=== PATIENT | female | born 1965 | race Caucasian/White ===

== ENCOUNTER 2016-05-05 20:03 | Inpatient (IN) | payer BC, OTHER ==
[~2016-05-05] VITALS: Ht 160 cm; Wt 78.9 kg
[~2016-05-05 20:03] MED LIST: ASPEC81 PO; FERR325T PO; HYDR25TA4 PO; LPR25 PO; MTR600X PO; OXYC5TAB PO; RANITAB6 PO
[2016-05-05] MEDS ORDERED: SODIUM CHLORIDE 0.9% 1000ML 1,000 ML IV STA (20:47)
[2016-05-05] MEDS ORDERED: ONDANSETRON INJ 2 MG/ML 2 ML VIAL IV STA (20:47)
[2016-05-05] MEDS ORDERED: METO25TA56 PO (21:01)
[2016-05-05] MEDS ORDERED: CALC-20 PO (21:01)
--- NOTE | 2016-05-05 21:02 | EMERGENCY ROOM VISIT NOTE ---
History Report prepared by [place]: Yoselyn Cifuentes Under the Supervision of: Alisia AllenO. First contact with patient: 20:44 Chief Complaint: ABDOMINAL PAIN Stated Complaint: SHARP PAIN ON L SIDE History of Present Illness The patient is a 50 year old female who presents to the Emergency Room with complaints of sharp left sided abdominal pain beginning 8 hours ago. The patient states that she was watching TV when her pain began. She reports that nothing makes her pain worse or better. She complains of nausea. The patient denies any blood in the urine, chest pain, shortness of breath, and back pain. She notes that she has a history of hypertension, PVCs, and bone spurs. The patient states that she has had a kidney stone before and the pain was more in her back last time but she was able to pass the stone. She rates her pain as a 10/10 in severity. Source of History: patient Onset: 8 hours ago Position: abdomen (left side) Symptom Intensity: 10/10 Quality: sharp Timing: constant Modifying Factors (Worsening): other (none) Modifying Factors (Relieving): other (none) Associated Symptoms: + nausea, No SOB, No back pain, No chest pain Note: The patient denies any blood in the urine. Review of Systems See HPI for pertinent positives & negatives. A total of 10 systems reviewed and were otherwise negative. Past Medical & Surgical Medical Problems: (1) HTN (hypertension) (2) Menorrhagia (3) PVC (premature ventricular contraction) Family History No pertinent family history stated. Social History Smoking Status: Never Smoker Alcohol Use: none Drug Use: none Marital Status: Housing Status: lives with family Occupation Status: employed Current/Historical Medications Scheduled Aspirin (Aspirin Ec), 81 MG PO DAILY Calcium Carbonate-Vitamin D (Calcium 600 + D), 1 TAB PO BID Cholecalciferol (Vitamin D3), 1,000 INTER.UNIT PO BID Fish Oil ([place]-3), 1 CAP PO BID Hydrochlorothiazide (Hydrochlorothiazide), 25 MG PO DAILY Metoprolol Tartrate (Lopressor) (Lopressor), 12.5 MG PO BID Multiple Vitamin (Multi Vitamin Daily), 1 TAB PO QAM Scheduled PRN Ranitidine Hcl (Zantac 150 Maximum Streng), 150 MG PO HS PRN for Acid Reflux Allergies Coded Allergies: No Known Allergies (Unverified , 05/05/16) Physical Exam Vital Signs Date Time Temp Pulse Resp B/P Pulse Ox O2 Delivery O2 Flow Rate FiO2 05/05/16 20:06 36.8 95 18 190/98 96 Room Air Physical Exam GENERAL: Patient is awake, alert, very anxious and uncomfortable appearing. EYES: The conjunctivae are clear. The pupils are round and reactive. EARS, NOSE, MOUTH AND THROAT: The nose is without any evidence of any deformity. Mucous membranes are moist tongue is midline NECK: The neck is nontender and supple. RESPIRATORY: Normal respiratory effort is noted there is no evidence of wheezing rhonchi or rales CARDIOVASCULAR: Regular rate and rhythm noted there no murmurs rubs or gallops normal S1 normal S2 GASTROINTESTINAL: Bowel sounds are present in all quadrants. Mildly distended but soft, there was left sided abdominal tenderness to palpation but no guarding or rigidity. BACK: No midline tenderness or or step-off noted range of motion in flexion extension as well as rotation no signs of muscle spasm noted MUSCULOSKELETAL/EXTREMITIES: There is no evidence of gross deformity full range of motion is noted in the hips and shoulders SKIN: There is no obvious evidence of any rash. There are no petechiae, pallor or cyanosis noted. NEUROLOGIC: Patient is awake alert and oriented x3 strength is symmetric patellar reflexes are 2+ bilaterally Medical Decision & Procedures ER Provider Diagnostic Interpretation: CT results as stated below per my review and radiologist interpretation. CT SCAN OF THE ABDOMEN AND PELVIS WITHOUT IV CONTRAST FINDINGS: Lung bases: The heart is normal in size and without pericardial effusion. The lung bases are clear noting dependent atelectasis. Liver: The unenhanced liver is mildly enlarged, measuring 20.5 cm in length. The liver demonstrates diminished attenuation consistent with hepatic steatosis. Fatty sparing is seen adjacent to the gallbladder fossa. There is no intrahepatic biliary ductal dilatation. Gallbladder: Unremarkable. Spleen: Normal in size and attenuation. Pancreas: Unremarkable. Adrenal glands: Unremarkable. Kidneys: The unenhanced kidneys are normal in size. There are 2 calcifications identified along the course of the distal left ureter approximately 2.5 cm above the vesicoureteral junction. These are best seen on axial image #371, and the larger stone measures up to 4 mm. These likely represent obstructing ureteral calculi, and there is mild to moderate left hydroureteronephrosis. There is associated perinephric and periureteric stranding and trace fluid. There are at least 5 additional nonobstructing left renal calculi measuring up to 8 mm. There are at least 3 nonobstructing calculi in the lower pole the right kidney measuring up to 3 mm. There is no right-sided hydronephrosis. There is no evidence of contour deforming renal mass lesion. Abdominal vasculature: The abdominal aorta is normal in course and caliber. Bowel: The small bowel and colon are normal in course and caliber. There is mild to moderate colonic fecal retention. There is mild colonic diverticulosis without CT evidence of acute diverticulitis. The appendix is well-visualized and normal. Peritoneum: There is no intraperitoneal free air or abdominal ascites. There is a small fat-containing umbilical hernia. Lymphadenopathy: None. Pelvic viscera: The bladder is normal as visualized. The uterus is surgically absent. There is a 4.5 cm cystic lesion in the right ovary seen on image #361. There is trace free fluid in the cul-de-sac. Skeletal structures: No lytic or blastic lesions are seen. IMPRESSION: 1. There are 2 adjacent calcifications identified along the course of the distal left ureter approximately 2.5 cm above the vesicoureteral junction measuring up to 4 mm. Although the ureter is difficult to follow at this level, these likely represent obstructing left ureteral calculi. There is mild to moderate left-sided hydroureteronephrosis. 2. Additional bilateral nonobstructing renal calculi as above. 3. Hepatomegaly and mild hepatic steatosis. 4. Mild colonic diverticulosis without CT evidence of acute diverticulitis. 5. There is a 4.5 cm simple appearing cystic lesion identified in the right ovary. This may be within physiologic limits. Follow-up pelvic ultrasound in 2-3 months time is recommended for reassessment. A right ovarian cyst was also identified on the 2013 pelvic ultrasound. 6. There is trace free fluid in the cul-de-sac, possibly within physiologic limits. Electronically signed by: Cleve Tom M.D. 05/05/2016 10:06 PM Dictated Date/Time: 05/05/2016 9:53 PM Laboratory Results 05/05/16 20:55 Red Blood Count 4.21, Mean Corpuscular Volume 91.2, Mean Corpuscular Hemoglobin 32.3, Mean Corpuscular Hemoglobin Concent 35.4, Mean Platelet Volume 10.3, Neutrophils (%) (Auto) 88.3, Lymphocytes (%) (Auto) 5.1, Monocytes (%) (Auto) 5.0, Eosinophils (%) (Auto) 1.1, Basophils (%) (Auto) 0.1, Neutrophils # (Auto) 15.80, Lymphocytes # (Auto) 0.91, Monocytes # (Auto) 0.89, Eosinophils # (Auto) 0.19, Basophils # (Auto) 0.02 05/05/16 20:55 Test 05/05/16 20:55 White Blood Count 17.88 K/uL (4.8-10.8) Red Blood Count 4.21 M/uL (4.2-5.4) Hemoglobin 13.6 g/dL (12.0-16.0) Hematocrit 38.4 % (37-47) Mean Corpuscular Volume 91.2 fL (80-100) Mean Corpuscular Hemoglobin 32.3 pg (25-34) Mean Corpuscular Hemoglobin Concent 35.4 g/dl (32-36) Platelet Count 238 K/uL (130-400) Mean Platelet Volume 10.3 fL (7.4-10.4) Neutrophils (%) (Auto) 88.3 % Lymphocytes (%) (Auto) 5.1 % Monocytes (%) (Auto) 5.0 % Eosinophils (%) (Auto) 1.1 % Basophils (%) (Auto) 0.1 % Neutrophils # (Auto) 15.80 K/uL (1.4-6.5) Lymphocytes # (Auto) 0.91 K/uL (1.2-3.4) Monocytes # (Auto) 0.89 K/uL (0.11-0.59) Eosinophils # (Auto) 0.19 K/uL (0-0.5) Basophils # (Auto) 0.02 K/uL (0-0.2) RDW Standard Deviation 43.2 fL (36.4-46.3) RDW Coefficient of Variation 13.0 % (11.5-14.5) Immature Granulocyte % (Auto) 0.4 % Immature Granulocyte # (Auto) 0.07 K/uL (0.00-0.02) Urine Color YELLOW Urine Appearance CLEAR (CLEAR) Urine pH 7.0 (4.5-7.5) Urine Specific [place] 1.013 (1.000-1.030) Urine Protein NEG (NEG) Urine Glucose (UA) NEG (NEG) Urine Ketones NEG (NEG) Urine Occult Blood 2+ (NEG) Urine Nitrite NEG (NEG) Urine Bilirubin NEG (NEG) Urine Urobilinogen NEG (NEG) Urine Leukocyte Esterase TRACE (NEG) Urine WBC (Auto) 5-10 /hpf (0-5) Urine RBC (Auto) 10-30 /hpf (0-4) Urine Hyaline Casts (Auto) 1-5 /lpf (0-5) Urine Epithelial Cells (Auto) >30 /lpf (0-5) Urine Bacteria (Auto) 1+ (NEG) Anion Gap 11.0 mmol/L (3-11) Est Creatinine Clear Calc Drug Dose 66.1 ml/min Estimated GFR () 75.9 Estimated GFR (Non- 65.5 BUN/Creatinine Ratio 19.3 (10-20) Calcium Level 9.2 mg/dl (8.5-10.1) Total Bilirubin 0.2 mg/dl (0.2-1) Direct Bilirubin 0.1 mg/dl (0-0.2) Aspartate Amino Transf (AST/SGOT) 17 U/L (15-37) Alanine Aminotransferase (ALT/SGPT) 22 U/L (12-78) Alkaline Phosphatase 95 U/L (45-117) Total Protein 7.3 gm/dl (6.4-8.2) Albumin 3.6 gm/dl (3.4-5.0) Lipase 134 U/L (73-393) Laboratory results per my review. Medications Administered Medications (Trade) Dose Ordered Sig/Caitlin Route Start Time Stop Time Status Last Admin Dose Admin Sodium Chloride (Nss 1000ml) 1,000 ml @ 999 mls/hr Q1H1M STAT IV 05/05/16 20:47 05/05/16 21:47 DC 05/05/16 21:15 999 MLS/HR Morphine Sulfate (MoRPHine SULFATE INJ) 4 mg Q15M PRN IV 05/05/16 21:00 05/19/16 20:59 05/05/16 21:17 4 MG Ondansetron HCl (Zofran Inj) 4 mg NOW STAT IV 05/05/16 20:47 05/05/16 20:49 DC 05/05/16 21:15 4 MG Ketorolac Tromethamine (Toradol Inj) 30 mg NOW STAT IV 05/05/16 21:10 05/05/16 21:12 DC 05/05/16 21:16 30 MG ED Course 2043: The patient was evaluated in room A3. A complete history and physical examination were performed. 2046: Zofran Inj 4mg IV, NSS 1,000 ml @ 999 mls/hr IV. 2099: Morphine Sulfate 4mg PRN IV pain. 2209: I reevaluated the patient. She is feeling much better. 2109: Toradol Inj 30mg IV. 2122: I reevaluated the patient. She is still having a lot of pain. 2234: I discussed the patient's case with Dr. Be. The patient will be evaluated for further management. 2239: Upon reevaluation, the patient is hemodynamically stable. I discussed results and treatment plan with the patient. She verbalizes agreement and understanding. I spoke with Dr. Be of the [facility]. The patient will be evaluated for further management and care. Medical Decision Differential diagnosis: Etiologies such as renal colic, appendicitis, diverticulitis, mesenteric ischemia, aortic pathology, infections, inflammatory bowel disease, PUD, biliary pathology, UTI, as well as others were entertained. Nursing notes reviewed. The patient is a 50-year-old female who presented to the emergency department for an evaluation of acute left flank pain. The patient had very severe left flank pain. She is a history of kidney stones in the past. She was found have hematuria but also had signs of possible urinary tract infection with some white blood cells in the urinalysis. She was started on IV fluids IV pain medicine and IV antiemetics. She was also given IV antibiotics and Flomax. On subsequent reevaluation she was significantly improved. She was found have an elevated white blood cell count as well as signs of multiple distal left ureteral calculi. She had stranding around her kidney and I was very concerned that this could be consistent with a pyelonephritis with a ureteral calculi. This reason I discussed her case with the on-call [facility] hospitalist group. They've agreed to evaluate the patient in the emergency department for further management and disposition. Consults Time Called: 2224 Consulting Physician: Dr. Be - [facility] Returned Call: [phone] I discussed the patient's case with Dr. Be of [facility]. The patient will be evaluated for further management. Impression Primary Impression: Renal colic Additional Impressions: Hydronephrosis UTI (urinary tract infection) Scribe Attestation The scribe's documentation has been prepared under my direction and personally reviewed by me in its entirety. I confirm that the note above accurately reflects all work, treatment, procedures, and medical decision making performed by me. Departure Information Referrals Miryam Tapia, C.R.N.P (PCP) Patient Instructions My [facility] Problem Qualifiers
[2016-05-05 21:08] LABS: BASO % 0.1 %; BASO ABS # 0.02 K/uL (0-0.2); COMPLETE YES; EOS % 1.1 %; HEMATOCRIT 38.4 % (37-47); IG% 0.4 %; LYMPH % 5.1 %; LYMPH ABS # 0.91 K/uL (1.2-3.4); MEAN CELL VOLUME 91.2 fL (80-100); MEAN CORPUSCULAR HEMOGLOBIN 32.3 pg (25-34); MEAN CORPUSCULAR HGB CONC 35.4 g/dl (32-36); MEAN PLATELET VOLUME 10.3 fL (7.4-10.4); NEUT % 88.3 %; PLATELET COUNT 238 K/uL (130-400); RED BLOOD COUNT 4.21 M/uL (4.2-5.4); WHITE BLOOD COUNT 17.88 K/uL (4.8-10.8)
[2016-05-05] MEDS ORDERED: KETOROLAC TROMETHAMINE 30 MG/ML VIAL IV STA (21:10)
[2016-05-05] MEDS: MoRPHine SULFATE 4 MG/ML 1 ML CARP\\VIAL IV PRN ×2 (21:17→22:54)
[2016-05-05 21:19] LABS: URINE APPEARANCE CLEAR (CLEAR); URINE BILIRUBIN NEG (NEG); URINE COLOR YELLOW; URINE EPITHELIAL CELL AUTO >30 /lpf (0-5); URINE NITRITE NEG (NEG); URINE SPECIFIC GRAVITY 1.013 (1.000-1.030); UROBILINOGEN NEG (NEG)
[2016-05-05 21:21] LABS: MANUAL MICROSCOPIC REQUIRED? NO; REVIEW REQ? NO
[2016-05-05 21:26] LABS: BUN/CREATININE RATIO 19.3 (10-20); CALCIUM 9.2 mg/dl (8.5-10.1); CREATININE 0.99 mg/dl (0.60-1.20)
--- NOTE | 2016-05-05 22:08 | DIAGNOSTIC IMAGING REPORT ---
CT SCAN OF THE ABDOMEN AND PELVIS WITHOUT IV CONTRAST CLINICAL HISTORY: Left flank pain. COMPARISON STUDY: Pelvic ultrasound dated 07/19/2013. TECHNIQUE: CT scan of the abdomen and pelvis is performed from the lung bases to the proximal femora. Images are reviewed in the axial, sagittal, and coronal planes. IV contrast was not administered for this examination as per the referring clinician. Automated dose control exposure was utilized. CT DOSE: 400.00 mGy.cm FINDINGS: Lung bases: The heart is normal in size and without pericardial effusion. The lung bases are clear noting dependent atelectasis. Liver: The unenhanced liver is mildly enlarged, measuring 20.5 cm in length. The liver demonstrates diminished attenuation consistent with hepatic steatosis. Fatty sparing is seen adjacent to the gallbladder fossa. There is no intrahepatic biliary ductal dilatation. Gallbladder: Unremarkable. Spleen: Normal in size and attenuation. Pancreas: Unremarkable. Adrenal glands: Unremarkable. Kidneys: The unenhanced kidneys are normal in size. There are 2 calcifications identified along the course of the distal left ureter approximately 2.5 cm above the vesicoureteral junction. These are best seen on axial image #371, and the larger stone measures up to 4 mm. These likely represent obstructing ureteral calculi, and there is mild to moderate left hydroureteronephrosis. There is associated perinephric and periureteric stranding and trace fluid. There are at least 5 additional nonobstructing left renal calculi measuring up to 8 mm. There are at least 3 nonobstructing calculi in the lower pole the right kidney measuring up to 3 mm. There is no right-sided hydronephrosis. There is no evidence of contour deforming renal mass lesion. Abdominal vasculature: The abdominal aorta is normal in course and caliber. Bowel: The small bowel and colon are normal in course and caliber. There is mild to moderate colonic fecal retention. There is mild colonic diverticulosis without CT evidence of acute diverticulitis. The appendix is well-visualized and normal. Peritoneum: There is no intraperitoneal free air or abdominal ascites. There is a small fat-containing umbilical hernia. Lymphadenopathy: None. Pelvic viscera: The bladder is normal as visualized. The uterus is surgically absent. There is a 4.5 cm cystic lesion in the right ovary seen on image #361. There is trace free fluid in the cul-de-sac. Skeletal structures: No lytic or blastic lesions are seen. IMPRESSION: 1. There are 2 adjacent calcifications identified along the course of the distal left ureter approximately 2.5 cm above the vesicoureteral junction measuring up to 4 mm. Although the ureter is difficult to follow at this level, these likely represent obstructing left ureteral calculi. There is mild to moderate left-sided hydroureteronephrosis. 2. Additional bilateral nonobstructing renal calculi as above. 3. Hepatomegaly and mild hepatic steatosis. 4. Mild colonic diverticulosis without CT evidence of acute diverticulitis. 5. There is a 4.5 cm simple appearing cystic lesion identified in the right ovary. This may be within physiologic limits. Follow-up pelvic ultrasound in 2-3 months time is recommended for reassessment. A right ovarian cyst was also identified on the 2013 pelvic ultrasound. 6. There is trace free fluid in the cul-de-sac, possibly within physiologic limits. Electronically signed by: Cleve Tom M.D. 05/05/2016 10:06 PM Dictated Date/Time: 05/05/2016 9:53 PM
[2016-05-05] MEDS ORDERED: CEFTRIAXONE SOD INJ 1 GM ADDVIAL IV STA (22:15)
[2016-05-05] MEDS ORDERED: TAMSULOSIN HCL 0.4 MG CAP PO ONE (22:30)
[2016-05-06] VITALS (11 sets, daily range): BP systolic 113–148; BP diastolic 69–80; PULSE 74–105; TEMP 36.5–38.2; O2SAT 91–97; Ht 160 cm; Wt 78.9 kg
[2016-05-06] MEDS ORDERED: ZOLPIDEM TARTRATE 5 MG TAB PO PRN (01:15)
[2016-05-06] MEDS ORDERED: ONDANSETRON INJ 2 MG/ML 2 ML VIAL IV PRN ×2 (01:15→08:45)
[2016-05-06] MEDS: NSS + 20MEQ KCL 1000ML 1,000 ML IV SCH ×3 (01:25→22:13)
[2016-05-06] MEDS: MoRPHine SULFATE 2 MG/ML CARP IV PRN (03:29)
--- NOTE | 2016-05-06 04:42 | History and Physical ---
History & Physical Date & Time of Service: May 06, 2016 at 04:33 Chief Complaint: Hydronephrosis Of Left Kidney, Left Ureteral Calcu Primary Care Physician: Miryam Tapia C.R.N.P History of Present Illness Source: patient, spouse The patient is a 50-year-old female who presents emergency department with complaint of left-sided abdominal pain that began about 8 hours prior to arrival. She has had a history of kidney stones many years ago, and reports that the pain at that time was more in her back but she was able to pass the stone on her own. She does not remember the name of her urologist at that time. She reports that she was watching TV at the time the pain began. She denies any blood in urine, dysuria or urinary frequency. Past Medical/Surgical History Medical Problems: (1) HTN (hypertension) Status: Chronic (2) PVC (premature ventricular contraction) Status: Chronic Social History Smoking Status: Never Smoker Smokeless Tobacco Use: No Alcohol Use: none Drug Use: none Marital Status: Housing status: lives with family Occupational Status: employed Multi-Drug Resistant Organisms History of MDRO: No Allergies Coded Allergies: No Known Allergies (Unverified , 05/05/16) Home Medications Scheduled Aspirin (Aspirin Ec), 81 MG PO DAILY Calcium Carbonate-Vitamin D (Calcium 600 + D), 1 TAB PO BID Cholecalciferol (Vitamin D3), 1,000 INTER.UNIT PO BID Fish Oil (Decherd-3), 1 CAP PO BID Hydrochlorothiazide (Hydrochlorothiazide), 25 MG PO DAILY Metoprolol Tartrate (Lopressor) (Lopressor), 12.5 MG PO BID Multiple Vitamin (Multi Vitamin Daily), 1 TAB PO QAM Scheduled PRN Ranitidine Hcl (Zantac 150 Maximum Streng), 150 MG PO HS PRN for Acid Reflux Review of Systems The patient denies chest pain, palpitations, shortness of breath, cough, lower extremity swelling, vision change, hearing change, sore throat, fevers, chills, sweats, weight change, fatigue, nausea, vomiting, blood in urine or stool, dysuria, urinary frequency or urgency, lightheadedness, dizziness, headache, memory loss, rash, abnormal bruising or bleeding, imbalance, focal or generalized weakness, numbness or tingling in arms or legs, arthralgias or myalgias, neck pain, night sweats, or allergy symptoms. The review of systems is otherwise negative other than for that already noted above, and at least 10 systems have been reviewed. Physical Exam Vital Signs Date Time Temp Pulse Resp B/P Pulse Ox O2 Delivery O2 Flow Rate FiO2 05/06/16 00:45 Room Air 05/06/16 00:40 37.2 99 16 131/80 94 Room Air 05/05/16 22:49 86 18 136/82 93 Room Air 05/05/16 20:06 36.8 95 18 190/98 96 Room Air The patient is awake, well-developed and adequately nourished, alert and oriented 3, normocephalic and atraumatic, lying in bed and in no further acute distress after receiving IV pain medication. HEENT--PERRL, EOMI, mucous membranes moist, and oropharynx normal. Neck--supple, no JVD or bruits, thyroid normal, trachea midline, no adenopathy. Heart--normal S1 and S2, no extra beats, no murmurs, rubs or gallops. Lungs--clear bilaterally with good air movement, no respiratory distress, no accessory muscle use. Abdomen--normal bowel sounds and soft, nontender and nondistended, no hernias or masses, no organomegaly. Extremities--no cyanosis, clubbing or edema. There are good distal pulses b/l. Dermatologic--normal skin turgor, normal color, warm and dry, no abnormal lymph nodes, no rash. Neurologic--cranial nerves II through XII grossly intact, motor and sensory examination normal. Rheumatologic--normal range of motion, nontender, muscles and joints. Psychiatric--normal affect. Diagnostics Laboratory Results Results Past 24 Hours Test 05/05/16 20:55 Range/Units White Blood Count 17.88 4.8-10.8 K/uL Red Blood Count 4.21 4.2-5.4 M/uL Hemoglobin 13.6 12.0-16.0 g/dL Hematocrit 38.4 37-47 % Mean Corpuscular Volume 91.2 80-100 fL Mean Corpuscular Hemoglobin 32.3 25-34 pg Mean Corpuscular Hemoglobin Concent 35.4 32-36 g/dl Platelet Count 238 130-400 K/uL Mean Platelet Volume 10.3 7.4-10.4 fL Neutrophils (%) (Auto) 88.3 % Lymphocytes (%) (Auto) 5.1 % Monocytes (%) (Auto) 5.0 % Eosinophils (%) (Auto) 1.1 % Basophils (%) (Auto) 0.1 % Neutrophils # (Auto) 15.80 1.4-6.5 K/uL Lymphocytes # (Auto) 0.91 1.2-3.4 K/uL Monocytes # (Auto) 0.89 0.11-0.59 K/uL Eosinophils # (Auto) 0.19 0-0.5 K/uL Basophils # (Auto) 0.02 0-0.2 K/uL RDW Standard Deviation 43.2 36.4-46.3 fL RDW Coefficient of Variation 13.0 11.5-14.5 % Immature Granulocyte % (Auto) 0.4 % Immature Granulocyte # (Auto) 0.07 0.00-0.02 K/uL Urine Color YELLOW Urine Appearance CLEAR CLEAR Urine pH 7.0 4.5-7.5 Urine Specific [place] 1.013 1.000-1.030 Urine Protein NEG NEG Urine Glucose (UA) NEG NEG Urine Ketones NEG NEG Urine Occult Blood 2+ NEG Urine Nitrite NEG NEG Urine Bilirubin NEG NEG Urine Urobilinogen NEG NEG Urine Leukocyte Esterase TRACE NEG Urine WBC (Auto) 5-10 0-5 /hpf Urine RBC (Auto) 10-30 0-4 /hpf Urine Hyaline Casts (Auto) 1-5 0-5 /lpf Urine Epithelial Cells (Auto) >30 0-5 /lpf Urine Bacteria (Auto) 1+ NEG Sodium Level 142 136-145 mmol/L Potassium Level 4.0 3.5-5.1 mmol/L Chloride Level 104 98-107 mmol/L Carbon Dioxide Level 27 21-32 mmol/L Anion Gap 11.0 3-11 mmol/L Blood Urea Nitrogen 19 7-18 mg/dl Creatinine 0.99 0.60-1.20 mg/dl Est Creatinine Clear Calc Drug Dose 66.1 ml/min Estimated GFR () 75.9 Estimated GFR (Non- 65.5 BUN/Creatinine Ratio 19.3 10-20 Random Glucose 143 70-99 mg/dl Calcium Level 9.2 8.5-10.1 mg/dl Total Bilirubin 0.2 0.2-1 mg/dl Direct Bilirubin 0.1 0-0.2 mg/dl Aspartate Amino Transf (AST/SGOT) 17 15-37 U/L Alanine Aminotransferase (ALT/SGPT) 22 12-78 U/L Alkaline Phosphatase 95 45-117 U/L Total Protein 7.3 6.4-8.2 gm/dl Albumin 3.6 3.4-5.0 gm/dl Lipase 134 73-393 U/L Microbiology Results 05/05/16 Urine Culture, Received Pending Diagnostic Radiology Patient Name: GUILLAUME POLANCO Unit Number: [id number] Dictated: 05/05/162152 Transcribed: 05/05/162152 EV Printed Date/Time: [~ rep prt dt]/[~ rep prt tm] [~ rep ct labl] - [~ rep ct ivnm] [facility] [place] [place] [address] Dictated: 05/05/162152 Transcribed: 05/05/162152 EV Printed Date/Time: [~ rep prt dt]/[~ rep prt tm] [~ rep ct labl] - [~ rep ct ivnm] CT SCAN OF THE ABDOMEN AND PELVIS WITHOUT IV CONTRAST CLINICAL HISTORY: Left flank pain. COMPARISON STUDY: Pelvic ultrasound dated 07/19/2013. TECHNIQUE: CT scan of the abdomen and pelvis is performed from the lung bases to the proximal femora. Images are reviewed in the axial, sagittal, and coronal planes. IV contrast was not administered for this examination as per the referring clinician. Automated dose control exposure was utilized. CT DOSE: 400.00 mGy.cm FINDINGS: Lung bases: The heart is normal in size and without pericardial effusion. The lung bases are clear noting dependent atelectasis. Liver: The unenhanced liver is mildly enlarged, measuring 20.5 cm in length. The liver demonstrates diminished attenuation consistent with hepatic steatosis. Fatty sparing is seen adjacent to the gallbladder fossa. There is no intrahepatic biliary ductal dilatation. Gallbladder: Unremarkable. Spleen: Normal in size and attenuation. Pancreas: Unremarkable. Adrenal glands: Unremarkable. Kidneys: The unenhanced kidneys are normal in size. There are 2 calcifications identified along the course of the distal left ureter approximately 2.5 cm above the vesicoureteral junction. These are best seen on axial image #371, and the larger stone measures up to 4 mm. These likely represent obstructing ureteral calculi, and there is mild to moderate left hydroureteronephrosis. There is associated perinephric and periureteric stranding and trace fluid. There are at least 5 additional nonobstructing left renal calculi measuring up to 8 mm. There are at least 3 nonobstructing calculi in the lower pole the right kidney measuring up to 3 mm. There is no right-sided hydronephrosis. There is no evidence of contour deforming renal mass lesion. Abdominal vasculature: The abdominal aorta is normal in course and caliber. Bowel: The small bowel and colon are normal in course and caliber. There is mild to moderate colonic fecal retention. There is mild colonic diverticulosis without CT evidence of acute diverticulitis. The appendix is well-visualized and normal. Peritoneum: There is no intraperitoneal free air or abdominal ascites. There is a small fat-containing umbilical hernia. Lymphadenopathy: None. Pelvic viscera: The bladder is normal as visualized. The uterus is surgically absent. There is a 4.5 cm cystic lesion in the right ovary seen on image #361. There is trace free fluid in the cul-de-sac. Skeletal structures: No lytic or blastic lesions are seen. IMPRESSION: 1. There are 2 adjacent calcifications identified along the course of the distal left ureter approximately 2.5 cm above the vesicoureteral junction measuring up to 4 mm. Although the ureter is difficult to follow at this level, these likely represent obstructing left ureteral calculi. There is mild to moderate left-sided hydroureteronephrosis. 2. Additional bilateral nonobstructing renal calculi as above. 3. Hepatomegaly and mild hepatic steatosis. 4. Mild colonic diverticulosis without CT evidence of acute diverticulitis. 5. There is a 4.5 cm simple appearing cystic lesion identified in the right ovary. This may be within physiologic limits. Follow-up pelvic ultrasound in 2-3 months time is recommended for reassessment. A right ovarian cyst was also identified on the 2013 pelvic ultrasound. 6. There is trace free fluid in the cul-de-sac, possibly within physiologic limits. Electronically signed by: Cleve Tom M.D. 05/05/2016 10:06 PM Dictated Date/Time: 05/05/2016 9:53 PM The status of this report is Signed. Draft = Not yet reviewed or approved by Radiologist. Signed = Reviewed and approved by Radiologist. <AttendingPhy></AttendingPhy> <FamilyPhy>Miryam Tapia C.R.N.P</FamilyPhy> < PrimaryPhy>Miryam Tapia C.R.N.P</PrimaryPhy> <UnitNumber>[id number]</ UnitNumber> <VisitNumber>[id number]</VisitNumber> <PatientName>GUILLAUME POLANCO< /PatientName> <DateOfBirth>1965</DateOfBirth> <Location>[facility]</Location> < ServiceDate>05/05/16</ServiceDate> <MNE>ESINDI</MNE> <OrderingPhy>Bernabe Rivas D.O.</OrderingPhy> <OrderingPhyMNE>f rep ord dr riggs</OrderingPhyMNE> <DictatingPhyMNE>f rep dict dr riggs</DictatingPhyMNE> <CCListMNE>f rep ct oneil</ CCListMNE> <AdmittingPhyMNE>f pt admit dr riggs</AdmittingPhyMNE> <AttendingPhyMNE >f pt attend dr riggs</AttendingPhyMNE> <ConsultingPhyMNE>f pt consult dr riggs</ConsultingPhyMNE> <FamilyPhyMNE>f pt fam dr riggs</FamilyPhyMNE> <OtherPhyMNE>f pt other dr riggs</OtherPhyMNE> < PrimaryPhyMNE>f pt prim care dr riggs</PrimaryPhyMNE> <ReferringPhyMNE>f pt referring dr riggs</ReferringPhyMNE> Impression Assessment and Plan Left distal ureteral calculi/left hydroureteronephrosis--the patient will be admitted to the medical surgical floor. She'll be kept nothing by mouth for possible procedure. We'll place on normal saline with potassium 20 mEq at 100 ML's per hour, ceftriaxone 1 g IV daily, and consult urology. Right ovarian cyst 4.5 cm--noted on CT of the abdomen and pelvis without IV contrast. Patient will be made aware to follow-up with her granular operator for further management. Hypertension--continue metoprolol tartrate 12.5 mg by mouth twice a day. Hold aspirin 81 mg by mouth daily and HCTZ 25 mg by mouth daily. GERD--change ranitidine 150 mg by mouth at bedtime when necessary to famotidine 20 mg IV twice a day. While nothing by mouth, will hold multivitamin daily, fish oil twice a day, vitamin D3 1000 international by mouth twice a day, and calcium 600+ D twice a day. Level of Care Med/Surg Advanced Directives Existing Advance Directive: No Existing Living Will: No Existing Power of Netbackup Engineer: No Resuscitation Status FULL RESUSCITATION VTE Prophylaxis VTE Risk Assessment Done? Y/N: Yes Risk Level: Low Given or contraindicated: SCD's Social Service Consult None Apply
[2016-05-06] MEDS: FAMOTIDINE IV INJ 20 MG in DEXTROSE 5% 100ML 100 ML IV SCH ×2 (05:54→19:36)
[2016-05-06] MEDS: ACETAMINOPHEN IV 100 ML IV PRN (06:24)
[2016-05-06] MEDS: METOPROLOL TARTRATE 25 MG TAB PO SCH ×2 (07:29→21:24)
[2016-05-06] MEDS ORDERED: CIPROFLOXACIN 400MG / 200ML D5W IV SCH (07:30)
--- NOTE | 2016-05-06 07:47 | Urology Consultation ---
History General Date of Service: May 06, 2016. Chief Complaint: left flank pain Primary Care Physician: Miryam Tapia C.R.N.P Pt seen a urologist before?: No History of Present Illness 50 yo female presents to [facility] last evening with c/o left flank pain and nausea that started yesterday afternoon. CT scan shows 2 possible distal left ureteral stones measuring up to 4mm. Further left renal stones noted as well. The pt does report a previous hx of passing a stone many years ago. She has never seen a urologist for this issue. She reports pain 2/10 this morning. Denies dysuria or hematuria. She is noted to be febrile this morning at 38.2C. White count of 17.88 this morning. Cr of 0.99. UC&S pending. She has been started on Rocephin. Imaging Imaging: CT Laboratory Last 24 Hours Test 05/05/16 20:55 White Blood Count 17.88 K/uL Red Blood Count 4.21 M/uL Hemoglobin 13.6 g/dL Hematocrit 38.4 % Mean Corpuscular Volume 91.2 fL Mean Corpuscular Hemoglobin 32.3 pg Mean Corpuscular Hemoglobin Concent 35.4 g/dl Platelet Count 238 K/uL Mean Platelet Volume 10.3 fL Neutrophils (%) (Auto) 88.3 % Lymphocytes (%) (Auto) 5.1 % Monocytes (%) (Auto) 5.0 % Eosinophils (%) (Auto) 1.1 % Basophils (%) (Auto) 0.1 % Neutrophils # (Auto) 15.80 K/uL Lymphocytes # (Auto) 0.91 K/uL Monocytes # (Auto) 0.89 K/uL Eosinophils # (Auto) 0.19 K/uL Basophils # (Auto) 0.02 K/uL RDW Standard Deviation 43.2 fL RDW Coefficient of Variation 13.0 % Immature Granulocyte % (Auto) 0.4 % Immature Granulocyte # (Auto) 0.07 K/uL Urine Color YELLOW Urine Appearance CLEAR Urine pH 7.0 Urine Specific [place] 1.013 Urine Protein NEG Urine Glucose (UA) NEG Urine Ketones NEG Urine Occult Blood 2+ Urine Nitrite NEG Urine Bilirubin NEG Urine Urobilinogen NEG Urine Leukocyte Esterase TRACE Urine WBC (Auto) 5-10 /hpf Urine RBC (Auto) 10-30 /hpf Urine Hyaline Casts (Auto) 1-5 /lpf Urine Epithelial Cells (Auto) >30 /lpf Urine Bacteria (Auto) 1+ Sodium Level 142 mmol/L Potassium Level 4.0 mmol/L Chloride Level 104 mmol/L Carbon Dioxide Level 27 mmol/L Anion Gap 11.0 mmol/L Blood Urea Nitrogen 19 mg/dl Creatinine 0.99 mg/dl Est Creatinine Clear Calc Drug Dose 66.1 ml/min Estimated GFR () 75.9 Estimated GFR (Non- 65.5 BUN/Creatinine Ratio 19.3 Random Glucose 143 mg/dl Calcium Level 9.2 mg/dl Total Bilirubin 0.2 mg/dl Direct Bilirubin 0.1 mg/dl Aspartate Amino Transf (AST/SGOT) 17 U/L Alanine Aminotransferase (ALT/SGPT) 22 U/L Alkaline Phosphatase 95 U/L Total Protein 7.3 gm/dl Albumin 3.6 gm/dl Lipase 134 U/L Problem List Medical Problems: (1) Hydronephrosis Status: Acute (2) Renal colic Status: Acute (3) UTI (urinary tract infection) Status: Acute Past History anxiety, depression, GERD, hypertension, urinary tract infection, other (PVCs, anemia, eczema, menorrhagia) Past Surgical History: , hysterectomy ([facility] July 2015), tubal ligation Family History non-contributory Social History Hx Tobacco Use In Past Year?: No Smoking: non-smoker Alcohol: never Drug use: none Marital status: Housing status: lives with family Occupation status: employed History of MDRO No Allergies Coded Allergies: No Known Allergies (Unverified , 05/05/16) Medications Home Medications: Home Meds and Scripts Medications Dose Route/Sig Max Daily Dose Days Date Category Vitamin D3 (Cholecalciferol) 1,000 Unit Tab 1,000 Inter.unit PO BID 05/05/16 Reported Calcium 600 + D (Calcium Carbonate-Vitamin D) 1 Tab Tab 1 Tab PO BID 05/05/16 Reported Aspirin Ec (Aspirin) 81 Mg Tab 81 Mg PO DAILY 05/05/16 Reported Hydrochlorothiazide 25 Mg Tab 25 Mg PO DAILY 05/05/16 Reported Lopressor (Metoprolol Tartrate) 25 Mg Tab 12.5 Mg PO BID 05/05/[address] [facility]-3 (Fish Oil) 1 Ea Cap 1 Cap PO BID 07/14/15 Reported Multi Vitamin Daily (Multiple Vitamin) 1 Tab Tab 1 Tab PO QAM 02/17/14 Reported Zantac 150 Maximum Streng (Ranitidine Hcl) 150 Mg Tab 150 Mg PO HS PRN 02/17/14 Reported Inpatient Medications: Current Inpatient Medications Medications (Trade) Dose Ordered Sig/Caitlin Route Start Time Stop Time Status Last Admin Dose Admin Acetaminophen (Tylenol Tab) 650 mg Q4H PRN PO 05/06/16 01:15 06/05/16 01:14 Zolpidem Tartrate (Ambien Tab) 5 mg HSZ PRN PO 05/06/16 01:15 06/05/16 01:14 Metoprolol Tartrate (Lopressor Tab) 12.5 mg BID PO 05/06/16 09:00 06/05/16 08:59 05/06/16 07:29 12.5 MG Ondansetron HCl 4 mg 4 mg Q6H PRN IV 05/06/16 01:15 06/05/16 01:14 Acetaminophen 100 ml @ 400 mls/hr Q8H PRN IV 05/06/16 01:15 06/05/16 01:14 05/06/16 06:24 400 MLS/HR Potassium Chloride/Sodium Chloride (Nss + 20meq KCl 1000ml) 1,000 ml @ 100 mls/hr Q10H IV 05/06/16 01:13 06/05/16 01:12 05/06/16 01:25 100 MLS/HR Morphine Sulfate (MoRPHine SULFATE INJ) 2 mg Q2H PRN IV 05/06/16 01:15 05/20/16 01:14 05/06/16 03:29 2 MG Morphine Sulfate 4 mg 4 mg Q2H PRN IV 05/06/16 01:15 05/20/16 01:14 Pantoprazole Sodium 40 mg/ Syringe 10 ml @ 5 mls/min DAILY@11 IV 05/06/16 11:00 06/05/16 10:59 Ceftriaxone Sodium 1 gm/ Dextrose 50 ml @ 100 mls/hr Q24H IV 05/06/16 23:00 05/14/16 23:29 Famotidine/ Dextrose (Pepcid IV Inj/ D5 100ml) 102 ml @ 200 mls/hr Q12H IV 05/06/16 06:00 06/05/16 05:59 05/06/16 05:54 200 MLS/HR Ciprofloxacin/ Dextrose (Cipro / D5w) 400 mg PREOP ONCE IV 05/06/16 07:30 05/06/16 07:31 UNV Tamsulosin HCl (Flomax Cap) 0.4 mg HS PO 05/06/16 21:00 06/05/16 20:59 Review of Systems Review of Systems Constitutional: + fever, No chills Eyes: No double vision Neurological: No dizzy Endocrine: No excessive thirst Gastrointestinal: + abdominal pain (LLQ 2/10), + nausea, No vomiting Cardiovascular: No chest pain Respiratory: No shortness of breath Skin: No rash Musculoskeletal: + back pain (left low back ) Female : No blood in urine, No painful urination Physical Exam Vital Signs: Vital Signs Past 12 Hours Date Time Temp Pulse Resp B/P Pulse Ox O2 Delivery O2 Flow Rate FiO2 05/06/16 07:09 38.2 105 18 122/75 91 Room Air 05/06/16 00:45 Room Air 05/06/16 00:40 37.2 99 16 131/80 94 Room Air 05/05/16 22:49 86 18 136/82 93 Room Air 05/05/16 20:06 36.8 95 18 190/98 96 Room Air Physical Exam: General Appearance: no apparent distress Eyes: bilateral eyes normal inspection ENT: hearing grossly normal Neck: no JVD Respiratory/Chest: no respiratory distress, no accessory muscle use Cardiovascular: no JVD Extremities: normal inspection Neurologic/Psychiatric: alert, normal mood/affect, oriented x 3 Skin: normal color Assessment & Plan Assessment & Plan Treatment Planned: cystoscopy w/ stent A/P: Distal left ureteral stone x 2 with fever Recommend the pt go for cysto with left ureteral stent placement in the setting of stone with fever. Risks and benefits of the procedure discussed with the pt. All questions answered. Pt agrees to the procedure at this time. Consent obtained. Will order additional pre-op Cipro in the setting of fever. Will obtain pre-op chest x-ray and EKG. Will order blood cultures this morning. Continue IV Rocephin pending culture results. Recommend she remain inpatient until she has been afebrile for at least 24hrs. Thanks for the consult. Will continue to follow along with primary service at this time. ADDENDUM: Febrile this AM. Tachycardic. Recommend immediate ureteral stent placement.
[2016-05-06] MEDS ORDERED: FENTANYL CITRATE INJ 50 MCG/1 ML 2 ML VIAL ONE (08:02)
[2016-05-06] MEDS ORDERED: MIDAZOLAM HCL 1 MG/ML 2ML VIAL ONE (08:02)
[2016-05-06] MEDS ORDERED: PROPOFOL IV EMULSION 10 MG/ML 20 ML VIAL IV ONE ×2 (08:05→08:44)
[2016-05-06] MEDS ORDERED: LIDOCAINE HCL 2% 2 ML VIAL (20MG/ML) ONE (08:05)
--- NOTE | 2016-05-06 08:14 | DIAGNOSTIC IMAGING REPORT ---
CHEST 2 VIEWS ROUTINE CLINICAL HISTORY: Preoperative evaluation. Left ureteral stone. COMPARISON STUDY: Chest CT and chest radiograph February 17, 2014 FINDINGS: Lung volumes are normal. Linear left basilar opacity is suggestive of atelectasis. There is no pneumothorax or pleural effusion. Pulmonary vascularity is normal. Cardiac size is normal. Mediastinal contours are normal. There is no evidence of pulmonary edema. IMPRESSION: No acute cardiopulmonary findings. Electronically signed by: Ethan Carson M.D. 05/06/2016 8:12 AM Dictated Date/Time: 05/06/2016 8:08 AM
[2016-05-06] MEDS ORDERED: EpHEDrine SULFATE INJ 50 MG/ML AMP IV PRN (08:45)
[2016-05-06] MEDS ORDERED: FENTANYL CITRATE INJ 50 MCG/1 ML 2 ML VIAL IV PRN (08:45)
[2016-05-06] MEDS ORDERED: ATROPINE SULFATE 0.1 MG/ML 5ML SYR IV PRN (08:45)
[2016-05-06] MEDS ORDERED: KETOROLAC TROMETHAMINE 30 MG/ML VIAL ONE (08:50)
--- NOTE | 2016-05-06 08:57 | [facility] Post Operative Brief Note ---
Immediate Operative Summary Operative Date May 06, 2016. Pre-Operative Diagnosis Left ureteral stone and sepsis Post-Operative Diagnosis left ureteral stone and sepsis Procedure(s) Performed cystoscopy; L ureteral stent insertion ([id number]) Surgeon Veena Smart MD Wood Flooring Specialist Surgeon(s) none Estimated Blood Loss 0cc Findings healthy appearing bladder. Specimens none Drains [id number] Anesthesia MAC Complication(s) None Disposition Recovery Room / PACU (stable)
--- NOTE | 2016-05-06 09:08 | DIAGNOSTIC IMAGING REPORT ---
FLUOROSCOPIC IMAGE FROM LEFT RETROGRADE EXAM WITH STENT INSERTION CLINICAL HISTORY: Left-sided stent placement. COMPARISON STUDY: CT of the abdomen and pelvis May 05, 2016. FLUOROSCOPY TIME: 8.5 seconds. FINDINGS: A single fluoroscopic image demonstrates the proximal aspect of a left ureteral stent which projects over the left renal pelvis. Several left renal calculi are suspected. IMPRESSION: Fluoroscopic image demonstrating placement of a left ureteral stent. Electronically signed by: Ethan Carson M.D. 05/06/2016 9:06 AM Dictated Date/Time: 05/06/2016 9:05 AM
--- NOTE | 2016-05-06 09:32 | OPERATIVE REPORT ---
DATE OF OPERATION: 05/06/2016 PREOPERATIVE DIAGNOSES: Left ureteral stone and sepsis. POSTOPERATIVE DIAGNOSES: Left ureteral stone and sepsis. PROCEDURE PERFORMED: Cystoscopy, left ureteral stent insertion 6-Swazi x 24 cm. ANESTHESIA: Monitored anesthesia care/sedation. ESTIMATED BLOOD LOSS: Zero. URINE OUTPUT: Not recorded. SPECIMENS: None. COMPLICATIONS: None. DESCRIPTION OF THE PROCEDURE: Marylin Mortensen was identified in the preoperative holding area. Appropriate informed consents were reviewed and completed, and she was transported to the operating suite. She received Rocephin on the floor last night and an additional dose of ciprofloxacin this morning. Adequate sedation was achieved and she was placed in dorsal lithotomy position and sterilely prepped and draped. I began the case by passing a 22-Swazi cystoscope and 30-degree lens. Full inspection of the bladder was carried out without identifying any mucosal lesions or other abnormalities. Ureteral orifices were in orthotopic position. I then turned my attention to the left ureteral orifice and cannulated it with a Sensor wire and a 5-Swazi open-ended catheter. I advanced the wire to the kidney without difficulty. I then removed the scope and the catheter. I placed a 6-Swazi 24-cm double-J ureteral stent over the existing wire. There was a good curl in the kidney as well as the bladder. I subsequently drained the bladder and concluded the case. The patient tolerated the procedure well, was reversed from anesthesia and taken to the PACU in stable condition. I attest to the content of the Intraoperative Record and any orders documented therein. Any exceptio ns are noted below.
--- NOTE | 2016-05-06 09:49 | Anesthesiology Progress Note ---
Anesthesia Post Op Note Date & Time May 06, 2016 at 09:48 Vital Signs Pain Intensity: 0 Vital Signs Past 12 Hours Date Time Temp Pulse Resp B/P Pulse Ox O2 Delivery O2 Flow Rate FiO2 05/06/16 09:45 37.3 77 17 124/70 93 Room Air 05/06/16 09:43 124/70 05/06/16 09:42 77 17 05/06/16 09:42 78 17 93 05/06/16 09:38 131/71 05/06/16 09:37 80 18 94 05/06/16 09:37 80 18 05/06/16 09:33 126/69 05/06/16 09:32 84 17 05/06/16 09:32 83 17 99 05/06/16 09:28 126/69 05/06/16 09:27 77 17 100 05/06/16 09:27 76 17 05/06/16 09:23 131/72 05/06/16 09:22 78 18 100 05/06/16 09:22 79 18 05/06/16 09:18 120/69 05/06/16 09:17 79 18 05/06/16 09:17 79 18 99 05/06/16 09:13 128/70 05/06/16 09:12 81 18 99 05/06/16 09:12 81 18 05/06/16 09:08 123/72 05/06/16 09:07 83 18 05/06/16 09:07 83 18 99 05/06/16 09:03 121/68 05/06/16 09:02 36.9 86 16 122/72 99 Mask 10 05/06/16 09:02 86 22 100 05/06/16 09:02 86 22 05/06/16 08:15 36.8 104 18 127/78 94 Room Air 05/06/16 07:20 Room Air 05/06/16 07:09 38.2 105 18 122/75 91 Room Air 05/06/16 00:45 Room Air 05/06/16 00:40 37.2 99 16 131/80 94 Room Air 05/05/16 22:49 86 18 136/82 93 Room Air Notes Mental Status: alert / awake / arousable, participated in evaluation Pt Amnestic to Procedure: Yes Nausea / Vomiting: adequately controlled Pain: adequately controlled Airway Patency, RR, SpO2: stable & adequate BP & HR: stable & adequate Hydration State: stable & adequate Anesthetic Complications: no major complications apparent
[2016-05-06] MEDS: PANTOprazole INJ 40 MG in SYRINGE 0 ML IV SCH (10:48)
[2016-05-06] MEDS: MoRPHine SULFATE 4 MG/ML 1 ML CARP\\VIAL IV PRN ×2 (15:56→22:19)
--- NOTE | 2016-05-06 16:10 | Progress Note ---
Subjective Date of Service: May 06, 2016. Subjective Pt evaluation today including: conversation w/ patient, conversation w/ family , physical exam, chart review, lab review, review of studies Voiding: voiding difficulty Problem List Medical Problems: (1) Hydronephrosis Status: Acute (2) Renal colic Status: Acute (3) UTI (urinary tract infection) Status: Acute Review of Systems Constitutional: No chills, No fever Eyes: No worsening of vision ENT: No hearing loss Respiratory: No cough, No dyspnea on exertion, No shortness of breath Cardiac: No chest pain, No edema Abdomen: + pain Musculoskeletal: No joint pain Female : + dysuria, + urinary frequency Neurologic: No paralysis, No weakness Skin: No rash Medications Current Inpatient Medications Medications (Trade) Dose Ordered Sig/Caitlin Route Start Time Stop Time Status Last Admin Dose Admin Acetaminophen (Tylenol Tab) 650 mg Q4H PRN PO 05/06/16 01:15 06/05/16 01:14 Zolpidem Tartrate (Ambien Tab) 5 mg HSZ PRN PO 05/06/16 01:15 06/05/16 01:14 Metoprolol Tartrate (Lopressor Tab) 12.5 mg BID PO 05/06/16 09:00 06/05/16 08:59 05/06/16 07:29 12.5 MG Ondansetron HCl 4 mg 4 mg Q6H PRN IV 05/06/16 01:15 06/05/16 01:14 Acetaminophen 100 ml @ 400 mls/hr Q8H PRN IV 05/06/16 01:15 06/05/16 01:14 05/06/16 06:24 400 MLS/HR Potassium Chloride/Sodium Chloride (Nss + 20meq KCl 1000ml) 1,000 ml @ 100 mls/hr Q10H IV 05/06/16 01:13 06/05/16 01:12 05/06/16 12:09 100 MLS/HR Morphine Sulfate (MoRPHine SULFATE INJ) 2 mg Q2H PRN IV 05/06/16 01:15 05/20/16 01:14 05/06/16 03:29 2 MG Morphine Sulfate 4 mg 4 mg Q2H PRN IV 05/06/16 01:15 05/20/16 01:14 Pantoprazole Sodium 40 mg/ Syringe 10 ml @ 5 mls/min DAILY@11 IV 05/06/16 11:00 06/05/16 10:59 05/06/16 10:48 5 MLS/MIN Ceftriaxone Sodium 1 gm/ Dextrose 50 ml @ 100 mls/hr Q24H IV 05/06/16 23:00 05/14/16 23:29 Famotidine/ Dextrose (Pepcid IV Inj/ D5 100ml) 102 ml @ 200 mls/hr Q12H IV 05/06/16 06:00 06/05/16 05:59 05/06/16 05:54 200 MLS/HR Tamsulosin HCl (Flomax Cap) 0.4 mg HS PO 05/06/16 21:00 06/05/16 20:59 Objective Vital Signs Date Time Temp Pulse Resp B/P Pulse Ox O2 Delivery O2 Flow Rate FiO2 05/06/16 14:57 37.0 91 18 148/80 96 Room Air 05/06/16 13:02 85 16 138/79 97 05/06/16 12:00 80 16 120/74 96 05/06/16 10:58 36.5 75 16 116/73 96 Room Air 05/06/16 10:30 36.9 74 16 117/75 93 Room Air 05/06/16 10:00 93 Room Air 05/06/16 10:00 37.1 79 16 113/74 93 Room Air 05/06/16 10:00 Room Air 05/06/16 09:45 37.3 77 17 124/70 93 Room Air 05/06/16 09:43 124/70 05/06/16 09:42 77 17 05/06/16 09:42 78 17 93 05/06/16 09:38 131/71 05/06/16 09:37 80 18 94 05/06/16 09:37 80 18 05/06/16 09:33 126/69 05/06/16 09:32 84 17 05/06/16 09:32 83 17 99 05/06/16 09:28 126/69 05/06/16 09:27 77 17 100 05/06/16 09:27 76 17 05/06/16 09:23 131/72 05/06/16 09:22 78 18 100 05/06/16 09:22 79 18 05/06/16 09:18 120/69 05/06/16 09:17 79 18 05/06/16 09:17 79 18 99 05/06/16 09:13 128/70 05/06/16 09:12 81 18 99 05/06/16 09:12 81 18 05/06/16 09:08 123/72 05/06/16 09:07 83 18 05/06/16 09:07 83 18 99 05/06/16 09:03 121/68 05/06/16 09:02 36.9 86 16 122/72 99 Mask 10 05/06/16 09:02 86 22 100 05/06/16 09:02 86 22 05/06/16 08:15 36.8 104 18 127/78 94 Room Air 05/06/16 07:20 Room Air 05/06/16 07:09 38.2 105 18 122/75 91 Room Air 05/06/16 00:45 Room Air 05/06/16 00:40 37.2 99 16 131/80 94 Room Air 05/05/16 22:49 86 18 136/82 93 Room Air 05/05/16 20:06 36.8 95 18 190/98 96 Room Air Physical Exam General Appearance: WD/WN, no apparent distress Eyes: normal inspection, PERRL, EOMI ENT: normal ENT inspection, hearing grossly normal, TMs normal, pharynx normal Neck: supple, no adenopathy, thyroid normal Respiratory/Chest: chest non-tender, lungs clear, normal breath sounds, no respiratory distress, no accessory muscle use Cardiovascular: regular rate, rhythm, no edema, no gallop, no JVD, no murmur Abdomen: normal bowel sounds, soft, + tenderness Extremities: normal range of motion, non-tender, normal inspection 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, no motor/sensory deficits, alert, normal mood/affect, oriented x 3 Skin: normal color, warm/dry, no rash Laboratory Results Last 24 Hours Test 05/05/16 20:55 05/06/16 10:16 White Blood Count 17.88 K/uL Red Blood Count 4.21 M/uL Hemoglobin 13.6 g/dL Hematocrit 38.4 % Mean Corpuscular Volume 91.2 fL Mean Corpuscular Hemoglobin 32.3 pg Mean Corpuscular Hemoglobin Concent 35.4 g/dl Platelet Count 238 K/uL Mean Platelet Volume 10.3 fL Neutrophils (%) (Auto) 88.3 % Lymphocytes (%) (Auto) 5.1 % Monocytes (%) (Auto) 5.0 % Eosinophils (%) (Auto) 1.1 % Basophils (%) (Auto) 0.1 % Neutrophils # (Auto) 15.80 K/uL Lymphocytes # (Auto) 0.91 K/uL Monocytes # (Auto) 0.89 K/uL Eosinophils # (Auto) 0.19 K/uL Basophils # (Auto) 0.02 K/uL RDW Standard Deviation 43.2 fL RDW Coefficient of Variation 13.0 % Immature Granulocyte % (Auto) 0.4 % Immature Granulocyte # (Auto) 0.07 K/uL Urine Color YELLOW Urine Appearance CLEAR Urine pH 7.0 Urine Specific [place] 1.013 Urine Protein NEG Urine Glucose (UA) NEG Urine Ketones NEG Urine Occult Blood 2+ Urine Nitrite NEG Urine Bilirubin NEG Urine Urobilinogen NEG Urine Leukocyte Esterase TRACE Urine WBC (Auto) 5-10 /hpf Urine RBC (Auto) 10-30 /hpf Urine Hyaline Casts (Auto) 1-5 /lpf Urine Epithelial Cells (Auto) >30 /lpf Urine Bacteria (Auto) 1+ Sodium Level 142 mmol/L Potassium Level 4.0 mmol/L Chloride Level 104 mmol/L Carbon Dioxide Level 27 mmol/L Anion Gap 11.0 mmol/L Blood Urea Nitrogen 19 mg/dl Creatinine 0.99 mg/dl Est Creatinine Clear Calc Drug Dose 66.1 ml/min Estimated GFR () 75.9 Estimated GFR (Non- 65.5 BUN/Creatinine Ratio 19.3 Random Glucose 143 mg/dl Calcium Level 9.2 mg/dl Total Bilirubin 0.2 mg/dl Direct Bilirubin 0.1 mg/dl Aspartate Amino Transf (AST/SGOT) 17 U/L Alanine Aminotransferase (ALT/SGPT) 22 U/L Alkaline Phosphatase 95 U/L Total Protein 7.3 gm/dl Albumin 3.6 gm/dl Lipase 134 U/L Hepatitis C Antibody Screen NEG Assessment and Plan 50 years old woman admitted with obstructive uropathy and UTI Left distal ureteral calculi/left hydroureteronephrosis S/P cystoscopy; L ureteral stent insertion ([id number]) Continue potassium 20 mEq at 100 ML's per hour, ceftriaxone 1 g IV daily consult urology appreciated Right ovarian cyst 4.5 cm--noted on CT of the abdomen and pelvis without IV contrast. Patient will be made aware to follow-up with her psychiatric secretary for further management. Hypertension--continue metoprolol tartrate 12.5 mg by mouth twice a day. Hold aspirin 81 mg by mouth daily and HCTZ 25 mg by mouth daily. GERD--change ranitidine 150 mg by mouth at bedtime when necessary to famotidine 20 mg IV twice a day. DVT prophylaxis continue pain management and supportive care
[2016-05-06 17:23] LABS: INR 1.1 (0.9-1.1); PARTIAL THROMBOPLASTIN RATIO 1.2; PROTHROMBIN TIME (PATIENT) 11.7 SECONDS (9.0-12.0)
[2016-05-06] MEDS: TAMSULOSIN HCL 0.4 MG CAP PO SCH (21:26)
[2016-05-06] MEDS: HEPARIN SOD 5000 UNIT/0.5 ML CARP SQ SCH (22:31)
[2016-05-06] MEDS ORDERED: CEFTRIAXONE SOD INJ 1 GM in DEXTROSE 5% ADD-VANTAGE 50ML 50 ML IV SCH (23:00)
[2016-05-07] VITALS (11 sets, daily range): BP systolic 120–151; BP diastolic 68–88; PULSE 69–102; TEMP 36.4–39.1; O2SAT 91–98
[2016-05-07] MEDS: ACETAMINOPHEN 325 MG TAB PO PRN ×2 (04:14→21:09)
[2016-05-07] MEDS: ACETAMINOPHEN IV 100 ML IV PRN (05:27)
[2016-05-07] MEDS ORDERED: PIPERACILL/TAZOBAC IV 3.375 GM in DEXTROSE 5% 100ML IV ONE (05:45)
[2016-05-07] MEDS ORDERED: PIPERACILL/TAZOBAC CONSULT ACTIVE PRN (05:45)
[2016-05-07] MEDS: FAMOTIDINE IV INJ 20 MG in DEXTROSE 5% 100ML 100 ML IV SCH ×2 (05:47→18:08)
[2016-05-07 05:48] LABS: BASO % 0.2 %; BASO ABS # 0.02 K/uL (0-0.2); COMPLETE YES; EOS % 0.9 %; HEMATOCRIT 32.6 % (37-47); IG% 0.3 %; LYMPH % 6.9 %; LYMPH ABS # 0.64 K/uL (1.2-3.4); MEAN CELL VOLUME 92.9 fL (80-100); MEAN CORPUSCULAR HEMOGLOBIN 31.3 pg (25-34); MEAN CORPUSCULAR HGB CONC 33.7 g/dl (32-36); MEAN PLATELET VOLUME 10.4 fL (7.4-10.4); MONO % 6.1 %; NEUT % 85.6 %; PLATELET COUNT 169 K/uL (130-400); RED BLOOD COUNT 3.51 M/uL (4.2-5.4); WHITE BLOOD COUNT 9.32 K/uL (4.8-10.8)
[2016-05-07] MEDS: NSS + 20MEQ KCL 1000ML 1,000 ML IV SCH ×2 (05:49→17:57)
[2016-05-07] MEDS: HEPARIN SOD 5000 UNIT/0.5 ML CARP SQ SCH ×3 (05:51→22:00)
[2016-05-07 06:54] LABS: ALB/GLOB RATIO 0.8 (0.9-2); BUN/CREATININE RATIO 15.8 (10-20); MAGNESIUM 1.8 mg/dl (1.8-2.4); PHOSPHORUS 1.7 mg/dl (2.5-4.9); POTASSIUM 3.7 mmol/L (3.5-5.1)
[2016-05-07 06:58] LABS: CALCIUM 7.6 mg/dl (8.5-10.1)
--- NOTE | 2016-05-07 07:42 | DIAGNOSTIC IMAGING REPORT ---
[facility]UB CLINICAL HISTORY: left ureteral stone s/p stent COMPARISON STUDY: CT scan dated 05/05/2016 FINDINGS: There is a double-pigtail left-sided nephroureteral stent. Multiple bilateral renal calculi are visualized. There are 2 small calcifications along the course of the distal aspect of the stent ( 2 mm and 4 mm), possibly representing distal left ureteral calculi. There is no pathologic bowel dilatation. IMPRESSION: 1. Bilateral nephrolithiasis 2. No evidence of pathologic bowel dilatation 3. Left-sided nephroureteral stent 4. 2 calcifications overlie the distal aspect of the left ureteral stent, possibly representing ureteral calculi Electronically signed by: Juan Armstrong M.D. 05/07/2016 7:41 AM Dictated Date/Time: 05/07/2016 7:38 AM
--- NOTE | 2016-05-07 08:06 | Progress Note ---
Subjective Date of Service: May 07, 2016. Subjective Pt evaluation today including: conversation w/ patient, chart review, lab review Voiding: no voiding problems 50 yo female s/p left ureteral stent placement for stone with fever. Pt reports some abdominal cramping this morning. + dysuria. Hematuria improved. Denies n/v. Noted to have fevers over night. Last fever 38.8C at 0518. Currently afebrile. Blood cultures pending. UC&S preliminarily growing e coli. She remains on Zosyn. Problem List Medical Problems: (1) Hydronephrosis Status: Acute (2) Renal colic Status: Acute (3) UTI (urinary tract infection) Status: Acute Review of Systems Constitutional: + fever, No chills Respiratory: No shortness of breath Cardiac: No chest pain Abdomen: + pain, + see HPI, No nausea, No vomiting Female : + dysuria, + hematuria Objective Vital Signs Date Time Temp Pulse Resp B/P Pulse Ox O2 Delivery O2 Flow Rate FiO2 05/07/16 06:28 37.4 05/07/16 05:18 38.8 05/07/16 04:14 38.1 05/07/16 04:10 39.1 102 16 120/68 91 Room Air 05/06/16 23:15 Room Air 05/06/16 22:55 37.3 102 16 117/69 91 Room Air 05/06/16 19:40 37.2 100 16 144/75 95 Room Air 05/06/16 16:30 96 Room Air 05/06/16 14:57 37.0 91 18 148/80 96 Room Air 05/06/16 13:02 85 16 138/79 97 05/06/16 12:00 80 16 120/74 96 05/06/16 10:58 36.5 75 16 116/73 96 Room Air 05/06/16 10:30 36.9 74 16 117/75 93 Room Air 05/06/16 10:00 93 Room Air 05/06/16 10:00 37.1 79 16 113/74 93 Room Air 05/06/16 10:00 Room Air 05/06/16 09:45 37.3 77 17 124/70 93 Room Air 05/06/16 09:43 124/70 05/06/16 09:42 77 17 05/06/16 09:42 78 17 93 05/06/16 09:38 131/71 05/06/16 09:37 80 18 94 05/06/16 09:37 80 18 05/06/16 09:33 126/69 05/06/16 09:32 84 17 05/06/16 09:32 83 17 99 05/06/16 09:28 126/69 05/06/16 09:27 77 17 100 05/06/16 09:27 76 17 05/06/16 09:23 131/72 05/06/16 09:22 78 18 100 05/06/16 09:22 79 18 05/06/16 09:18 120/69 05/06/16 09:17 79 18 05/06/16 09:17 79 18 99 05/06/16 09:13 128/70 05/06/16 09:12 81 18 99 05/06/16 09:12 81 18 05/06/16 09:08 123/72 05/06/16 09:07 83 18 05/06/16 09:07 83 18 99 05/06/16 09:03 121/68 05/06/16 09:02 36.9 86 16 122/72 99 Mask 10 05/06/16 09:02 86 22 100 05/06/16 09:02 86 22 05/06/16 08:15 36.8 104 18 127/78 94 Room Air Physical Exam General Appearance: no apparent distress Eyes: normal inspection ENT: hearing grossly normal Neck: no JVD Respiratory/Chest: no respiratory distress, no accessory muscle use Cardiovascular: no JVD Extremities: normal inspection Neurologic/Psychiatric: alert, normal mood/affect, oriented x 3 Skin: warm/dry Laboratory Results Last 24 Hours Test 05/06/16 10:16 05/06/16 16:34 05/07/16 05:20 Hepatitis C Antibody Screen NEG Prothrombin Time 11.7 SECONDS Prothromb Time International Ratio 1.1 Activated Partial Thromboplast Time 30.2 SECONDS Partial Thromboplastin Ratio 1.2 White Blood Count 9.32 K/uL Red Blood Count 3.51 M/uL Hemoglobin 11.0 g/dL Hematocrit 32.6 % Mean Corpuscular Volume 92.9 fL Mean Corpuscular Hemoglobin 31.3 pg Mean Corpuscular Hemoglobin Concent 33.7 g/dl Platelet Count 169 K/uL Mean Platelet Volume 10.4 fL Neutrophils (%) (Auto) 85.6 % Lymphocytes (%) (Auto) 6.9 % Monocytes (%) (Auto) 6.1 % Eosinophils (%) (Auto) 0.9 % Basophils (%) (Auto) 0.2 % Neutrophils # (Auto) 7.98 K/uL Lymphocytes # (Auto) 0.64 K/uL Monocytes # (Auto) 0.57 K/uL Eosinophils # (Auto) 0.08 K/uL Basophils # (Auto) 0.02 K/uL RDW Standard Deviation 45.2 fL RDW Coefficient of Variation 13.3 % Immature Granulocyte % (Auto) 0.3 % Immature Granulocyte # (Auto) 0.03 K/uL Sodium Level 138 mmol/L Potassium Level 3.7 mmol/L Chloride Level 106 mmol/L Carbon Dioxide Level 25 mmol/L Anion Gap 7.0 mmol/L Blood Urea Nitrogen 16 mg/dl Creatinine 1.00 mg/dl Est Creatinine Clear Calc Drug Dose 65.4 ml/min Estimated GFR () 75.0 Estimated GFR (Non- 64.7 BUN/Creatinine Ratio 15.8 Random Glucose 151 mg/dl Calcium Level 7.6 mg/dl Phosphorus Level 1.7 mg/dl Magnesium Level 1.8 mg/dl Total Bilirubin 0.6 mg/dl Aspartate Amino Transf (AST/SGOT) 12 U/L Alanine Aminotransferase (ALT/SGPT) 19 U/L Alkaline Phosphatase 77 U/L Total Protein 6.1 gm/dl Albumin 2.8 gm/dl Globulin 3.3 gm/dl Albumin/Globulin Ratio 0.8 Assessment and Plan POD #1 s/p left ureteral stent placement for stone with fever; UTI Continue IV abx pending cultures sensitivities. Would then transition to 14 days of PO abx such as Cipro or Bactrim DS prior to d/c home. Recommend she remain inpatient until she has been afebrile for 24hrs. Will plan for outpatient f/u and management of stone once infection has been adequately treated. Will continue to follow along with primary service at this time. Continued [facility] stay due to: fever
[2016-05-07] MEDS ORDERED: PHENAZOPYRIDINE HCL 200 MG TAB PO PRN (08:15)
--- NOTE | 2016-05-07 08:16 | Anesthesiology Progress Note ---
Anesthesia Post Op Note Date & Time May 07, 2016 at 08:15 Vital Signs Pain Intensity: 0.0 Vital Signs Past 12 Hours Date Time Temp Pulse Resp B/P Pulse Ox O2 Delivery O2 Flow Rate FiO2 05/07/16 06:28 37.4 05/07/16 05:18 38.8 05/07/16 04:14 38.1 05/07/16 04:10 39.1 102 16 120/68 91 Room Air 05/06/16 23:15 Room Air 05/06/16 22:55 37.3 102 16 117/69 91 Room Air Notes Mental Status: alert / awake / arousable, participated in evaluation Pt Amnestic to Procedure: Yes Nausea / Vomiting: adequately controlled Pain: adequately controlled Airway Patency, RR, SpO2: stable & adequate BP & HR: stable & adequate Hydration State: stable & adequate Anesthetic Complications: no major complications apparent
[2016-05-07] MEDS: METOPROLOL TARTRATE 25 MG TAB PO SCH ×2 (08:35→21:10)
[2016-05-07] MEDS: CEFEPIME IV 2,000 MG in DEXTROSE 5% 100ML 100 ML IV SCH ×2 (10:44→21:57)
[2016-05-07] MEDS: PANTOprazole INJ 40 MG in SYRINGE 0 ML IV SCH (10:45)
[2016-05-07] MEDS ORDERED: PIPERACILL/TAZOBAC IV 3.375 GM in DEXTROSE 5% 100ML IV SCH (12:00)
[2016-05-07] MEDS: MoRPHine SULFATE 2 MG/ML CARP IV PRN (15:27)
[2016-05-07] MEDS: MoRPHine SULFATE 4 MG/ML 1 ML CARP\\VIAL IV PRN (18:00)
--- NOTE | 2016-05-07 19:59 | Progress Note ---
Subjective Date of Service: May 07, 2016. Subjective Pt evaluation today including: conversation w/ patient, conversation w/ family , physical exam, chart review, lab review, review of studies Problem List Medical Problems: (1) Hydronephrosis Status: Acute (2) Renal colic Status: Acute (3) UTI (urinary tract infection) Status: Acute Review of Systems Constitutional: + fever Eyes: No worsening of vision ENT: No hearing loss Respiratory: No cough, No shortness of breath, No sputum Cardiac: No chest pain, No edema Abdomen: + pain, No diarrhea, No nausea, No vomiting Musculoskeletal: No joint pain Female : + dysuria Neurologic: No memory loss, No paralysis, No weakness Psychiatric: No anxiety, No depression symptoms Endo: + fatigue Skin: + rash Medications Current Inpatient Medications Medications (Trade) Dose Ordered Sig/Caitlin Route Start Time Stop Time Status Last Admin Dose Admin Acetaminophen (Tylenol Tab) 650 mg Q4H PRN PO 05/06/16 01:15 06/05/16 01:14 05/07/16 04:14 650 MG Zolpidem Tartrate (Ambien Tab) 5 mg HSZ PRN PO 05/06/16 01:15 06/05/16 01:14 Metoprolol Tartrate (Lopressor Tab) 12.5 mg BID PO 05/06/16 09:00 06/05/16 08:59 05/07/16 08:35 12.5 MG Ondansetron HCl 4 mg 4 mg Q6H PRN IV 05/06/16 01:15 06/05/16 01:14 05/06/16 16:01 4 MG Acetaminophen 100 ml @ 400 mls/hr Q8H PRN IV 05/06/16 01:15 06/05/16 01:14 05/07/16 05:27 400 MLS/HR Potassium Chloride/Sodium Chloride (Nss + 20meq KCl 1000ml) 1,000 ml @ 100 mls/hr Q10H IV 05/06/16 01:13 06/05/16 01:12 05/07/16 17:57 100 MLS/HR Morphine Sulfate (MoRPHine SULFATE INJ) 2 mg Q2H PRN IV 05/06/16 01:15 05/20/16 01:14 05/07/16 15:27 2 MG Morphine Sulfate 4 mg 4 mg Q2H PRN IV 05/06/16 01:15 05/20/16 01:14 05/07/16 18:00 4 MG Pantoprazole Sodium 40 mg/ Syringe 10 ml @ 5 mls/min DAILY@11 IV 05/06/16 11:00 06/05/16 10:59 05/07/16 10:45 5 MLS/MIN Famotidine/ Dextrose (Pepcid IV Inj/ D5 100ml) 102 ml @ 200 mls/hr Q12H IV 05/06/16 06:00 06/05/16 05:59 05/07/16 18:08 200 MLS/HR Tamsulosin HCl (Flomax Cap) 0.4 mg HS PO 05/06/16 21:00 06/05/16 20:59 05/06/16 21:26 0.4 MG Heparin Sodium (Porcine) (Heparin Sq 5000 Unit/0.5ml) 5,000 unit Q8 SQ 05/06/16 22:00 06/05/16 21:59 05/07/16 13:43 5,000 UNIT Phenazopyridine HCl 200 mg 200 mg TID PRN PO 05/07/16 08:15 06/06/16 08:14 Cefepime HCl/ Dextrose (Maxipime IV/D5 100ml) 112.5 ml @ 200 mls/hr Q12H IV 05/07/16 11:00 05/17/16 10:59 05/07/16 10:44 200 MLS/HR Objective Vital Signs Date Time Temp Pulse Resp B/P Pulse Ox O2 Delivery O2 Flow Rate FiO2 05/07/16 19:35 37.9 91 18 150/81 94 Room Air 05/07/16 15:16 36.8 84 18 151/88 96 Room Air 05/07/16 08:34 71 127/78 05/07/16 08:17 36.4 69 18 122/78 98 Room Air 05/07/16 08:10 Room Air 05/07/16 06:28 37.4 05/07/16 05:18 38.8 05/07/16 04:14 38.1 05/07/16 04:10 39.1 102 16 120/68 91 Room Air 05/06/16 23:15 Room Air 05/06/16 22:55 37.3 102 16 117/69 91 Room Air Physical Exam General Appearance: no apparent distress Eyes: normal inspection, PERRL, EOMI ENT: normal ENT inspection, hearing grossly normal Neck: supple Respiratory/Chest: chest non-tender, lungs clear, normal breath sounds, no respiratory distress, no accessory muscle use Cardiovascular: regular rate, rhythm, no edema, no gallop, no JVD, no murmur Abdomen: soft, + tenderness Extremities: normal range of motion, non-tender, normal inspection, no pedal edema 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, no motor/sensory deficits, alert, normal mood/affect, oriented x 3 Skin: normal color, warm/dry Laboratory Results Last 24 Hours Test 05/07/16 05:20 White Blood Count 9.32 K/uL Red Blood Count 3.51 M/uL Hemoglobin 11.0 g/dL Hematocrit 32.6 % Mean Corpuscular Volume 92.9 fL Mean Corpuscular Hemoglobin 31.3 pg Mean Corpuscular Hemoglobin Concent 33.7 g/dl Platelet Count 169 K/uL Mean Platelet Volume 10.4 fL Neutrophils (%) (Auto) 85.6 % Lymphocytes (%) (Auto) 6.9 % Monocytes (%) (Auto) 6.1 % Eosinophils (%) (Auto) 0.9 % Basophils (%) (Auto) 0.2 % Neutrophils # (Auto) 7.98 K/uL Lymphocytes # (Auto) 0.64 K/uL Monocytes # (Auto) 0.57 K/uL Eosinophils # (Auto) 0.08 K/uL Basophils # (Auto) 0.02 K/uL RDW Standard Deviation 45.2 fL RDW Coefficient of Variation 13.3 % Immature Granulocyte % (Auto) 0.3 % Immature Granulocyte # (Auto) 0.03 K/uL Sodium Level 138 mmol/L Potassium Level 3.7 mmol/L Chloride Level 106 mmol/L Carbon Dioxide Level 25 mmol/L Anion Gap 7.0 mmol/L Blood Urea Nitrogen 16 mg/dl Creatinine 1.00 mg/dl Est Creatinine Clear Calc Drug Dose 65.4 ml/min Estimated GFR () 75.0 Estimated GFR (Non- 64.7 BUN/Creatinine Ratio 15.8 Random Glucose 151 mg/dl Calcium Level 7.6 mg/dl Phosphorus Level 1.7 mg/dl Magnesium Level 1.8 mg/dl Total Bilirubin 0.6 mg/dl Aspartate Amino Transf (AST/SGOT) 12 U/L Alanine Aminotransferase (ALT/SGPT) 19 U/L Alkaline Phosphatase 77 U/L Total Protein 6.1 gm/dl Albumin 2.8 gm/dl Globulin 3.3 gm/dl Albumin/Globulin Ratio 0.8 Assessment and Plan 50 years old woman admitted with obstructive uropathy and UTI Left distal ureteral calculi/left hydroureteronephrosis S/P cystoscopy; L ureteral stent insertion ([id number]) Continue potassium 20 mEq at 100 ML's per hour, ceftriaxone 1 g IV daily was switched to Cefepime as she spiked fever today consult urology appreciated Right ovarian cyst 4.5 cm--noted on CT of the abdomen and pelvis without IV contrast. Patient will be made aware to follow-up with her order make up clerk for further management. Hypertension--continue metoprolol tartrate 12.5 mg by mouth twice a day. Hold aspirin 81 mg by mouth daily and HCTZ 25 mg by mouth daily. GERD--change ranitidine 150 mg by mouth at bedtime when necessary to famotidine 20 mg IV twice a day. DVT prophylaxis continue pain management and supportive care Continued [facility] stay due to: fever
[2016-05-07] MEDS: TAMSULOSIN HCL 0.4 MG CAP PO SCH (21:11)
[2016-05-08] MEDS: HEPARIN SOD 5000 UNIT/0.5 ML CARP SQ SCH ×2 (05:37→12:36)
[2016-05-08] MEDS: NSS + 20MEQ KCL 1000ML 1,000 ML IV SCH ×2 (05:38→12:35)
[2016-05-08 05:46] VITALS: TEMP 37.1
[2016-05-08] MEDS: ACETAMINOPHEN 325 MG TAB PO PRN ×3 (05:47→20:33)
[2016-05-08] MEDS: FAMOTIDINE IV INJ 20 MG in DEXTROSE 5% 100ML 100 ML IV SCH (05:47)
[2016-05-08 06:27] LABS: BASO % 0.2 %; BASO ABS # 0.02 K/uL (0-0.2); COMPLETE YES; EOS % 2.7 %; HEMATOCRIT 32.5 % (37-47); IG% 0.2 %; LYMPH % 9.2 %; LYMPH ABS # 0.75 K/uL (1.2-3.4); MEAN CELL VOLUME 90.8 fL (80-100); MEAN CORPUSCULAR HEMOGLOBIN 31.3 pg (25-34); MEAN CORPUSCULAR HGB CONC 34.5 g/dl (32-36); MEAN PLATELET VOLUME 10.5 fL (7.4-10.4); MONO % 9.1 %; NEUT % 78.6 %; PLATELET COUNT 171 K/uL (130-400); RED BLOOD COUNT 3.58 M/uL (4.2-5.4); WHITE BLOOD COUNT 8.12 K/uL (4.8-10.8)
[2016-05-08 07:06] LABS: BUN/CREATININE RATIO 11.1 (10-20); CALCIUM 7.8 mg/dl (8.5-10.1); CREATININE 0.78 mg/dl (0.60-1.20); POTASSIUM 3.6 mmol/L (3.5-5.1)
[2016-05-08 07:49] VITALS: BP 150/82; PULSE 73; TEMP 36.6; O2SAT 97
--- NOTE | 2016-05-08 08:12 | Progress Note ---
Subjective Date of Service: May 08, 2016. Subjective Pt evaluation today including: conversation w/ patient, chart review, lab review Voiding: no voiding problems 50 yo female s/p left ureteral stent for left ureteral stones and fever. Pt continues to c/o some abdominal cramping and distention this morning. She reports a BM this morning. Symptoms not improved after. Denies n/v. Denies dysuria or hematuria. Denies back pain. UC&S preliminarily growing e coli. Resistant to the cefepime she was transitioned to from Zosyn. Blood cultures preliminarily negative. Pt noted to have a temperature of 37.9C last evening. Currently afebrile. Problem List Medical Problems: (1) Hydronephrosis Status: Acute (2) Renal colic Status: Acute (3) UTI (urinary tract infection) Status: Acute Review of Systems Constitutional: No chills, No fever Respiratory: No shortness of breath Cardiac: No chest pain Abdomen: + see HPI, No nausea, No vomiting Female : No dysuria, No hematuria Heme: No abnormal bleeding/bruising Objective Vital Signs Date Time Temp Pulse Resp B/P Pulse Ox O2 Delivery O2 Flow Rate FiO2 05/08/16 07:56 Room Air 05/08/16 07:49 36.6 73 20 150/82 97 Room Air 05/08/16 05:46 37.1 05/07/16 23:20 Room Air 05/07/16 23:10 37.0 77 18 124/77 94 Room Air 05/07/16 22:03 37.3 05/07/16 19:35 37.9 91 18 150/81 94 Room Air 05/07/16 16:30 94 Room Air 05/07/16 15:16 36.8 84 18 151/88 96 Room Air 05/07/16 08:34 71 127/78 05/07/16 08:17 36.4 69 18 122/78 98 Room Air 05/07/16 08:10 Room Air Physical Exam General Appearance: no apparent distress Eyes: normal inspection ENT: hearing grossly normal Neck: no JVD Respiratory/Chest: no respiratory distress, no accessory muscle use Cardiovascular: no JVD Extremities: normal inspection Neurologic/Psychiatric: alert, normal mood/affect, oriented x 3 Skin: normal color Laboratory Results Last 24 Hours Test 05/08/16 06:13 White Blood Count 8.12 K/uL Red Blood Count 3.58 M/uL Hemoglobin 11.2 g/dL Hematocrit 32.5 % Mean Corpuscular Volume 90.8 fL Mean Corpuscular Hemoglobin 31.3 pg Mean Corpuscular Hemoglobin Concent 34.5 g/dl Platelet Count 171 K/uL Mean Platelet Volume 10.5 fL Neutrophils (%) (Auto) 78.6 % Lymphocytes (%) (Auto) 9.2 % Monocytes (%) (Auto) 9.1 % Eosinophils (%) (Auto) 2.7 % Basophils (%) (Auto) 0.2 % Neutrophils # (Auto) 6.37 K/uL Lymphocytes # (Auto) 0.75 K/uL Monocytes # (Auto) 0.74 K/uL Eosinophils # (Auto) 0.22 K/uL Basophils # (Auto) 0.02 K/uL RDW Standard Deviation 43.8 fL RDW Coefficient of Variation 13.1 % Immature Granulocyte % (Auto) 0.2 % Immature Granulocyte # (Auto) 0.02 K/uL Sodium Level 139 mmol/L Potassium Level 3.6 mmol/L Chloride Level 107 mmol/L Carbon Dioxide Level 24 mmol/L Anion Gap 8.0 mmol/L Blood Urea Nitrogen 9 mg/dl Creatinine 0.78 mg/dl Est Creatinine Clear Calc Drug Dose 83.9 ml/min Estimated GFR () 101.3 Estimated GFR (Non- 87.4 BUN/Creatinine Ratio 11.1 Random Glucose 146 mg/dl Calcium Level 7.8 mg/dl Magnesium Level 2.0 mg/dl Assessment and Plan POD #2 s/p left ureteral stent placement for stone with fever; UTI Will d/c cefepime and transition to Cipro as cefepime is not sensitive. Recommend d/c home on 14 days of oral Cipro. Recommend she remain inpatient until she has been afebrile for 24hrs. Possible d /c home later this afternoon if she remains afebrile as per hospitalist. Will plan for outpatient f/u and management of stone once infection has been adequately treated. F/u as outpatient in 1 week. Will arrange. Will continue to follow along with primary service at this time. Continued [facility] stay due to: fever
[2016-05-08 08:21] VITALS: O2SAT 97
[2016-05-08] MEDS: LACTOBACILLUS ACIDOPHILUS (FLORANEX) TAB PO SCH ×3 (08:38→18:19)
[2016-05-08] MEDS: METOPROLOL TARTRATE 25 MG TAB PO SCH (08:38)
[2016-05-08] MEDS: CIPROFLOXACIN / D5W 400 MG in PREMIXED IN D5W 200 ML IV SCH ×2 (08:39→18:19)
[2016-05-08] MEDS: PANTOprazole INJ 40 MG in SYRINGE 0 ML IV SCH (10:46)
[2016-05-08] MEDS ORDERED: CIPR-255 PO (12:00)
[2016-05-08] MEDS ORDERED: FLM4 PO (12:00)
--- NOTE | 2016-05-08 12:01 | Discharge Instructions ---
Discharge Instructions Admission Admission Date: May 05, 2016 at 23:51 Admission Diagnosis: Hydronephrosis Of Left Kidney, Left Ureteral Calcu. Discharge Care Plan - Problem: Medical Problems: (1) Hydronephrosis (2) Renal colic (3) UTI (urinary tract infection) Care Plan - Goal(s): Decrease discomfort Care Plan - Instructions: Recommended Home Diet: 1800 Jules Wt Reduction, Regular VTE Core Measure Inpt VTE Proph given/why not?: SCD's Work Instructions Return To Work: 5 days Lifting Limitations: no more than 10 pounds [place] Recommendations: Call your doctor if: * Temperature above 101 degrees * Pain not relieved by pain medicine ordered * There is increased drainage or redness from any incision * You have any unanswered questions or concerns. Your Doctors Instructions noted above were prepared by provider Tessie Yarbrough.
[2016-05-08 12:17] VITALS: BP 150/82; PULSE 73; TEMP 36.6; O2SAT 97
[2016-05-08] MEDS ORDERED: OXYC-57 PO (12:20)
[2016-05-08] MEDS ORDERED: NURSING VERBAL MED ORDER ONE (12:30)
[2016-05-08 15:09] VITALS: BP 156/83; PULSE 77; TEMP 36.9; O2SAT 97
--- NOTE | 2016-05-08 17:14 | Discharge Summary ---
Discharge Summary Admission Date: May 05, 2016 at 23:51 Discharge Date: May 08, 2016 Discharge Disposition: Home Problems/Secondary Diagnoses: Left distal ureteral calculi/left hydroureteronephrosis Complicated UTI present on admission Right ovarian cyst 4.5 cm--noted on CT of the abdomen and pelvis without IV contrast. Patient will be made aware to follow-up with her medicine worker for further management. Hypertension--continue metoprolol tartrate 12.5 mg by mouth twice a day. Hold aspirin 81 mg by mouth daily and HCTZ 25 mg by mouth daily. GERD--change ranitidine 150 mg by mouth at bedtime when necessary to famotidine 20 mg IV twice a day. Medication Reconciliation New Medications: Ciprofloxacin Hcl (Cipro) 500 Mg Tab 500 MG PO BID for 14 Days, #28 TAB Oxycodone/Acetaminophen 5MG/325MG (Percocet 5MG/325MG) Tab 1-2 TABLETS PO Q8 PRN for Pain for 14 Days, #30 TAB PAIN Tamsulosin HCl (Tamsulosin HCl) 0.4 Mg Cap 0.4 MG PO HS for 30 Days, #30 CAP Continued Medications: Aspirin (Aspirin Ec) 81 Mg Tab 81 MG PO DAILY Cholecalciferol (Vitamin D3) 1,000 Unit Tab 1000 INTER.UNIT PO BID, TAB Fish Oil ([place]-3) 1 Ea Cap 1 CAP PO BID, CAP Hydrochlorothiazide (Hydrochlorothiazide) 25 Mg Tab 25 MG PO DAILY Metoprolol Tartrate (Lopressor) (Lopressor) 25 Mg Tab 12.5 MG PO BID Multiple Vitamin (Multi Vitamin Daily) 1 Tab Tab 1 TAB PO QAM Ranitidine Hcl (Zantac 150 Maximum Streng) 150 Mg Tab 150 MG PO HS PRN for Acid Reflux Discontinued Medications: Calcium Carbonate-Vitamin D (Calcium 600 + D) 1 Tab Tab 1 TAB PO BID Referrals At Discharge Follow up Referrals: Urologist Referral - Within 1-2 Weeks with Remedios Chavez CRNP Hospital Course 50 years old woman admitted with obstructive uropathy and UTI on CT scan she was found to have Left distal ureteral calculi/left hydroureteronephrosis S/P cystoscopy; L ureteral stent insertion ([id number]) started on ceftriaxone , fever did not resolve so she was switched to Cefepime, also spiked fever , finally results came back ESBL resistant to both so she was switched to cipro and fever resolved. discharged on 14 days cipro po consult urology appreciated, S/P cystoscopy; L ureteral stent, she will follow up with them in one week for stone extraction found on the CT scan to have Right ovarian cyst 4.5 cm--noted on CT of the abdomen and pelvis without IV contrast. Patient will be made aware to follow- up with her medicine worker for further management. she was found stable for discharge today. This includes examination of the patient, discharge planning, medication reconciliation, and communication with other providers. Discharge Instructions Please refer to the electronic Patient Visit Report (Discharge Instructions) for additional information.
[2016-05-20] MEDS ORDERED: TAMS0.4C38 PO (08:04)
[2016-05-20] MEDS ORDERED: ACET-1256 PO (08:04)
[2016-05-20] MEDS ORDERED: SULF800T23 PO (08:04)
[2016-05-20] MEDS ORDERED: [UNRECOGNIZED DRUG - OTHER] PO (08:06)
[2016-05-24] MEDS ORDERED: SULF800T23 PO (07:43)
[2016-05-24] MEDS ORDERED: PHEN-775 PO (07:43)
[2016-06-12] MEDS ORDERED: POTA10CA28 PO (05:51)
[2016-06-12] MEDS ORDERED: SULF800T23 PO (07:09)
[2016-06-12] MEDS ORDERED: POTATAB2 PO (08:10)
[2016-07-01] MEDS ORDERED: MULT-884 PO (03:39)
[2016-07-01] MEDS ORDERED: OXYC-57 PO (08:04)
[2016-07-01] MEDS ORDERED: PROB1TAB16 PO (08:06)
[2016-07-01] MEDS ORDERED: OMEG10007 PO (14:38)
[2016-12-20] MEDS ORDERED: OXYC-57 PO (08:49)
== END 2016-05-08 21:00 | disposition home or self-care (01) | DRG 872 ==
LOC: ENRESERVDT → ENRESERVTM → C.EDB 20:04 → C.MSW 23:51
PROVIDERS: ADMIT Hospitalist; ATTEND Hospitalist
PROC: 0T778DZ Dilation of Left Ureter with Intraluminal Device, Via Natural or Artificial Opening Endoscopic (ICD-10-PCS; principal; 2016-05-06 08:45)
DX: A41.9 Sepsis, unspecified organism (principal); N13.2 Hydronephrosis with renal and ureteral calculous obstruction; N39.0 Urinary tract infection, site not specified; I10 Essential (primary) hypertension; N92.0 Excessive and frequent menstruation with regular cycle; I49.3 Ventricular premature depolarization; K76.0 Fatty (change of) liver, not elsewhere classified; N83.201 Unspecified ovarian cyst, right side; K21.9 Gastro-esophageal reflux disease without esophagitis; F32.9 Major depressive disorder, single episode, unspecified

== ENCOUNTER → 2016-05-15 | Outpatient (CLI) | payer BC ==
[~2016-05-15] MED LIST changes: +ACET-1256 PO; -ASPEC81 PO; +ASPI81TA28 PO; +CALC1TAB9 PO; +CHOL1000 PO; +CIPR-255 PO; -FERR325T PO; +FLM4 PO; -HYDR25TA4 PO; +HYDR25TA5 PO; +METO25TA56 PO; -MTR600X PO; +MULT-884 PO; +OMEG10007 PO; +ONDA4TAB10 SL; +OXYC-57 PO; +OXYC1TAB3 PO; -OXYC5TAB PO; +PHEN-775 PO; +POTA-74 PO; +POTA1080 PO; +POTA10CA28 PO; +POTATAB2 PO; +PROB1TAB16 PO; +RANI150T2 PO; +SULF800T23 PO; +TAMS0.4C38 PO; +[UNRECOGNIZED DRUG - OTHER] PO
== END | disposition home or self-care (01) ==
LOC: C.LABSPEC 17:17
PROVIDERS: ATTEND Nurse Practitioner Adult Health
DX: R39.9 Unspecified symptoms and signs involving the genitourinary system (principal)

== ENCOUNTER → 2016-05-23 | Outpatient (CLI) | payer BC ==
[~2016-05-23] MED LIST changes: -CIPR-255 PO
--- NOTE | 2016-05-23 16:58 | DIAGNOSTIC IMAGING REPORT ---
KUB CLINICAL HISTORY: N20.0 Nephrolithiasis COMPARISON STUDY: 05/07/2016 FINDINGS: There is a left-sided double pigtail nephroureteral stent. The proximal pigtail is not fully formed. There are multiple left renal calculi. The largest is visualized in the lower pole measuring 11 mm. There are several small lower pole right renal calculi the largest of which measures 2 mm. Several calcifications are visualized along the course of the left stent distally. This is suspicious for small calculi. IMPRESSION: 1. Bilateral nephrolithiasis 2. No evidence of pathologic bowel dilatation 3. Left-sided nephroureteral stent 4. 2 calcifications are again visualized overlying the distal aspect of the left ureteral stent, possibly representing ureteral calculi Electronically signed by: Juan Armstrong M.D. 05/23/2016 4:57 PM Dictated Date/Time: 05/23/2016 4:55 PM
== END | disposition home or self-care (01) ==
LOC: C.RAD 16:32
PROVIDERS: ATTEND Nurse Practitioner Adult Health
DX: N20.0 Calculus of kidney (principal); Z96.0 Presence of urogenital implants; R93.41 Abnormal radiologic findings on diagnostic imaging of renal pelvis, ureter, or bladder

== ENCOUNTER → 2016-05-24 | Day surgery (SDC) | payer BC ==
[2016-05-20 08:06] VITALS: Ht 160 cm; Wt 77.3 kg
[~2016-05-24] VITALS: Ht 160 cm; Wt 77.3 kg
[~2016-05-24] MED LIST changes: +ATROPINE SULFATE 0.1 MG/ML 5ML SYR IV PRN; +CIPROFLOXACIN 400MG / D5W IV SCH; +EpHEDrine SULFATE INJ 50 MG/ML AMP IV PRN; +FENTANYL CITRATE INJ 50 MCG/1 ML 2 ML VIAL IV PRN; +FENTANYL CITRATE INJ 50 MCG/1 ML 2 ML VIAL ONE; +FLUMAZENIL 0.1 MG/1 ML 10 ML VIAL IV PRN; +GENTAMICIN INJ 120 MG in DEXTROSE 5% 100ML 100 ML IV SCH; +GENTAMICIN SULFATE 40 MG/ML 2 ML VIAL ONE; +HYDROmorphone INJ 2 MG/ML SYR/VIAL IV PRN; +LABETALOL HCL IV 5 MG/ML 20ML IV PRN; +LIDOCAINE HCL 2% 2 ML VIAL (20MG/ML) ONE; +MEPERIDINE HCL 25 MG/ML CARP IV PRN; +MIDAZOLAM HCL 1 MG/ML 2ML VIAL ONE; +NALOXONE HCL 0.4 MG/1 ML VIAL/CARP IV PRN; +ONDANSETRON INJ 2 MG/ML 2 ML VIAL IV PRN; +OXYCODONE/ACETAMINOPHEN 5-325 TAB PO PRN; +PHENYLEPHRINE 100MCG/ML 5ML SYR IV PRN; +PROPOFOL IV EMULSION 10 MG/ML 20 ML VIAL IV ONE
[2016-05-24] MEDS: LACTATED RINGER'S 1000ML 1,000 ML IV SCH ×2 (06:51→09:18)
--- NOTE | 2016-05-24 07:17 | History & Physical Bridge Note ---
H&P Re-Evaluation Bridge Note: I have examined the patient, reviewed the History & Physical and in the interval since the performance of the History & Physical I have noted the following changes of clinical significance: No changes noted
--- NOTE | 2016-05-24 07:46 | Discharge Instructions ---
Discharge Instructions Admission Reason for Admission: Stones Discharge Discharge Diagnosis / Problem: L ureteral stones s/p ESWL Discharge Goals Goal(s): Decrease discomfort, Improve disease control, Therapeutic intervention Activity Recommendations Activity Limitations: per Instructions/Follow-up section Lifting Limitations: gradually increase as tolerated Exercise/Sports Limitations: rest today, gradually increase as tolerated May Resume Sexual Activity: when tolerated Shower/Bathe: no limitations Driving or Machine Use: resume 1 day after discharge . Instructions / Follow-Up Instructions / Follow-Up Follow-up in office as scheduled with [facility] Xray done before visit Strain urine as instructed, bring fragments into visit Discharge Diet Recommended Diet: Regular Diet (good fluid intake) Procedures Procedures Performed: L ureteral ESWL Pending Studies Studies pending at discharge: no Medical Emergencies . Who to Call and When: Medical Emergencies: If at any time you feel your situation is an emergency, please call 911 immediately. . Non-Emergent Contact Non-Emergency issues call your: Urologist Call Non-Emergent contact if: you have a fever, temperature is above 101, your pain is not controlled, your pain is worsening, your pain is concerning you, you have any medication questions . . "Provider Documentation" section prepared by Vishal Sharpe. VTE Core Measure Inpt VTE Proph given/why not?: SCD's [place] Drug Monitoring Program Search Results: patient reviewed within database, see additional documentation (prior Rx from [facility])
--- NOTE | 2016-05-24 08:58 | OPERATIVE REPORT ---
DATE OF OPERATION: 05/24/2016 PREOPERATIVE DIAGNOSIS: Left distal ureteral stones with indwelling stent. POSTOPERATIVE DIAGNOSIS: Same. PROCEDURE: Left distal ureteral stones extracorporeal shockwave lithotripsy. SURGEON: Dr. Vishal Sharpe. MEAT INSPECTOR: None. ANESTHESIA: General anesthesia with laryngeal mask. COMPLICATIONS: None. FINDINGS: Suspected distal ureteral stone on KUB found to be outside the ureter consistent with a phlebolith on oblique imaging. A solitary distal ureteral stone next to stent targeted. Renal stone not targeted. Fair fragmentation of stone on fluoroscopy. DETAILS OF PROCEDURE: The patient was brought to the litho suite. He was correctly identified and the stone was visualized on his most recent x-rays. After the correct time out was performed the patient was positioned over the therapy head. An adequate level of anesthesia was administered. The extracorporeal shockwave lithotripsy treatment was then commenced. Please see the [place] [facility] sheet for complete treatment summary. After completion of the procedure the patient was taken to the recovery room in stable condition. I attest to the content of the Intraoperative Record and any orders documented therein. Any exceptio ns are noted below.
--- NOTE | 2016-05-24 09:35 | Anesthesia Progress Nt - [facility] ---
Anesthesia Post Op Note Date & Time May 24, 2016 at 09:35 Vital Signs Pain Intensity: 0 Vital Signs Past 12 Hours Date Time Temp Pulse Resp B/P Pulse Ox O2 Delivery O2 Flow Rate FiO2 05/24/16 09:15 65 1 96 05/24/16 09:15 36.4 66 1 05/24/16 09:13 135/77 05/24/16 09:10 67 0 05/24/16 09:10 67 0 96 05/24/16 09:08 127/77 05/24/16 09:05 67 1 96 05/24/16 09:05 67 1 05/24/16 09:03 127/77 05/24/16 09:00 63 2 05/24/16 09:00 63 2 100 05/24/16 08:58 132/80 05/24/16 08:55 63 0 05/24/16 08:55 63 0 99 05/24/16 08:53 128/77 05/24/16 08:50 65 0 98 05/24/16 08:50 66 0 05/24/16 08:48 126/76 05/24/16 08:45 66 0 98 05/24/16 08:45 66 0 05/24/16 08:43 128/78 05/24/16 08:40 65 12 05/24/16 08:40 65 12 98 05/24/16 08:38 128/82 05/24/16 08:36 37 68 16 129/76 97 Mask 6 05/24/16 08:35 72 05/24/16 08:35 72 129/76 94 05/24/16 06:29 36.4 75 16 118/81 95 Room Air Notes Mental Status: alert / awake / arousable, participated in evaluation Pt Amnestic to Procedure: Yes Nausea / Vomiting: adequately controlled Pain: adequately controlled Airway Patency, RR, SpO2: stable & adequate BP & HR: stable & adequate Hydration State: stable & adequate Anesthetic Complications: no major complications apparent
[2016-05-24 10:17] VITALS: BP 114/79; PULSE 66; TEMP 36.6; O2SAT 95
--- NOTE | 2016-05-24 11:53 | [facility] Post Operative Brief Note ---
Immediate Operative Summary Operative Date May 24, 2016. Pre-Operative Diagnosis Left Ureteral Calculi Post-Operative Diagnosis Same Procedure(s) Performed Left Extracorporeal Shock Wave Lithotripsy Surgeon Dr. Lilian Sharpe Esl Teacher Surgeon(s) None Estimated Blood Loss 0 mL Findings Good stone fragmentation on fluoro Specimens None Anesthesia [facility] Complication(s) None Disposition Recovery Room / PACU
== END | disposition home or self-care (01) ==
LOC: X.SURG 06:05
PROVIDERS: ATTEND Urology
DX: N20.1 Calculus of ureter (principal); K21.9 Gastro-esophageal reflux disease without esophagitis; I10 Essential (primary) hypertension; F41.9 Anxiety disorder, unspecified; F32.9 Major depressive disorder, single episode, unspecified; Z82.49 Family history of ischemic heart disease and other diseases of the circulatory system; Z84.1 Family history of disorders of kidney and ureter; Z83.3 Family history of diabetes mellitus; Z79.899 Other long term (current) drug therapy; Z79.82 Long term (current) use of aspirin

== ENCOUNTER → 2016-06-04 | Outpatient (CLI) | payer BC ==
[~2016-06-04] MED LIST changes: -ATROPINE SULFATE 0.1 MG/ML 5ML SYR IV PRN; -CIPROFLOXACIN 400MG / D5W IV SCH; -EpHEDrine SULFATE INJ 50 MG/ML AMP IV PRN; -FENTANYL CITRATE INJ 50 MCG/1 ML 2 ML VIAL IV PRN; -FENTANYL CITRATE INJ 50 MCG/1 ML 2 ML VIAL ONE; -FLUMAZENIL 0.1 MG/1 ML 10 ML VIAL IV PRN; -GENTAMICIN INJ 120 MG in DEXTROSE 5% 100ML 100 ML IV SCH; -GENTAMICIN SULFATE 40 MG/ML 2 ML VIAL ONE; -HYDROmorphone INJ 2 MG/ML SYR/VIAL IV PRN; -LABETALOL HCL IV 5 MG/ML 20ML IV PRN; -LIDOCAINE HCL 2% 2 ML VIAL (20MG/ML) ONE; -MEPERIDINE HCL 25 MG/ML CARP IV PRN; -MIDAZOLAM HCL 1 MG/ML 2ML VIAL ONE; -NALOXONE HCL 0.4 MG/1 ML VIAL/CARP IV PRN; -ONDANSETRON INJ 2 MG/ML 2 ML VIAL IV PRN; -OXYCODONE/ACETAMINOPHEN 5-325 TAB PO PRN; -PHENYLEPHRINE 100MCG/ML 5ML SYR IV PRN; -PROPOFOL IV EMULSION 10 MG/ML 20 ML VIAL IV ONE
--- NOTE | 2016-06-04 16:42 | DIAGNOSTIC IMAGING REPORT ---
KUB CLINICAL HISTORY: Nephrolithiasis. FINDINGS: An AP abdominal radiograph is compared to study dated 05/23/16. Correlation is made with abdominal CT dated 05/05/2016. A left ureteral stent is unchanged in position. A 4 mm calcification projects over the distal aspect of the stent, and may represent a distal ureteral stone. Additional pelvic calcifications are consistent with phleboliths. Numerous nonobstructing left renal calculi are similar appearance to previous. The largest measures up to 1.2 cm. There are at least 2 nonobstructing right renal calculi measuring up to 4 mm. There is a nonobstructed abdominal bowel gas pattern. The bony structures appear intact. IMPRESSION: 1. A left ureteral stent is unchanged in position. 2. A 4 mm calcification projecting over the distal aspect of the stent is unchanged and may represent a distal ureteral stone. 3. Additional calcifications in the pelvis are consistent with phleboliths. 4. Bilateral nonobstructing renal calculi are similar to the 05/23/2016 examination. Electronically signed by: Cleve Tmo M.D. 06/04/2016 4:41 PM Dictated Date/Time: 06/04/2016 4:38 PM
== END | disposition home or self-care (01) ==
LOC: C.RAD 16:19
PROVIDERS: ATTEND Nurse Practitioner Adult Health
DX: N20.0 Calculus of kidney (principal); N20.1 Calculus of ureter

== ENCOUNTER → 2016-06-05 | Outpatient (CLI) | payer BC ==
[2016-06-05 15:24] LABS: BASO % 0.3 %; BASO ABS # 0.02 K/uL (0-0.2); COMPLETE YES; EOS % 3.3 %; HEMATOCRIT 37.1 % (37-47); IG% 0.2 %; LYMPH % 24.1 %; LYMPH ABS # 1.59 K/uL (1.2-3.4); MEAN CELL VOLUME 91.2 fL (80-100); MEAN CORPUSCULAR HEMOGLOBIN 31.4 pg (25-34); MEAN CORPUSCULAR HGB CONC 34.5 g/dl (32-36); NEUT % 67.1 %; PLATELET COUNT 259 K/uL (130-400); RED BLOOD COUNT 4.07 M/uL (4.2-5.4); WHITE BLOOD COUNT 6.59 K/uL (4.8-10.8)
[2016-06-05 15:41] LABS: BLOOD UREA NITROGEN 16 mg/dl (7-18); BUN/CREATININE RATIO 16.6 (10-20); CALCIUM 9.1 mg/dl (8.5-10.1); CARBON DIOXIDE 32 mmol/L (21-32); CHLORIDE 101 mmol/L (98-107); CREATININE 0.96 mg/dl (0.60-1.20); GLUCOSE 191 mg/dl (70-99); POTASSIUM 3.2 mmol/L (3.5-5.1); SODIUM 141 mmol/L (136-145)
== END | disposition home or self-care (01) ==
LOC: C.LAB 13:57
PROVIDERS: ATTEND Urology
DX: N20.0 Calculus of kidney (principal)

== ENCOUNTER → 2016-06-05 | Outpatient (CLI) | payer BC | END | disposition home or self-care (01) | LOC: C.LABSPEC 18:08 | PROVIDERS: ATTEND Urology | DX: N20.0 Calculus of kidney (principal) ==

== ENCOUNTER → 2016-06-07 | Outpatient (CLI) | payer BC ==
[~2016-06-07] MED LIST changes: -ACET-1256 PO; -PHEN-775 PO; -[UNRECOGNIZED DRUG - OTHER] PO
[2016-06-07 17:36] LABS: BLOOD UREA NITROGEN 17 mg/dl (7-18); CALCIUM 8.9 mg/dl (8.5-10.1); CARBON DIOXIDE 32 mmol/L (21-32); CHLORIDE 101 mmol/L (98-107); CREATININE 0.87 mg/dl (0.60-1.20); GLUCOSE 170 mg/dl (70-99); POTASSIUM 3.1 mmol/L (3.5-5.1); SODIUM 142 mmol/L (136-145)
[2016-06-07 17:42] LABS: ESTIMATED AVERAGE GLUCOSE 111 mg/dl; HA1C FLAG Normal (Normal)
== END | disposition home or self-care (01) ==
LOC: C.LABPVFM 13:01
PROVIDERS: ATTEND Nurse Practitioner
DX: R73.9 Hyperglycemia, unspecified (principal)

== ENCOUNTER → 2016-06-11 | Outpatient (CLI) | payer BC ==
[2016-06-11 13:37] LABS: BLOOD UREA NITROGEN 15 mg/dl (7-18); BUN/CREATININE RATIO 17.4 (10-20); CARBON DIOXIDE 30 mmol/L (21-32); CHLORIDE 104 mmol/L (98-107); CREATININE 0.87 mg/dl (0.60-1.20); GLUCOSE 127 mg/dl (70-99); SODIUM 141 mmol/L (136-145)
== END | disposition home or self-care (01) ==
LOC: C.LABPVFM 07:34
PROVIDERS: ATTEND Nurse Practitioner
DX: E87.6 Hypokalemia (principal)

== ENCOUNTER → 2016-06-12 | Day surgery (SDC) | payer BC ==
[~2016-06-12] VITALS: Ht 160 cm; Wt 77.3 kg
[~2016-06-12] MED LIST changes: +ATROPINE SULFATE 0.1 MG/ML 5ML SYR IV PRN; +CIPROFLOXACIN / D5W 400 MG IV SCH; +DEXAMETHASONE SOD INJ 4 MG/ML VIAL ONE; +EpHEDrine SULFATE INJ 50 MG/ML AMP IV PRN; +FENTANYL CITRATE INJ 50 MCG/1 ML 2 ML VIAL IV PRN; +FENTANYL CITRATE INJ 50 MCG/1 ML 2 ML VIAL ONE; +LACTATED RINGER'S 1000ML 1,000 ML IV SCH; +LIDOCAINE HCL 2% 2 ML VIAL (20MG/ML) ONE; +MIDAZOLAM HCL 1 MG/ML 2ML VIAL ONE; +ONDANSETRON INJ 2 MG/ML 2 ML VIAL IV PRN; +ONDANSETRON INJ 2 MG/ML 2 ML VIAL ONE; +OXYCODONE/ACETAMINOPHEN 5-325 TAB PO PRN; +PHENAZOPYRIDINE HCL 100 MG TAB PO PRN; +PROMETHAZINE HCL INJ 6.25 MG in SODIUM CHLORIDE 0.9% 50ML 50 ML IV PRN; +PROPOFOL IV EMULSION 10 MG/ML 20 ML VIAL IV ONE
[2016-06-12 05:53] VITALS: BP 109/82; PULSE 67; TEMP 36.4; O2SAT 97; Ht 160 cm; Wt 77.3 kg
--- NOTE | 2016-06-12 07:10 | Discharge Instructions ---
Discharge Instructions Admission Reason for Admission: Left Stone Discharge Discharge Diagnosis / Problem: L stone s/p uscope Discharge Goals Goal(s): Decrease discomfort, Improve disease control, Therapeutic intervention Activity Recommendations Activity Limitations: per Instructions/Follow-up section Lifting Limitations: none Exercise/Sports Limitations: as tolerated, gradually increase as tolerated May Resume Sexual Activity: when tolerated Shower/Bathe: no limitations Driving or Machine Use: resume 1 day after discharge . Instructions / Follow-Up Instructions / Follow-Up As planned in office for stent removal after KUB Xray Discharge Diet Recommended Diet: Regular Diet (good fluid intake) Procedures Procedures Performed: L uscope, laser, stent Pending Studies Studies pending at discharge: no Laboratory Results Hemoglobin A1c Test 06/07/16 13:03 Range/Units Estimated Average Glucose 111 mg/dl Hemoglobin A1c 5.5 4.5-5.6 % Medical Emergencies . Who to Call and When: Medical Emergencies: If at any time you feel your situation is an emergency, please call 911 immediately. . Non-Emergent Contact Non-Emergency issues call your: Urologist Call Non-Emergent contact if: you have a fever, temperature is above 101, your pain is not controlled, your pain is worsening, your pain is unusual for you, your pain is concerning you, you have any medication questions . . "Provider Documentation" section prepared by Vishal Sharpe. VTE Core Measure Inpt VTE Proph given/why not?: SCD's [place] Drug Monitoring Program Search Results: patient reviewed within database, no issues identified
--- NOTE | 2016-06-12 08:15 | [facility] Post Operative Brief Note ---
Immediate Operative Summary Operative Date Jun 12, 2016. Pre-Operative Diagnosis L ureteral and renal stones Post-Operative Diagnosis L renal stones Procedure(s) Performed Cystoscopy, left ureteral stent exchange, left semirigid and flexible ureteroscopy with laser lithotripsy and stone extraction Surgeon Dell Cho National Account Executive Surgeon(s) NA Estimated Blood Loss NA Findings No ureteral injury, good stent position after completion Specimens L renal stone fragments for chemical analysis Drains 6 fr 24 cm loop L stent Anesthesia [facility] Complication(s) None Disposition Recovery Room / PACU
--- NOTE | 2016-06-12 08:38 | DIAGNOSTIC IMAGING REPORT ---
FLUOROSCOPIC KUBS DURING RETROGRADE STUDY CLINICAL HISTORY: LT CYSTO/LASER/STENT COMPARISON STUDY: KUB dated 06/04/2016 FINDINGS: 3 fluoroscopic spot images are provided for interpretation. 51 seconds of fluoroscopic time was utilized. No contrast is visualized. The images demonstrate a double-pigtail left-sided nephroureteral stent. The proximal pigtail is not fully formed. There is a calcification adjacent to the distal aspect of the stent, possibly representing a distal ureteral calculus. IMPRESSION: A double-pigtail left-sided nephroureteral stent is visualized. Electronically signed by: Juan Armstrong M.D. 06/12/2016 8:36 AM Dictated Date/Time: 06/12/2016 8:34 AM
--- NOTE | 2016-06-12 09:24 | OPERATIVE REPORT ---
DATE OF OPERATION: 06/12/2016 PREOPERATIVE DIAGNOSIS: Left ureteral and renal stones. POSTOPERATIVE DIAGNOSIS: Left renal stone. PROCEDURES: Cystoscopy, left ureteral stent exchange, left semirigid and flexible ureteroscopy with laser lithotripsy, and basket stone extraction. SURGEON: Dr. Vishal Sharpe. MEASUREMENT ANALYST: None. ANESTHESIA: General anesthesia with laryngeal mask. COMPLICATIONS: None. SPECIMENS SENT TO PATHOLOGY: Left renal stone fragments for chemical analysis. ESTIMATED BLOOD LOSS: Zero. DRAINS LEFT IN PLACE: Include a 6-[place] 24 cm loop stent on the left hand side with no string. FINDINGS: No ureteral stones noted on semirigid ureteroscopy, no significant left renal stones, residual after completion of case. BRIEF HISTORY: Ms. Mortensen is a 50-year-old female who has undergone an acute stent placement for history of stones and sepsis. Lithotripsy targeted at her ureteral stone as an outpatient, was unsuccessful. The patient is being brought in today for endoscopic management of her stone. Please see H\T\P for further details. Intravenous ciprofloxacin provided for antibiotic coverage and SCDs used for DVT prophylaxis. DESCRIPTION OF PROCEDURE: The patient was properly identified and brought to the operative suite. After identification and appropriate consent on the chart, general anesthesia with laryngeal mask was initiated. The patient was prepped and draped in a standard fashion for this procedure. realtime reporter-out procedure was followed. A 22-[place] rigid cystoscope was passed into the bladder under direct visualization and bladder was surveyed demonstrating no intravesical masses, papillary lesions or calculi. A partially encrusted left-sided ureteral stent was noted within the bladder. This was grasped and removed. A wire was advanced up to the level of the left renal pelvis without difficulties or resistance. A semi-rigid ureteroscope was able to be advanced without resistance or difficulties into the distal ureter. Ureteroscopy up to the level of the proximal third of the ureter was performed demonstrating minimal edema of the ureter consistent with stent placement, no evidence of injury or other abnormalities and no stones present within the ureter. It was felt that the calcification previously noted on sugar refinery supervisor imaging was not appreciated on repeat fluoroscopy. The semi-rigid ureteroscope was removed and a working Amplatz super stiff wire was advanced into the ureter. This was followed by a 14/16 35 cm ureteral access sheath, was able to be advanced without resistance after a history of stent dilation. Flexible fiberoptic Olympus ureteroscope was advanced up to the level of the kidney and complete pyeloscopy was performed. A larger stone was present within the midpole of the kidney and 2 mobile stones were present within the lower pole of the kidney. It was felt that these might have been retropulsed from the ureter over the course of previous ureteroscopy. Lower pole stones were able to be grasped and removed intact due to their small size. Midpole stone was fragmented using a 200 micron laser fiber and any pieces of significance were removed using an open-ended basket from the patient without difficulty. These were sent for chemical analysis. Complete pyeloscopy was repeated demonstrating no significant stones present within the kidney in any of the calices. Complete exit ureteroscopy including removal of the access sheath was performed demonstrating no evidence of residual stone, ureteral injury, stricture, masses or other abnormalities. Cystoscope was backloaded over the working wire and a 6-[place] 24 cm loop ureteral stent was placed with a coil present within the kidney and redundant loops present within the bladder. Bladder was drained, the cystoscope was removed, anesthesia was reversed. The patient was transferred to recovery room in stable condition. FOLLOWUP CARE: The patient will be discharged home with a prescription for a short course of Bactrim and Urocit. Seeing her stent encrustation, outpatient appointment with [facility]UB and for cystoscopy and stent removal is confirmed. The patient is instructed to contact our service should she note any fevers, chills, nausea, vomiting or other significant difficulties in the postoperative period. I attest to the content of the Intraoperative Record and any orders documented therein. Any exceptions are noted below. CARMEN
--- NOTE | 2016-06-12 09:37 | Anesthesiology Progress Note ---
Anesthesia Post Op Note Date & Time Jun 12, 2016 at 09:37 Vital Signs Pain Intensity: 5.0 Vital Signs Past 12 Hours Date Time Temp Pulse Resp B/P Pulse Ox O2 Delivery O2 Flow Rate FiO2 06/12/16 09:00 37.0 66 14 159/91 95 Nasal Cannula 2 06/12/16 08:50 70 14 150/90 92 Nasal Cannula 2 06/12/16 08:40 75 14 151/89 92 Nasal Cannula 2 06/12/16 08:30 69 14 139/90 100 Mask 10 06/12/16 08:20 70 14 137/82 99 Mask 10 06/12/16 08:13 36.4 78 14 153/87 99 Mask 10 06/12/16 05:53 36.4 67 18 109/82 97 Room Air Notes Mental Status: alert / awake / arousable, participated in evaluation Pt Amnestic to Procedure: Yes Nausea / Vomiting: adequately controlled Pain: adequately controlled Airway Patency, RR, SpO2: stable & adequate BP & HR: stable & adequate Hydration State: stable & adequate Anesthetic Complications: no major complications apparent
[2016-06-12 09:50] VITALS: BP 165/82; PULSE 78; TEMP 36.6; O2SAT 97
[2016-06-12 10:18] VITALS: BP 184/95; PULSE 76; TEMP 36.6; O2SAT 97
[2016-06-12 10:51] VITALS: BP 159/84; PULSE 73; O2SAT 94
[2016-06-12 11:28] VITALS: BP 155/82; PULSE 74; TEMP 36.6; O2SAT 95
== END | disposition home or self-care (01) ==
LOC: C.ACU 05:29
PROVIDERS: ATTEND Urology
DX: N20.2 Calculus of kidney with calculus of ureter (principal); N13.30 Unspecified hydronephrosis; T83.84XA Pain due to genitourinary prosthetic devices, implants and grafts, initial encounter; N39.0 Urinary tract infection, site not specified; D64.9 Anemia, unspecified; F32.9 Major depressive disorder, single episode, unspecified; I10 Essential (primary) hypertension; R00.2 Palpitations

== ENCOUNTER → 2016-06-21 | Outpatient (CLI) | payer BC ==
[~2016-06-21] MED LIST changes: -ATROPINE SULFATE 0.1 MG/ML 5ML SYR IV PRN; -CIPROFLOXACIN / D5W 400 MG IV SCH; -DEXAMETHASONE SOD INJ 4 MG/ML VIAL ONE; -EpHEDrine SULFATE INJ 50 MG/ML AMP IV PRN; -FENTANYL CITRATE INJ 50 MCG/1 ML 2 ML VIAL IV PRN; -FENTANYL CITRATE INJ 50 MCG/1 ML 2 ML VIAL ONE; -LACTATED RINGER'S 1000ML 1,000 ML IV SCH; -LIDOCAINE HCL 2% 2 ML VIAL (20MG/ML) ONE; -MIDAZOLAM HCL 1 MG/ML 2ML VIAL ONE; -ONDANSETRON INJ 2 MG/ML 2 ML VIAL IV PRN; -ONDANSETRON INJ 2 MG/ML 2 ML VIAL ONE; -OXYCODONE/ACETAMINOPHEN 5-325 TAB PO PRN; -PHENAZOPYRIDINE HCL 100 MG TAB PO PRN; -PROMETHAZINE HCL INJ 6.25 MG in SODIUM CHLORIDE 0.9% 50ML 50 ML IV PRN; -PROPOFOL IV EMULSION 10 MG/ML 20 ML VIAL IV ONE
== END | disposition home or self-care (01) ==
LOC: C.LABPVFM 08:53
PROVIDERS: ATTEND Nurse Practitioner
DX: E87.6 Hypokalemia (principal)

== ENCOUNTER → 2016-06-23 | Outpatient (CLI) | payer BC ==
--- NOTE | 2016-06-23 15:30 | DIAGNOSTIC IMAGING REPORT ---
KUB CLINICAL HISTORY: N20.0 [id number] nephrocalcinosis COMPARISON STUDY: 06/04/2016 FINDINGS: Left ureteral stent in good position. Calcification adjacent to the distal aspect of the stent is similar. Lower pole bilateral nephrocalcinosis are similar on the right and slightly increased in fragmentation of the left. IMPRESSION: 1. Left ureteral stent in good position. 2. Distal left ureteral calculus unchanged in location. 3. Bilateral nephrocalcinosis slightly increased in fragmentation primarily on the left as compared to the prior study. Electronically signed by: Christian Mason M.D. 06/23/2016 3:29 PM Dictated Date/Time: 06/23/2016 3:27 PM
== END | disposition home or self-care (01) ==
LOC: C.RAD 14:57
PROVIDERS: ATTEND Urology
DX: N20.1 Calculus of ureter (principal); E83.59 Other disorders of calcium metabolism; N29 Other disorders of kidney and ureter in diseases classified elsewhere

== ENCOUNTER 2016-07-01 19:15 | Emergency (ER) | payer BC ==
[~2016-07-01] VITALS: Ht 160 cm; Wt 83.4 kg
[~2016-07-01 19:15] MED LIST changes: -ASPI81TA28 PO; -CALC1TAB9 PO; -CHOL1000 PO; -FLM4 PO; -HYDR25TA5 PO; -LPR25 PO; -ONDA4TAB10 SL; -OXYC1TAB3 PO; -POTA-74 PO; -POTA1080 PO; -RANI150T2 PO
--- NOTE | 2016-07-01 19:43 | EMERGENCY ROOM VISIT NOTE ---
History Report prepared by Chavezibe: Beth Childs Under the Supervision of: Dr. Clementine Armando D.O. First contact with patient: 19:20 Chief Complaint: CHEST PAIN Stated Complaint: CHEST PAIN History of Present Illness The patient is a 50 year old female who presents to the Emergency Room with complaints of midsternal chest pain that started around 1800 this evening. She was brought to the ED via EMS. She describes her pain as feeling like a " burning sensation". She reports she had a bone spur surgically removed from her foot earlier this evening, operation performed by Dr. Momin at [facility], and states she was in the recovery room when the pain started. She was placed under general anesthesia for the surgery. She was given an antacid, Nitro and 2 Aspirin at [facility], then EMS gave her another 2 Nitro in the field. The medications have provided some relief. Her Oxygen saturation was never lower than 98% at [facility]. She denies any shortness of breath. The patient also denies any personal cardiac history. She reports she had a stress test in 2014 and states "it was normal". Source of History: patient Onset: 1800 this evening Position: chest Quality: burning Timing: other (persistent) Modifying Factors (Relieving): other (Aspirin, Nitroglycerin, Antacid) Associated Symptoms: No SOB Review of Systems See HPI for pertinent positives & negatives. A total of 10 systems reviewed and were otherwise negative. Past Medical & Surgical Medical Problems: (1) HTN (hypertension) (2) Hydronephrosis of left kidney (3) Left ureteral calculus (4) Menorrhagia (5) PVC (premature ventricular contraction) Social History Smoking Status: Never Smoker Alcohol Use: none Drug Use: none Marital Status: Housing Status: lives with family Occupation Status: employed Current/Historical Medications Scheduled Aspirin (Aspirin Ec), 81 MG PO QAM Cholecalciferol (Vitamin D3), 1,000 INTER.UNIT PO BID Fish Oil ([place]-3), 1 CAP PO BID Hydrochlorothiazide (Hydrochlorothiazide), 25 MG PO QAM Metoprolol Tartrate (Lopressor), 12.5 MG PO BID Multiple Vitamin (Multi Vitamin Daily), 1 TAB PO QAM Potassium Citrate (Alkalinizer (Potassium Citrate ER), 1,080 MG PO BID Probiotic Product (Probiotic), 1 TAB PO HS Tamsulosin HCl (Tamsulosin HCl), 0.4 MG PO HS Scheduled PRN Oxycodone/Acetaminophen 5MG/325MG (Percocet 5MG/325MG), 1-2 TABLETS PO Q8H PRN for Pain Ranitidine HCl (Ranitidine HCl), 150 MG PO HS PRN for Acid Reflux Allergies Coded Allergies: No Known Allergies (Unverified , 06/12/16) Physical Exam Vital Signs Date Time Temp Pulse Resp B/P Pulse Ox O2 Delivery O2 Flow Rate FiO2 07/01/16 21:25 77 16 125/75 97 07/01/16 21:20 72 16 98 07/01/16 21:15 77 18 98 07/01/16 21:10 76 16 98 07/01/16 21:05 72 16 98 07/01/16 21:00 73 15 98 07/01/16 20:55 77 17 98 07/01/16 20:50 75 18 97 07/01/16 20:45 77 16 97 07/01/16 20:40 81 23 98 07/01/16 20:35 80 20 98 07/01/16 20:30 79 16 98 07/01/16 20:25 79 18 98 07/01/16 20:20 74 17 98 07/01/16 20:15 77 16 98 07/01/16 20:10 78 16 97 07/01/16 20:05 74 15 98 07/01/16 20:00 75 16 97 07/01/16 19:55 78 19 97 07/01/16 19:55 77 07/01/16 19:47 36.7 77 18 121/79 97 Room Air 07/01/16 19:47 97 Room Air 07/01/16 19:47 97 Room Air 07/01/16 19:26 121/79 Physical Exam HEENT: Head - normocephalic and atraumatic Pupils are equal, round, and reactive to light. Extraocular eye muscles are intact, and sclera are anicteric. Nose - moist nasal mucosa without discharge. Mouth - moist buccal mucosa. Oropharynx is nonerythematous and there is no tonsillar exudate or edema noted. Neck: Supple; no JVD, nuchal rigidity, cervical lymphadenopathy, or auscultated bruits. Heart: Regular rate and rhythm. There is a normal S1 and S2 with no murmurs, clicks, or gallops appreciated. Chest: Pain in the area superior to the Xiphoid process to palpation. Lungs: Clear to auscultation bilaterally with no wheezes, rales, or rhonchi. Abdomen: Soft, completely nontender, nondistended, with good bowel sounds. There are no palpable pulsatile masses or hepatosplenomegaly. There is no guarding, rigidity, or rebound noted. Extremities: No evidence of cyanosis, clubbing, or edema. There are easily palpable peripheral pulses. Skin: warm and dry with good turgor and no rashes. Medical Decision & Procedures ER Provider Diagnostic Interpretation: This X-Ray was reviewed and interpreted by myself and the radiologist. CHEST ONE VIEW PORTABLE IMPRESSION: 1. Hazy left basilar opacity which likely reflects atelectasis. 2. No definite acute cardiopulmonary findings. Electronically signed by: Ethan Carson M.D. 07/01/2016 7:[address] scan was reviewed and interpreted by the radiologist and reviewed by myself. CT ANGIOGRAPHY OF THE CHEST, PULMONARY EMBOLUS PROTOCOL IMPRESSION: 1. No pulmonary emboli identified. 2. Bilateral lower lobe airspace opacities. Atelectasis is favored. Pneumonia is considered less likely although could appear similar. Electronically signed by: Ethan Carson M.D. 07/01/2016 10:26 PM Laboratory Results 07/01/16 20:37 Red Blood Count 3.69, Mean Corpuscular Volume 92.1, Mean Corpuscular Hemoglobin 30.9, Mean Corpuscular Hemoglobin Concent 33.5, Mean Platelet Volume 9.6, Neutrophils (%) (Auto) 78.9, Lymphocytes (%) (Auto) 14.4, Monocytes (%) (Auto) 6.0, Eosinophils (%) (Auto) 0.4, Basophils (%) (Auto) 0.1, Neutrophils # (Auto) 6.42, Lymphocytes # (Auto) 1.17, Monocytes # (Auto) 0.49, Eosinophils # (Auto) 0.03, Basophils # (Auto) 0.01 07/01/16 20:37 Test 07/01/16 20:37 White Blood Count 8.14 K/uL (4.8-10.8) Red Blood Count 3.69 M/uL (4.2-5.4) Hemoglobin 11.4 g/dL (12.0-16.0) Hematocrit 34.0 % (37-47) Mean Corpuscular Volume 92.1 fL (80-100) Mean Corpuscular Hemoglobin 30.9 pg (25-34) Mean Corpuscular Hemoglobin Concent 33.5 g/dl (32-36) Platelet Count 220 K/uL (130-400) Mean Platelet Volume 9.6 fL (7.4-10.4) Neutrophils (%) (Auto) 78.9 % Lymphocytes (%) (Auto) 14.4 % Monocytes (%) (Auto) 6.0 % Eosinophils (%) (Auto) 0.4 % Basophils (%) (Auto) 0.1 % Neutrophils # (Auto) 6.42 K/uL (1.4-6.5) Lymphocytes # (Auto) 1.17 K/uL (1.2-3.4) Monocytes # (Auto) 0.49 K/uL (0.11-0.59) Eosinophils # (Auto) 0.03 K/uL (0-0.5) Basophils # (Auto) 0.01 K/uL (0-0.2) RDW Standard Deviation 43.9 fL (36.4-46.3) RDW Coefficient of Variation 13.0 % (11.5-14.5) Immature Granulocyte % (Auto) 0.2 % Immature Granulocyte # (Auto) 0.02 K/uL (0.00-0.02) D-Dimer 510 ug/L FEU (0-500) Anion Gap 10.0 mmol/L (3-11) Est Creatinine Clear Calc Drug Dose 73.2 ml/min Estimated GFR () 83.0 Estimated GFR (Non- 71.6 BUN/Creatinine Ratio 13.2 (10-20) Calcium Level 7.7 mg/dl (8.5-10.1) Total Bilirubin 0.3 mg/dl (0.2-1) Direct Bilirubin < 0.1 mg/dl (0-0.2) Aspartate Amino Transf (AST/SGOT) 18 U/L (15-37) Alanine Aminotransferase (ALT/SGPT) 36 U/L (12-78) Alkaline Phosphatase 89 U/L (45-117) Total Creatine Kinase 68 U/L (26-192) Creatine Kinase MB 1.1 ng/ml (0.5-3.6) Creatine Kinase MB Ratio 1.6 (0-3.0) Troponin I < 0.015 ng/ml (0-0.045) Total Protein 6.5 gm/dl (6.4-8.2) Albumin 3.1 gm/dl (3.4-5.0) Lipase 80 U/L (73-393) Laboratory results per my review. Medications Administered Medications (Trade) Dose Ordered Sig/Caitlin Route Start Time Stop Time Status Last Admin Dose Admin Promethazine HCl (Phenergan 25MG Home Pack) 1 homepack UD ONCE PO 07/01/16 22:45 07/01/16 22:46 DC 07/01/16 23:01 1 HOMEPACK Procedure Phenergan PO. ECG Indication: chest pain Rate (beats per minute): 75 Rhythm: normal sinus (normal sinus rhythm) Findings: other (prolonged QT at 492 milliseconds) ED Course 1926: Past medical records reviewed. The patient was evaluated in room C1. A complete history and physical exam was performed. A twelve-lead EKG was obtained as described above. The patient was observing the fitting room inspector and pulse oximeter. A chest x-ray was obtained. 2030: I reevaluated the patient. She remains symptom free in her chest and just got her blood work drawn. 2107: Nursing informed me the patient's D-Dimer is elevated. 2121: I reevaluated the patient. She wants to be safe and agrees to a CT scan. She remains symptom free. 2239: I reevaluated the patient. She is still asymptomatic in her chest. She does admit to a headache that she has had since she received Nitroglycerin earlier this evening. She reports she has Percocet at home for pain, and got a prescription for Promethazine to prevent nausea, but never got it filled. I will give her a home pack. I discussed her results and discharge instructions and she verbalized complete understanding and agreement. 5: Phenergan 25 mg 1 home pack PO. Medical Decision The patient is a 50 year old female who presents to the ED with chest pain. The differential diagnoses include GERD, esophagitis, PE, cardiac ischemia and pancreatitis. Lab results show D-Dimer is 510, normal renal function, Glucose is 110, Lipase is 80, Cardiac enzymes are negative, LFT's are normal, Hemoglobin is 114.4, normal WBC. this is a 50-year-old female patient who presents to the emergency department after having orthopedic surgery earlier today under general anesthesia. The patient developed a chest burning sensation in PACU. They administer and acids , aspirin, and nitroglycerin without relief of her discomfort. She was transported here for further evaluation. She has a normal-appearing EKG. Cardiac enzymes were negative. The patient is a mildly elevated d-dimer and went for CT scan of the chest to rule out PE. This was negative. There was some evidence of atelectasis versus pneumonia. The patient is afebrile with no leukocytosis. She denies any shortness of breath or cough. The patient was told to return to the emergency department if she developed a fever, shortness of breath or productive cough. Impression Primary Impression: Substernal chest pain Scribe Attestation The scribe's documentation has been prepared under my direction and personally reviewed by me in its entirety. I confirm that the note above accurately reflects all work, treatment, procedures, and medical decision making performed by me. Departure Information Dispostion Home / Self-Care Referrals Miryam Tapia, C.R.N.P (PCP) Patient Instructions Chest Pain - [facility], [facility] Additional Instructions Rest Take a bland diet Use incentive spirometer as instructed. Return to the ER if you develop shortness of breath, fever, or productive cough take percocet as directed and promethazine
[2016-07-01 19:47] VITALS: TEMP 36.7; O2SAT 97; Ht 160 cm; Wt 83.4 kg
--- NOTE | 2016-07-01 20:01 | DIAGNOSTIC IMAGING REPORT ---
CHEST ONE VIEW PORTABLE CLINICAL HISTORY: Chest pain. Chest burning. COMPARISON STUDY: Chest radiograph May 06, 2016. FINDINGS: Lung volumes are normal. There is no pneumothorax or pleural effusion. Hazy left basilar opacity is noted. There is no evidence of pulmonary edema. Cardiomediastinal silhouette is normal. IMPRESSION: 1. Hazy left basilar opacity which likely reflects atelectasis. 2. No definite acute cardiopulmonary findings. Electronically signed by: Ethan Carson M.D. 07/01/2016 7:59 PM Dictated Date/Time: 07/01/2016 7:58 PM
[2016-07-01] MEDS ORDERED: LPR25 PO (20:28)
[2016-07-01] MEDS ORDERED: RANI150T2 PO (20:28)
[2016-07-01] MEDS ORDERED: FLM4 PO (20:28)
[2016-07-01] MEDS ORDERED: POTA1080 PO (20:28)
[2016-07-01 20:52] LABS: BASO % 0.1 %; BASO ABS # 0.01 K/uL (0-0.2); COMPLETE YES; EOS % 0.4 %; IG% 0.2 %; LYMPH % 14.4 %; LYMPH ABS # 1.17 K/uL (1.2-3.4); MEAN CELL VOLUME 92.1 fL (80-100); MEAN CORPUSCULAR HEMOGLOBIN 30.9 pg (25-34); MEAN CORPUSCULAR HGB CONC 33.5 g/dl (32-36); MEAN PLATELET VOLUME 9.6 fL (7.4-10.4); NEUT % 78.9 %; PLATELET COUNT 220 K/uL (130-400); RED BLOOD COUNT 3.69 M/uL (4.2-5.4); WHITE BLOOD COUNT 8.14 K/uL (4.8-10.8)
[2016-07-01] MEDS ORDERED: ASPI81TA28 PO (21:01)
[2016-07-01] MEDS ORDERED: HYDR25TA5 PO (21:01)
[2016-07-01] MEDS ORDERED: CHOL1000 PO (21:01)
[2016-07-01 21:10] LABS: ALT/SGPT 36 U/L (12-78); BLOOD UREA NITROGEN 12 mg/dl (7-18); BUN/CREATININE RATIO 13.2 (10-20); CALCIUM 7.7 mg/dl (8.5-10.1); CARBON DIOXIDE 28 mmol/L (21-32); CHLORIDE 108 mmol/L (98-107); CREATININE 0.92 mg/dl (0.60-1.20); GLUCOSE 110 mg/dl (70-99); POTASSIUM 3.5 mmol/L (3.5-5.1); SODIUM 146 mmol/L (136-145)
[2016-07-01 21:15] LABS: ALKALINE PHOSPHATASE 89 U/L (45-117); AST/SGOT 18 U/L (15-37); CKMB/CK RATIO 1.6 (0-3.0)
[2016-07-01 21:25] VITALS: BP 125/75; PULSE 77; O2SAT 97
[2016-07-01] MEDS ORDERED: OPTIRAY 320 IV PRN (21:45)
--- NOTE | 2016-07-01 22:27 | DIAGNOSTIC IMAGING REPORT ---
CT ANGIOGRAPHY OF THE CHEST, PULMONARY EMBOLUS PROTOCOL CLINICAL HISTORY: Chest pain. COMPARISON STUDY: Chest CT February 17, 2014 and chest radiograph performed earlier today. TECHNIQUE: Following IV administration of 93 mL of Optiray-320, helical axial images of the chest were obtained utilizing the pulmonary embolus protocol. Maximal intensity projections and sagittal and coronal reformats were viewed on an independent 3D workstation. IV contrast was administered without complication. CT DOSE: 242.20 mGy.cm FINDINGS: No pulmonary emboli are identified. There is no evidence of thoracic aortic dissection. The size of the heart is at the upper limits of normal. There is no pericardial effusion. No pneumothorax or pleural effusion is present. Dependent airspace opacities within the lower lobes favor atelectasis. There is no significant abnormality within the bony thorax or the upper abdomen. IMPRESSION: 1. No pulmonary emboli identified. 2. Bilateral lower lobe airspace opacities. Atelectasis is favored. Pneumonia is considered less likely although could appear similar. Electronically signed by: Ethan Carson M.D. 07/01/2016 10:26 PM Dictated Date/Time: 07/01/2016 10:20 PM
[2016-07-01] MEDS ORDERED: PHENERGAN 25MG HOMEPACK PO ONE (22:45)
[2016-12-20] MEDS ORDERED: OXYC-57 PO (08:49)
== END 2016-07-01 23:04 | disposition home or self-care (01) ==
LOC: EDBD 19:15 → C.EDC 19:16
DX: R07.2 Precordial pain (principal); I10 Essential (primary) hypertension; Z79.82 Long term (current) use of aspirin

== ENCOUNTER → 2016-07-27 | Outpatient (CLI) | payer BC ==
[~2016-07-27] MED LIST changes: +ASPI81TA28 PO; +CALC1TAB9 PO; +CHOL1000 PO; +FLM4 PO; +HYDR25TA5 PO; +LPR25 PO; -METO25TA56 PO; +ONDA4TAB10 SL; +OXYC1TAB3 PO; +POTA-74 PO; +POTA1080 PO; -POTA10CA28 PO; -POTATAB2 PO; +RANI150T2 PO; -RANITAB6 PO; -SULF800T23 PO; -TAMS0.4C38 PO
--- NOTE | 2016-07-27 16:44 | DIAGNOSTIC IMAGING REPORT ---
KUB CLINICAL HISTORY: N20.0 Nephrolithiasis COMPARISON STUDY: 06/23/2016 FINDINGS: Cluster calculi projected over each kidney. There has been interval removal of the left-sided nephroureteral stent. Multiple pelvic basin calcifications remain stable and therefore likely represent phleboliths. There is no pathologic bowel dilatation IMPRESSION: 1. Interval removal of the left-sided nephroureteral stent 2. Bilateral nephrolithiasis Electronically signed by: Juan Armstrong M.D. 07/27/2016 4:42 PM Dictated Date/Time: 07/27/2016 4:41 PM
== END | disposition home or self-care (01) ==
LOC: C.RAD 16:16
PROVIDERS: ATTEND Urology
DX: N20.0 Calculus of kidney (principal)

== ENCOUNTER → 2016-08-02 | Outpatient (CLI) | payer BC ==
--- NOTE | 2016-08-02 14:41 | DIAGNOSTIC IMAGING REPORT ---
ABDOMEN AND PELVIS CT WITHOUT CONTRAST CT DOSE: 824.64 mGy.cm HISTORY: Pain nephrocalcinosis TECHNIQUE: Multiaxial CT images of the abdomen and pelvis were performed without the use of intravenous and oral contrast according to the standard department stone protocol. COMPARISON STUDY: 05/05/2016 FINDINGS: Lung bases are clear. Liver spleen and pancreas are unremarkable. Multiple small calcifications lower pole right kidney are noted. There is no evidence for an obstructing urinary tract calculus on the right. The largest calculus measures 3.5 mm. Left kidney demonstrates partial fragmentation of the dominant calcification of the mid to lower aspect left kidney. 3 small fragments appear to have been avulsed. Dominant fragment measures 4.2 mm. Calcification appears described within the distal left ureter. A past. There currently is no evidence for an obstructing urinary tract calculus. Bladder is midline. There are no contained calcifications. Bowel pattern is nonobstructive. The appendix is normal. IMPRESSION: 1. Interval passage of the calcifications the distal left ureter previously described. 2. Several calcifications lower pole right kidney unchanged. 3. Partial fragmentation of a dominant calcification mid left kidney with several small fragments identified lower pole left kidney. 4. No current evidence for an obstructing urinary tract calculus. Electronically signed by: Christian Mason M.D. 08/02/2016 2:39 PM Dictated Date/Time: 08/02/2016 2:34 PM
== END | disposition home or self-care (01) ==
LOC: C.CTS 14:15
PROVIDERS: ATTEND Nurse Practitioner Family
DX: N20.1 Calculus of ureter (principal)

== ENCOUNTER 2016-09-01 22:34 | Emergency (ER) | payer BC ==
[~2016-09-01] VITALS: Ht 160 cm; Wt 80.3 kg
[~2016-09-01 22:34] MED LIST changes: -CALC1TAB9 PO; -ONDA4TAB10 SL; -OXYC1TAB3 PO; -POTA-74 PO
[2016-09-01 22:36] VITALS: TEMP 36.5; Ht 160 cm; Wt 80.3 kg
[2016-09-01] MEDS ORDERED: SODIUM CHLORIDE 0.9% 1000ML 1,000 ML IV STA (22:43)
[2016-09-01] MEDS ORDERED: KETOROLAC TROMETHAMINE 30 MG/ML VIAL IV STA (22:43)
[2016-09-01] MEDS ORDERED: ONDANSETRON INJ 2 MG/ML 2 ML VIAL IV STA (22:43)
[2016-09-01] MEDS ORDERED: MoRPHine SULFATE 4 MG/ML 1 ML CARP\\VIAL IV STA (22:43)
[2016-09-01] MEDS ORDERED: CALC1TAB9 PO (22:50)
[2016-09-01 23:12] LABS: BASO % 0.3 %; BASO ABS # 0.03 K/uL (0-0.2); COMPLETE YES; HEMATOCRIT 42.4 % (37-47); IG% 0.3 %; LYMPH ABS # 1.66 K/uL (1.2-3.4); MEAN CELL VOLUME 92.8 fL (80-100); MEAN CORPUSCULAR HEMOGLOBIN 30.6 pg (25-34); MEAN PLATELET VOLUME 10.2 fL (7.4-10.4); MONO % 5.5 %; NEUT % 74.9 %; PLATELET COUNT 304 K/uL (130-400); RED BLOOD COUNT 4.57 M/uL (4.2-5.4); WHITE BLOOD COUNT 9.79 K/uL (4.8-10.8)
[2016-09-01 23:22] LABS: URINE APPEARANCE CLOUDY (CLEAR); URINE BILIRUBIN NEG (NEG); URINE COLOR YELLOW; URINE EPITHELIAL CELL AUTO >30 /lpf (0-5); URINE NITRITE NEG (NEG); URINE SPECIFIC GRAVITY 1.025 (1.000-1.030); UROBILINOGEN NEG (NEG); ZZUR CULT IF INDIC CLEAN CATCH YES
[2016-09-01 23:25] LABS: MANUAL MICROSCOPIC REQUIRED? NO; REVIEW REQ? YES
[2016-09-01 23:32] LABS: BUN/CREATININE RATIO 20.4 (10-20); CALCIUM 8.9 mg/dl (8.5-10.1); CREATININE 1.1 mg/dl (0.60-1.20); POTASSIUM 3.8 mmol/L (3.5-5.1)
[2016-09-02] MEDS ORDERED: OXYC1TAB3 PO (00:18)
[2016-09-02] MEDS ORDERED: ONDA4TAB10 SL (00:18)
[2016-09-02] MEDS ORDERED: OXYCODONE IR HOME PACK PO ONE (00:30)
[2016-09-02] MEDS ORDERED: ONDANSETRON HOME PACK 4MG OD TAB PO ONE (00:30)
[2016-09-02 00:31] VITALS: BP 145/96; PULSE 84; O2SAT 95
--- NOTE | 2016-09-02 03:40 | EMERGENCY ROOM VISIT NOTE ---
History First contact with patient: 22:43 Chief Complaint: KIDNEY STONE Stated Complaint: KIDNEY PAIN,POSSIBLE KIDNEY STONE History of Present Illness The patient is a 50 year old female who presents to the Emergency Room with complaints of sudden onset of left flank pain that radiates to her groin described as aching, ranging in severity 8 out of 10. Nothing makes it better or worse. Patient has history of multiple kidney stones in the past. She follows with Dr. Sharpe. She's had lithotripsy and a stent placed in the past. Patient denies chest pain, dyspnea, fever, chills, nausea, vomiting, diarrhea , dysuria, hematuria, urinary frequency or urgency. No other complaint per patient. Review of Systems See HPI for pertinent positives & negatives. A total of 10 systems reviewed and were otherwise negative. Past Medical/Surgical History Medical Problems: (1) HTN (hypertension) (2) Hydronephrosis of left kidney (3) Left ureteral calculus (4) Menorrhagia (5) PVC (premature ventricular contraction) Social History Smoking Status: Never Smoker Alcohol Use: none Drug Use: none Marital Status: Housing Status: lives with family Occupation Status: employed Current/Historical Medications Scheduled Aspirin (Aspirin Ec), 81 MG PO QAM Calcium Citrate-Vitamin D (Citracal + D3 Maximum), 1 TAB PO BID Fish Oil (Erick-3), 1 CAP PO BID Hydrochlorothiazide (Hydrochlorothiazide), 25 MG PO QAM Metoprolol Tartrate (Lopressor), 12.5 MG PO BID Multiple Vitamin (Multi Vitamin Daily), 1 TAB PO QAM Ondasetron Odt (Zofran Odt), 4 MG SL Q6H Potassium Citrate (Alkalinizer (Potassium Citrate ER), 1,080 MG PO BID Scheduled PRN Oxycodone Immediate Rel Tab (Roxicodone Ir), 1-2 TAB PO Q4H PRN for Severe Pain Ranitidine HCl (Ranitidine HCl), 150 MG PO HS PRN for Acid Reflux Allergies Coded Allergies: No Known Allergies (Unverified , 06/12/16) Physical Exam Vital Signs Date Time Temp Pulse Resp B/P Pulse Ox O2 Delivery O2 Flow Rate FiO2 09/02/16 00:31 84 18 145/96 95 09/01/16 22:36 36.5 84 20 179/89 95 Room Air Pain Rating (0-10): 4.0 Physical Exam VITALS: Vitals are noted on the nurse's note and reviewed by myself. Vital signs stable. GENERAL: Pleasant female writhing in pain, nondiaphoretic, well-developed well- nourished. SKIN: The skin was without rashes, erythema, edema, or bruising. There is no tenting of the skin. Capillary reflex less than 2 seconds. HEAD: Normocephalic atraumatic. EARS: External auditory canals clear, tympanic membranes pearly garcia without erythema or effusion bilaterally. EYES: Pupils equal round and reactive to light and accommodation. Conjunctivae without injection, sclerae without icterus. Extraocular movements intact. NOSE: Patent, turbinates without inflammation or discharge. MOUTH: Mucous membranes moist. Pharynx without erythema or exudate. Uvula midline. Airway patent. Tongue does not deviate. NECK: Supple without nuchal rigidity. No lymphadenopathy. No thyromegaly. Cervical spine is nontender. No JVD. HEART: Regular rate and rhythm without murmurs gallops or rubs. LUNGS: Clear to auscultation bilaterally without wheezes, rales or rhonchi. No dullness to percussion. No retractions or accessory muscle use. ABDOMEN: Positive bowel sounds x 4. Normal tympanic percussion. Soft, nontender, without masses or organomegaly. Irene sign negative. No guarding or rebound tenderness. No CVA tenderness MUSCULOSKELETAL: No muscle atrophy, erythema, or edema noted. NEURO: Patient was alert and oriented to person place and time. Normal sensation to light and sharp touch. No focal neurological deficits. Medical Decision & Procedures Laboratory Results 09/01/16 23:00 Red Blood Count 4.57, Mean Corpuscular Volume 92.8, Mean Corpuscular Hemoglobin 30.6, Mean Corpuscular Hemoglobin Concent 33.0, Mean Platelet Volume 10.2, Neutrophils (%) (Auto) 74.9, Lymphocytes (%) (Auto) 17.0, Monocytes (%) (Auto) 5.5, Eosinophils (%) (Auto) 2.0, Basophils (%) (Auto) 0.3, Neutrophils # (Auto) 7.33, Lymphocytes # (Auto) 1.66, Monocytes # (Auto) 0.54, Eosinophils # (Auto) 0.20, Basophils # (Auto) 0.03 09/01/16 23:00 Test 09/01/16 23:00 White Blood Count 9.79 K/uL (4.8-10.8) Red Blood Count 4.57 M/uL (4.2-5.4) Hemoglobin 14.0 g/dL (12.0-16.0) Hematocrit 42.4 % (37-47) Mean Corpuscular Volume 92.8 fL (80-100) Mean Corpuscular Hemoglobin 30.6 pg (25-34) Mean Corpuscular Hemoglobin Concent 33.0 g/dl (32-36) Platelet Count 304 K/uL (130-400) Mean Platelet Volume 10.2 fL (7.4-10.4) Neutrophils (%) (Auto) 74.9 % Lymphocytes (%) (Auto) 17.0 % Monocytes (%) (Auto) 5.5 % Eosinophils (%) (Auto) 2.0 % Basophils (%) (Auto) 0.3 % Neutrophils # (Auto) 7.33 K/uL (1.4-6.5) Lymphocytes # (Auto) 1.66 K/uL (1.2-3.4) Monocytes # (Auto) 0.54 K/uL (0.11-0.59) Eosinophils # (Auto) 0.20 K/uL (0-0.5) Basophils # (Auto) 0.03 K/uL (0-0.2) RDW Standard Deviation 40.9 fL (36.4-46.3) RDW Coefficient of Variation 12.1 % (11.5-14.5) Immature Granulocyte % (Auto) 0.3 % Immature Granulocyte # (Auto) 0.03 K/uL (0.00-0.02) Urine Color YELLOW Urine Appearance CLOUDY (CLEAR) Urine pH 6.0 (4.5-7.5) Urine Specific Solen 1.025 (1.000-1.030) Urine Protein 1+ (NEG) Urine Glucose (UA) NEG (NEG) Urine Ketones NEG (NEG) Urine Occult Blood 2+ (NEG) Urine Nitrite NEG (NEG) Urine Bilirubin NEG (NEG) Urine Urobilinogen NEG (NEG) Urine Leukocyte Esterase TRACE (NEG) Urine WBC (Auto) 10-30 /hpf (0-5) Urine RBC (Auto) 10-30 /hpf (0-4) Urine Hyaline Casts (Auto) 1-5 /lpf (0-5) Urine Epithelial Cells (Auto) >30 /lpf (0-5) Urine Bacteria (Auto) 1+ (NEG) Urine Yeast (Auto) BUDDING (NONE PRSENT) Anion Gap 6.0 mmol/L (3-11) Est Creatinine Clear Calc Drug Dose 60.0 ml/min Estimated GFR () 66.8 Estimated GFR (Non- 57.7 BUN/Creatinine Ratio 20.4 (10-20) Calcium Level 8.9 mg/dl (8.5-10.1) Medications Administered Medications (Trade) Dose Ordered Sig/Caitlin Route Start Time Stop Time Status Last Admin Dose Admin Ketorolac Tromethamine (Toradol Inj) 30 mg NOW STAT IV 09/01/16 22:43 09/01/16 22:44 DC 09/01/16 23:02 30 MG Morphine Sulfate (MoRPHine SULFATE INJ) 4 mg NOW STAT IV 09/01/16 22:43 09/01/16 22:44 DC 09/01/16 23:01 4 MG Ondansetron HCl 4 mg 4 mg NOW STAT IV 09/01/16 22:43 09/01/16 22:45 DC 09/01/16 23:02 4 MG Sodium Chloride (Nss 1000ml) 1,000 ml @ 125 mls/hr Q8H STAT IV 09/01/16 22:43 09/02/16 01:22 DC 09/01/16 23:02 125 MLS/HR Oxycodone HCl (Roxicodone Immediate Rel 5MG Home Pack) 1 homepack UD ONCE PO 09/02/16 00:30 09/02/16 00:31 DC 09/02/16 00:28 1 HOMEPACK Ondansetron HCl (ZOFRAN ODT 4MG Home Pack) 1 homepack UD ONCE PO 09/02/16 00:30 09/02/16 00:31 DC 09/02/16 00:28 1 HOMEPACK ED Course Prior records/ancillary studies reviewed. Triage Nursing notes reviewed. Additional history obtained from the family. The patient's history was concerning for left flank pain. Differential diagnosis: Etiologies such as renal colic, appendicitis, diverticulitis, mesenteric ischemia, aortic pathology, infections, inflammatory bowel disease, PUD, biliary pathology, UTI, as well as others were entertained. Physical examination findings: As above. ER treatment provided: Morphine, Toradol, Zofran On reassessment the patient felt better. Diagnostic interpretation by me: The labs revealed hyperglycemia without DKA. Urinalysis revealed hematuria and multiple skin cells concerning for contamination. There was no sign of UTI. Imaging studies: CT of the abdomen and pelvis is reviewed from prior this is also bilateral stones. Ultrasound concerning for hydronephrosis on the left side It appears that the patient has isolated renal colic from a left sided stone. Patient was neurovascularly and neurologically intact. Her pain was managed. She was requested to leave. I felt this is reasonable. She is advised to take medications as directed and to strain her urine and to follow-up with her urologist in a few days or here in the ER sooner for severe pain, fevers, vomiting, worsening signs or symptoms or as needed. Uric is consistent with contamination but was sent for culture. She had no urinary symptoms on exam.By the evaluation outlined above emergent etiologies such as appendicitis, diverticulitis, mesenteric ischemia, aortic pathology, infections, inflammatory bowel disease, PUD, biliary pathology, UTI, as well as others were deemed relatively unlikely. The pt informed about the findings as listed above. All questions were answered and pleased with the treatment. Return instructions were outlined and the patient was discharged in stable condition. Outpatient prescription management: Oxy IR 5mg 1-2 po Q4 hrs prn zofran Referral: The pt was referred to her urologist for follow up care regarding their stone. or The patient was referred back to their primary care physician for follow-up in 2 to 3 days for a recheck of the current condition. Case reviewed with my attending Medical Decision As above Impression Primary Impression: Renal colic on left side Departure Information Dispostion Home / Self-Care Condition GOOD Prescriptions Ondasetron Odt (ZOFRAN ODT) 4 Mg Tab 4 MG SL Q6H, #10 TAB Prov: Desiree Bryan PA-C 09/02/16 Oxycodone Immediate Rel Tab (ROXICODONE IR) 5 Mg Tab 1-2 TAB PO Q4H Y for Severe Pain, #15 TAB Prov: Desiree Bryan PA-C 09/02/16 Forms HOME CARE DOCUMENTATION FORM, Work Instructions, Return To Work: 2 days IMPORTANT VISIT INFORMATION Patient Instructions Kidney Stones - [facility], My [facility] Additional Instructions DO NOT drive, drink alcohol, operate machinery, or perform dangerous activities today. You were given medications in the ER that can affect your ability to safely function or operate a vehicle. Oxycodone Immediate Release (OxyIR) 5mg: Take 1-2 pills every four hours for pain. Avoid alcohol, operating machinery or dangerous equipment, working on ladders or roofs, DRIVING, or situations where being under the influence may be dangerous. It is recommended to use an [id number] stool softener such as Colace, 100mg twice daily while taking this medication to avoid constipation. Zofran 4 mg: Take one every six hours as needed for nausea. Avoid alcohol, operating machinery or dangerous equipment, working on ladders or roofs, DRIVING , or situations where being under the influence may be dangerous. Ibuprofen(Motrin, Advil) may be used for fever or pain. Use 600mg every six hours as needed. Take with food. Avoid using more than 2400mg in a 24 hour period. Do not use 2400mg per day for more than three consecutive days without physician direction. Prolonged inappropriate use can lead to stomach upset or ulcers. This medication can be taken if you need to drive, work, or perform activities which may be dangerous when taking narcotic pain medication. (AND/OR) Acetaminophen(Tylenol) may be used for fever or pain. Use 1000mg every six hours as needed. Avoid using more than 3000mg in a 24 hour period. This medication can be taken if you need to drive, work, or perform activities which may be dangerous when taking narcotic pain medication. Strain your urine and collect all the stones or debris for the urologists. Rest and avoid strenuous activity until your stone passes and symptoms resolve. Drink plenty of fluids. Continue current medications. Return to the ER for worsening abdominal or back pain, vomiting, fevers, passing out, or as needed. Follow up with your urologist in 1-2 days, call for an appointment. Work Instructions Return To Work: 2 days
--- NOTE | 2016-09-02 06:46 | DIAGNOSTIC IMAGING REPORT ---
EXAMINATION: RENAL ULTRASOUND CLINICAL HISTORY: Left flank pain COMPARISON STUDY: CT scan dated 08/02/2016 FINDINGS: The right kidney measures 11.2 cm. The left kidney measures 11.8 cm.. There is no right-sided hydronephrosis. There is mild left-sided hydronephrosis. There is increase echogenicity of the paranasal with renal cortical thinning. Medullary nephrocalcinosis cannot be excluded. There is a 4 mm lower pole right renal calculus. 2 left renal calculi are visualized measuring 3 mm and 5 mm respectively. The bladder was decompressed the time of imaging. Neither ureteral jet was visualized. IMPRESSION : 1. Bilateral renal cortical thinning with bilateral renal calculi 2. Mild left-sided hydronephrosis. Electronically signed by: Juan Armstrong M.D. 09/02/2016 6:44 AM Dictated Date/Time: 09/02/2016 6:42 AM
[2016-12-20] MEDS ORDERED: OXYC-57 PO (08:49)
== END 2016-09-02 00:32 | disposition home or self-care (01) ==
LOC: C.EDB 22:35 → C.EDC 09-02 00:32
DX: N23 Unspecified renal colic (principal); I10 Essential (primary) hypertension; Z87.442 Personal history of urinary calculi; I49.3 Ventricular premature depolarization; Z79.82 Long term (current) use of aspirin; Z79.899 Other long term (current) drug therapy

== ENCOUNTER → 2016-09-15 | Outpatient (CLI) | payer BC ==
[~2016-09-15] MED LIST changes: +CALC1TAB9 PO; -CHOL1000 PO; -FLM4 PO; +ONDA4TAB10 SL; +OXYC1TAB3 PO; +POTA-74 PO; -PROB1TAB16 PO
--- NOTE | 2016-09-15 16:46 | DIAGNOSTIC IMAGING REPORT ---
KUB HISTORY: LT URETERAL CALCULUS COMPARISON: Abdomen and pelvis CT 08/02/2016. FINDINGS: The bowel gas pattern is unremarkable. There are no dilated loops of small bowel to suggest an obstruction. Multiple small bilateral renal calculi are again noted. These are not significantly changed. No ureteral calculi identified. Old round calcifications in the deep pelvis are not significantly changed change and likely represent phleboliths. No pneumoperitoneum or pneumatosis. IMPRESSION: Stable bilateral nephrolithiasis. No ureteral calculi identified. Electronically signed by: Efraín Iniguez M.D. 09/15/2016 4:44 PM Dictated Date/Time: 09/15/2016 4:43 PM
== END | disposition home or self-care (01) ==
LOC: C.RAD 15:57
PROVIDERS: ATTEND Nurse Practitioner Adult Health
DX: N20.1 Calculus of ureter (principal)

== ENCOUNTER 2016-10-19 09:46 | Emergency (ER) | payer BC ==
[~2016-10-19] VITALS: Ht 157.5 cm; Wt 78.2 kg
[~2016-10-19 09:46] MED LIST changes: -OXYC-57 PO; -POTA-74 PO
[2016-10-19 09:59] VITALS: TEMP 36.6; Ht 157.5 cm; Wt 78.2 kg
[2016-10-19] MEDS ORDERED: KETOROLAC TROMETHAMINE 30 MG/ML VIAL IV STA (10:16)
[2016-10-19] MEDS ORDERED: SODIUM CHLORIDE 0.9% 1000ML 1,000 ML IV ONE (10:16)
[2016-10-19] MEDS ORDERED: MoRPHine SULFATE 4 MG/ML 1 ML CARP\\VIAL IV STA ×2 (10:16→11:39)
[2016-10-19] MEDS ORDERED: SODIUM CHLORIDE 0.9% 1000ML 1,000 ML IV STA (10:16)
[2016-10-19] MEDS ORDERED: ONDANSETRON INJ 2 MG/ML 2 ML VIAL IV STA (10:16)
--- NOTE | 2016-10-19 10:24 | EMERGENCY ROOM VISIT NOTE ---
History Report prepared by Chavezibpillo: Michael Beverly Under the Supervision of: Dr. Guevara Limon M.D. First contact with patient: 10:10 Chief Complaint: FLANK PAIN Stated Complaint: KIDNEY AND BLADDER PAIN History of Present Illness The patient is a 51 year old female with a history of kidney stones who presents to the Emergency Room with complaints of worsening right flank pain since last night. The pain radiates to the lower abdomen. The patient states that the pain feels like past kidney stones. The pain is worse with movement. She also complains of nausea. The patient denies chest pain, palpitations, shortness of breath, vomiting, diarrhea, urinary symptoms, or rashes. The patient had lithotripsy after being admitted for kidney stones previously. She had multiple stones broken up on the left side, and there were noted to be multiple stones on the right. She follows up with Dr. Sharpe (Urology). The patient has a history of hypertension. She is s/p hysterectomy and bone spur surgery on the left foot. She still has her gallbladder. The patient has no known drug allergies. Source of History: patient, spouse/significant other Onset: last night Position: other (right flank) Timing: worsening Modifying Factors (Worsening): movement Associated Symptoms: + nausea, + abdominal pain, No chest pain, No SOB, No vomiting, No diarrhea, No urinary symptoms, No rash Review of Systems See HPI for pertinent positives & negatives. A total of 10 systems reviewed and were otherwise negative. Past Medical & Surgical Medical Problems: (1) HTN (hypertension) (2) Hydronephrosis of left kidney (3) Left ureteral calculus (4) Menorrhagia (5) PVC (premature ventricular contraction) Old medical records were reviewed. Nurse's notes were reviewed and I agree with. She Social History Smoking Status: Never Smoker Alcohol Use: none Drug Use: none Marital Status: Housing Status: lives with family Occupation Status: employed Current/Historical Medications Scheduled Aspirin (Aspirin Ec), 81 MG PO QAM Calcium Citrate-Vitamin D (Citracal + D3 Maximum), 1 TAB PO BID Fish Oil ([place]-3), 1 CAP PO BID Hydrochlorothiazide (Hydrochlorothiazide), 25 MG PO QAM Metoprolol Tartrate (Lopressor), 12.5 MG PO BID Multiple Vitamin (Multi Vitamin Daily), 1 TAB PO QAM Potassium Chloride (Potassium Chloride Er), 10 MEQ PO BID Scheduled PRN Oxycodone Ir (Roxicodone Ir), 1-2 TAB PO Q4H PRN for Severe Pain Ranitidine HCl (Ranitidine HCl), 150 MG PO HS PRN for Acid Reflux Allergies Coded Allergies: No Known Allergies (Unverified , 06/12/16) Physical Exam Vital Signs Date Time Temp Pulse Resp B/P (MAP) Pulse Ox O2 Delivery O2 Flow Rate FiO2 10/19/16 12:40 78 18 159/90 95 Room Air 10/19/16 11:43 71 18 171/93 94 Room Air 10/19/16 09:59 36.6 74 18 181/102 96 Room Air Physical Exam General: Non-ill appearing middle aged female complaining of right flank pain that radiates to her abdomen. Well developed well nourished in no acute distress , breathing comfortably on room air. Normal speech HEENT: Normal cephalic atraumatic. Pupils are equal round and reactive to light. Extraocular movements are intact. Oropharynx is pink with moist mucous membranes. No swelling of the mouth lips or tongue. Neck: Supple with a midline trachea. No meningeal signs or stiffness, no JVD or bruits. No Stridor. Chest: Clear to auscultation bilaterally. No wheezes or rhonchi. No increased work of breathing. Heart: regular rate and rhythm. Abdomen: Soft nontender, nondistended without rebound guarding or rigidity. Extremities: No cyanosis clubbing or edema. No calf tenderness or assymetry Spine/Back. Non tender to palpation. No CVA tenderness Skin: Good turgor without rashes. Neurologic exam: Cranial nerves two through 12 are intact. Motor and sensation are intact and symmetrical throughout. Medical Decision & Procedures ER Provider Diagnostic Interpretation: X-ray results as stated below per interpretation by me and the radiologist: Radiology results as stated below per my review and radiologist interpretation: KUB CLINICAL HISTORY: Right flank pain. History of stones. COMPARISON STUDY: CT of the abdomen and pelvis August 02, 2016 and KUB September 15, 2016. FINDINGS: Multiple bilateral renal calculi are noted. The largest is a 5 m calculus within the lower pole of the left kidney. A 5 mm right pelvic calcification is new since prior exam and suggests a distal right ureteral calculus, likely at the ureterovesical junction. Additional pelvic calcifications are unchanged and suggest phleboliths. No additional ureteral calculi are identified. IMPRESSION: 1. 5 mm right pelvic calcification suggestive of a distal right ureteral calculus. 2. Bilateral nephrolithiasis. Electronically signed by: Ethan Carson M.D. 10/19/2016 11:24 AM Dictated Date/Time: 10/19/2016 11:20 AM RENAL ULTRASOUND CLINICAL HISTORY: Right flank pain. History of kidney stones. COMPARISON STUDY: Renal ultrasound September 01, [address] of the abdomen and pelvis August 02, 2016. TECHNIQUE: Sonography of the kidneys and the urinary bladder was performed. FINDINGS: The right kidney measures 11.8 x 4.7 x 5.1 cm and the left measures 10.7 x 5 x 6.4 cm. There is moderate right hydronephrosis. Renal cortical thinning is again noted. Small echogenic foci within each renal sinus suggest calculi. There is no left hydronephrosis. Bladder is suboptimally assessed given underdistention. Neither ureteral jet was identified. IMPRESSION: 1. Moderate right hydronephrosis. No ureteral calculi identified although these are often occult by sonography. 2. Bilateral nephrolithiasis. Electronically signed by: Ethan Carson M.D. 10/19/2016 11:37 AM Dictated Date/Time: 10/19/2016 11:34 AM Laboratory Results 10/19/16 10:25 Red Blood Count 4.56, Mean Corpuscular Volume 89.7, Mean Corpuscular Hemoglobin 31.4, Mean Corpuscular Hemoglobin Concent 35.0, Mean Platelet Volume 10.1, Neutrophils (%) (Auto) 86.2, Lymphocytes (%) (Auto) 9.1, Monocytes (%) (Auto) 3.2, Eosinophils (%) (Auto) 1.0, Basophils (%) (Auto) 0.2, Neutrophils # (Auto) 8.49, Lymphocytes # (Auto) 0.90, Monocytes # (Auto) 0.32, Eosinophils # (Auto) 0.10, Basophils # (Auto) 0.02 10/19/16 10:25 Test 10/19/16 10:25 10/19/16 11:38 White Blood Count 9.86 K/uL (4.8-10.8) Red Blood Count 4.56 M/uL (4.2-5.4) Hemoglobin 14.3 g/dL (12.0-16.0) Hematocrit 40.9 % (37-47) Mean Corpuscular Volume 89.7 fL (80-100) Mean Corpuscular Hemoglobin 31.4 pg (25-34) Mean Corpuscular Hemoglobin Concent 35.0 g/dl (32-36) Platelet Count 278 K/uL (130-400) Mean Platelet Volume 10.1 fL (7.4-10.4) Neutrophils (%) (Auto) 86.2 % Lymphocytes (%) (Auto) 9.1 % Monocytes (%) (Auto) 3.2 % Eosinophils (%) (Auto) 1.0 % Basophils (%) (Auto) 0.2 % Neutrophils # (Auto) 8.49 K/uL (1.4-6.5) Lymphocytes # (Auto) 0.90 K/uL (1.2-3.4) Monocytes # (Auto) 0.32 K/uL (0.11-0.59) Eosinophils # (Auto) 0.10 K/uL (0-0.5) Basophils # (Auto) 0.02 K/uL (0-0.2) RDW Standard Deviation 39.9 fL (36.4-46.3) RDW Coefficient of Variation 12.3 % (11.5-14.5) Immature Granulocyte % (Auto) 0.3 % Immature Granulocyte # (Auto) 0.03 K/uL (0.00-0.02) Anion Gap 5.0 mmol/L (3-11) Est Creatinine Clear Calc Drug Dose 52.5 ml/min Estimated GFR () 59.8 Estimated GFR (Non- 51.6 BUN/Creatinine Ratio 20.3 (10-20) Calcium Level 9.2 mg/dl (8.5-10.1) Total Bilirubin 0.4 mg/dl (0.2-1) Direct Bilirubin < 0.1 mg/dl (0-0.2) Aspartate Amino Transf (AST/SGOT) 21 U/L (15-37) Alanine Aminotransferase (ALT/SGPT) 30 U/L (12-78) Alkaline Phosphatase 104 U/L (45-117) Total Protein 7.7 gm/dl (6.4-8.2) Albumin 3.8 gm/dl (3.4-5.0) Lipase 113 U/L (73-393) Urine Color YELLOW Urine Appearance CLEAR (CLEAR) Urine pH 6.0 (4.5-7.5) Urine Specific [place] 1.024 (1.000-1.030) Urine Protein NEG (NEG) Urine Glucose (UA) NEG (NEG) Urine Ketones NEG (NEG) Urine Occult Blood 1+ (NEG) Urine Nitrite NEG (NEG) Urine Bilirubin NEG (NEG) Urine Urobilinogen NEG (NEG) Urine Leukocyte Esterase SMALL (NEG) Urine WBC (Auto) 1-5 /hpf (0-5) Urine RBC (Auto) 5-10 /hpf (0-4) Urine Hyaline Casts (Auto) 1-5 /lpf (0-5) Urine Epithelial Cells (Auto) 10-20 /lpf (0-5) Urine Bacteria (Auto) NEG (NEG) Laboratory studies as stated above per my review. Medications Administered Medications (Trade) Dose Ordered Sig/Caitlin Route Start Time Stop Time Status Last Admin Dose Admin Sodium Chloride 1,000 ml @ 999 mls/hr Q1H1M STAT IV 10/19/16 10:16 10/19/16 11:16 DC 10/19/16 10:34 999 MLS/HR Sodium Chloride 1,000 ml @ 200 mls/hr Q5H ONCE IV 10/19/16 10:16 10/19/16 13:27 DC 10/19/16 10:16 200 MLS/HR Ketorolac Tromethamine (Toradol Inj) 30 mg NOW STAT IV 10/19/16 10:16 10/19/16 10:18 DC 10/19/16 10:34 30 MG Ondansetron HCl (Zofran Inj) 4 mg NOW STAT IV 10/19/16 10:16 10/19/16 10:18 DC 10/19/16 10:35 4 MG Morphine Sulfate (MoRPHine SULFATE INJ) 4 mg NOW STAT IV 10/19/16 10:16 10/19/16 10:18 DC 10/19/16 10:35 4 MG Morphine Sulfate (MoRPHine SULFATE INJ) 4 mg NOW STAT IV 10/19/16 11:39 10/19/16 11:40 DC 10/19/16 11:44 4 MG ED Course 1011: Past medical records reviewed. The patient was evaluated in room B11b, and a complete history and physical examination were performed. 1016: Morphine Sulfate 4 mg IV, Zofran 4 mg IV, Toradol 30 mg IV, NSS 1000 ml @ 200 mls/hr, NSS 1000 ml @ 999 mls/hr. 1137: Rechecked the patient. Her pain is down from a 10/10 to a 6/10. Will order more morphine. 1139: Morphine Sulfate 4 mg IV. 1230: The patient is comfortable going home. Discussed the discharge instructions with her. She verbalized understanding and agreement. The patient is ready for discharge. Medical Decision Differential diagnosis includes kidney stones, UTI, gallbladder disease. Blood Pressure Screening: Patient was found to have a slightly elevated blood pressure due to circumstances. I do not believe that the patient requires hypertension monitoring. Medication Reconciliation: I attest that I have personally reviewed the patient' s current medication list. This patient comes in as described above. She was placed in room B 11. She is having some right-sided abdominal and flank pain . She does has history of kidney stones this feels like similar. She looks well on exam. She's had no fever or chills. IV access was established was hydrated with IV normal saline bolus and hourly rate of IV normal saline. She was given Toradol 30 mg IV as well as morphine 4 mg IV and Zofran 4 mg IV. She required additional morphine and was feeling better not to go home. She has no evidence of an infection. She's had no white count or fever. There's been no trauma. Her kidney function is normal blood sugar was mildly elevated and she may have mild diabetes . I told her to follow-up with her regular doctor for recheck since this is a nonfasting blood sugar. She had a KUB x-ray as well as an ultrasound and it appears that she has a distal stone on the right with some hydronephrosis. This will likely pass on his own she should continue to drink plenty of fluids and strain her urine she feels that she can go home I think this is reasonable with follow up with urologist this week or primary care physician. She should use anti-inflammatory like ibuprofen for pain for breakthrough pain she can use OxyIR 5 mg, one or 2 pills every 4-6 hours as needed. She was warned that this could make her drowsy do not take before drinking, driving, working and do not take with any other medications or alcohol. She was happy with the plan and will be discharged home. Impression Primary Impression: Renal colic Additional Impressions: Kidney stone Right flank pain Scribe Attestation The scribe's documentation has been prepared under my direction and personally reviewed by me in its entirety. I confirm that the note above accurately reflects all work, treatment, procedures, and medical decision making performed by me. Departure Information Dispostion Home / Self-Care Prescriptions Oxycodone Ir (Roxicodone Ir) 5 Mg Tab 1-2 TAB PO Q4H Y for Severe Pain, #24 TAB Prov: Guevara Limon M.D. 10/19/16 Referrals Miryam Tapia C.R.N.P (PCP) Forms HOME CARE DOCUMENTATION FORM, IMPORTANT VISIT INFORMATION Patient Instructions My [facility] Additional Instructions Rest. Drink plenty of fluids. Strain your urine. Continue your ibuprofen. For breakthrough pain, use OxyIR 5 mg, one or 2 pills every 4-6 hours as needed OxyIR may make you drowsy and do not take before drinking, driving, working Do not take OxyIR with any other narcotic or sedating medications or alcohol Return if: Pain not adequately controlled, vomiting, fever or chills, worsening symptoms, any new problems or concerns Follow-up with your doctor or urologist on Friday for recheck Problem Qualifiers
[2016-10-19 10:43] LABS: BASO % 0.2 %; BASO ABS # 0.02 K/uL (0-0.2); COMPLETE YES; HEMATOCRIT 40.9 % (37-47); IG% 0.3 %; LYMPH % 9.1 %; MEAN CELL VOLUME 89.7 fL (80-100); MEAN CORPUSCULAR HEMOGLOBIN 31.4 pg (25-34); MEAN PLATELET VOLUME 10.1 fL (7.4-10.4); MONO % 3.2 %; NEUT % 86.2 %; PLATELET COUNT 278 K/uL (130-400); RED BLOOD COUNT 4.56 M/uL (4.2-5.4); WHITE BLOOD COUNT 9.86 K/uL (4.8-10.8)
[2016-10-19 11:00] LABS: ALT/SGPT 30 U/L (12-78); BLOOD UREA NITROGEN 24 mg/dl (7-18); BUN/CREATININE RATIO 20.3 (10-20); CALCIUM 9.2 mg/dl (8.5-10.1); CARBON DIOXIDE 30 mmol/L (21-32); CHLORIDE 104 mmol/L (98-107); GLUCOSE 182 mg/dl (70-99); POTASSIUM 3.6 mmol/L (3.5-5.1); SODIUM 139 mmol/L (136-145)
[2016-10-19 11:02] LABS: ALKALINE PHOSPHATASE 104 U/L (45-117); AST/SGOT 21 U/L (15-37)
--- NOTE | 2016-10-19 11:26 | DIAGNOSTIC IMAGING REPORT ---
KUB CLINICAL HISTORY: Right flank pain. History of stones. COMPARISON STUDY: CT of the abdomen and pelvis August 02, 2016 and KUB September 15, 2016. FINDINGS: Multiple bilateral renal calculi are noted. The largest is a 5 m calculus within the lower pole of the left kidney. A 5 mm right pelvic calcification is new since prior exam and suggests a distal right ureteral calculus, likely at the ureterovesical junction. Additional pelvic calcifications are unchanged and suggest phleboliths. No additional ureteral calculi are identified. IMPRESSION: 1. 5 mm right pelvic calcification suggestive of a distal right ureteral calculus. 2. Bilateral nephrolithiasis. Electronically signed by: Ethan Carson M.D. 10/19/2016 11:24 AM Dictated Date/Time: 10/19/2016 11:20 AM
--- NOTE | 2016-10-19 11:38 | DIAGNOSTIC IMAGING REPORT ---
RENAL ULTRASOUND CLINICAL HISTORY: Right flank pain. History of kidney stones. COMPARISON STUDY: Renal ultrasound September 01, [address] of the abdomen and pelvis August 02, 2016. TECHNIQUE: Sonography of the kidneys and the urinary bladder was performed. FINDINGS: The right kidney measures 11.8 x 4.7 x 5.1 cm and the left measures 10.7 x 5 x 6.4 cm. There is moderate right hydronephrosis. Renal cortical thinning is again noted. Small echogenic foci within each renal sinus suggest calculi. There is no left hydronephrosis. Bladder is suboptimally assessed given underdistention. Neither ureteral jet was identified. IMPRESSION: 1. Moderate right hydronephrosis. No ureteral calculi identified although these are often occult by sonography. 2. Bilateral nephrolithiasis. Electronically signed by: Ethan Carson M.D. 10/19/2016 11:37 AM Dictated Date/Time: 10/19/2016 11:34 AM
[2016-10-19 11:54] LABS: URINE APPEARANCE CLEAR (CLEAR); URINE BILIRUBIN NEG (NEG); URINE COLOR YELLOW; URINE NITRITE NEG (NEG); URINE SPECIFIC GRAVITY 1.024 (1.000-1.030); UROBILINOGEN NEG (NEG)
[2016-10-19] MEDS ORDERED: POTA-74 PO (12:09)
[2016-10-19 12:10] LABS: MANUAL MICROSCOPIC REQUIRED? NO; REVIEW REQ? NO
[2016-10-19] MEDS ORDERED: OXYC1TAB3 PO (12:38)
[2016-10-19 12:40] VITALS: BP 159/90; PULSE 78; O2SAT 95
[2016-12-20] MEDS ORDERED: OXYC-57 PO (08:49)
== END 2016-10-19 13:12 | disposition home or self-care (01) ==
LOC: C.EDB 09:47
DX: N20.0 Calculus of kidney (principal); N23 Unspecified renal colic; I10 Essential (primary) hypertension; Z90.710 Acquired absence of both cervix and uterus; Z79.82 Long term (current) use of aspirin; Z79.899 Other long term (current) drug therapy

== ENCOUNTER → 2016-11-10 | Outpatient (CLI) | payer BC ==
[~2016-11-10] MED LIST changes: -ONDA4TAB10 SL; +OXYC-57 PO; +POTA-74 PO; -POTA1080 PO
--- NOTE | 2016-11-10 19:08 | DIAGNOSTIC IMAGING REPORT ---
KUB CLINICAL HISTORY: NEPHROLITHIASIS COMPARISON STUDY: 10/19/2016 FINDINGS: There are bilateral intrarenal calculi. There is a new calcification located just inferior to the L1 transverse process measuring 4 mm. This is suspicious for a proximal left ureteral calculus. There are multiple pelvic basin calcifications. The previously suspected 5 mm distal right ureteral calculus is no longer visualized.. There is no pathologic bowel dilatation. IMPRESSION: 1. Bilateral nephrolithiasis 2. Suspected 4 mm left UPJ calculus 3. The previously suspected 5 mm distal right ureteral calculus is no longer visualized Electronically signed by: Juan Armstrong M.D. 11/10/2016 7:06 PM Dictated Date/Time: 11/10/2016 7:04 PM
== END | disposition home or self-care (01) ==
LOC: C.RAD 18:37
PROVIDERS: ATTEND Nurse Practitioner Adult Health
DX: N20.0 Calculus of kidney (principal)

== ENCOUNTER → 2016-11-11 | Outpatient (CLI) | payer BC | END | disposition home or self-care (01) | LOC: C.LABSPEC 17:10 | PROVIDERS: ATTEND Nurse Practitioner Adult Health | DX: N20.0 Calculus of kidney (principal); N20.1 Calculus of ureter ==

== ENCOUNTER → 2016-12-05 | Outpatient (CLI) | payer BC ==
--- NOTE | 2016-12-05 18:35 | DIAGNOSTIC IMAGING REPORT ---
KUB CLINICAL HISTORY: 51 years-old Female presenting with left ureteral calculus. TECHNIQUE: Single supine view of the abdomen was obtained. COMPARISON: 11/10/2016. FINDINGS: Presence of gas and stool mildly degrades evaluation of the kidneys. Allowing for this limitation, previously noted calcifications again project over the bilateral kidneys, a cluster at the right lower pole and a cluster at the left lower pole. In the region of the proximal left ureter, a calcification again projects at the level of L1-2. Multiple phleboliths noted in the pelvis. Nonobstructive bowel gas pattern. Osseous structures normal. Lung bases clear. IMPRESSION: 1. Bilateral nephrolithiasis. Unchanged position of the suspected proximal left ureteral calculus. Electronically signed by: Edgard Martel M.D. 12/05/2016 6:34 PM Dictated Date/Time: 12/05/2016 6:31 PM
== END | disposition home or self-care (01) ==
LOC: C.RAD 18:11
PROVIDERS: ATTEND Nurse Practitioner Adult Health
DX: N20.1 Calculus of ureter (principal); N20.0 Calculus of kidney

== ENCOUNTER → 2016-12-06 | Outpatient (CLI) | payer BC | END | disposition home or self-care (01) | LOC: C.LABSPEC 14:31 | PROVIDERS: ATTEND Urology | DX: N20.0 Calculus of kidney (principal) ==

== ENCOUNTER → 2016-12-09 | Outpatient (CLI) | payer BC ==
[2016-12-09 14:42] LABS: BASO % 0.1 %; BASO ABS # 0.01 K/uL (0-0.2); COMPLETE YES; EOS % 2.6 %; HEMATOCRIT 38.7 % (37-47); IG% 0.3 %; LYMPH % 19.7 %; LYMPH ABS # 1.49 K/uL (1.2-3.4); MEAN CELL VOLUME 91.3 fL (80-100); MEAN CORPUSCULAR HEMOGLOBIN 31.1 pg (25-34); MEAN CORPUSCULAR HGB CONC 34.1 g/dl (32-36); MEAN PLATELET VOLUME 10.9 fL (7.4-10.4); MONO % 5.4 %; NEUT % 71.9 %; PLATELET COUNT 260 K/uL (130-400); RED BLOOD COUNT 4.24 M/uL (4.2-5.4); WHITE BLOOD COUNT 7.58 K/uL (4.8-10.8)
[2016-12-09 14:50] LABS: BLOOD UREA NITROGEN 16 mg/dl (7-18); CALCIUM 8.9 mg/dl (8.5-10.1); CARBON DIOXIDE 35 mmol/L (21-32); CHLORIDE 101 mmol/L (98-107); CREATININE 0.78 mg/dl (0.60-1.20); GLUCOSE 149 mg/dl (70-99); POTASSIUM 3.3 mmol/L (3.5-5.1); SODIUM 139 mmol/L (136-145)
== END | disposition home or self-care (01) ==
LOC: C.LAB 12:57
PROVIDERS: ATTEND Urology
DX: N20.0 Calculus of kidney (principal)

== ENCOUNTER → 2016-12-19 | Outpatient (CLI) | payer BC ==
--- NOTE | 2016-12-19 19:03 | DIAGNOSTIC IMAGING REPORT ---
KUB CLINICAL HISTORY: 51 years-old Female presenting with nephrolithiasis. TECHNIQUE: Single supine view of the abdomen was obtained. COMPARISON: 12/05/2016. FINDINGS: The presence of gas and stool slightly degrades evaluation of the renal shadows. Within this limitation, multiple bilateral renal calculi again noted. The previously noted proximal left ureteral calculus is not apparent. Multiple pelvic phleboliths in a similar distribution as on prior exam. No calcification projects along the courses of the distal ureters. Nonobstructive bowel gas pattern. Osseous structures normal. IMPRESSION: 1. Bilateral nephrolithiasis. 2. The previously identified proximal left ureteral calculus is not apparent, suggesting passage. Electronically signed by: Edgard Martel M.D. 12/19/2016 7:02 PM Dictated Date/Time: 12/19/2016 6:58 PM
== END | disposition home or self-care (01) ==
LOC: C.RAD 18:44
PROVIDERS: ATTEND Urology
DX: N20.0 Calculus of kidney (principal)

== ENCOUNTER → 2016-12-20 | Day surgery (SDC) | payer BC ==
[2016-12-10 12:35] VITALS: Ht 160 cm; Wt 77.3 kg
[~2016-12-20] VITALS: Ht 160 cm; Wt 77.3 kg
[~2016-12-20] MED LIST changes: +ATROPINE SULFATE 0.1 MG/ML 5ML SYR IV PRN; +CIPROFLOXACIN 400MG / D5W IV SCH; +DEXAMETHASONE SOD INJ 4 MG/ML VIAL ONE; +EpHEDrine SULFATE INJ 50 MG/ML AMP IV PRN; +FENTANYL CITRATE INJ 50 MCG/1 ML 2 ML VIAL ONE; +LACTATED RINGER'S 1000ML 1,000 ML IV SCH; +LIDOCAINE HCL 2% 2 ML VIAL (20MG/ML) ONE; +MIDAZOLAM HCL 1 MG/ML 2ML VIAL ONE; +ONDANSETRON INJ 2 MG/ML 2 ML VIAL ONE; +OXYCODONE/ACETAMINOPHEN 5-325 TAB PO PRN; +PROPOFOL IV EMULSION 10 MG/ML 20 ML VIAL IV ONE
--- NOTE | 2016-12-20 08:40 | [facility] Operative Report ---
Operative Report Operative Date Dec 20, 2016. Pre-Operative Diagnosis LEFT RENAL STONES Post-Operative Diagnosis SAME Procedure(s) Performed LEFT ESWL Surgeon LOLITA Boiling House Hand Surgeon(s) NONE Estimated Blood Loss NONE Findings CLUSTER OF STONES LEFT KIDNEY Specimens NONE Drains NONE Anesthesia GENERAL Complication(s) None Disposition Recovery Room / PACU Indications LEFT RENAL STONES Description of Procedure Patient was identified in the preoperative holding area, appropriate informed consent was reviewed and completed and the patient was transported to the operating suite. Upon arrival appropriate preoperative antibiotics were administered and general anesthesia induced. The patient was placed in supine position and the stone was localized under fluoroscopy. A total of [_2500__] shocks were delivered to the stone. There appeared to be good fragmentation of the stone. Details of this procedure can be found on the [facility] information sheet. At the conclusion of the case the patient was extubated and taken to the PACU in stable condition. There were no complications. I attest to the content of the Intraoperative Record and any orders documented therein. Any exceptions are noted below.
--- NOTE | 2016-12-20 08:50 | Discharge Instructions-SurgCtr ---
Discharge Instructions Date of Service Dec 20, 2016. Visit Reason for Visit: Stones Discharge Discharge Diagnosis / Problem: STONES Discharge Goals Goal(s): Therapeutic intervention Activity Recommendations Activity Limitations: resume your previous activity (TAKE IT EASY TODAY) Anesthesia . Post Anesthesia Instructions: If you have had General Anesthesia or IV Sedation: * Do not drive today. * Resume driving when surgeon permits. * Do not make important decisions or sign legal documents today. * Call surgeon for: 1. Temperature elevations greater than 101 degrees F. 2. Uncontrollable pain. 3. Excessive bleeding. 4. Persistent nausea and vomiting. 5. Medication intolerance (nausea, vomiting or rash). * For nausea and vomiting use only clear liquids such as: tea, soda, bouillon until nausea subsides, then gradually increase diet as tolerated. * If you have any concerns or questions, call your surgeon's office. If physician is unavailable and it is an emergency, call 911 or go to the nearest emergency room. . Instructions / Follow-Up Instructions / Follow-Up MEDICATIONS: Resume previous medications unless instructed otherwise by your surgeon. Resume pre-ESWL medication except for aspirin, coumadin or other blood thinners. __ Toradol 10 mg every 6 hours for initial pain. __ Lortab 5 mg 1-2 every 4 hours for pain. _X_ Percocet 5 mg 1-2 every 4 hours for pain. __ Macrodantin 50 mg x 3 a day. __ Flomax 1 tab daily one half (1/2) hour after supper. SPECIAL CARE INSTRUCTIONS: 1. Get KUB (x-ray) _X_ day before or day of office visit and bring x-ray to office __ get x-ray 2 days before and tell office you are getting x-rays when you call for the appointment. 2. Strain ALL urine. 3. Please call if you have a fever, chills, severe pain, or constant dribbling of urine. 4. Office phone number . FOLLOW UP VISIT: Please call the office to schedule a follow-up appointment at . Diet Recommendations Home Diet: resume previous diet Procedures Procedures Performed: LEFT ESWL Pending Studies Studies pending at discharge: no Medical Emergencies . Who to Call and When: Medical Emergencies: If at any time you feel your situation is an emergency, please call 911 immediately. . Non-Emergent Contact Non-Emergency issues call your: Urologist Call Non-Emergent contact if: temperature is above 101.5, your pain is not controlled . . "Provider Documentation" section prepared by Nelson Shah. . [place] Drug Monitoring Program Search Results: patient reviewed within database
--- NOTE | 2016-12-20 09:58 | Anesthesia Progress Nt - [facility] ---
Anesthesia Post Op Note Date & Time Dec 20, 2016 at 09:58 Vital Signs Pain Intensity: 3 Vital Signs Past 12 Hours Date Time Temp Pulse Resp B/P (MAP) Pulse Ox O2 Delivery O2 Flow Rate FiO2 12/20/16 09:51 153/77 12/20/16 09:50 36.2 67 14 153/77 96 Room Air 12/20/16 09:48 68 15 12/20/16 09:48 68 15 96 12/20/16 09:46 150/87 12/20/16 09:43 72 16 12/20/16 09:43 73 16 97 12/20/16 09:41 153/83 12/20/16 09:38 68 16 12/20/16 09:38 68 16 100 12/20/16 09:36 157/79 12/20/16 09:33 70 18 100 12/20/16 09:33 70 18 12/20/16 09:31 155/87 12/20/16 09:28 82 22 100 12/20/16 09:28 81 22 12/20/16 09:26 150/84 12/20/16 09:23 74 16 99 12/20/16 09:23 74 16 12/20/16 09:21 149/88 12/20/16 09:18 74 16 12/20/16 09:18 74 16 99 12/20/16 09:16 158/79 12/20/16 09:14 154/91 12/20/16 09:13 36.1 79 12 154/91 95 Mask 5 12/20/16 07:27 36.5 64 16 151/92 (111) 97 Room Air Notes Mental Status: alert / awake / arousable, participated in evaluation Pt Amnestic to Procedure: Yes Nausea / Vomiting: adequately controlled Pain: adequately controlled Airway Patency, RR, SpO2: stable & adequate BP & HR: stable & adequate Hydration State: stable & adequate Anesthetic Complications: no major complications apparent
[2016-12-20 09:59] VITALS: TEMP 36.5
[2016-12-20 10:35] VITALS: BP 153/84; PULSE 67; O2SAT 97
== END | disposition home or self-care (01) ==
LOC: X.SURG 06:58
PROVIDERS: ATTEND Urology
DX: N20.0 Calculus of kidney (principal); N13.30 Unspecified hydronephrosis; N20.1 Calculus of ureter; K21.9 Gastro-esophageal reflux disease without esophagitis; F41.9 Anxiety disorder, unspecified; F32.9 Major depressive disorder, single episode, unspecified; I10 Essential (primary) hypertension; E87.6 Hypokalemia; Z82.49 Family history of ischemic heart disease and other diseases of the circulatory system; Z84.1 Family history of disorders of kidney and ureter; Z83.3 Family history of diabetes mellitus; Z79.899 Other long term (current) drug therapy; Z79.84 Long term (current) use of oral hypoglycemic drugs

== ENCOUNTER → 2016-12-27 | Outpatient (CLI) | payer BC ==
[~2016-12-27] MED LIST changes: -ATROPINE SULFATE 0.1 MG/ML 5ML SYR IV PRN; -CIPROFLOXACIN 400MG / D5W IV SCH; -DEXAMETHASONE SOD INJ 4 MG/ML VIAL ONE; -EpHEDrine SULFATE INJ 50 MG/ML AMP IV PRN; -FENTANYL CITRATE INJ 50 MCG/1 ML 2 ML VIAL ONE; -LACTATED RINGER'S 1000ML 1,000 ML IV SCH; -LIDOCAINE HCL 2% 2 ML VIAL (20MG/ML) ONE; -MIDAZOLAM HCL 1 MG/ML 2ML VIAL ONE; -ONDANSETRON INJ 2 MG/ML 2 ML VIAL ONE; +OPTIRAY 300 IV PRN; -OXYCODONE/ACETAMINOPHEN 5-325 TAB PO PRN; -PROPOFOL IV EMULSION 10 MG/ML 20 ML VIAL IV ONE
--- NOTE | 2016-12-27 15:07 | DIAGNOSTIC IMAGING REPORT ---
IVP W/OR W/O TOMOGRAMS HISTORY: 51 years-old Female N20.0 Nephrolithiasis follow-up study. COMPARISON: KUB 12/19/2016 TECHNIQUE: IVP with tomograms was obtained utilizing 100 mL of Optiray 300. Shooting Gallery Operator radiograph was also obtained. FINDINGS: Shooting Gallery Operator radiograph demonstrates multiple bilateral renal calculi without definite urolithiasis. Phleboliths are again seen within the pelvis. Right renal shadow measures 13.4 cm and the left renal shadow measures 13.2 cm. There is prompt uptake of contrast within the kidneys in a symmetric fashion. There is symmetric excretion of contrast into the bilateral nondilated collecting systems. No focal collecting system filling defects identified. No renal mass identified. The calyces appear sharp. Urinary bladder is unremarkable. There is mild post void residual within the bladder. Mild degenerative changes involve the hips. Bowel gas pattern is nonobstructive. IMPRESSION: 1. Bilateral nephrolithiasis without ureterolithiasis identified. 2. Symmetric normal function of the bilateral kidneys. 3. Mild post void residual. The above report was generated using voice recognition software. It may contain grammatical, syntax or spelling errors. Electronically signed by: Storm Castanon M.D. 12/27/2016 3:06 PM Dictated Date/Time: 12/27/2016 3:01 PM
== END | disposition home or self-care (01) ==
LOC: C.RAD 12:35
PROVIDERS: ATTEND Urology
DX: N20.0 Calculus of kidney (principal)

== ENCOUNTER → 2017-01-03 | Outpatient (CLI) | payer BC ==
[~2017-01-03] MED LIST changes: -OPTIRAY 300 IV PRN
[2017-01-03 12:55] LABS: POTASSIUM 4.1 mmol/L (3.5-5.1)
== END | disposition home or self-care (01) ==
LOC: C.LABPVFM 09:32
PROVIDERS: ATTEND Nurse Practitioner
DX: I10 Essential (primary) hypertension (principal); E87.6 Hypokalemia

== ENCOUNTER 2017-04-01 20:52 | Emergency (ER) | payer BC ==
[~2017-04-01] VITALS: Ht 160 cm; Wt 77.2 kg
[~2017-04-01 20:52] MED LIST changes: -ASPI81TA28 PO; -CALC1TAB9 PO; -HYDR25TA5 PO
[2017-04-01 20:58] VITALS: TEMP 36.4; Ht 160 cm; Wt 77.2 kg
[2017-04-01] MEDS ORDERED: ASPI81TA28 PO (21:01)
[2017-04-01] MEDS ORDERED: HYDR25TA5 PO (21:01)
[2017-04-01] MEDS ORDERED: KETOROLAC TROMETHAMINE 30 MG/ML VIAL IV STA (21:30)
[2017-04-01 22:00] LABS: BASO % 0.1 %; BASO ABS # 0.02 K/uL (0-0.2); COMPLETE YES; EOS % 0.4 %; HEMATOCRIT 38.4 % (37-47); IG% 0.3 %; LYMPH % 5.6 %; LYMPH ABS # 0.86 K/uL (1.2-3.4); MEAN CELL VOLUME 90.4 fL (80-100); MEAN CORPUSCULAR HGB CONC 35.4 g/dl (32-36); MEAN PLATELET VOLUME 10.3 fL (7.4-10.4); MONO % 5.2 %; NEUT % 88.4 %; PLATELET COUNT 251 K/uL (130-400); RED BLOOD COUNT 4.25 M/uL (4.2-5.4)
[2017-04-01 22:15] LABS: URINE APPEARANCE CLEAR (CLEAR); URINE BILIRUBIN NEG (NEG); URINE COLOR YELLOW; URINE EPITHELIAL CELL AUTO 20-30 /lpf (0-5); URINE NITRITE NEG (NEG); URINE SPECIFIC GRAVITY 1.021 (1.000-1.030); UROBILINOGEN NEG (NEG); ZZUR CULT IF INDIC CLEAN CATCH NO
[2017-04-01 22:17] LABS: BUN/CREATININE RATIO 21.6 (10-20); CALCIUM 8.9 mg/dl (8.5-10.1); CREATININE 0.93 mg/dl (0.60-1.20); POTASSIUM 3.4 mmol/L (3.5-5.1)
[2017-04-01 22:18] LABS: MANUAL MICROSCOPIC REQUIRED? NO; REVIEW REQ? NO
[2017-04-01] MEDS ORDERED: POTA1080 PO (22:37)
[2017-04-01] MEDS ORDERED: OXYC-609 PO (22:37)
--- NOTE | 2017-04-01 22:42 | DIAGNOSTIC IMAGING REPORT ---
KUB CLINICAL HISTORY: Right flank pain. History of stones. COMPARISON STUDY: CT of the abdomen and pelvis August 02, 2016, KUB December 19, 2016 and IVP December 27, 2016. FINDINGS: Pelvic calcifications are unchanged and reflect phleboliths. Multiple calculi within lower pole of the left kidney are unchanged. There are multiple right renal calculi, including a 1 cm calculus which projects over the midpole of the right kidney or the right renal pelvis. No ureteral calculi are identified on this exam. IMPRESSION: 1. Bilateral nephrolithiasis. 2. 1 cm right sided urinary calculus which may be within the renal pelvis or midpole of the right kidney. 3. No ureteral calculi identified. Electronically signed by: Ethan Carson M.D. 04/01/2017 10:41 PM Dictated Date/Time: 04/01/2017 10:37 PM
[2017-04-01] MEDS ORDERED: CALC1TAB9 PO (22:50)
[2017-04-01] MEDS ORDERED: MoRPHine SULFATE 4 MG/ML 1 ML CARP\\VIAL IV STA (22:54)
[2017-04-01] MEDS ORDERED: ONDANSETRON INJ 2 MG/ML 2 ML VIAL IV STA (22:54)
[2017-04-01] MEDS ORDERED: OXYCODONE IR HOME PACK PO ONE (23:00)
[2017-04-01] MEDS ORDERED: ONDANSETRON HOME PACK 4MG OD TAB PO ONE (23:00)
[2017-04-01] MEDS ORDERED: OXYC1TAB3 PO (23:20)
[2017-04-01] MEDS ORDERED: ONDA4TAB10 SL (23:20)
[2017-04-01] MEDS ORDERED: TAMS0.4C38 PO (23:20)
--- NOTE | 2017-04-01 23:26 | EMERGENCY ROOM VISIT NOTE ---
History First contact with patient: 21:10 Chief Complaint: KIDNEY STONE Stated Complaint: RIDE SIDE PAIN-PASSING KIDNEY STONE History of Present Illness The patient is a 51 year old female who presents to the Emergency Room with complaints of "I'm passing a kidney stone". The patient states that approximately 3:30 this afternoon, she began experiencing hematuria, nausea, and right flank pain. At about 540, she took 10 mg of oxycodone. The patient had the prescription from her urologist, Dr. Vishal Sharpe. The patient states she was advised to seek care in the emergency department if she did not experience improvement in her symptoms after 1 hour of taking 10 mg of narcotics. The patient states she presents now because she did not note improvement after the medications. The patient states she does feel that the discomfort is moving from the upper right flank more laterally and anteriorly. She describes the pain as achy, constant, and states nothing aggravates or alleviates it. She rates the pain 8/10. The pain she is experiencing now is consistent with her previous kidney stones. The patient denies any constipation , diarrhea, fever, chills, dysuria, body aches, abdominal pain, or other associated symptoms. Review of Systems A complete 10 point review of systems was reviewed with the patient with pertinent positives and negatives as per history of present illness. All else were negative. Past Medical/Surgical History Medical Problems: (1) HTN (hypertension) (2) Hydronephrosis of left kidney (3) Left ureteral calculus (4) Menorrhagia (5) PVC (premature ventricular contraction) Social History Smoking Status: Never Smoker Smokeless Tobacco Use: No Alcohol Use: none Drug Use: none Marital Status: Housing Status: lives with family Occupation Status: employed Current/Historical Medications Scheduled Aspirin (Aspirin Ec), 81 MG PO QAM Calcium Citrate-Vitamin D (Citracal + D3 Maximum), 1 TAB PO BID Fish Oil ([place]-3), 1 CAP PO BID Hydrochlorothiazide (Hydrochlorothiazide), 25 MG PO QAM Metoprolol Tartrate (Lopressor), 12.5 MG PO BID Multiple Vitamin (Multi Vitamin Daily), 1 TAB PO QAM Ondasetron Odt (Zofran Odt), 4 MG SL Q6H Potassium Citrate (Alkalinizer (Potassium Citrate ER), 1,080 MG PO BID Tamsulosin Hcl (Flomax), 0.4 MG PO QD Scheduled PRN Oxycodone HCl (Oxycodone HCl), 5-10 MG PO Q4-6HRS PRN for Pain Oxycodone Ir (Roxicodone Ir), 1-2 TAB PO Q4H PRN for Pain Ranitidine HCl (Ranitidine HCl), 150 MG PO HS PRN for Acid Reflux Physical Exam Vital Signs Date Time Temp Pulse Resp B/P (MAP) Pulse Ox O2 Delivery O2 Flow Rate FiO2 04/01/17 22:08 74 20 152/94 96 04/01/17 20:58 36.4 85 18 175/101 95 Room Air Physical Exam VITALS: Vitals are noted on the nurse's note and reviewed by myself. Vital signs stable. GENERAL: This is a 51-year-old white female, in no acute distress, nondiaphoretic, well-developed well-nourished. SKIN: The skin was without rashes, erythema, edema, or bruising. There is no tenting of the skin. Capillary reflex less than 2 seconds. HEAD: Normocephalic atraumatic. NECK: Supple without nuchal rigidity. No lymphadenopathy. No thyromegaly. Cervical spine is nontender. No JVD. HEART: Regular rate and rhythm without murmurs gallops or rubs. LUNGS: Clear to auscultation bilaterally without wheezes, rales or rhonchi. No dullness to percussion. No retractions or accessory muscle use. ABDOMEN: Positive bowel sounds x 4. Normal tympanic percussion. Soft, nontender, without masses or organomegaly. Irene sign negative. No guarding or rebound tenderness. Positive CVA tenderness on the right. MUSCULOSKELETAL: No muscle atrophy, erythema, or edema noted. Full range of motion without joint tenderness in all extremities. No tenderness to palpation. Normal gait. Strength 5/5 throughout. NEURO: Patient was alert and oriented to person place and time. Normal sensation to light and sharp touch. No focal neurological deficits. Medical Decision & Procedures ER Provider Diagnostic Interpretation: CBC showed mild leukocytosis of 15,000. Urinalysis was positive for blood, and small leuk esterase. There was no significant signs of infection. The repeat do not show any significant renal or lateral abnormalities. KUB CLINICAL HISTORY: Right flank pain. History of stones. COMPARISON STUDY: CT of the abdomen and pelvis August 02, 2016, KUB December 19, 2016 and IVP December 27, 2016. FINDINGS: Pelvic calcifications are unchanged and reflect phleboliths. Multiple calculi within lower pole of the left kidney are unchanged. There are multiple right renal calculi, including a 1 cm calculus which projects over the midpole of the right kidney or the right renal pelvis. No ureteral calculi are identified on this exam. IMPRESSION: 1. Bilateral nephrolithiasis. 2. 1 cm right sided urinary calculus which may be within the renal pelvis or midpole of the right kidney. 3. No ureteral calculi identified. Electronically signed by: Ethan Carson M.D. 04/01/2017 10:41 PM Dictated Date/Time: 04/01/2017 10:37 PM Laboratory Results 04/01/17 21:45 Red Blood Count 4.25, Mean Corpuscular Volume 90.4, Mean Corpuscular Hemoglobin 32.0, Mean Corpuscular Hemoglobin Concent 35.4, Mean Platelet Volume 10.3, Neutrophils (%) (Auto) 88.4, Lymphocytes (%) (Auto) 5.6, Monocytes (%) (Auto) 5.2, Eosinophils (%) (Auto) 0.4, Basophils (%) (Auto) 0.1, Neutrophils # (Auto) 13.53, Lymphocytes # (Auto) 0.86, Monocytes # (Auto) 0.79, Eosinophils # (Auto) 0.06, Basophils # (Auto) 0.02 04/01/17 21:45 Test 04/01/17 21:45 04/01/17 21:50 White Blood Count 15.30 K/uL (4.8-10.8) Red Blood Count 4.25 M/uL (4.2-5.4) Hemoglobin 13.6 g/dL (12.0-16.0) Hematocrit 38.4 % (37-47) Mean Corpuscular Volume 90.4 fL (80-100) Mean Corpuscular Hemoglobin 32.0 pg (25-34) Mean Corpuscular Hemoglobin Concent 35.4 g/dl (32-36) Platelet Count 251 K/uL (130-400) Mean Platelet Volume 10.3 fL (7.4-10.4) Neutrophils (%) (Auto) 88.4 % Lymphocytes (%) (Auto) 5.6 % Monocytes (%) (Auto) 5.2 % Eosinophils (%) (Auto) 0.4 % Basophils (%) (Auto) 0.1 % Neutrophils # (Auto) 13.53 K/uL (1.4-6.5) Lymphocytes # (Auto) 0.86 K/uL (1.2-3.4) Monocytes # (Auto) 0.79 K/uL (0.11-0.59) Eosinophils # (Auto) 0.06 K/uL (0-0.5) Basophils # (Auto) 0.02 K/uL (0-0.2) RDW Standard Deviation 39.9 fL (36.4-46.3) RDW Coefficient of Variation 12.2 % (11.5-14.5) Immature Granulocyte % (Auto) 0.3 % Immature Granulocyte # (Auto) 0.04 K/uL (0.00-0.02) Anion Gap 8.0 mmol/L (3-11) Est Creatinine Clear Calc Drug Dose 68.8 ml/min Estimated GFR () 81.3 Estimated GFR (Non- 70.2 BUN/Creatinine Ratio 21.6 (10-20) Calcium Level 8.9 mg/dl (8.5-10.1) Urine Color YELLOW Urine Appearance CLEAR (CLEAR) Urine pH 6.0 (4.5-7.5) Urine Specific [place] 1.021 (1.000-1.030) Urine Protein NEG (NEG) Urine Glucose (UA) NEG (NEG) Urine Ketones NEG (NEG) Urine Occult Blood 3+ (NEG) Urine Nitrite NEG (NEG) Urine Bilirubin NEG (NEG) Urine Urobilinogen NEG (NEG) Urine Leukocyte Esterase SMALL (NEG) Urine WBC (Auto) 5-10 /hpf (0-5) Urine RBC (Auto) >30 /hpf (0-4) Urine Hyaline Casts (Auto) 0 /lpf (0-5) Urine Epithelial Cells (Auto) 20-30 /lpf (0-5) Urine Bacteria (Auto) NEG (NEG) Medications Administered Medications (Trade) Dose Ordered Sig/Caitlin Route Start Time Stop Time Status Last Admin Dose Admin Ketorolac Tromethamine (Toradol Inj) 30 mg NOW STAT IV 04/01/17 21:30 04/01/17 21:31 DC 04/01/17 21:55 30 MG Morphine Sulfate (MoRPHine SULFATE INJ) 4 mg NOW STAT IV 04/01/17 22:54 04/01/17 22:55 DC 04/01/17 23:14 4 MG Ondansetron HCl (Zofran Inj) 4 mg NOW STAT IV 04/01/17 22:54 04/01/17 22:55 DC 04/01/17 23:17 4 MG Ondansetron HCl (ZOFRAN ODT 4MG Home Pack) 1 homepack UD ONCE PO 04/01/17 23:00 04/01/17 23:01 DC 04/01/17 23:17 1 HOMEPACK Oxycodone HCl (Roxicodone Immediate Rel 5MG Home Pack) 1 homepack UD ONCE PO 04/01/17 23:00 04/01/17 23:01 DC 04/01/17 23:17 1 HOMEPACK Medical Decision The patient presents today complaining of right flank pain consistent with passing of a kidney stone. The patient does have a significant history of kidney stones, and has had several procedures performed in the past regarding the kidney stones. She is under the care of Dr. Vishal Sharpe. Workup today was consistent with passing of a kidney stone, and KUB did show 1 cm stone on the right within the lower pole of the kidney or the renal pelvis. The patient was initially given 30 mg Toradol via IV, and was feeling significantly better after this treatment. She states her pain went from an 8 to a 3 with this medication. I discussed options with the patient including admission for pain management versus going home for pain management. The patient states she would like to go home, and potentially go to work tomorrow. Based on the patient's response to Toradol earlier this evening, I do feel that this is reasonable. The patient was given 4 mg morphine and 4 mg Zofran IV to help with pain and nausea. Discharge instructions were reviewed, and I did spend an extensive time discussing outpatient pain management with OTC medication with the patient and her at bedside. The patient was feeling much improved, and I did encourage her to contact urology first thing in the morning to schedule a follow -up. The patient and her are in agreement with the assessment and plan , the patient was discharged home in good condition. Differential diagnosis includes nephrolithiasis, ureteral stone, hydronephrosis , pyelonephritis, urinary tract infection, malignancy, and others [place] Drug Monitoring Program Search Results: patient reviewed within database, no issues identified Medication Reconcilliation Current Medication List: was personally reviewed by me Blood Pressure Screening Patient's blood pressure: Elevated blood pressure Blood pressure disposition: Elevated BP felt to be situational, Referred to PCP Impression Primary Impression: Nephrolithiasis Departure Information Dispostion Home / Self-Care Condition GOOD Prescriptions Tamsulosin Hcl (FLOMAX) 0.4 Mg Cap 0.4 MG PO QD for 7 Days, #7 CAP Prov: Selma Bowman PA-C 04/01/17 Oxycodone Ir (Roxicodone Ir) 5 Mg Tab 1-2 TAB PO Q4H Y for Pain, #24 TAB For Initial Treatment Prov: Selma Bowman PA-C 04/01/17 Ondasetron Odt (ZOFRAN ODT) 4 Mg Tab 4 MG SL Q6H for Nausea, #6 TAB Prov: Selma Bowman PA-C 04/01/17 Referrals Miryam Tapia C.R.NFarazna (PCP) Vishal Sharpe MD, Urology Patient Instructions ED Stone Renal W Colic, [facility] Additional Instructions You have been treated in the Emergency Department today for a Kidney Stone ( Nephrolithiasis). You have received pain medicine in the emergency department which impairs your ability to operate a vehicle. It is illegal for you to drive after receiving these medicines. You have been prescribed OxyIR to be used for pain control. This is a narcotic medication. You cannot drive or consume alcohol while on this medicine. This medicine should only be used for pain that cannot be controlled with over-the- counter pain medicines. You have been prescribed Zofran to be used for any nausea or vomiting. Take as prescribed. You have been prescribed Flomax 0.4 mg to be taken ONCE daily. This medicine has been prescribed as it can help relax the smooth muscles of the urinary tract increasing transit time of the kidney stone. For pain control, you can use the following [id number] medicines (if >12 yo): Ibuprofen(Motrin, Advil) may be used for fever or pain. Use 600mg every six hours as needed. Take with food. Avoid using more than 2400mg in a 24 hour period. Do not use 2400mg per day for more than three consecutive days without physician direction. Prolonged inappropriate use can lead to stomach upset or ulcers. (AND/OR) Acetaminophen(Tylenol) may be used for fever or pain. Use 1000mg every six hours as needed. Avoid using more than 3000mg in a 24 hour period. *As discussed, when you get home, immediately take your first dose of Acetaminophen. Then, approximately 3 hours later, take a dose of ibuprofen. You may alternate these medications approximately every 4 hours as needed for pain control, and take OxyIR for breakthrough pain as directed. Use the strainer and specimen collection cup you have at home. You should strain your urine to collect any passed stones. Your stones can be placed into the specimen cup and taken to your Urologist for further evaluation. Contact your urologist first thing tomorrow morning to schedule a follow-up appointment for as soon as possible. As discussed, KUB did show a 1cm stone in the right kidney vs. renal pelvis. This may not pass on its own, and you may need to have a procedure completed to have the stone broken or removed. Return to the Emergency Department if your symptoms persist despite the treatment plan outlined above or if you develop the following symptoms: intractable pain, fever, chills, or large amounts of blood in your urine.
[2017-04-01 23:31] VITALS: BP 150/82; PULSE 81; O2SAT 92
[2017-04-03] MEDS ORDERED: TAMS0.4C38 PO (09:13)
[2017-04-03] MEDS ORDERED: OXYC1TAB3 PO (09:14)
[2017-04-03] MEDS ORDERED: ONDA4TAB46 PO (09:14)
== END 2017-04-01 23:37 | disposition home or self-care (01) ==
LOC: C.EDB 20:54
DX: N20.0 Calculus of kidney (principal); I10 Essential (primary) hypertension; Z79.82 Long term (current) use of aspirin; Z79.899 Other long term (current) drug therapy

== ENCOUNTER → 2017-04-02 | Outpatient (CLI) | payer BC ==
[~2017-04-02] MED LIST changes: +ASPI81TA28 PO; +CALC1TAB9 PO; +HYDR25TA5 PO; +ONDA4TAB10 SL; +ONDA4TAB46 PO; -OXYC-57 PO; +OXYC-609 PO; -POTA-74 PO; +POTA1080 PO; +TAMS0.4C38 PO
== END | disposition home or self-care (01) ==
LOC: C.LABSPEC 17:04
PROVIDERS: ATTEND Nurse Practitioner Adult Health
DX: N20.0 Calculus of kidney (principal)

== ENCOUNTER → 2017-04-03 | Outpatient (CLI) | payer BC ==
--- NOTE | 2017-04-03 18:28 | DIAGNOSTIC IMAGING REPORT ---
KUB HISTORY: N20.0 Nephrolithiasis COMPARISON: KUB 04/01/2017. FINDINGS: The bowel gas pattern is unremarkable. There are no dilated loops of small bowel to suggest an obstruction. Multiple bilateral renal calculi are again noted with the largest overlying the right renal pelvis measuring 11 mm. These remain unchanged. Stable calcifications in the deep pelvis likely representing phleboliths. There is a new 3 mm calcification located between the left L2 and L3 transverse processes. No pneumoperitoneum or pneumatosis. IMPRESSION: 1. Stable bilateral nephrolithiasis. 2. A new 3 mm calcification located between the left L2 and L3 transverse processes. This could be due to overlying bowel contents or a new proximal left ureteral stone. Clinical correlation recommended to assess for left flank pain. Electronically signed by: Efraín Iniguez M.D. 04/03/2017 6:26 PM Dictated Date/Time: 04/03/2017 6:24 PM
== END | disposition home or self-care (01) ==
LOC: C.RAD 17:34
PROVIDERS: ATTEND Nurse Practitioner Adult Health
DX: N20.0 Calculus of kidney (principal)

== ENCOUNTER → 2017-04-04 | Day surgery (SDC) | payer BC ==
[2017-04-03 09:14] VITALS: Ht 160 cm; Wt 77.3 kg
[~2017-04-04] VITALS: Ht 160 cm; Wt 77.3 kg
[~2017-04-04] MED LIST changes: +ACETAMINOPHEN 325 MG TAB PO PRN; +ATROPINE SULFATE 0.1 MG/ML 5ML SYR IV PRN; +CIPROFLOXACIN / D5W 400 MG IV SCH; +DEXAMETHASONE SOD INJ 4 MG/ML VIAL ONE; +FENTANYL CITRATE INJ 50 MCG/1 ML 2 ML VIAL IV PRN; +FENTANYL CITRATE INJ 50 MCG/1 ML 2 ML VIAL ONE; +LABETALOL HCL IV 5 MG/ML 20ML IV PRN; +LACTATED RINGER'S 1000ML 1,000 ML IV SCH; +LIDOCAINE HCL 2% 2 ML VIAL (20MG/ML) ONE; +MIDAZOLAM HCL 1 MG/ML 2ML VIAL ONE; -ONDA4TAB10 SL; +ONDANSETRON INJ 2 MG/ML 2 ML VIAL IV PRN; +ONDANSETRON INJ 2 MG/ML 2 ML VIAL ONE; -OXYC-609 PO; +OXYCODONE/ACETAMINOPHEN 5-325 TAB PO PRN; +PROPOFOL IV EMULSION 10 MG/ML 20 ML VIAL IV ONE; +RANITIDINE HCL 25 MG/ML INJ ONE; +RANITIDINE HCL 50 MG/100 ML D5W IV STA; +SODIUM CHLORIDE 0.9% 1000ML 1,000 ML IV SCH
--- NOTE | 2017-04-04 11:30 | Discharge Instructions-SurgCtr ---
Discharge Instructions Date of Service Apr 04, 2017. Visit Reason for Visit: Nephrolithiasis Discharge Discharge Diagnosis / Problem: stones Discharge Goals Goal(s): Decrease discomfort, Improve function, Increase independence, Improve disease control Medications Stopped Medications Name(s): ASA/FISH OIL STOPPED ON FRIDAY Activity Recommendations Activity Limitations: resume your previous activity Lifting Limitations: none Exercise/Sports Limitations: none May Resume Sexual Activity: when tolerated Shower/Bathe: no limitations Driving or Machine Use: no limitations Anesthesia . Post Anesthesia Instructions: If you have had General Anesthesia or IV Sedation: * Do not drive today. * Resume driving when surgeon permits. * Do not make important decisions or sign legal documents today. * Call surgeon for: 1. Temperature elevations greater than 101 degrees F. 2. Uncontrollable pain. 3. Excessive bleeding. 4. Persistent nausea and vomiting. 5. Medication intolerance (nausea, vomiting or rash). * For nausea and vomiting use only clear liquids such as: tea, soda, bouillon until nausea subsides, then gradually increase diet as tolerated. * If you have any concerns or questions, call your surgeon's office. If physician is unavailable and it is an emergency, call 911 or go to the nearest emergency room. . Instructions / Follow-Up Instructions / Follow-Up Please keep your previously scheduled follow up appointment Diet Recommendations Home Diet: no limitations, resume previous diet Pending Studies Studies pending at discharge: no Medical Emergencies . Who to Call and When: Medical Emergencies: If at any time you feel your situation is an emergency, please call 911 immediately. . Non-Emergent Contact Non-Emergency issues call your: Urologist Call Non-Emergent contact if: you have a fever, temperature is above 101.5, your pain is not controlled, your pain is worsening . . "Provider Documentation" section prepared by Nayan Rushing. .
--- NOTE | 2017-04-04 12:10 | [facility] Operative Report ---
Operative Report Operative Date Apr 04, 2017. Pre-Operative Diagnosis Right Renal Stone Post-Operative Diagnosis Same Procedure(s) Performed Right Extracorporeal Shock Wave Lithotripsy Surgeon Dr. Veena Smart Exterior Interior Specialist Surgeon(s) None Estimated Blood Loss 0 mL Findings Large right renal pelvic stone Specimens None Drains none Anesthesia Gen. Complication(s) None Disposition Recovery Room / PACU (stable) Indications Right renal colic Description of Procedure The patient was identified in the preoperative holding area, appropriate informed consent was reviewed and completed and the patient was transported to the operating suite. Upon arrival appropriate preoperative antibiotics were administered and general anesthesia induced. The patient was placed in supine position and the stone was localized under fluoroscopy. A total of 2500 shocks were delivered to the stone. There appeared to be good fragmentation of the stone. Details of this procedure can be found on the [facility] information sheet. At the conclusion of the case the patient was extubated and taken to the PACU in stable condition. There were no complications. I attest to the content of the Intraoperative Record and any orders documented therein. Any exceptions are noted below.
[2017-04-04 13:21] VITALS: TEMP 36.8
--- NOTE | 2017-04-04 13:36 | Anesthesia Progress Nt - [facility] ---
Anesthesia Post Op Note Date & Time Apr 04, 2017 at 13:36 Vital Signs Pain Intensity: 4 Vital Signs Past 12 Hours Date Time Temp Pulse Resp B/P (MAP) Pulse Ox O2 Delivery O2 Flow Rate FiO2 04/04/17 13:21 36.8 68 18 157/88 (111) 97 Room Air 04/04/17 12:53 69 20 04/04/17 12:53 70 20 95 04/04/17 12:51 133/81 04/04/17 12:48 71 22 95 04/04/17 12:48 71 22 04/04/17 12:46 137/85 04/04/17 12:43 80 24 95 04/04/17 12:43 79 24 04/04/17 12:41 36.6 71 16 137/85 95 Room Air 04/04/17 12:41 153/91 04/04/17 12:38 73 21 04/04/17 12:38 74 21 95 04/04/17 12:36 144/89 04/04/17 12:33 80 22 04/04/17 12:33 81 22 96 04/04/17 12:31 155/83 04/04/17 12:28 67 18 99 04/04/17 12:28 66 18 04/04/17 12:26 142/85 04/04/17 12:23 66 16 99 04/04/17 12:23 66 16 04/04/17 12:21 154/85 04/04/17 12:18 66 16 99 04/04/17 12:18 66 16 04/04/17 12:16 150/90 04/04/17 12:14 158/79 04/04/17 12:13 36.1 73 16 158/79 98 Mask 6 04/04/17 10:13 37.0 83 18 148/91 (110) 96 Room Air Notes Mental Status: alert / awake / arousable, participated in evaluation Pt Amnestic to Procedure: Yes Nausea / Vomiting: adequately controlled Pain: adequately controlled Airway Patency, RR, SpO2: stable & adequate BP & HR: stable & adequate Hydration State: stable & adequate Anesthetic Complications: no major complications apparent
[2017-04-04 13:45] VITALS: BP 146/86; PULSE 71; O2SAT 98
== END | disposition home or self-care (01) ==
LOC: X.SURG 09:55
PROVIDERS: ATTEND Urology
DX: N20.0 Calculus of kidney (principal); K21.9 Gastro-esophageal reflux disease without esophagitis; D64.9 Anemia, unspecified; F41.9 Anxiety disorder, unspecified; F32.9 Major depressive disorder, single episode, unspecified; I10 Essential (primary) hypertension; E83.51 Hypocalcemia; E87.6 Hypokalemia; Z79.899 Other long term (current) drug therapy

== ENCOUNTER → 2017-04-15 | Outpatient (CLI) | payer BC ==
[~2017-04-15] MED LIST changes: -ACETAMINOPHEN 325 MG TAB PO PRN; -ATROPINE SULFATE 0.1 MG/ML 5ML SYR IV PRN; -CIPROFLOXACIN / D5W 400 MG IV SCH; -DEXAMETHASONE SOD INJ 4 MG/ML VIAL ONE; -FENTANYL CITRATE INJ 50 MCG/1 ML 2 ML VIAL IV PRN; -FENTANYL CITRATE INJ 50 MCG/1 ML 2 ML VIAL ONE; -LABETALOL HCL IV 5 MG/ML 20ML IV PRN; -LACTATED RINGER'S 1000ML 1,000 ML IV SCH; -LIDOCAINE HCL 2% 2 ML VIAL (20MG/ML) ONE; -MIDAZOLAM HCL 1 MG/ML 2ML VIAL ONE; -ONDANSETRON INJ 2 MG/ML 2 ML VIAL IV PRN; -ONDANSETRON INJ 2 MG/ML 2 ML VIAL ONE; -OXYCODONE/ACETAMINOPHEN 5-325 TAB PO PRN; -PROPOFOL IV EMULSION 10 MG/ML 20 ML VIAL IV ONE; -RANITIDINE HCL 25 MG/ML INJ ONE; -RANITIDINE HCL 50 MG/100 ML D5W IV STA; -SODIUM CHLORIDE 0.9% 1000ML 1,000 ML IV SCH
--- NOTE | 2017-04-15 17:04 | DIAGNOSTIC IMAGING REPORT ---
KUB CLINICAL HISTORY: 51 years-old Female presenting with NEPHROLITHIASIS. TECHNIQUE: Single supine view of the abdomen was obtained. COMPARISON: 04/03/2017. FINDINGS: Nonobstructive bowel gas pattern. No gross pneumoperitoneum. Allowing for bowel gas and stool, bilateral nephrolithiasis again noted. However, the prominent right upper pole calculus is no longer visualized over the right renal shadow. The previously noted calcification along the course of the proximal left ureter at the level of the left L2 transverse process is no longer visualized. No definitive calcification is noted along the courses of the ureters. Stable distribution of the pelvic phleboliths. Osseous structures normal. IMPRESSION: 1. Previously noted dominant right upper pole renal calculus no longer visualized, and no calcification is noted along the course of the right ureter. This may indicate passage. 2. Previously noted proximal left ureteral calculus is no longer visualized likely indicating passage. 3. Bilateral nephrolithiasis. Electronically signed by: Edgard Martel M.D. 04/15/2017 5:03 PM Dictated Date/Time: 04/15/2017 4:59 PM
== END | disposition home or self-care (01) ==
LOC: C.RAD 16:13
PROVIDERS: ATTEND Nurse Practitioner Adult Health
DX: N20.0 Calculus of kidney (principal)

== ENCOUNTER → 2017-04-16 | Outpatient (CLI) | payer BC ==
[~2017-04-16] MED LIST changes: +CIPR-255 PO; +OXYC-57 PO; +OXYC-737 PO; -OXYC1TAB3 PO; +PHEN-775 PO; +POTASSIUM CITRATE PO; +SERT50TA PO; +SULF1TAB92 PO
== END | disposition home or self-care (01) ==
LOC: C.LABSPEC 17:05
PROVIDERS: ATTEND Urology
DX: N39.0 Urinary tract infection, site not specified (principal)

== ENCOUNTER → 2017-04-25 | Outpatient (CLI) | payer BC | END | disposition home or self-care (01) | LOC: C.LABPVFM 12:31 | PROVIDERS: ATTEND Urology | DX: N20.0 Calculus of kidney (principal); R39.9 Unspecified symptoms and signs involving the genitourinary system ==

== ENCOUNTER → 2017-05-12 | Outpatient (CLI) | payer BC ==
[~2017-05-12] MED LIST changes: -CIPR-255 PO; -OXYC-57 PO; -OXYC-737 PO; +OXYC1TAB3 PO; -PHEN-775 PO; -POTASSIUM CITRATE PO; -SERT50TA PO; -SULF1TAB92 PO
--- NOTE | 2017-05-12 18:24 | DIAGNOSTIC IMAGING REPORT ---
KUB CLINICAL HISTORY: N39.0 Acute UTI (urinary tract infection) nephrocalcinosis. Tract infection. COMPARISON STUDY: 04/15/2017 FINDINGS: Unchanging bilateral nephrocalcinosis. No significant paravertebral calcifications. Several pelvic vascular calcifications. IMPRESSION: Stable unchanging bilateral nephrocalcinosis. No new or interval finding from the prior exam. The above report was generated using voice recognition software. It may contain grammatical, syntax or spelling errors. Electronically signed by: Christian Mason M.D. 05/12/2017 6:23 PM Dictated Date/Time: 05/12/2017 6:22 PM
== END | disposition home or self-care (01) ==
LOC: C.RAD 17:38
PROVIDERS: ATTEND Urology
DX: E83.59 Other disorders of calcium metabolism (principal); N39.0 Urinary tract infection, site not specified

== ENCOUNTER 2017-06-01 08:24 | Emergency (ER) | payer BC ==
[~2017-06-01] VITALS: Ht 160 cm; Wt 77.5 kg
[2017-06-01 08:31] VITALS: TEMP 36.7; Ht 160 cm; Wt 77.5 kg
[2017-06-01] MEDS ORDERED: MoRPHine SULFATE 4 MG/ML 1 ML CARP\\VIAL IV STA (08:46)
[2017-06-01] MEDS ORDERED: SODIUM CHLORIDE 0.9% 1000ML 1,000 ML IV STA (08:46)
[2017-06-01] MEDS ORDERED: ONDANSETRON INJ 2 MG/ML 2 ML VIAL IV STA (08:46)
[2017-06-01] MEDS ORDERED: SULF1TAB92 PO (08:56)
[2017-06-01 09:17] LABS: BASO % 0.1 %; BASO ABS # 0.02 K/uL (0-0.2); EOS % 0.5 %; EOS ABS # 0.07 K/uL (0-0.5); HEMATOCRIT 40.1 % (37-47); HEMOGLOBIN 13.8 g/dL (12.0-16.0); IG# 0.03 K/uL (0.00-0.02); LYMPH % 5.6 %; LYMPH ABS # 0.76 K/uL (1.2-3.4); MEAN CELL VOLUME 92.2 fL (80-100); MEAN CORPUSCULAR HEMOGLOBIN 31.7 pg (25-34); MEAN CORPUSCULAR HGB CONC 34.4 g/dl (32-36); MEAN PLATELET VOLUME 10.4 fL (7.4-10.4); MONO % 5.7 %; MONO ABS # 0.78 K/uL (0.11-0.59); NEUT % 87.9 %; NEUT ABS # 11.95 K/uL (1.4-6.5); PLATELET COUNT 218 K/uL (130-400); RED CELL DISTRIBUTION WIDTH CV 12.4 % (11.5-14.5); RED CELL DISTRIBUTION WIDTH SD 41.8 fL (36.4-46.3); WHITE BLOOD COUNT 13.61 K/uL (4.8-10.8)
--- NOTE | 2017-06-01 09:18 | DIAGNOSTIC IMAGING REPORT ---
KUB CLINICAL HISTORY: LEFT FLANK PAIN, HX OF STONES nephrocalcinosis COMPARISON STUDY: 05/12/2017 FINDINGS: Bilateral nephrocalcinosis is again noted. 6 mm calcification now overlapping the left transverse process of L2. Possibility of a proximal left ureteral calculus is considered. Bowel pattern is nonobstructive. IMPRESSION: 1. 6 mm calcification overlying the left transverse process of L2. 2. This potentially represents a proximal left ureteral calculus. 3. Bilateral nephrocalcinosis in general stable compared to the prior exam. The above report was generated using voice recognition software. It may contain grammatical, syntax or spelling errors. Electronically signed by: Christian Mason M.D. 06/01/2017 9:17 AM Dictated Date/Time: 06/01/2017 9:16 AM
[2017-06-01 09:35] LABS: CALCIUM 9.2 mg/dl (8.5-10.1); CREATININE 1.24 mg/dl (0.60-1.20); POTASSIUM 4.3 mmol/L (3.5-5.1)
[2017-06-01] MEDS ORDERED: MoRPHine SULFATE 10 MG/ML CARP/VIAL IV STA (10:18)
[2017-06-01] MEDS ORDERED: OXYC1TAB3 PO (11:32)
--- NOTE | 2017-06-01 11:33 | EMERGENCY ROOM VISIT NOTE ---
ED Visit Note First contact with patient: 08:32 CHIEF COMPLAINT: Left flank pain 3 days HISTORY OF PRESENT ILLNESS: Patient is a 51-year-old white female with long- standing history of kidney stones, some of which have required lithotripsy in the past, who presents the emergency department for evaluation of worsening left flank pain over the last 3 days. The patient underwent a lithotripsy in March 2017, has been doing well until about 3 days ago when she began to notice some left flank pain. She put her self on Flomax at that time. The pain markedly worsened around 2:00 this morning. She did take Percocet and Zofran this morning, with minimal relief of her discomfort. She presently rates her pain an 8/10. She noted hematuria this morning, but denies any dysuria, frequency or urgency. No difficulty urinating. She has been checking her temperature and she has not had a fever. She is status post hysterectomy. She has been placed on Bactrim by urology, she states that they are concerned she has "bacteria in her kidneys." She is supposed to be on the first several months. She is not having any right-sided symptoms at this time. REVIEW OF SYSTEMS: Review of systems as per HPI. All other systems reviewed were negative. 10 systems reviewed. PMH: Electronic medical records are reviewed and summarized as above/below. See Problem List. SOCIAL HISTORY: Patient lives at home with her spouse. She does not smoke. PHYSICAL EXAM: Vital Signs: Reviewed Nurse's notes. CONSTITUTIONAL: Patient is a well-appearing 51-year-old white female who is awake and alert and in moderate distress due to her stated complaint. EYES: Pupils equal, round, reactive to light and accommodation. EOMs intact without nystagmus. Sclera are anicteric. ENT: Tympanic membranes intact, with normal landmarks. External canals are clear. Oral and nasopharynx are clear. Mucous membranes are moist, no lesions , tongue and gums appear normal. CARDIOVASCULAR: Regular rate and rhythm, with normal S1 and S2, no murmur or gallop or rub is heard. No carotid bruits auscultated. No JVD. Peripheral pulses easily palpable. RESPIRATORY: Breath sounds equal and clear to auscultation without wheezes, rales, or rhonchi heard. Full and equal chest expansion without accessory muscle use or retractions. ABDOMEN: Bowel sounds are present. Abdomen is soft, slightly tender in the left mid abdomen, no guarding, rebound or rigidity. There is positive left CVA tenderness. INTEGUMENTARY: No lesions or rash, normal skin turgor. LYMPH: No lymphadenopathy. EMERGENCY DEPARTMENT COURSE: The patient was seen and examined as above. Her old records are reviewed, including recent KUB x-rays to follow her kidney stones. IV lock was initiated. She was hydrated with normal saline solution. Laboratory studies were collected. CBC with differential, BMP and urinalysis were performed. She was medicated with morphine 4 mg and Zofran 4 mg IV. KUB x -ray was obtained. The patient did receive an additional morphine 6 mg IV when she returned from x-ray. Laboratory studies noted a white count of 13,600, creatinine up just slightly from the sling, at 1.24, likely related she mild dehydration. Urinalysis notes 2+ occult blood, only a small amount of leukocyte esterase, greater than 30 RBCs and 20-30 epithelial cells. She does not have any other indicators for infection. KUB x-ray notes a suspected 6 mm calculus in the left mid abdomen, concerning for a proximal ureteral. X-ray findings were reviewed with the patient and her spouse. She has a long-standing history of kidney stones. She believes that she has been able to pass stones of largest 6 mm in the past, but she is unsure. Given the fact that she has required lithotripsy in the past, Toradol was held. She is comfortable at the present time, and has tolerated oral fluids. She did not have any signs for superimposed urinary tract infection or pyelonephritis. She is well established with a urologist, and at this point it was felt that she be safely discharged home to follow up with urology. She is already on Flomax, and is on Bactrim as approximately as well. This was reviewed with the patient and she was in agreement. The patient rated her discomfort a 5/10 at discharge. Her is driving. She was advised to call her urologist in the morning to notify them of her ED visit and to schedule a follow-up appointment. Differential diagnoses included UTI, pyelonephritis, renal colic, diverticulitis , bowel obstruction, ovarian cyst, among others. Medication reconciliation: I attest that I have personally reviewed the patient' s current medication list. Blood pressure screening : Patient was found to have normal blood pressure on screening and does not require follow-up. Patient was reviewed in the [facility] Prescription Drug Monitoring Program, and there were no red flags noted. KUB CLINICAL HISTORY: LEFT FLANK PAIN, HX OF STONES nephrocalcinosis COMPARISON STUDY: 05/12/2017 FINDINGS: Bilateral nephrocalcinosis is again noted. 6 mm calcification now overlapping the left transverse process of L2. Possibility of a proximal left ureteral calculus is considered. Bowel pattern is nonobstructive. IMPRESSION: 1. 6 mm calcification overlying the left transverse process of L2. 2. This potentially represents a proximal left ureteral calculus. 3. Bilateral nephrocalcinosis in general stable compared to the prior exam. Problem List Medical Problems: (1) Chest pain Status: Resolved (2) HTN (hypertension) Status: Chronic (3) Hydronephrosis of left kidney Status: Resolved (4) Kidney stone Status: Chronic (5) Left ureteral calculus Status: Resolved (6) Menorrhagia Status: Resolved (7) Palpitations Status: Resolved (8) PVC (premature ventricular contraction) Status: Chronic (9) Renal colic Status: Resolved (10) Renal colic on left side Status: Resolved (11) Right flank pain Status: Resolved Current/Historical Medications Scheduled Aspirin (Aspirin Ec), 81 MG PO QAM Calcium Citrate-Vitamin D (Citracal + D3 Maximum), 1 TAB PO BID Fish Oil ([place]-3), 1 CAP PO BID Hydrochlorothiazide (Hydrochlorothiazide), 25 MG PO QAM Metoprolol Tartrate (Lopressor), 12.5 MG PO BID Multiple Vitamin (Multi Vitamin Daily), 1 TAB PO QAM Potassium Citrate (Alkalinizer (Potassium Citrate ER), 1,080 MG PO DAILY Tamsulosin Hcl (Flomax), 0.4 MG PO HS Trimethoprim/Sulfamethoxazole (Bactrim 400MG/80MG), 1 TAB PO HS Scheduled PRN Ondansetron Hcl (Zofran), 4 MG PO Q6H PRN for Nausea Oxycodone Immediate Rel Tab (Roxicodone Ir), 1-2 TAB PO Q4H PRN for Severe Pain Oxycodone Immediate Rel Tab (Roxicodone Ir), 1-2 TAB PO Q4H PRN for Severe Pain Ranitidine HCl (Ranitidine HCl), 150 MG PO HS PRN for Acid Reflux Allergies Coded Allergies: No Known Allergies (Unverified , 06/01/17) Vital Signs Date Time Temp Pulse Resp B/P (MAP) Pulse Ox O2 Delivery O2 Flow Rate FiO2 06/01/17 11:51 93 18 128/76 93 Room Air 06/01/17 10:54 88 18 125/70 95 Room Air 06/01/17 09:44 90 18 122/87 94 Room Air 06/01/17 08:31 36.7 95 18 144/82 97 Room Air Laboratory Results 06/01/17 08:55 Red Blood Count 4.35, Mean Corpuscular Volume 92.2, Mean Corpuscular Hemoglobin 31.7, Mean Corpuscular Hemoglobin Concent 34.4, Mean Platelet Volume 10.4, Neutrophils (%) (Auto) 87.9, Lymphocytes (%) (Auto) 5.6, Monocytes (%) (Auto) 5.7, Eosinophils (%) (Auto) 0.5, Basophils (%) (Auto) 0.1, Neutrophils # (Auto) 11.95, Lymphocytes # (Auto) 0.76, Monocytes # (Auto) 0.78, Eosinophils # (Auto) 0.07, Basophils # (Auto) 0.02 06/01/17 08:55 Test 06/01/17 08:31 06/01/17 08:55 Urine Color YELLOW Urine Appearance TURBID (CLEAR) Urine pH 7.0 (4.5-7.5) Urine Specific [place] 1.021 (1.000-1.030) Urine Protein 1+ (NEG) Urine Glucose (UA) NEG (NEG) Urine Ketones NEG (NEG) Urine Occult Blood 2+ (NEG) Urine Nitrite NEG (NEG) Urine Bilirubin NEG (NEG) Urine Urobilinogen NEG (NEG) Urine Leukocyte Esterase SMALL (NEG) Urine WBC (Auto) 1-5 /hpf (0-5) Urine RBC (Auto) >30 /hpf (0-4) Urine Hyaline Casts (Auto) 1-5 /lpf (0-5) Urine Epithelial Cells (Auto) 10-20 /lpf (0-5) Urine Bacteria (Auto) NEG (NEG) White Blood Count 13.61 K/uL (4.8-10.8) Red Blood Count 4.35 M/uL (4.2-5.4) Hemoglobin 13.8 g/dL (12.0-16.0) Hematocrit 40.1 % (37-47) Mean Corpuscular Volume 92.2 fL (80-100) Mean Corpuscular Hemoglobin 31.7 pg (25-34) Mean Corpuscular Hemoglobin Concent 34.4 g/dl (32-36) Platelet Count 218 K/uL (130-400) Mean Platelet Volume 10.4 fL (7.4-10.4) Neutrophils (%) (Auto) 87.9 % Lymphocytes (%) (Auto) 5.6 % Monocytes (%) (Auto) 5.7 % Eosinophils (%) (Auto) 0.5 % Basophils (%) (Auto) 0.1 % Neutrophils # (Auto) 11.95 K/uL (1.4-6.5) Lymphocytes # (Auto) 0.76 K/uL (1.2-3.4) Monocytes # (Auto) 0.78 K/uL (0.11-0.59) Eosinophils # (Auto) 0.07 K/uL (0-0.5) Basophils # (Auto) 0.02 K/uL (0-0.2) RDW Standard Deviation 41.8 fL (36.4-46.3) RDW Coefficient of Variation 12.4 % (11.5-14.5) Immature Granulocyte % (Auto) 0.2 % Immature Granulocyte # (Auto) 0.03 K/uL (0.00-0.02) Anion Gap 8.0 mmol/L (3-11) Est Creatinine Clear Calc Drug Dose 51.7 ml/min Estimated GFR () 57.4 Estimated GFR (Non- 49.6 BUN/Creatinine Ratio 15.1 (10-20) Calcium Level 9.2 mg/dl (8.5-10.1) Medications Administered Medications (Trade) Dose Ordered Sig/Caitlin Route Start Time Stop Time Status Last Admin Dose Admin Sodium Chloride 1,000 ml @ 999 mls/hr Q1H1M STAT IV 06/01/17 08:46 06/01/17 09:46 DC 06/01/17 09:01 999 MLS/HR Ondansetron HCl (Zofran Inj) 4 mg NOW STAT IV 06/01/17 08:46 06/01/17 08:49 DC 06/01/17 09:01 4 MG Morphine Sulfate (MoRPHine SULFATE INJ) 4 mg NOW STAT IV 06/01/17 08:46 06/01/17 08:49 DC 06/01/17 09:01 4 MG Morphine Sulfate (MoRPHine SULFATE INJ) 6 mg NOW STAT IV 06/01/17 10:18 06/01/17 10:19 DC 06/01/17 10:31 6 MG Departure Information Impression Primary Impression: Left ureteral calculus Additional Impression: Left flank pain Prescriptions Oxycodone Immediate Rel Tab (ROXICODONE IR) 5 Mg Tab 1-2 TAB PO Q4H Y for Severe Pain, #20 TAB For Initial Treatment Prov: Kelsy Donaldson PA 06/01/17 Referrals Miryam Tapia C.R.N.P (PCP) Patient Instructions My [facility] Additional Instructions DO NOT drive, drink alcohol, operate machinery, or perform dangerous activities today. You were given medications in the ER that can affect your ability to safely function or operate a vehicle. Oxycodone Immediate Release (OxyIR) 5mg: Take 1-2 pills every four hours for pain. Avoid alcohol, operating machinery or dangerous equipment, working on ladders or roofs, DRIVING, or situations where being under the influence may be dangerous. It is recommended to use an hlic-trd-emdrxle stool softener such as Colace, 100mg twice daily while taking this medication to avoid constipation. Continue Zofran if needed for nausea. Acetaminophen(Tylenol) may be used for fever or pain. Use 1000mg every six hours as needed. Avoid using more than 4000mg in a 24 hour period. This medication can be taken if you need to drive, work, or perform activities which may be dangerous when taking narcotic pain medication. Strain your urine and collect all the stones or debris for the urologists. Rest and avoid strenuous activity until your stone passes and symptoms resolve. Drink plenty of fluids. Continue current medications. Return to the ER for worsening abdominal or back pain, vomiting, fevers, passing out, or as needed. Follow up with your urologist by phone tomorrow to notify them of your ED visit and to arrange a follow-up appointment. Problem Qualifiers
[2017-06-01 11:51] VITALS: BP 128/76; PULSE 93; O2SAT 93
== END 2017-06-01 11:56 | disposition home or self-care (01) ==
LOC: C.EDB 08:24 → C.EDA 11:56
DX: N20.1 Calculus of ureter (principal); I10 Essential (primary) hypertension; I49.3 Ventricular premature depolarization; Z79.82 Long term (current) use of aspirin; Z87.442 Personal history of urinary calculi; Z90.710 Acquired absence of both cervix and uterus

== ENCOUNTER → 2017-06-10 | Outpatient (CLI) | payer BC ==
[~2017-06-10] MED LIST changes: +OXYC-57 PO; +SULF1TAB92 PO
--- NOTE | 2017-06-10 16:37 | DIAGNOSTIC IMAGING REPORT ---
KUB CLINICAL HISTORY: N20.1 Ureteral stone nephrocalcinosis COMPARISON STUDY: 06/01/2017 FINDINGS: Nonobstructive bowel pattern. Bilateral nephrocalcinosis unchanged. Proximal left ureteral calculus measuring 6 mm now located inferior to the left lateral transverse process of L2. This represents 8 mm of the distal migration. Several pelvic vascular calcifications unchanged. IMPRESSION: 1. Proximal left ureteral calculus positioned 8 mm inferior to its previous described position. 2. Maximum dimension remains 6 mm. 3. Unchanged bilateral nephrocalcinosis. The above report was generated using voice recognition software. It may contain grammatical, syntax or spelling errors. Electronically signed by: Christian Mason M.D. 06/10/2017 4:36 PM Dictated Date/Time: 06/10/2017 4:34 PM
== END | disposition home or self-care (01) ==
LOC: C.RAD 16:20
PROVIDERS: ATTEND Nurse Practitioner Adult Health
DX: N20.1 Calculus of ureter (principal); E83.59 Other disorders of calcium metabolism; N29 Other disorders of kidney and ureter in diseases classified elsewhere

== ENCOUNTER → 2017-06-11 | Outpatient (CLI) | payer BC ==
[2017-06-11 16:39] LABS: BASO % 0.1 %; BASO ABS # 0.01 K/uL (0-0.2); EOS % 2.4 %; EOS ABS # 0.19 K/uL (0-0.5); HEMATOCRIT 37.3 % (37-47); HEMOGLOBIN 13.1 g/dL (12.0-16.0); IG# 0.01 K/uL (0.00-0.02); LYMPH % 18.2 %; LYMPH ABS # 1.44 K/uL (1.2-3.4); MEAN CELL VOLUME 89.4 fL (80-100); MEAN CORPUSCULAR HEMOGLOBIN 31.4 pg (25-34); MEAN CORPUSCULAR HGB CONC 35.1 g/dl (32-36); MEAN PLATELET VOLUME 9.7 fL (7.4-10.4); MONO % 6.8 %; MONO ABS # 0.54 K/uL (0.11-0.59); NEUT % 72.4 %; NEUT ABS # 5.72 K/uL (1.4-6.5); PLATELET COUNT 273 K/uL (130-400); RED CELL DISTRIBUTION WIDTH CV 12.4 % (11.5-14.5); RED CELL DISTRIBUTION WIDTH SD 39.8 fL (36.4-46.3); WHITE BLOOD COUNT 7.91 K/uL (4.8-10.8)
[2017-06-11 17:04] LABS: BLOOD UREA NITROGEN 22 mg/dl (7-18); CARBON DIOXIDE 33 mmol/L (21-32); CREATININE 1.48 mg/dl (0.60-1.20); POTASSIUM 3.4 mmol/L (3.5-5.1); SODIUM 138 mmol/L (136-145)
== END | disposition home or self-care (01) ==
LOC: C.LAB 16:11
PROVIDERS: ATTEND Urology
DX: N20.0 Calculus of kidney (principal)

== ENCOUNTER → 2017-06-20 | Day surgery (SDC) | payer BC ==
[2017-06-13 14:38] VITALS: Ht 160 cm; Wt 77.3 kg
--- NOTE | 2017-06-19 16:41 | DIAGNOSTIC IMAGING REPORT ---
KUB CLINICAL HISTORY: 51 years-old Female presenting with N20.0 Nephrolithiasis. TECHNIQUE: Single supine view of the abdomen was obtained. COMPARISON: 06/10/2017. FINDINGS: Nonobstructive bowel gas pattern. Mild stool burden throughout the colon. No gross pneumoperitoneum. Bilateral nephrolithiasis at the lower poles of the kidneys. Unchanged position of the proximal left ureteral calculus at the level of the left transverse process of L2. Stable distribution of pelvic phleboliths. Osseous structures normal. Lung bases clear. IMPRESSION: 1. Stable bilateral nephrolithiasis and proximal left ureteral calculus. Electronically signed by: Edgard Martel M.D. 06/19/2017 4:40 PM Dictated Date/Time: 06/19/2017 4:39 PM
[~2017-06-20] VITALS: Ht 160 cm; Wt 77.3 kg
[~2017-06-20] MED LIST changes: +ATROPINE SULFATE 0.1 MG/ML 5ML SYR IV PRN; +CHECK SCOPOLAMINE PATCH PLACEMENT SCH; +CIPROFLOXACIN 400MG / D5W IV SCH; +EpHEDrine SULFATE INJ 50 MG/ML AMP IV PRN; +FENTANYL CITRATE INJ 50 MCG/1 ML 2 ML VIAL IV PRN; +FENTANYL CITRATE INJ 50 MCG/1 ML 2 ML VIAL ONE; +HYDROmorphone INJ 1 MG/ML SYR IV PRN; +LACTATED RINGER'S 1000ML 1,000 ML IV SCH; +LIDOCAINE HCL 2% 2 ML VIAL (20MG/ML) ONE; +MIDAZOLAM HCL 1 MG/ML 2ML VIAL ONE; +ONDANSETRON INJ 2 MG/ML 2 ML VIAL IV PRN; +ONDANSETRON INJ 2 MG/ML 2 ML VIAL ONE; +OXYCODONE/ACETAMINOPHEN 5-325 TAB PO PRN; +PROPOFOL IV EMULSION 10 MG/ML 20 ML VIAL IV ONE; +SCOPOLAMINE 1.5 MG TDSY TD ONE; +SCOPOLAMINE 1.5 MG TDSY TD SCH
--- NOTE | 2017-06-20 09:42 | Discharge Instructions-SurgCtr ---
Discharge Instructions Date of Service Jun 20, 2017. Visit Reason for Visit: Stones Discharge Discharge Diagnosis / Problem: stones Discharge Goals Goal(s): Therapeutic intervention Medications Stopped Medications Name(s): D/C'D ASA AND Fish Oil 06/01/17. Activity Recommendations Activity Limitations: per Instructions/Follow-up section Exercise/Sports Limitations: rest today May Resume Sexual Activity: when tolerated Shower/Bathe: no limitations Driving or Machine Use: resume 1 day after discharge Anesthesia . Post Anesthesia Instructions: If you have had General Anesthesia or IV Sedation: * Do not drive today. * Resume driving when surgeon permits. * Do not make important decisions or sign legal documents today. * Call surgeon for: 1. Temperature elevations greater than 101 degrees F. 2. Uncontrollable pain. 3. Excessive bleeding. 4. Persistent nausea and vomiting. 5. Medication intolerance (nausea, vomiting or rash). * For nausea and vomiting use only clear liquids such as: tea, soda, bouillon until nausea subsides, then gradually increase diet as tolerated. * If you have any concerns or questions, call your surgeon's office. If physician is unavailable and it is an emergency, call 911 or go to the nearest emergency room. . Instructions / Follow-Up Instructions / Follow-Up MEDICATIONS: Resume previous medications unless instructed otherwise by your surgeon. Resume pre-ESWL medication except for aspirin, coumadin or other blood thinners. __ Toradol 10 mg every 6 hours for initial pain. __ Lortab 5 mg 1-2 every 4 hours for pain. _x_ Percocet 5 mg 1-2 every 4 hours for pain. __ Macrodantin 50 mg x 3 a day. __ Flomax 1 tab daily one half (1/2) hour after supper. SPECIAL CARE INSTRUCTIONS: 1. Get KUB (x-ray) _x_ day before or day of office visit and bring x-ray to office __ get x-ray 2 days before and tell office you are getting x-rays when you call for the appointment. 2. Strain ALL urine. 3. Please call if you have a fever, chills, severe pain, or constant dribbling of urine. 4. Office phone number . FOLLOW UP VISIT: Please call the office to schedule a follow-up appointment at . Diet Recommendations Home Diet: resume previous diet Procedures Procedures Performed: Left Extracorporeal Shock Wave Lithotripsy Pending Studies Studies pending at discharge: no Medical Emergencies . Who to Call and When: Medical Emergencies: If at any time you feel your situation is an emergency, please call 911 immediately. . Non-Emergent Contact Non-Emergency issues call your: Urologist Call Non-Emergent contact if: temperature is above 101.5, your pain is not controlled . . "Provider Documentation" section prepared by Nelson Shah. . [place] Drug Monitoring Program Search Results: patient reviewed within database
--- NOTE | 2017-06-20 09:44 | [facility] Operative Report ---
Operative Report Operative Date Jun 20, 2017. Pre-Operative Diagnosis Left ureteral Stone Post-Operative Diagnosis Same Procedure(s) Performed Left Extracorporeal Shock Wave Lithotripsy Surgeon Dr. Alisia Escalante Crab Backer Surgeon(s) None Estimated Blood Loss 0 Findings KUB left ureteral stone Specimens None Drains None Anesthesia Type General Complication(s) none Disposition yes Recovery Room / PACU Indications Left ureteral stone Description of Procedure Patient was identified in the preoperative holding area, appropriate informed consent was reviewed and completed and the patient was transported to the operating suite. Upon arrival appropriate preoperative antibiotics were administered and general anesthesia induced. The patient was placed in supine position and the stone was localized under fluoroscopy. A total of [_2500__] shocks were delivered to the stone. There appeared to be good fragmentation of the stone. Details of this procedure can be found on the [facility] information sheet. At the conclusion of the case the patient was extubated and taken to the PACU in stable condition. There were no complications. I attest to the content of the Intraoperative Record and any orders documented therein. Any exceptions are noted below.
[2017-06-20 10:34] VITALS: TEMP 36.3
[2017-06-20 11:05] VITALS: BP 162/89; PULSE 63; O2SAT 98
--- NOTE | 2017-06-20 11:08 | Anesthesia Progress Nt - [facility] ---
Anesthesia Post Op Note Date & Time Jun 20, 2017 at 11:08 Vital Signs Pain Intensity: 0 Vital Signs Past 12 Hours Date Time Temp Pulse Resp B/P (MAP) Pulse Ox O2 Delivery O2 Flow Rate FiO2 06/20/17 11:05 63 16 162/89 (113) 98 Room Air 06/20/17 10:45 58 16 168/90 (116) 97 Room Air 06/20/17 10:38 62 14 06/20/17 10:38 62 14 96 06/20/17 10:36 133/89 06/20/17 10:34 36.3 62 14 133/89 96 Room Air 06/20/17 10:33 64 23 100 06/20/17 10:33 64 23 06/20/17 10:31 151/84 06/20/17 10:28 58 14 06/20/17 10:28 59 14 100 06/20/17 10:26 150/85 06/20/17 10:23 58 14 06/20/17 10:23 59 14 100 06/20/17 10:21 150/86 06/20/17 10:18 59 18 18 10:18 59 18 100 06/20/17 10:16 150/86 18 10:13 59 13 99 18 10:13 60 13 18 10:11 152/89 06/20/17 10:08 59 12 99 18 10:08 59 12 18 10:06 150/90 18 10:05 152/87 06/20/17 10:03 36.1 61 16 152/87 98 Room Air 06/20/17 08:16 36.5 63 16 157/86 (109) 95 Room Air Notes Mental Status: alert / awake / arousable, participated in evaluation Pt Amnestic to Procedure: Yes Nausea / Vomiting: adequately controlled Pain: adequately controlled Airway Patency, RR, SpO2: stable & adequate BP & HR: stable & adequate Hydration State: stable & adequate Anesthetic Complications: no major complications apparent
== END | disposition home or self-care (01) ==
LOC: X.SURG 07:53
PROVIDERS: ATTEND Urology
DX: N20.0 Calculus of kidney (principal); I10 Essential (primary) hypertension; K21.9 Gastro-esophageal reflux disease without esophagitis; Z90.710 Acquired absence of both cervix and uterus; Z98.51 Tubal ligation status; Z98.890 Other specified postprocedural states; Z79.899 Other long term (current) drug therapy; Z79.82 Long term (current) use of aspirin; Z82.49 Family history of ischemic heart disease and other diseases of the circulatory system; Z84.1 Family history of disorders of kidney and ureter; Z83.3 Family history of diabetes mellitus; Z80.3 Family history of malignant neoplasm of breast

== ENCOUNTER → 2017-07-01 | Outpatient (CLI) | payer BC ==
[~2017-07-01] MED LIST changes: -ATROPINE SULFATE 0.1 MG/ML 5ML SYR IV PRN; -CHECK SCOPOLAMINE PATCH PLACEMENT SCH; -CIPROFLOXACIN 400MG / D5W IV SCH; -EpHEDrine SULFATE INJ 50 MG/ML AMP IV PRN; -FENTANYL CITRATE INJ 50 MCG/1 ML 2 ML VIAL IV PRN; -FENTANYL CITRATE INJ 50 MCG/1 ML 2 ML VIAL ONE; -HYDROmorphone INJ 1 MG/ML SYR IV PRN; -LACTATED RINGER'S 1000ML 1,000 ML IV SCH; -LIDOCAINE HCL 2% 2 ML VIAL (20MG/ML) ONE; -MIDAZOLAM HCL 1 MG/ML 2ML VIAL ONE; -ONDANSETRON INJ 2 MG/ML 2 ML VIAL IV PRN; -ONDANSETRON INJ 2 MG/ML 2 ML VIAL ONE; -OXYCODONE/ACETAMINOPHEN 5-325 TAB PO PRN; -PROPOFOL IV EMULSION 10 MG/ML 20 ML VIAL IV ONE; -SCOPOLAMINE 1.5 MG TDSY TD ONE; -SCOPOLAMINE 1.5 MG TDSY TD SCH
--- NOTE | 2017-07-01 19:38 | DIAGNOSTIC IMAGING REPORT ---
KUB HISTORY: Nephrolithiasis. Postop. COMPARISON: KUB 06/19/2017. FINDINGS: The bowel gas pattern is unremarkable. There are no dilated loops of small bowel to suggest an obstruction. No change in the 7 mm stone within the proximal left ureter. Multiple additional bilateral renal calculi seen within the lower poles also persist. No right ureteral calculi. No bladder calculi. Calcifications in the deep pelvis likely represent phleboliths. These remain unchanged. No pneumoperitoneum or pneumatosis. IMPRESSION: No change in the bilateral nephrolithiasis and proximal left ureteral stone. Electronically signed by: Efraín Iniguez M.D. 07/01/2017 7:36 PM Dictated Date/Time: 07/01/2017 7:34 PM
== END | disposition home or self-care (01) ==
LOC: C.RAD 17:18
PROVIDERS: ATTEND Urology
DX: N20.0 Calculus of kidney (principal)

== ENCOUNTER → 2017-07-04 | Outpatient (CLI) | payer BC ==
[2017-07-04 12:44] LABS: BLOOD UREA NITROGEN 22 mg/dl (7-18); CALCIUM 9.8 mg/dl (8.5-10.1); CARBON DIOXIDE 31 mmol/L (21-32); CREATININE 1.23 mg/dl (0.60-1.20); GLUCOSE 129 mg/dl (70-99); POTASSIUM 3.6 mmol/L (3.5-5.1); SODIUM 140 mmol/L (136-145)
== END | disposition home or self-care (01) ==
LOC: C.LABPVFM 08:56
PROVIDERS: ATTEND Nurse Practitioner
DX: I10 Essential (primary) hypertension (principal)

== ENCOUNTER → 2017-07-18 | Outpatient (CLI) | payer BC ==
[~2017-07-18] MED LIST changes: +OPTIRAY 300 IV PRN; +SERT50TA PO
--- NOTE | 2017-07-18 14:12 | DIAGNOSTIC IMAGING REPORT ---
IVP W/OR W/O TOMOGRAMS CLINICAL HISTORY: 51 years-old Female presenting with STONES. TECHNIQUE: Initially, an abdominal franchise field consultant radiograph was obtained. Subsequently, an intravenous pyelogram was performed following administration of 100 mL of Optiray 300 with tomographic images acquired in the corticomedullary and excretory phases of enhancement. Overhead views of the renal collecting system and bladder were obtained in multiple obliquities both pre and post voiding. COMPARISON: Plain radiograph from 07/01/2017. FINDINGS: Redemonstration of the proximal left ureteral calculus which remains at the level of the left transverse process of L2. Bilateral nephrolithiasis at the lower poles of the kidneys. Stable distribution of pelvic phleboliths. Nonobstructive bowel gas pattern. No gross pneumoperitoneum. Following contrast administration, normal enhancement of the bilateral kidneys and excretion of contrast bilaterally. However, the left renal collecting system demonstrates dilated and blunted calyces with nonopacification of the left renal pelvis and left ureter compatible with hydronephrosis. Normal excretion in the right urinary collecting system including normal opacification of the right ureter. The left ureter remains nonopacified throughout the examination. Normal filling of the urinary bladder without evidence of a filling defect. Post void imaging demonstrates normal evacuation of the bladder with minimal residual volume. The left renal pelvis demonstrates increased opacification, again consistent with moderate hydronephrosis. IMPRESSION: 1. Moderate left hydronephrosis secondary to an obstructing proximal left ureteral calculus. The calculus is unchanged in position since the prior radiograph on 07/01/2017. 2. Bilateral nephrolithiasis. Electronically signed by: Edgard Martel M.D. 07/18/2017 2:11 PM Dictated Date/Time: 07/18/2017 2:08 PM
== END | disposition home or self-care (01) ==
LOC: C.RAD 12:20
PROVIDERS: ATTEND Urology
DX: N13.2 Hydronephrosis with renal and ureteral calculous obstruction (principal)

== ENCOUNTER → 2017-07-24 | Outpatient (CLI) | payer BC ==
[~2017-07-24] MED LIST changes: -OPTIRAY 300 IV PRN
--- NOTE | 2017-07-24 19:12 | DIAGNOSTIC IMAGING REPORT ---
CHEST 2 VIEWS ROUTINE CLINICAL HISTORY: 51 years-old Female presenting with PRE OP TESTING, WENT TO LAB FIRST/SEND TO [facility]. TECHNIQUE: PA and lateral views of the chest were obtained. COMPARISON: Chest x-ray from 07/01/2016. FINDINGS: Cardiomediastinal silhouette normal. Lungs and pleural spaces clear. Osseous structures normal. Upper abdomen normal. IMPRESSION: 1. No acute cardiopulmonary disease. Electronically signed by: Edgard Martel M.D. 07/24/2017 7:11 PM Dictated Date/Time: 07/24/2017 7:10 PM
--- NOTE | 2017-07-24 19:14 | DIAGNOSTIC IMAGING REPORT ---
KUB CLINICAL HISTORY: 51 years-old Female presenting with PRE OP TESTING. TECHNIQUE: Single supine view of the abdomen was obtained. COMPARISON: IVP from 07/18/2017. FINDINGS: Nonobstructive bowel gas pattern. Moderate stool burden throughout the colon. No gross pneumoperitoneum. Redemonstration of bilateral nephrolithiasis. The 6 mm calculus projecting over the proximal left ureter is unchanged in position, again projecting at the L2-3 level. Stable distribution of pelvic phleboliths. Osseous structures normal. IMPRESSION: 1. Bilateral nephrolithiasis. Persistent 6 mm calculus at the level of the proximal left ureter. Electronically signed by: Edgard Martel M.D. 07/24/2017 7:12 PM Dictated Date/Time: 07/24/2017 7:11 PM
[2017-07-24 19:26] LABS: BASO % 0.2 %; BASO ABS # 0.02 K/uL (0-0.2); EOS % 2.3 %; EOS ABS # 0.19 K/uL (0-0.5); HEMATOCRIT 37.1 % (37-47); HEMOGLOBIN 13.1 g/dL (12.0-16.0); IG# 0.01 K/uL (0.00-0.02); LYMPH % 22.7 %; LYMPH ABS # 1.86 K/uL (1.2-3.4); MEAN CORPUSCULAR HEMOGLOBIN 31.4 pg (25-34); MEAN CORPUSCULAR HGB CONC 35.3 g/dl (32-36); MONO % 5.5 %; MONO ABS # 0.45 K/uL (0.11-0.59); NEUT % 69.2 %; NEUT ABS # 5.66 K/uL (1.4-6.5); PLATELET COUNT 238 K/uL (130-400); RED CELL DISTRIBUTION WIDTH CV 12.6 % (11.5-14.5); RED CELL DISTRIBUTION WIDTH SD 40.8 fL (36.4-46.3); WHITE BLOOD COUNT 8.19 K/uL (4.8-10.8)
[2017-07-24 19:45] LABS: POTASSIUM 3.2 mmol/L (3.5-5.1)
== END | disposition home or self-care (01) ==
LOC: C.LAB 17:52
PROVIDERS: ATTEND Urology
DX: Z01.812 Encounter for preprocedural laboratory examination (principal); Z01.810 Encounter for preprocedural cardiovascular examination; Z01.818 Encounter for other preprocedural examination

== ENCOUNTER → 2017-07-25 | Day surgery (SDC) | payer BC ==
[~2017-07-25] VITALS: Ht 160 cm; Wt 75.0 kg
[~2017-07-25] MED LIST changes: +CEFAZOLIN SOD 2000MG/15 ML IV PUSH IV ONE; +CHECK SCOPOLAMINE PATCH PLACEMENT SCH; +CIPROFLOXACIN 400MG / 200ML D5W ONE; +CIPROFLOXACIN 400MG / D5W IV SCH; +DEXAMETHASONE SOD INJ 4 MG/ML VIAL ONE; +EpHEDrine SULFATE INJ 50 MG/ML AMP ONE; +FENTANYL CITRATE INJ 50 MCG/1 ML 2 ML VIAL ONE; +LACTATED RINGER'S 1000ML 1,000 ML IV SCH; +LIDOCAINE HCL 2% 2 ML VIAL (20MG/ML) ONE; +MIDAZOLAM HCL 1 MG/ML 2ML VIAL ONE; +NURSING VERBAL MED ORDER ONE; +ONDANSETRON INJ 2 MG/ML 2 ML VIAL ONE; +OXYCODONE/ACETAMINOPHEN 5-325 TAB PO PRN; +PROPOFOL IV EMULSION 10 MG/ML 20 ML VIAL IV ONE; +SCOPOLAMINE 1.5 MG TDSY TD ONE; +SCOPOLAMINE 1.5 MG TDSY TD SCH
[2017-07-25 10:20] VITALS: Ht 160 cm; Wt 75.0 kg
--- NOTE | 2017-07-25 11:51 | Discharge Instructions ---
Discharge Instructions Date of Service Jul 25, 2017. Admission Reason for Admission: Stones Discharge Discharge Diagnosis / Problem: L upper ureteral stone s/p ESWL Discharge Goals Goal(s): Improve function, Improve disease control, Therapeutic intervention Activity Recommendations Activity Limitations: as noted below Lifting Limitations: no more than 25 pounds, gradually increase as tolerated Exercise/Sports Limitations: rest today, gradually increase as tolerated May Resume Sexual Activity: when tolerated Shower/Bathe: no limitations Driving or Machine Use: resume 1 day after discharge . Instructions / Follow-Up Instructions / Follow-Up Follow-up in office with [facility] Xray - visit has been moved up to 08/07/17 at 1 PM. Strain urine as instructed, bring in stone fragments. Current Hospital Diet Patient's current hospital diet: Discharge Diet Recommended Diet: Regular Diet (good fluid intake) Procedures Procedures Performed: Left upper ureteral ESWL Pending Studies Studies pending at discharge: yes List of pending studies: [facility] on follow-up Medical Emergencies . Who to Call and When: Medical Emergencies: If at any time you feel your situation is an emergency, please call 911 immediately. . Non-Emergent Contact Non-Emergency issues call your: Urologist Call Non-Emergent contact if: you have a fever, temperature is above 101, your pain is not controlled, your pain is worsening, your pain is unusual for you, your pain is concerning you, you have any medication questions . . "Provider Documentation" section prepared by Vishal Sharpe. .
--- NOTE | 2017-07-25 12:13 | [facility] Operative Report ---
Operative Report Operative Date Jul 25, 2017. Pre-Operative Diagnosis Left Upper Ureteral Calculi Post-Operative Diagnosis Same as preop Procedure(s) Performed Left Extracorporeal Shock Wave Lithotripsy - Ureteral Surgeon Dr. Lilian Sharpe Lifter Surgeon(s) None Estimated Blood Loss 0 mL Findings Good stone fragmentation on fluoroscopy Specimens None Drains None Anesthesia Type General Complication(s) none Disposition no Recovery Room / PACU Indications 51 yo female with a history of stone, persistent left upper ureteral obstruction on IVP here for ESWL of her left ureteral stone. IV Ancef provided, SCDs used for DVT prophylaxis. Please see H&P for further details. Description of Procedure The patient was brought to the litho suite. She was correctly identified and the stone was visualized on her most recent x-rays. After the correct time out was performed the patient was positioned over the therapy head. An adequate level of anesthesia was administered. The extracorporeal shockwave lithotripsy treatment was then commenced. Please see the [facility] sheet for complete treatment summary. After completion of the procedure the patient was taken to the recovery room in stable condition I attest to the content of the Intraoperative Record and any orders documented therein. Any exceptions are noted below.
[2017-07-25 13:12] VITALS: TEMP 36.6
[2017-07-25 13:44] VITALS: BP 146/82; PULSE 77; O2SAT 97
--- NOTE | 2017-07-25 13:57 | Anesthesia Progress Nt - [facility] ---
Anesthesia Post Op Note Date & Time Jul 25, 2017 at 13:57 Vital Signs Pain Intensity: 0 Vital Signs Past 12 Hours Date Time Temp Pulse Resp B/P (MAP) Pulse Ox O2 Delivery O2 Flow Rate FiO2 07/25/17 13:44 77 18 146/82 (103) 97 Room Air 07/25/17 13:12 36.6 74 18 136/80 (98) 95 Room Air 07/25/17 13:06 137/73 07/25/17 13:05 36.6 89 20 146/74 98 Room Air 07/25/17 13:04 90 23 07/25/17 13:04 91 23 95 07/25/17 13:01 135/75 07/25/17 12:59 82 3 07/25/17 12:59 81 3 97 07/25/17 12:56 136/73 07/25/17 12:54 78 0 07/25/17 12:54 79 0 100 07/25/17 12:51 139/77 07/25/17 12:49 78 0 100 07/25/17 12:49 78 0 07/25/17 12:46 137/74 07/25/17 12:44 81 0 07/25/17 12:44 80 0 100 07/25/17 12:41 144/73 07/25/17 12:39 87 11 146/74 99 07/25/17 12:39 86 11 07/25/17 12:39 36.4 89 20 146/74 98 Mask 6 07/25/17 10:30 36.7 72 16 153/87 (109) 96 Room Air Notes Mental Status: alert / awake / arousable, participated in evaluation Pt Amnestic to Procedure: Yes Nausea / Vomiting: adequately controlled Pain: adequately controlled Airway Patency, RR, SpO2: stable & adequate BP & HR: stable & adequate Hydration State: stable & adequate Anesthetic Complications: no major complications apparent
== END | disposition home or self-care (01) ==
LOC: X.SURG 09:44
PROVIDERS: ATTEND Urology
DX: N20.1 Calculus of ureter (principal); N20.0 Calculus of kidney; N39.0 Urinary tract infection, site not specified; I10 Essential (primary) hypertension; F32.9 Major depressive disorder, single episode, unspecified; F41.9 Anxiety disorder, unspecified; K21.9 Gastro-esophageal reflux disease without esophagitis; Z90.710 Acquired absence of both cervix and uterus; Z98.890 Other specified postprocedural states; Z98.51 Tubal ligation status; Z88.1 Allergy status to other antibiotic agents; Z82.49 Family history of ischemic heart disease and other diseases of the circulatory system; Z84.1 Family history of disorders of kidney and ureter; Z83.3 Family history of diabetes mellitus; Z80.3 Family history of malignant neoplasm of breast

== ENCOUNTER → 2017-08-06 | Outpatient (CLI) | payer BC ==
[~2017-08-06] MED LIST changes: -CEFAZOLIN SOD 2000MG/15 ML IV PUSH IV ONE; -CHECK SCOPOLAMINE PATCH PLACEMENT SCH; +CIPR-255 PO; -CIPROFLOXACIN 400MG / 200ML D5W ONE; -CIPROFLOXACIN 400MG / D5W IV SCH; -DEXAMETHASONE SOD INJ 4 MG/ML VIAL ONE; -EpHEDrine SULFATE INJ 50 MG/ML AMP ONE; -FENTANYL CITRATE INJ 50 MCG/1 ML 2 ML VIAL ONE; -LACTATED RINGER'S 1000ML 1,000 ML IV SCH; -LIDOCAINE HCL 2% 2 ML VIAL (20MG/ML) ONE; -MIDAZOLAM HCL 1 MG/ML 2ML VIAL ONE; -NURSING VERBAL MED ORDER ONE; -ONDANSETRON INJ 2 MG/ML 2 ML VIAL ONE; -OXYCODONE/ACETAMINOPHEN 5-325 TAB PO PRN; +PHEN-775 PO; +POTASSIUM CITRATE PO; -PROPOFOL IV EMULSION 10 MG/ML 20 ML VIAL IV ONE; -SCOPOLAMINE 1.5 MG TDSY TD ONE; -SCOPOLAMINE 1.5 MG TDSY TD SCH; -SULF1TAB92 PO
--- NOTE | 2017-08-06 18:47 | DIAGNOSTIC IMAGING REPORT ---
[facility] CLINICAL HISTORY: 51 years-old Female presenting with KIDNEY STONE. TECHNIQUE: Single supine view of the abdomen was obtained. COMPARISON: 07/24/2017. FINDINGS: Nonobstructive bowel gas pattern. No gross pneumoperitoneum. The previously seen 6 mm calculus along the course of the proximal left ureter at the level of the left transverse process of L2 remains at the L2-3 level. Redemonstration of bilateral nephrolithiasis, and a similar distribution as on prior exam. Stable distribution of pelvic phleboliths. Osseous structures normal. Lung bases clear. IMPRESSION: 1. Unchanged proximal left ureteral calculus at the level of L2-3. 2. Unchanged bilateral nephrolithiasis. Electronically signed by: Edgard Martel M.D. 08/06/2017 6:46 PM Dictated Date/Time: 08/06/2017 6:43 PM
== END | disposition home or self-care (01) ==
LOC: C.RAD 18:31
PROVIDERS: ATTEND Urology
DX: N20.0 Calculus of kidney (principal); N20.1 Calculus of ureter

== ENCOUNTER → 2017-08-07 | Outpatient (CLI) | payer BC ==
[2017-08-07 17:45] LABS: BLOOD UREA NITROGEN 15 mg/dl (7-18); CALCIUM 9.4 mg/dl (8.5-10.1); CARBON DIOXIDE 33 mmol/L (21-32); CREATININE 0.96 mg/dl (0.60-1.20); GLUCOSE 143 mg/dl (70-99); POTASSIUM 3.2 mmol/L (3.5-5.1); SODIUM 140 mmol/L (136-145)
== END | disposition home or self-care (01) ==
LOC: C.LAB 17:11
PROVIDERS: ATTEND Urology
DX: N20.0 Calculus of kidney (principal)

== ENCOUNTER → 2017-08-14 | Day surgery (SDC) | payer BC ==
[2017-08-11 15:35] VITALS: Ht 160 cm; Wt 73.6 kg
[~2017-08-14] VITALS: Ht 160 cm; Wt 73.6 kg
[~2017-08-14] MED LIST changes: +ATROPINE SULFATE 0.1 MG/ML 5ML SYR IV PRN; +BELLADONNA/OPIUM SUPP 60 MG SUPP PR PRN; +CIPROFLOXACIN / D5W 400 MG IV SCH; +Cysto-Conray II 17.2% 250ML BOTTLE ONE; +DEXAMETHASONE SOD INJ 4 MG/ML VIAL ONE; +DiphenhydrAMINE HCL 50 MG/ML VIAL ONE; +EpHEDrine SULFATE INJ 50 MG/ML AMP IV PRN; +FENTANYL CITRATE INJ 50 MCG/1 ML 2 ML VIAL IV PRN; +FENTANYL CITRATE INJ 50 MCG/1 ML 2 ML VIAL ONE; -HYDR25TA5 PO; +LACTATED RINGER'S 1000ML 1,000 ML IV SCH; +LIDOCAINE HCL 2% 2 ML VIAL (20MG/ML) ONE; +MIDAZOLAM HCL 1 MG/ML 2ML VIAL ONE; +NURSING VERBAL MED ORDER ONE; +ONDANSETRON INJ 2 MG/ML 2 ML VIAL IV PRN; +ONDANSETRON INJ 2 MG/ML 2 ML VIAL ONE; +OXYCODONE/ACETAMINOPHEN 5-325 TAB PO PRN; +PHENAZOPYRIDINE HCL 200 MG TAB PO PRN; -POTA1080 PO; +PROPOFOL IV EMULSION 10 MG/ML 20 ML VIAL IV ONE; +SCOPOLAMINE 1.5 MG TDSY TD ONE
[2017-08-14 07:10] VITALS: BP 139/73; PULSE 60; TEMP 36.7; O2SAT 95
--- NOTE | 2017-08-14 08:55 | [facility] Operative Report ---
Operative Report Operative Date Aug 14, 2017. Pre-Operative Diagnosis Hydronephrosis of Left Kidney; Ureteral Stone Post-Operative Diagnosis Hydronephrosis of Left Kidney; Ureteral Stone Procedure(s) Performed Cystoscopy, Left Retrograde Pyelography, Left Flexible Ureteroscopy, Laser Lithotripsy; Basket Stone Extraction, Left Ureteral Stent Placement Surgeon Dr Tammie Sharpe Rehabilitation Team Lead Surgeon(s) none Estimated Blood Loss 0cc Findings Ureteral edema causing obstruction with stone, good stent placement at the end of the case, no large residual stones. Specimens A:Left Ureteral Stones For Chemical Analysis Drains 6 Northern Irish 24 cm left-sided loop stent Anesthesia Type General Complication(s) none Disposition no Recovery Room / PACU Indications Patient is a pleasant 51-year-old female with a history of left-sided proximal ureteral stone and hydronephrosis refractory to lithotripsy 2 despite passage of small stone fragments. Please see H&P for further details. She is here today for endoscopic management of her persistent stone. Intravenous ciprofloxacin provided for antibiotic coverage and SCDs used for DVT prophylaxis. Description of Procedure Patient was properly identified and brought into the operative suite after identification for proper consent in the chart. General anesthesia with laryngeal mask was initiated and patient was prepped and draped in the standard fashion for this procedure. Full timeout procedure was followed. 22 [place] Irish rigid cystoscope was passed into the bladder under direct visualization and bladder was surveyed in its entirety demonstrating no intravesical lesions, papillary masses or calculi. Ureteral orifices were noted in the normal anatomic location bilaterally. Left-sided ureteral orifice was cannulated and gentle retrograde was performed. This demonstrated normal distal and mid ureter up to the level of the transition point consistent with the patient's previously noted stone in the proximal ureter. An angled sensor wire was able to be navigated past this area and into the kidney and was kept as a safety wire until the end of the case. Amplatz superstiff wire was used as a working wire and a 12/14 35 cm ureteral access sheath was advanced to the mid ureter without difficulties or resistance. Fiberoptic flexible ureteroscope was passed over the working wire up to the level of the stone. Ureteral edema is appreciated, likely the reason that the patient's fragments of stone did not pass. Proximal to this moderately sized stone fragments were noted. These were small enough to be able to be grasped using a basket and removed through the edematous area without resistance or difficulties. These were sent for chemical analysis. Ureteroscope was readvanced up into the kidney where stone fragments in the mid and lower poles are appreciated. Larger of these fragments were dusted using a 200 m laser fiber with no large residual fragments being remaining. Some of these fragments were grasped and also removed without difficulties or resistance and appreciated to be of quite small size. Pyeloscopy demonstrated no injuries or residual stones. Complete exit ureteroscopy was performed including removal of the sheath for inspection of the areas behind the ureteral access sheath demonstrating no injuries or tears. Cystoscope was backloaded over the safety wire and a 6 [place] Irish 24 cm loop stent was advanced with a full coil being present at the renal pelvis and redundant loops being present within the bladder. Bladder was drained and cystoscope was removed. Anesthesia was reversed the patient was transferred to the recovery room in stable condition. Follow-up care: Patient will be discharged home with a prescription for analgesics and antibiotics. Patient is instructed to contact our service should she have any fevers, chills, nausea, vomiting or other difficulties in the postoperative period. Outpatient appointment for cystoscopy and stent removal with [facility] is confirmed. I attest to the content of the Intraoperative Record and any orders documented therein. Any exceptions are noted below.
--- NOTE | 2017-08-14 08:58 | Discharge Instructions ---
Discharge Instructions Date of Service Aug 14, 2017. Admission Reason for Admission: Left Ureteral Stone Discharge Discharge Diagnosis / Problem: L ureteral stone s/p ureteroscopy, laser litho and stent Discharge Goals Goal(s): Decrease discomfort, Improve function, Improve disease control, Therapeutic intervention Activity Recommendations Activity Limitations: as noted below Lifting Limitations: no more than 25 pounds, gradually increase as tolerated Exercise/Sports Limitations: rest today, gradually increase as tolerated May Resume Sexual Activity: when tolerated Shower/Bathe: no limitations Driving or Machine Use: resume 1 day after discharge . Instructions / Follow-Up Instructions / Follow-Up Follow-up in office as scheduled with [facility] Xray before visit. Current Hospital Diet Patient's current hospital diet: Discharge Diet Recommended Diet: Regular Diet (good fluid intake) Procedures Procedures Performed: Cystoscopy, Left Retrograde Pyelography, Left Flexible Ureteroscopy, Laser Lithotripsy; Basket Stone Extraction, Left Ureteral Stent Placement Pending Studies Studies pending at discharge: yes List of pending studies: Stone analysis Medical Emergencies . Who to Call and When: Medical Emergencies: If at any time you feel your situation is an emergency, please call 911 immediately. . Non-Emergent Contact Non-Emergency issues call your: Urologist Call Non-Emergent contact if: you have a fever, temperature is above 101, your pain is not controlled, your pain is worsening, your pain is unusual for you, your pain is concerning you, you have any medication questions . . "Provider Documentation" section prepared by Vishal Sharpe. . [place] Drug Monitoring Program Search Results: patient reviewed within database, see additional documentation (last Rx 2 months ago)
[2017-08-14 09:43] VITALS: BP 143/74; PULSE 58; TEMP 36.4; O2SAT 93
--- NOTE | 2017-08-14 09:44 | Anesthesiology Progress Note ---
Anesthesia Post Op Note Date & Time Aug 14, 2017 at 09:44 Vital Signs Pain Intensity: 0 Vital Signs Past 12 Hours Date Time Temp Pulse Resp B/P (MAP) Pulse Ox O2 Delivery O2 Flow Rate FiO2 08/14/17 09:35 37 59 16 146/78 94 Room Air 08/14/17 09:25 60 16 143/84 94 Room Air 08/14/17 09:15 57 16 142/81 98 Oxymask 10 08/14/17 09:05 57 16 134/79 98 Oxymask 10 08/14/17 08:59 36.4 59 16 125/77 96 Oxymask 10 08/14/17 07:10 36.7 60 18 139/73 (95) 95 Room Air Notes Mental Status: alert / awake / arousable, participated in evaluation Pt Amnestic to Procedure: Yes Nausea / Vomiting: adequately controlled Pain: adequately controlled Airway Patency, RR, SpO2: stable & adequate BP & HR: stable & adequate Hydration State: stable & adequate Anesthetic Complications: no major complications apparent
[2017-08-14 10:23] VITALS: BP 135/65; PULSE 62; TEMP 36.4; O2SAT 95
--- NOTE | 2017-08-14 13:40 | DIAGNOSTIC IMAGING REPORT ---
RETROGRADE INCLUDES [facility] CLINICAL HISTORY: LT CYSTO/LASER/STENT COMPARISON STUDY: [facility]UB August 06, 2017. Fluoroscopy time: 91.7 seconds. FINDINGS: 6 fluoroscopic images from a left retrograde exam were submitted for interpretation. These images demonstrate cannulation of the left ureter with placement of a left ureteral stent which appears appropriately positioned. IMPRESSION: Fluoroscopic images from left retrograde exam with ureteral stent insertion. Electronically signed by: Ethan Carson M.D. 08/14/2017 1:38 PM Dictated Date/Time: 08/14/2017 1:26 PM
== END | disposition home or self-care (01) ==
LOC: C.ACU 06:39
PROVIDERS: ATTEND Urology
DX: N20.1 Calculus of ureter (principal); N13.30 Unspecified hydronephrosis; N39.0 Urinary tract infection, site not specified; I10 Essential (primary) hypertension; K21.9 Gastro-esophageal reflux disease without esophagitis; F32.9 Major depressive disorder, single episode, unspecified; Z88.1 Allergy status to other antibiotic agents; Z90.710 Acquired absence of both cervix and uterus; Z82.49 Family history of ischemic heart disease and other diseases of the circulatory system; Z84.1 Family history of disorders of kidney and ureter; Z83.3 Family history of diabetes mellitus; Z80.3 Family history of malignant neoplasm of breast

== ENCOUNTER → 2017-08-15 | Outpatient (CLI) | payer BC ==
[~2017-08-15] MED LIST changes: -ATROPINE SULFATE 0.1 MG/ML 5ML SYR IV PRN; -BELLADONNA/OPIUM SUPP 60 MG SUPP PR PRN; -CIPROFLOXACIN / D5W 400 MG IV SCH; -Cysto-Conray II 17.2% 250ML BOTTLE ONE; -DEXAMETHASONE SOD INJ 4 MG/ML VIAL ONE; -DiphenhydrAMINE HCL 50 MG/ML VIAL ONE; -EpHEDrine SULFATE INJ 50 MG/ML AMP IV PRN; -FENTANYL CITRATE INJ 50 MCG/1 ML 2 ML VIAL IV PRN; -FENTANYL CITRATE INJ 50 MCG/1 ML 2 ML VIAL ONE; -LACTATED RINGER'S 1000ML 1,000 ML IV SCH; -LIDOCAINE HCL 2% 2 ML VIAL (20MG/ML) ONE; -MIDAZOLAM HCL 1 MG/ML 2ML VIAL ONE; -NURSING VERBAL MED ORDER ONE; -ONDANSETRON INJ 2 MG/ML 2 ML VIAL IV PRN; -ONDANSETRON INJ 2 MG/ML 2 ML VIAL ONE; -OXYCODONE/ACETAMINOPHEN 5-325 TAB PO PRN; -PHENAZOPYRIDINE HCL 200 MG TAB PO PRN; -PROPOFOL IV EMULSION 10 MG/ML 20 ML VIAL IV ONE; -SCOPOLAMINE 1.5 MG TDSY TD ONE
== END | disposition home or self-care (01) ==
LOC: C.LABPVFM 15:51
PROVIDERS: ATTEND Nurse Practitioner
DX: E87.6 Hypokalemia (principal)

== ENCOUNTER → 2017-08-26 | Outpatient (CLI) | payer OTHER ==
[~2017-08-26] MED LIST changes: -PHEN-775 PO
--- NOTE | 2017-08-26 17:39 | DIAGNOSTIC IMAGING REPORT ---
KUB CLINICAL HISTORY: N20.0 Nephrolithiasis nephrocalcinosis COMPARISON STUDY: 08/06/2017 FINDINGS: Interval placement of a left ureteral stent. Bilateral nephrogenic calcinosis is noted. This is essentially unchanged from the prior exam. Calcifications adjacent to the mid lumbar region potentially overlie the distal stent at the current time. Nonobstructive bowel pattern. IMPRESSION: Stable bilateral nephrocalcinosis. 2. Interval placement of a left ureteral stent. 3. Calcifications previously identified in the course of the mid left ureter now potentially have passed or are adjacent to the distal aspect of the stent. The above report was generated using voice recognition software. It may contain grammatical, syntax or spelling errors. Electronically signed by: Christian Mason M.D. 08/26/2017 5:37 PM Dictated Date/Time: 08/26/2017 5:36 PM
== END | disposition home or self-care (01) ==
LOC: C.RAD 17:20
PROVIDERS: ATTEND Urology
DX: E83.59 Other disorders of calcium metabolism (principal); N29 Other disorders of kidney and ureter in diseases classified elsewhere

== ENCOUNTER → 2017-08-27 | Outpatient (CLI) | payer OTHER ==
[2017-08-27 17:25] LABS: BLOOD UREA NITROGEN 21 mg/dl (7-18); CREATININE 0.86 mg/dl (0.60-1.20)
== END | disposition home or self-care (01) ==
LOC: C.LAB1850 15:00
PROVIDERS: ATTEND Internal Medicine Nephrology
DX: N20.1 Calculus of ureter (principal); N20.0 Calculus of kidney

== ENCOUNTER → 2017-09-05 | Outpatient (CLI) | payer OTHER | END | disposition home or self-care (01) | LOC: C.LABPVFM 09:04 | PROVIDERS: ATTEND Nurse Practitioner | DX: E87.6 Hypokalemia (principal); R25.2 Cramp and spasm ==

== ENCOUNTER → 2017-11-21 | Outpatient (CLI) | payer OTHER ==
[~2017-11-21] MED LIST changes: +OXYC-737 PO; -OXYC1TAB3 PO
[2017-11-21 13:19] LABS: BLOOD UREA NITROGEN 18 mg/dl (7-18); CREATININE 1.06 mg/dl (0.60-1.20)
== END | disposition home or self-care (01) ==
LOC: C.LABPVFM 09:14
PROVIDERS: ATTEND Urology
DX: N20.0 Calculus of kidney (principal); N20.1 Calculus of ureter

== ENCOUNTER → 2017-11-28 | Outpatient (CLI) | payer OTHER ==
[~2017-11-28] MED LIST changes: +OPTIRAY 300 IV PRN
--- NOTE | 2017-11-28 14:03 | DIAGNOSTIC IMAGING REPORT ---
IVP W/OR W/O TOMOGRAMS CLINICAL HISTORY: 52 years-old Female presenting with KIDNEY STONES. TECHNIQUE: Initially, an abdominal veneer sawyer radiograph was obtained. Subsequently, an intravenous pyelogram was performed following administration of 100 mL of Optiray 300 with tomographic images acquired in the corticomedullary and excretory phases of enhancement. Overhead views of the renal collecting system and bladder were obtained in multiple obliquities both pre and post voiding. COMPARISON: 08/26/2017. FINDINGS: Initial veneer sawyer radiograph demonstrates interval removal of the left ureteral stent. A cluster of calculi are again noted at both lower poles of the kidneys. Calcification along the course of the proximal left ureter at the level of L2-3 may represent a proximal left ureteral calculus. Multiple pelvic phleboliths unchanged in distribution from prior exam. After intravenous administration of contrast, symmetric and normal enhancement of the bilateral kidneys. Normal excretion of the bilateral kidneys. Collecting systems are nondilated. The calcification noted in the region of the proximal left ureter is not visualized separate from the ureter shortly suggesting an intraureteral location. There is mild stenosis of the proximal left ureter at this level, likely reactive. No other sites of stenosis of the ureters. Both ureters are well visualized throughout their entire courses to the level of the ureterovesical junctions. Post void imaging demonstrates expected post void residual volume. IMPRESSION: 1. Interval removal left ureteral stent. 2. Bilateral nephrolithiasis. 3. Suspected proximal left ureteral calculus at the site of mild ureteral stenosis. Apparent stenosis may be reactive to the presence of a calculus. No hydronephrosis. Electronically signed by: Edgard Martel M.D. 11/28/2017 2:02 PM Dictated Date/Time: 11/28/2017 1:38 PM
== END | disposition home or self-care (01) ==
LOC: C.RAD 12:25
PROVIDERS: ATTEND Urology
DX: N20.0 Calculus of kidney (principal); N20.1 Calculus of ureter; T83.84XA Pain due to genitourinary prosthetic devices, implants and grafts, initial encounter; Y79.2 Prosthetic and other implants, materials and accessory orthopedic devices associated with adverse incidents

== ENCOUNTER 2019-10-05 14:09 | Observation (INO) ==
[2019-10-05] MEDS ORDERED: KETOROLAC 30 MG/ML VIAL IV STA (14:38)
[2019-10-05] MEDS ORDERED: ONDANSETRON INJ 2 MG/ML 2 ML VIAL IV STA (14:38)
[2019-10-05] MEDS ORDERED: MoRPHine SULFATE 4 MG/ML 1 ML CARP\\VIAL IV STA (14:38)
[2019-10-05 14:46] LABS: Basophils # (auto) 0.02 K/uL (0-0.2); Basophils % (auto) 0.2 %; Hematocrit (blood only) 38.8 % (37-47); Immature Granulocytes # (auto) 0.03 K/uL (0.00-0.02); Immature Granulocytes % (auto) 0.2 %; Lymphocytes # (auto) 0.96 K/uL (1.2-3.4); Lymphocytes % (auto) 7.3 %; Mean Corpuscular Hemoglobin 31.2 pg (25-34); Mean Corpuscular Hgb Conc 33.5 g/dL (32-36); Mean Platelet Volume 10.4 fL (7.4-10.4); Monocytes # (auto) 0.37 K/uL (0.11-0.59); Monocytes % (auto) 2.8 %; Neutrophils # (auto) 11.81 K/uL (1.4-6.5); Neutrophils % (auto) 89.5 %; Platelet Count 270 K/uL (130-400); RDW Coefficient of Variation 13.4 % (11.5-14.5); RDW Standard Deviation 45.2 fL (36.4-46.3); Red Blood Count 4.17 M/uL (4.2-5.4); White Blood Count 13.19 K/uL (4.8-10.8)
[2019-10-05 15:08] LABS: Calcium 9.5 mg/dl (8.5-10.1); Creatinine Clr Calc Pharmacy 53.2 ml/min; Est GFR (African American) 60.3; Potassium 3.8 mmol/L (3.5-5.1)
[2019-10-05 15:11] LABS: Bilirubin,Total 0.3 mg/dl (0.2-1); Globulin 4.1 gm/dl (2.5-4.0); Total Protein 8.1 gm/dl (6.4-8.2)
--- NOTE | 2019-10-05 15:45 | CT Scan Report ---
CT SCAN OF THE ABDOMEN AND PELVIS WITHOUT IV CONTRAST CLINICAL HISTORY: Right flank pain. COMPARISON STUDY: Abdominal CT dated 08/02/2016. TECHNIQUE: CT scan of the abdomen and pelvis is performed from the lung bases to the proximal femora. Images are reviewed in the axial, sagittal, and coronal planes. IV contrast was not administered for this examination. A dose lowering technique was utilized adhering to the principles of ALARA. CT DOSE: 894.94 mGycm FINDINGS: Lung bases: The heart is normal in size and without pericardial effusion. There is no airspace consol idation or pleural effusion seen at the lung bases. Scattered calcified granulomas are observed. Depe ndent atelectasis is noted. Liver: The unenhanced liver is elongated, measuring 20.4 cm in length. This likely represents Steve' s lobe variant anatomy. The liver is normal in contour and attenuation. There is no intrahepatic bili maury ductal dilatation. Gallbladder: Unremarkable. Spleen: Normal in size and attenuation. Pancreas: Unremarkable. Adrenal glands: Unremarkable. Kidneys: The unenhanced kidneys are normal in size. There is a 7 mm obstructing calculus in the dista l right ureter at the level of the pelvic inlet seen on axial image #297. This causes moderate right- sided hydroureteronephrosis. There is associated right-sided perinephric stranding and trace perineph manisha fluid. Additionally, there is an 8 mm obstructing calculus in the mid left ureter seen on image # 216 at the level of L4. This causes moderate left-sided hydroureteronephrosis. There are least 2 dandy tional nonobstructing left renal calculi which measure up to 7 mm, and at least 2 additional nonobstr ucting right renal calculi which measure up to 5 mm. There is no evidence of contour deforming renal mass lesion. Abdominal vasculature: The abdominal aorta is normal in course and caliber. Bowel: The small bowel and colon are normal in course and caliber. The appendix is well-visualized a nd normal. Peritoneum: There is no intraperitoneal free air or abdominal ascites. There is a small fat-containin g umbilical hernia. Lymphadenopathy: None. Pelvic viscera: The bladder is normal as visualized. Uterus is surgically absent. No adnexal lesion i s seen. Skeletal structures: There is mild lumbosacral spondylosis. No lytic or blastic lesions are seen. IMPRESSION: 1. There are bilateral obstructing ureteral calculi as above which measure 7 mm and 8 mm. This causes moderate bilateral hydroureteronephrosis. 2. Additional nonobstructing calculi are present in both kidneys. 3. Additional findings as above. ACT 112: Negative or not required by law. Electronically signed by: Cleve Tom M.D. 10/05/2019 3:44 PM
[2019-10-05] MEDS ORDERED: cefTRIAXone SODIUM 2,000 MG/70 ML BAG IV STA (16:17)
[2019-10-05 16:44] LABS: Appearance Urine Clear (Clear); Bacteria Urine Automated Negative (Negative); Bilirubin Urine Negative (Negative); Blood Urine 3+ (Negative); Color Urine Yellow; Glucose Urine UA Negative (Negative); Ketones Urine Negative (Negative); Leukocyte Esterase Urine Trace (Negative); Nitrite Urine Negative (Negative); Protein Urine Negative (Negative); RBC Urine Automated >30 /hpf (0-4); Specific Gravity Urine 1.024 (1.000-1.030); Urobilinogen Urine Negative (Negative); pH Urine 6.5 (4.5-7.5)
[2019-10-05] MEDS ORDERED: IOTHALAMATE MEGLUMINE II 17.2% 250 ML VIAL ONE (16:51)
--- NOTE | 2019-10-05 17:03 | Anesthesiology Consultation ---
Date of Service October 05, 2019 Assessment & Plan Chart Review Chart Review: Acceptable Risk for Surgery and Patient NOT seen in Pre Admission Testing Consults Requested none ASA [id number] Proposed Anesthesia Anesthesia Type: General History Surgery Operation Date: 10/05/19 07:45 Proposed Procedures p Cystoscopy, Right Ureteroscopy, Laser Lithotripsy, possible Bilateral Stent Placement - Sukumar Abreu MD Height/Weight Height: 5 ft 3 in Weight: 78.4 kg Allergies Allergy/AdvReac Type Severity Reaction Status Date / Time No Known Allergies Allergy Verified 10/05/19 15:19 Medications Home Medications Medication Instructions Recorded Confirmed Last Taken Centrum Women 1 tab PO QAM 09/15/18 10/05/19 10/05/19 aspirin 81 mg PO QAM 09/15/18 10/05/19 10/05/19 omega [id number] oil [Fish Oil] 1 cap PO QAM 09/15/18 10/05/19 10/05/19 acetaminophen [Tylenol Extra 500 mg PO Q6H PRN 09/26/18 10/05/19 10/05/19 10:30 Strength] 1000 mg famotidine 20 mg tablet 20 mg PO DAILY PRN #10 tab 03/12/19 10/05/19 10/05/19 metoprolol tartrate 25 mg tablet 25 mg PO BID #180 tab 04/29/19 10/05/19 10/05/19 atorvastatin 10 mg PO QAM 05/04/19 10/05/19 10/05/19 cholecalciferol (vitamin D3) 2,000 unit PO QAM 05/04/19 10/05/19 10/05/19 [Vitamin D3] lisinopril 10 mg PO QAM 05/04/19 10/05/19 10/05/19 hydrochlorothiazide 50 mg tablet 50 mg PO QAM #90 tab 05/21/19 10/05/19 10/05/19 potassium citrate 10 mEq (1,080 10 meq PO BID #180 tab 06/21/19 10/05/19 10/05/19 mg) tablet,extended release metformin 500 mg tablet 500 mg PO BID #60 tab 09/07/19 10/05/19 10/05/19 sertraline 50 mg tablet 50 mg PO QAM #30 tab 09/07/19 10/05/19 10/05/19 amoxicillin-pot clavulanate 1 tab PO BID 10/05/19 10/05/19 10/05/19 NPO Date Last Intake of Fluids: 10/05/19 Time Last Intake of Fluids: 12:00 Last Intake of Fluids Comment: Water Date Last Intake of Solids: 10/05/19 Time Last Intake of Solids: 09:45 Last Intake of Solids Comment: Isela Past Medical History Medical History Anxiety Calcaneal apophysitis (Inactive) Chronic pain of left heel (Inactive) Endometrial polyp (Inactive) GERD (gastroesophageal reflux disease) History of anesthesia reaction heartburn after anesthesia Kidney stones 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) PVC's (premature ventricular contractions) Type 2 diabetes mellitus (Chronic) Visual field loss (Inactive) Weight gain Exercise / Class Metabolic Activity II 4-5 Yardwork/Stairs/Walk up hill Past Family History Family History Sister Family history of reaction to anesthesia nausea Family history of diabetes mellitus 2 Brother Family history of diabetes mellitus Father Family history of diabetes mellitus Grandfather (Paternal) Family history of diabetes mellitus Grandmother (Paternal) Family history of diabetes mellitus Grandmother (Maternal) Breast cancer Great Grandmother Denies family history of Ovarian cancer Prostate cancer Myocardial infarction Colorectal cancer Past Surgical History Surgical History History of bilateral tubal ligation History of section History of cystoscopy x3 with stent placement History of dilatation and curettage History of foot surgery left--bone spur removal History of hysterectomy TL in 2016 History of lithotripsy x5 History of tooth extraction History of wisdom tooth extraction Past Anesthesia History No Hx of Anesthesia Complications and No Family Hx of Anesthesia Complications History of PONV No Hx of PONV and No Hx of Motion Sickness Social History Smoking Status: Never smoker Hx Alcohol Use: No Hx Substance Use: No substance use type: does not use Physical Exam Vital Signs Last Vital Signs Temp 36.9 C 10/05/19 14:14 Pulse 87 10/05/19 16:28 Resp 20 10/05/19 16:28 BP 140/81 10/05/19 16:28 Pulse Ox 96 10/05/19 16:28 Testing Laboratory Results 10/05/19 14:30 10/05/19 14:30 Urine Color Yellow 10/05/19 16:20 Urine Appearance Clear (Clear) 10/05/19 16:20 Urine pH 6.5 (4.5-7.5) 10/05/19 16:20 Ur Specific [place] 1.024 (1.000-1.030) 10/05/19 16:20 Urine Protein Negative (Negative) 10/05/19 16:20 Urine Glucose (UA) Negative (Negative) 10/05/19 16:20 Urine Ketones Negative (Negative) 10/05/19 16:20 Urine Nitrite Negative (Negative) 10/05/19 16:20 Ur Leukocyte Esterase Trace (Negative) H 10/05/19 16:20 Urine WBC (Auto) 5-10 /hpf (0-5) H 10/05/19 16:20 Urine RBC (Auto) >30 /hpf (0-4) H 10/05/19 16:20 U Hyaline Cast (Auto) 1-5 /lpf (0-5) 10/05/19 16:20 U Epithel Cells (Auto) 10-20 /lpf (0-5) H 10/05/19 16:20 Urine Bacteria (Auto) Negative (Negative) 10/05/19 16:20
--- NOTE | 2019-10-05 17:04 | Emergency Department Note ---
History of Present Illness General Chief complaint: Kidney Stone Stated complaint: KIDNEY STONES Time Seen by Provider: 10/05/19 14:19 History of Present Illness Maximum Pain Intensity: 9 This is a 54-year-old female presenting to the emergency department for evaluation of right flank pain that began around 9 AM, roughly 6 or 7 hours prior to arrival. The patient states the pain is radiating into her right side groin. She does have a past history of kidney stones, and evidently this feels identical to previous episodes. She did take Tylenol at onset of symptoms without any relief. Her pain is constant and rated at 9/10. She has not noticed any blood or difficulty with urinating. No fevers or chills. She is not having any chest pain, chest tightness, or shortness of breath. Home Medications Home Medications Medication Instructions Recorded Confirmed Type Centrum Women 1 tab PO QAM 09/15/18 10/05/19 History aspirin 81 mg PO QAM 09/15/18 10/05/19 History omega 9-eig-gjm-fish oil [Fish Oil] 1 cap PO QAM 09/15/18 10/05/19 History acetaminophen [Tylenol Extra 500 mg PO Q6H PRN 09/26/18 10/05/19 History Strength] famotidine 20 mg tablet 20 mg PO DAILY PRN #10 tab 03/12/19 10/05/19 Rx metoprolol tartrate 25 mg tablet 25 mg PO BID #180 tab 04/29/19 10/05/19 Rx atorvastatin 10 mg PO QAM 05/04/19 10/05/19 History cholecalciferol (vitamin D3) 2,000 unit PO QAM 05/04/19 10/05/19 History [Vitamin D3] lisinopril 10 mg PO QAM 05/04/19 10/05/19 History hydrochlorothiazide 50 mg tablet 50 mg PO QAM #90 tab 05/21/19 10/05/19 Rx potassium citrate 10 mEq (1,080 10 meq PO BID #180 tab 06/21/19 10/05/19 Rx mg) tablet,extended release metformin 500 mg tablet 500 mg PO BID #60 tab 09/07/19 10/05/19 Rx sertraline 50 mg tablet 50 mg PO QAM #30 tab 09/07/19 10/05/19 Rx amoxicillin-pot clavulanate 1 tab PO BID 10/05/19 10/05/19 History hydrocodone-acetaminophen 1 - 2 tab PO Q6H #30 tab 10/06/19 Rx tamsulosin 0.4 mg PO HS #30 cap 10/06/19 Rx Allergies Allergy/AdvReac Type Severity Reaction Status Date / Time No Known Allergies Allergy Verified 10/05/19 15:19 Past Med/Surg History Medical History Anxiety Calcaneal apophysitis (Inactive) Chronic pain of left heel (Inactive) Endometrial polyp (Inactive) GERD (gastroesophageal reflux disease) History of anesthesia reaction heartburn after anesthesia Kidney stones 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) PVC's (premature ventricular contractions) Type 2 diabetes mellitus (Chronic) Visual field loss (Inactive) Weight gain Surgical History History of bilateral tubal ligation History of section History of cystoscopy x3 with stent placement History of dilatation and curettage History of foot surgery left--bone spur removal History of hysterectomy TL in 2016 History of lithotripsy x5 History of tooth extraction History of wisdom tooth extraction Family History Sister Family history of reaction to anesthesia nausea Family history of diabetes mellitus 2 Brother Family history of diabetes mellitus Father Family history of diabetes mellitus Grandfather (Paternal) Family history of diabetes mellitus Grandmother (Paternal) Family history of diabetes mellitus Grandmother (Maternal) Breast cancer Great Grandmother Denies family history of Ovarian cancer Prostate cancer Myocardial infarction Colorectal cancer Social History Preferred Language: [place] Communication Ability: Effective 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 Beliefs That Will Affect Care: None Current Living Situation: Spouse and Family Current Living Situation Comment: Lives with , son, qdgwymmg-ov-gil, 2 grandkids Other Information That Helps Us Care for You: No Feels Safe at Home: Yes Safety Concerns: Feels Safe At This Time Smoking Status: Never smoker Second Hand Exposure: No ; Hx Alcohol Use: No Hx Substance Use: No Dental Care, Regularly: No Seatbelt Use: always Review of Systems A total of 10 systems reviewed and were otherwise negative Physical Exam Vital Signs Vital Signs - 24 hr 10/05/19 14:14 10/05/19 14:57 10/05/19 16:28 Temperature 36.9 C Temperature Source Oral Pulse Rate 71 Pulse Rate [Right Finger] 75 87 Pulse Strength [Right Finger] Respiratory Rate 18 20 20 Respiratory Effort / Characteristics Respiratory Depth Normal Respiratory Pattern Blood Pressure 178/92 H Blood Pressure [Right Arm] 175/86 H 140/81 Blood Pressure Mean 120 Blood Pressure Mean [Right Arm] 115 100 Blood Pressure Position [Right Arm] Pulse Oximetry 99 98 96 Oxygen Delivery Method Room Air Sepsis Recent Fever Within 48 Hours No Sepsis New/Unexplained Change in Mental Status No Sepsis Action Taken by Nursing No Action Required 10/05/19 17:12 Temperature 36.9 C Temperature Source Oral Pulse Rate Pulse Rate [Right Finger] 95 H Pulse Strength [Right Finger] Normal Respiratory Rate 16 Respiratory Effort / Characteristics Non-Labored Spontaneous Respiratory Depth Normal Respiratory Pattern Regular Blood Pressure Blood Pressure [Right Arm] 157/84 H Blood Pressure Mean Blood Pressure Mean [Right Arm] 108 Blood Pressure Position [Right Arm] Sitting Pulse Oximetry 95 Oxygen Delivery Method Room Air Sepsis Recent Fever Within 48 Hours Sepsis New/Unexplained Change in Mental Status Sepsis Action Taken by Nursing VITALS: Vitals are noted on the nurse's note and reviewed by myself. Vital signs stable. GENERAL: Well-developed, well-nourished, white female who appears mildly uncomfortable but overall cooperative with the examination. HEAD: Normocephalic atraumatic. EARS: External ear normal. External auditory canals clear, tympanic membranes pearly garcia without erythema or effusion bilaterally. EYES: Pupils equal round and reactive to light and accommodation. Conjunctivae without injection, sclerae without icterus. Extraocular movements intact. NOSE: Patent, turbinates without inflammation or discharge. MOUTH: Mucous membranes moist. Tonsils are not enlarged. Pharynx without erythema, blood, or exudate. Uvula midline. Airway patent. NECK: Supple without nuchal rigidity. No lymphadenopathy. No thyromegaly. Cervical spine is nontender. HEART: Regular rate and rhythm without murmurs gallops or rubs. LUNGS: Clear to auscultation bilaterally without wheezes, rales or rhonchi. No retractions or accessory muscle use. ABDOMEN: Positive normal bowel sounds x 4. Soft, nontender, without masses or organomegaly. No guarding or rebound tenderness. MUSCULOSKELETAL: No muscle atrophy, erythema, or edema noted. Full range of motion in all extremities. NEURO: Patient was alert and oriented to person place and time. CN II through XII grossly intact. Course Administered Medications Famotidine (Pepcid) 20 mg PO BID CHERYL Stop: 11/04/19 20:59 Last Admin: 10/06/19 08:55 Dose: 20 mg Documented by: [id number] Admin: 10/05/19 22:04 Dose: 20 mg Documented by: [id number] Sodium Chloride (Nss 1000ml) 1,000 mls @ 125 mls/hr IV .Q8H CHERYL Stop: 11/04/19 20:50 Last Infusion: 10/06/19 11:42 Dose: 0 mls/hr Documented by: [id number] Admin: 10/06/19 04:47 Dose: 125 mls/hr Documented by: [id number] Infusion: 10/06/19 04:47 Dose: 125 mls/hr Documented by: [id number] Admin: 10/05/19 22:02 Dose: 125 mls/hr Documented by: [id number] Insulin Aspart (Novolog Flexpen) 0 units SC ACHS CHERYL Stop: 11/04/19 20:59 Last Admin: 10/06/19 12:34 Dose: Not Given Documented by: [id number] Cosigned by: [id number] Admin: 10/06/19 09:00 Dose: Not Given Documented by: [id number] Cosigned by: [id number] Admin: 10/05/19 22:07 Dose: 1 units Documented by: [id number] Cosigned by: [id number] Metoprolol Tartrate (Lopressor) 25 mg PO BID CHERYL Stop: 11/04/19 20:59 Last Admin: 10/06/19 08:55 Dose: 25 mg Documented by: [id number] Admin: 10/05/19 22:04 Dose: 25 mg Documented by: [id number] Sertraline HCl (Zoloft) 50 mg PO QAM CHERYL Stop: 11/05/19 08:59 Last Admin: 10/06/19 08:56 Dose: 50 mg Documented by: [id number] Tamsulosin HCl (Flomax) 0.4 mg PO HS CHERYL Stop: 11/04/19 20:59 Last Admin: 10/05/19 22:04 Dose: 0.4 mg Documented by: [id number] Discontinued Medications Fentanyl Citrate (Fentanyl Citrate) 50 mcg IV Q5M PRN PRN Reason: PACU Use Only-Pain Stop: 10/06/19 04:06 Last Admin: 10/05/19 20:12 Dose: 50 mcg Documented by: [id number] Fentanyl Citrate (Fentanyl Citrate) Confirm Administered Dose 100 mcg .ROUTE .STK-MED ONE Stop: 10/05/19 20:09 Last Admin: 10/05/19 21:59 Dose: Not Given Documented by: [id number] Ceftriaxone Sodium (Rocephin) 2,000 mg in 70 mls @ 140 mls/hr IV NOW STA Stop: 10/05/19 16:46 Last Infusion: 10/05/19 16:57 Dose: 0 mls/hr Documented by: [id number] Admin: 10/05/19 16:27 Dose: 140 mls/hr Documented by: [id number] Iothalamate Meglumine (Cysto-Conray Ii) Confirm Administered Dose 250 ml .ROUTE .STK-MED ONE Stop: 10/05/19 16:52 Last Admin: 10/05/19 19:10 Dose: 40 ml Documented by: [id number] Ketorolac Tromethamine (Toradol) 30 mg IV NOW STA Stop: 10/05/19 14:39 Last Admin: 10/05/19 15:04 Dose: 30 mg Documented by: [id number] Morphine Sulfate (Morphine Sulfate) 4 mg IV NOW STA Stop: 10/05/19 14:39 Last Admin: 10/05/19 15:04 Dose: 4 mg Documented by: [id number] Ondansetron HCl (Zofran) 4 mg IV NOW STA Stop: 10/05/19 14:39 Last Admin: 10/05/19 15:04 Dose: 4 mg Documented by: [id number] Medical Decision Making Differential Diagnosis Differential diagnosis: Etiologies such as biliary colic, cholecystitis, hepatitis, pancreatitis, cardiac disease, pancreatitis, gastritis, peptic ulcer disease, appendicitis, cystitis, diverticulitis, mesenteric ischemia, inflammatory bowel disease, ileus, bowel obstruction, testicular/adnexal torsion, aortic pathology, shingles, as well as others were considered Laboratory Data Result diagrams: 10/05/19 14:30 10/06/19 04:49 Lab Results 10/05/19 10/05/19 10/05/19 Range/Units 14:30 14:30 16:20 WBC 13.19 H (4.8-10.8) K/uL RBC 4.17 L (4.2-5.4) M/uL Hgb 13.0 (12.0-16.0) g/dL Hct 38.8 (37-47) % MCV 93.0 (80-100) fL MCH 31.2 (25-34) pg MCHC 33.5 (32-36) g/dL RDW Std Deviation 45.2 (36.4-46.3) fL RDW Coeff of Nilam 13.4 (11.5-14.5) % Plt Count 270 (130-400) K/uL MPV 10.4 (7.4-10.4) fL Immature Gran % (Auto) 0.2 % Neut % (Auto) 89.5 % Lymph % (Auto) 7.3 % Cochran % (Auto) 2.8 % Eos % (Auto) 0.0 % Baso % (Auto) 0.2 % Immature Gran # (Auto) 0.03 H (0.00-0.02) K/uL Neut # (Auto) 11.81 H (1.4-6.5) K/uL Lymph # (Auto) 0.96 L (1.2-3.4) K/uL Cochran # (Auto) 0.37 (0.11-0.59) K/uL Eos # (Auto) 0.00 (0-0.5) K/uL Baso # (Auto) 0.02 (0-0.2) K/uL Sodium 138 (136-145) mmol/L Potassium 3.8 (3.5-5.1) mmol/L Chloride 101 (98-107) mmol/L Carbon Dioxide 28 (21-32) mmol/L Anion Gap 8.0 (3-11) BUN 25 H (7-18) mg/dl Creatinine 1.17 (0.6-1.2) mg/dl Est Cr Clr Drug Dosing 53.2 ml/min Est GFR ( Amer) 60.3 Est GFR (Non-Af Amer) 52.0 BUN/Creatinine Ratio 21.0 H (10-20) Glucose 158 H (70-99) mg/dl Calcium 9.5 (8.5-10.1) mg/dl Total Bilirubin 0.3 (0.2-1) mg/dl AST 77 H (15-37) U/L ALT 94 H (12-78) U/L Alkaline Phosphatase 114 (45-117) U/L Total Protein 8.1 (6.4-8.2) gm/dl Albumin 4.0 (3.4-5.0) gm/dl Globulin 4.1 H (2.5-4.0) gm/dl Albumin/Globulin Ratio 1.0 (0.9-2) Lipase 113 (73-393) U/L Urine Color Yellow Urine Appearance Clear (Clear) Urine pH 6.5 (4.5-7.5) Ur Specific Drewsey 1.024 (1.000-1.030) Urine Protein Negative (Negative) Urine Glucose (UA) Negative (Negative) Urine Ketones Negative (Negative) Urine Blood 3+ H (Negative) Urine Nitrite Negative (Negative) Urine Bilirubin Negative (Negative) Urine Urobilinogen Negative (Negative) Ur Leukocyte Esterase Trace H (Negative) Urine WBC (Auto) 5-10 H (0-5) /hpf Urine RBC (Auto) >30 H (0-4) /hpf U Hyaline Cast (Auto) 1-5 (0-5) /lpf U Epithel Cells (Auto) 10-20 H (0-5) /lpf Urine Bacteria (Auto) Negative (Negative) Imaging Data Radiologist's Impression: CT SCAN OF THE ABDOMEN AND PELVIS WITHOUT IV CONTRAST CLINICAL HISTORY: Right flank pain. COMPARISON STUDY: Abdominal CT dated 08/02/2016. TECHNIQUE: CT scan of the abdomen and pelvis is performed from the lung bases to the proximal femora. Images are reviewed in the axial, sagittal, and coronal planes. IV contrast was not administered for this examination. A dose lowering technique was utilized adhering to the principles of ALARA. CT DOSE: 894.94 mGycm FINDINGS: Lung bases: The heart is normal in size and without pericardial effusion. There is no airspace consolidation or pleural effusion seen at the lung bases. Scattered calcified granulomas are observed. Dependent atelectasis is noted. Liver: The unenhanced liver is elongated, measuring 20.4 cm in length. This likely represents Steve's lobe variant anatomy. The liver is normal in contour and attenuation. There is no intrahepatic biliary ductal dilatation. Gallbladder: Unremarkable. Spleen: Normal in size and attenuation. Pancreas: Unremarkable. Adrenal glands: Unremarkable. Kidneys: The unenhanced kidneys are normal in size. There is a 7 mm obstructing calculus in the distal right ureter at the level of the pelvic inlet seen on axial image #297. This causes moderate right-sided hydroureteronephrosis. There is associated right-sided perinephric stranding and trace perinephric fluid. Additionally, there is an 8 mm obstructing calculus in the mid left ureter seen on image #216 at the level of L4. This causes moderate left-sided hydroureteronephrosis. There are least 2 additional nonobstructing left renal calculi which measure up to 7 mm, and at least 2 additional nonobstructing right renal calculi which measure up to 5 mm. There is no evidence of contour deforming renal mass lesion. Abdominal vasculature: The abdominal aorta is normal in course and caliber. Bowel: The small bowel and colon are normal in course and caliber. The appendix is well-visualized and normal. Peritoneum: There is no intraperitoneal free air or abdominal ascites. There is a small fat-containing umbilical hernia. Lymphadenopathy: None. Pelvic viscera: The bladder is normal as visualized. Uterus is surgically absent. No adnexal lesion is seen. Skeletal structures: There is mild lumbosacral spondylosis. No lytic or blastic lesions are seen. IMPRESSION: 1. There are bilateral obstructing ureteral calculi as above which measure 7 mm and 8 mm. This causes moderate bilateral hydroureteronephrosis. 2. Additional nonobstructing calculi are present in both kidneys. 3. Additional findings as above. MDM Narrative Physical exam and history were performed. Nursing notes, EMR, and Medication List were personally reviewed. Patient appears to have right flank pain bring her to the ER. The patient does appear uncomfortable on exam, however her vitals are essentially normal and she does not seem toxic. IV access was established and labs were obtained. She was hydrated with normal saline and given IV Toradol, IV morphine, and IV Zofran for comfort. She was sent to CT for further imaging. Urine was collected. The patient's blood work is as above and was reviewed. She does have an elevated white blood cell count of 13,000. She does not have a significant anemia, bandemia, or gross electrolyte imbalance. BUN is slightly elevated at 25, however creatinine is normal. Lipase and transaminases are not diagnostic. Urine is with blood and esterase. CT scan is as above and was reviewed by myself and radiology. The patient does have bilateral obstructing ureteral calculi measuring 7 and 8 mm. This finding is highly concerning due to the acute onset of symptoms and slight elevation of her BUN. I did immediately discuss the case with urology, Dr. Abreu's team, and Dr. Abreu was good enough to evaluate the patient here in the ER a few minutes after I spoke with them. At this time the patient was given empiric IV Rocephin. Dr. Abreu is prepping to take her to the OR emergently for treatment. I also discussed the case with the on-call hospitalist team who will evaluate the patient as well. Please see their respective dictations for further patient course, plan, and disposition. The chart was completed utilizing [employer] Speech Voice Recognition Software. Grammatical errors, random word insertions, pronoun errors, and incomplete sentences are an occasional consequence of this system due to software limitations, ambient noise, and hardware issues. Any formal questions or concerns about the content, text, or information contained within the body of this dictation should be directly addressed to the provider for clarification. . Impression & Plan Bilateral ureteral calculi, Bilateral ureteral obstruction Discharge Plan Visit Data *Final* Discharge Date/Time: 10/05/19 16:50 Chief Complaint: Kidney Stone Stated Complaint: KIDNEY STONES ED Provider: Eduardo Mejia ED Midlevel Provider: Jw Anne Discharge Problem: Bilateral ureteral calculi, Bilateral ureteral obstruction Patient Disposition: Admitted As Inpatient Discharge Instructions Interventions: ED Discharge Assessment Last Done: 10/05/19 16:50
[2019-10-05] MEDS ORDERED: PROPOFOL IV EMULSION 10 MG/ML 20 ML VIAL IV ONE (17:08)
[2019-10-05] MEDS ORDERED: LIDOCAINE HCL 2% 2 ML VIAL/AMP(20MG/ML) INFIL ONE (17:08)
[2019-10-05] MEDS ORDERED: ONDANSETRON INJ 2 MG/ML 2 ML VIAL ONE (17:08)
[2019-10-05] MEDS ORDERED: MIDAZOLAM HCL 1 MG/ML 2ML VIAL ONE (17:09)
[2019-10-05] MEDS ORDERED: fentaNYL citrate 100 MCG/2 ML VIAL ONE ×2 (17:11→20:08)
--- NOTE | 2019-10-05 17:39 | Urology Consultation ---
Date of Consultation October 05, 2019 Assessment & Plan (1) Bilateral ureteral calculi: We will go to the OR and attempt right ureteroscopy and laser lithotripsy and right stent placement and possibly left ureteroscopy and/or left stent placement depending upon how easy it is to Reach the stoneShe understands she may need repeat procedure including lithotripsy. She also understands the risk of the procedure including inability to which this time requiring transfer for percutaneous nephrostomy.BX given Present on Admission?: Yes History of Present Illness Reason for Consultation: The patient is a 54-year-old female with a history of multiple stones including multiple procedures. Patient developed right flank pain today and came to the emergency room had a CT scan that showed bilateral obstructing 7 mm ureteral stones with the right stone in the pelvic area and the left stone at approximately L3-L4. Patient has a history of high blood pressure PVCs and type 2 diabetes.She denies any chills. She does have a slightly elevated white blood cell count and was given Rocephin in the emergency room.Because of the risk of anuria given bilateral stones discussed taking the patient urgently to the operating room this evening and will attempt to do right ureteroscopy and possible bilateral ureteroscopy depending on how well the stone goes. Discussed the risks including the fact that the left stone may have been there for some time. And may be impacted.She says she had pain a while ago and has not had pain there since. Attending Physician: Sukumar Abreu MD Allergies Allergy/AdvReac Type Severity Reaction Status Date / Time No Known Allergies Allergy Verified 10/05/19 15:19 Home Medications Home Medications Medication Instructions Recorded Confirmed Type Centrum Women 1 tab PO QAM 09/15/18 10/05/19 History aspirin 81 mg PO QAM 09/15/18 10/05/19 History omega 4-jsx-ndp-fish oil [Fish Oil] 1 cap PO QAM 09/15/18 10/05/19 History acetaminophen [Tylenol Extra 500 mg PO Q6H PRN 09/26/18 10/05/19 History Strength] famotidine 20 mg tablet 20 mg PO DAILY PRN #10 tab 03/12/19 10/05/19 Rx metoprolol tartrate 25 mg tablet 25 mg PO BID #180 tab 04/29/19 10/05/19 Rx atorvastatin 10 mg PO QAM 05/04/19 10/05/19 History cholecalciferol (vitamin D3) 2,000 unit PO QAM 05/04/19 10/05/19 History [Vitamin D3] lisinopril 10 mg PO QAM 05/04/19 10/05/19 History hydrochlorothiazide 50 mg tablet 50 mg PO QAM #90 tab 05/21/19 10/05/19 Rx potassium citrate 10 mEq (1,080 10 meq PO BID #180 tab 06/21/19 10/05/19 Rx mg) tablet,extended release metformin 500 mg tablet 500 mg PO BID #60 tab 09/07/19 10/05/19 Rx sertraline 50 mg tablet 50 mg PO QAM #30 tab 09/07/19 10/05/19 Rx amoxicillin-pot clavulanate 1 tab PO BID 10/05/19 10/05/19 History Patient History Medical History Anxiety Calcaneal apophysitis (Inactive) Chronic pain of left heel (Inactive) Endometrial polyp (Inactive) GERD (gastroesophageal reflux disease) History of anesthesia reaction heartburn after anesthesia Kidney stones 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) PVC's (premature ventricular contractions) Type 2 diabetes mellitus (Chronic) Visual field loss (Inactive) Weight gain Surgical History History of bilateral tubal ligation History of section History of cystoscopy x3 with stent placement History of dilatation and curettage History of foot surgery left--bone spur removal History of hysterectomy [facility] in 2016 History of lithotripsy x5 History of tooth extraction History of wisdom tooth extraction Family History Sister Family history of reaction to anesthesia nausea Family history of diabetes mellitus 2 Brother Family history of diabetes mellitus Father Family history of diabetes mellitus Grandfather (Paternal) Family history of diabetes mellitus Grandmother (Paternal) Family history of diabetes mellitus Grandmother (Maternal) Breast cancer Great Grandmother Denies family history of Ovarian cancer Prostate cancer Myocardial infarction Colorectal cancer Social History Preferred Language: [place] Communication Ability: Effective 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 Beliefs That Will Affect Care: None Current Living Situation: Spouse and Family Current Living Situation Comment: Lives with , son, [id number]-lnu, 2 grandkids Feels Safe at Home: Yes Smoking Status: Never smoker Second Hand Exposure: No ; Hx Alcohol Use: No Hx Substance Use: No Dental Care, Regularly: No Seatbelt Use: always Review of Systems Review of Systems: All systems reviewed & are unremarkable except as noted in HPI & below Physical Exam Constitutional: WD/WN, vitals as above well developed and healthy appearing Eyes: PERRL, conjunctivae normal, anicteric sclerae ENMT: external ear and nose normal, oropharynx normal Neck: trachea midline, no thyromegaly Respiratory: normal respiratory effort Cardiovascular: Extremities: no edema Gastrointestinal (Abdomen): Inspection/Auscultation: abdomen normal to inspection Percussion/Palpation: abdomen soft Musculoskeletal: no cyanosis or clubbing, extremities motor strength 5/5 Skin: no rashes, warm and dry Neurologic: CN's II-XI intact bilaterally; no focal motor deficits Psychiatric: A+Ox3, euthymic affect Genitourinary: Patient has right flank pain to percussion. Lymphatic: no cervical or axillary lymphadenopathy Results & Data Vital Signs (Past 12 Hours) Vital Signs Temp Pulse Pulse Resp BP BP Pulse Ox 10/05/19 17:12 36.9 C 95 H 16 157/84 H 95 10/05/19 16:28 87 20 140/81 96 10/05/19 14:57 75 20 175/86 H 98 10/05/19 14:14 36.9 C 71 18 178/92 H 99 PG Care Time/CCT Total # of Minutes Spent Total Time Spent with Patient: Total time spent is greater than 50% in coordination of care (as documented) at patient's floor/unit and/or counseling patient: 30 minutes Coding Level of Care Code 58401 Office/OBS Consult Lvl 4 Diagnoses Bilateral ureteral calculi N20.1
--- NOTE | 2019-10-05 18:03 | History & Physical Report ---
Date of Service October 05, 2019 Assessment & Plan (1) Nephrolithiasis: Patient has bilateral nephrolithiasis plans for cystoscopy right ureteroscopy laser lithotripsy and possible bilateral stent placement by Dr. Abreu on 10/05/2019. Adequate hydration and pain and nausea control parenterally will be undertaken. Without fever and white count will not continue antibiotics unless there is gross pyuria of seen during procedure (2) Type 2 diabetes mellitus: Patient will have her metformin held to be given clear liquid diet to be placed on sliding scale insulin only to be used if her blood glucoses are elevated. (3) Hypertension: Patient typically takes metformin lisinopril and hydrochlorothiazide. The lisinopril and hydrochlorothiazide to be held metformin will be continued hydralazine only offered if the patient needs better blood pressure control (4) Hyperlipidemia: Atorvastatin will be held for dyslipidemia (5) Depression: Patient will be continued on her Zoloft (6) DVT prophylaxis: DVT prevention will be SCDs History of Present Illness Primary Care Provider: NICK Luke Ms. Mortensen is a 54-year-old female with a history of previous kidney stones who presents with bilateral colicky type pain. In the emergency room she failed conservative management. CT of abdomen and pelvis shows bilateral obstructing renal calculi measuring 7 and 8 mm, she has no signs of renal distress on lab findings, she has been taking outpt augmentin for a dental infection and also did take her am metoprolol aspirin and metfromin dosing today. This patient was seen in the preoperative area prior to going for procedure. She denies any recent chest pain pressure shortness of breath, orthopnea, Bruising, bleeding, melena or other changes in her health and vitality. She is able to walk up inclines and steps without getting significantly short of breath. she also does not typically have issues with previous anesthesia. She also does not typically monitor her blood glucose at home, her last hemoglobin A1c was 7.1 in February 2019. Initial laboratories are favorable kidney functions BUN 25 creatinine 1.17 Allergies Allergy/AdvReac Type Severity Reaction Status Date / Time No Known Allergies Allergy Verified 10/05/19 15:19 Home Medications Home Medications Medication Instructions Recorded Confirmed Type Centrum Women 1 tab PO QAM 09/15/18 10/05/19 History aspirin 81 mg PO QAM 09/15/18 10/05/19 History omega 2-heg-ccy-fish oil [Fish Oil] 1 cap PO QAM 09/15/18 10/05/19 History acetaminophen [Tylenol Extra 500 mg PO Q6H PRN 09/26/18 10/05/19 History Strength] famotidine 20 mg tablet 20 mg PO DAILY PRN #10 tab 03/12/19 10/05/19 Rx metoprolol tartrate 25 mg tablet 25 mg PO BID #180 tab 04/29/19 10/05/19 Rx atorvastatin 10 mg PO QAM 05/04/19 10/05/19 History cholecalciferol (vitamin D3) 2,000 unit PO QAM 05/04/19 10/05/19 History [Vitamin D3] lisinopril 10 mg PO QAM 05/04/19 10/05/19 History hydrochlorothiazide 50 mg tablet 50 mg PO QAM #90 tab 05/21/19 10/05/19 Rx potassium citrate 10 mEq (1,080 10 meq PO BID #180 tab 06/21/19 10/05/19 Rx mg) tablet,extended release metformin 500 mg tablet 500 mg PO BID #60 tab 09/07/19 10/05/19 Rx sertraline 50 mg tablet 50 mg PO QAM #30 tab 09/07/19 10/05/19 Rx amoxicillin-pot clavulanate 1 tab PO BID 10/05/19 10/05/19 History Past Med/Surg History Medical History (Updated 10/05/19 @ 18:03 by Gerardo Gaitan MD) Anxiety Calcaneal apophysitis (Inactive) Chronic pain of left heel (Inactive) Endometrial polyp (Inactive) GERD (gastroesophageal reflux disease) History of anesthesia reaction heartburn after anesthesia Kidney stones 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) PVC's (premature ventricular contractions) Type 2 diabetes mellitus (Chronic) Visual field loss (Inactive) Weight gain Surgical History History of bilateral tubal ligation History of section History of cystoscopy x3 with stent placement History of dilatation and curettage History of foot surgery left--bone spur removal History of hysterectomy TL in 2016 History of lithotripsy x5 History of tooth extraction History of wisdom tooth extraction Family History Sister Family history of reaction to anesthesia nausea Family history of diabetes mellitus 2 Brother Family history of diabetes mellitus Father Family history of diabetes mellitus Grandfather (Paternal) Family history of diabetes mellitus Grandmother (Paternal) Family history of diabetes mellitus Grandmother (Maternal) Breast cancer Great Grandmother Denies family history of Ovarian cancer Prostate cancer Myocardial infarction Colorectal cancer Social History Preferred Language: Kyr[place]z Communication Ability: Effective Apartment Rental Agent Required: No Beliefs That Will Affect Care: None Current Living Situation: Spouse and Family Current Living Situation Comment: Lives with , son, [id number], 2 grandkids Feels Safe at Home: Yes Smoking Status: Never smoker Second Hand Exposure: No ; Hx Alcohol Use: No Hx Substance Use: No Dental Care, Regularly: No Seatbelt Use: always Review of Systems Review of Systems: Mild distress and fatigue no headache, blurry or double vision no speech or swallowing issues no chest pain, pressure or palpitations no shortness of breath, cough or wheezes Bilateral lower quadrant and posterior abdominal pain, with mild nausea but no v omiting, no dysuria, hematuria has had increasing frequency no focal joint pain or swelling Bilateral CVA tenderness but no radicular pain no bruising, bleeding or rashes no focal signs of weakness or numbness or altered sensation no complaints or anxiety or depression. Physical Exam Physical Exam: The patient appeared well nourished and normally developed. At the time I saw her pain was controlled after she did receive fentanyl Toradol. Vital signs as documented. Head exam is normocephalic atraumatic no scleral icterus Neck is without JVD, thyromegaly, or carotid bruits. Lungs are clear to auscultation, no focal loss of breath sounds Cardiac exam, Rhythm is regular.. No murmurs, rubs or gallops. Abdominal exam reveals normal bowel sounds, soft mildly tender to deep examination mild bilateral CVA angle tenderness Extremities are nonedematous and both pedal pulses are normal. Neurologic exam is alert and oriented, no focal loss of strength or sensation Skin is without bruises or rashes Psychologically is without concerns for anxiety or depression Results & Data Results & Data ([facility]) Vital Signs (Past 12 Hours) Vital Signs Temp Pulse Pulse Resp BP BP Pulse Ox 10/05/19 17:12 98.4 F 95 H 16 157/84 H 95 10/05/19 16:28 87 20 140/81 96 10/05/19 14:57 75 20 175/86 H 98 10/05/19 14:14 98.4 F 71 18 178/92 H 99 PG Care Time/CCT Total # of Minutes Spent Total Time Spent with Patient: Total time spent is greater than 50% in coordination of care (as documented) at patient's floor/unit and/or counseling patient: Coding Level of Care Code 71660 Initial Inpt Care Lvl 2 Diagnoses Nephrolithiasis N20.0 Type 2 diabetes mellitus E11.9 Hypertension I10 Hyperlipidemia E78.5 Depression F32.9 DVT prophylaxis Z29.9
[2019-10-05] MEDS ORDERED: DEXAMETHASONE SOD INJ 4 MG/ML VIAL ONE (18:10)
--- NOTE | 2019-10-05 19:37 | Post Operative Brief Note ---
PG Immediate Post Op with CF Date of Surgery October 05, 2019 Pre & Post Diagnosis Operation Date: 10/05/19 07:45 Pre-Op Diagnosis: Bilateral ureteral calculi Post-Op Diagnosis: Bilateral ureteral calculi left ureteral stone impacted and partially fragmented I identified the patient and participated in the time-out.: Yes Procedure Operation Date: 10/05/19 07:45 Actual Procedures p Cystoscopy, Bilateral Ureteroscopy, Retrograde Pyelogram, Laser Lithotripsy, Bilateral Stent Placement(Bilateral) - Sukumar Abreu MD Surgeon Sukumar Abreu MD Hand Cutter Apprentice none Estimated Blood Loss 10 Findings See Below (right stone fragmented easily, left stone impacted partially fragmented but stent left to minimize swelling for repeat) Specimens Specimen Description: A. Right Ureteral Stone - for chemical analysis.
--- NOTE | 2019-10-05 19:40 | Fluoroscopy Report ---
FL retrograde includes kub CLINICAL HISTORY: CYSTO BILAT STENT PLACEMENT COMPARISON STUDY: CT of the abdomen and pelvis October 05, 2019. FLUOROSCOPY TIME: 2 minutes and 59 seconds. FLUOROSCOPIC IMAGES: 5 FINDINGS: Fluoroscopy was provided for bilateral retrograde exams with placement of bilateral uretera l stents. The proximal aspects of the stents project over each renal pelvis. There are suspected calc gloria within the proximal left ureter. IMPRESSION: Fluoroscopy provided for bilateral retrograde exams with placement of bilateral ureteral stents. ACT 112: Negative or not required by law. Electronically signed by: Ethan Carson M.D. 10/05/2019 7:38 PM
[2019-10-05] MEDS ORDERED: ePHEDrine sulfate 50 MG/ML AMP IV PRN (20:06)
[2019-10-05] MEDS ORDERED: ONDANSETRON INJ 2 MG/ML 2 ML VIAL IV PRN ×2 (20:06→20:51)
[2019-10-05] MEDS ORDERED: fentaNYL citrate 100 MCG/2 ML VIAL IV PRN (20:06)
[2019-10-05] MEDS ORDERED: ATROPINE SULFATE 0.1 MG/ML 10ML SYR IV PRN (20:06)
--- NOTE | 2019-10-05 20:17 | Anesthesiology Progress Note ---
Date of Service October 05, 2019 Anesthesia Post Procedure Vital Signs Vital Signs: Temp Pulse Pulse Pulse Resp BP BP 10/05/19 20:15 87 14 134/74 10/05/19 20:05 94 H 16 139/86 10/05/19 19:59 36.5 C 96 H 14 135/84 10/05/19 17:12 36.9 C 95 H 16 157/84 H 10/05/19 16:28 87 20 140/81 10/05/19 14:57 75 20 175/86 H 10/05/19 14:14 36.9 C 71 18 178/92 H Pulse Ox 10/05/19 20:15 95 10/05/19 20:05 94 10/05/19 19:59 95 10/05/19 17:12 95 10/05/19 16:28 96 10/05/19 14:57 98 10/05/19 14:14 99 Pain Intensity Abdomen: Pain Intensity: 7 Other: Pain Intensity: 5 Transfer of Care Handoff Completed per policy Notes Mental Status: alert / awake / arousable and participated in evaluation Patient Amnestic to Procedure: Yes Nausea / Vomiting: adequately controlled Pain: improving with treatment Airway Patency, RR, SpO2: stable & adequate BP & HR: stable & adequate Hydration State: stable & adequate Anesthetic Complications: no major complications apparent and Pt Satisfied with anesthetic care
--- NOTE | 2019-10-05 20:36 | Operative Report (OR) ---
DATE OF OPERATION: 10/05/2019 PREOPERATIVE DIAGNOSIS: Bilateral obstructing ureteral stones. POSTOPERATIVE DIAGNOSIS: Bilateral obstructing ureteral stones with left impacted ureteral stone. HISTORY OF PRESENTATION: The patient is a 54-year-old female with a history of multiple stones with multiple procedures, who presented today with severe onset of right flank pain. The patient said that she had some left-sided pain, not so severe in the past, but it has been a while and she has not been bothered by it more recently. On CAT scan, she was noted to have bilateral ureteral stones with hydro little bit worse on the left than the right and the stone in the left more proximal and slightly larger. The patient was given Rocephin preoperatively, admitted by the hospitalist and taken to the OR for attempted bilateral ureteroscopy. ANESTHESIA: General. SURGEON: Sukumar Abreu MD DESCRIPTION OF THE PROCEDURE: The patient was taken to the OR, given general anesthesia. We had to wait 20 minutes because of the COVID protocol prior to going into the room and prepping and draping her in the usual sterile fashion. A 21-Argentine cystoscope was passed per urethra and a dual flex guidewire was passed into the right ureter beyond the stone without significant difficulty. Attempts to do a 5-Argentine retrograde was unsuccessful in getting contrast beyond the stone initially. Once the wire, however was passed, it seemed to go easily beyond the stone into the proximal ureter what appeared to be the renal pelvis. An Olympus mini scope semi-rigid was passed up to the stone and the stone was seen and fragmented into multiple pieces, the largest pieces were grasped with a 3-prong grasper and removed. At the end of the procedure, we looked at the entire ureter did not see any stone fragments and left a 4.8 24 cm stent after doing a retrograde to identify the renal pelvis. The stent was in good position. Attention was then focused to the contralateral side. Again, the 5-Argentine open-ended catheter was passed into the distal ureter. Attempts were made to pass contrast by the stone, but none could get past the stone. I did attempt to pass a Dual-Flex guidewire through the 5-Argentine open-ended catheter and with some difficulty it appeared to advance beyond the stone more proximally into what appeared to be the renal pelvis. This open-ended catheter was removed as was the cystoscope and the Olympus semi-rigid ureteroscope was passed up to the stone, but it clearly was impacted. There was inflammation around the stone and it was a large stone. A picture was taken of this. I was, however, able to fragment the stone into multiple pieces. However, the more medial aspect of the stone, I could not easily reach without torquing the scope more and there was quite a bit of irritation to the ureter at this time. At this time, I decided to attempt to pass another guidewire and then passed a 5-Argentine open-ended catheter to make sure that there was no extravasation and that the wire was in the proper position. Initially, I was unable to pass, I was able to pass a guidewire through the ureteroscope into what appeared to be the more proximal ureter, I removed it and then attempted to pass a 5-Argentine open-ended catheter but it would not go beyond the stone. So, I passed the ureteroscope up to the stone, fragmented the stone a little bit further and again passed the wire up into what appeared to be the proximal ureter through the ureteroscope and then passed the cystoscope over the wire and passed a 5-Argentine open-ended catheter over this and with some difficulty was able to advance that beyond the stone and into the more proximal ureter. I did a retrograde and the proximal renal pelvis was extremely dilated, was then able to remove the other wire after replacing the wire that had gone through the open-ended catheter again and removing the open-ended catheter, I passed a 5-Argentine 24 cm stent what appeared to be good curl in the renal pelvis and a smaller curl left in the bladder and terminated the procedure because I felt that the ureter was abraded and I was concerned that torquing the scope to try to get the impacted stone in the medial wall at this time was not a good idea. I wanted to let the swelling settle down and then let the ureter heal a bit and then reattempt either ureteroscopy or lithotripsy to get the remaining stone fragment out. At the end of the procedure, the patient was transferred to the recovery room after she was extubated for 20 minutes. I attest to the content of the Intraoperative Record and any orders documented therein. Any exception s are noted below.
[2019-10-05] MEDS ORDERED: HydrALAZINE HCL 20 MG/ML VIAL IV PRN (20:51)
[2019-10-05] MEDS ORDERED: GLUCOSE 40% GEL 15 GM TUBE PO PRN (20:51)
[2019-10-05] MEDS ORDERED: CARBOHYDRATES FOR HYPOGLYCEMIA PO PRN (20:51)
[2019-10-05] MEDS ORDERED: GLUCAGON FOR INJ 1 MG VIAL SQ PRN (20:51)
[2019-10-05] MEDS ORDERED: GLUCOSE 10 TABS/TUBE PO PRN (20:51)
[2019-10-05] MEDS ORDERED: DEXTROSE 50% 50 ML SYRINGE IV PRN (20:51)
[2019-10-05] MEDS ORDERED: KETOROLAC TROMETHAMINE 15 MG/ML VIAL IV PRN (20:51)
[2019-10-05] MEDS ORDERED: ACETAMINOPHEN 500 MG TAB PO PRN (20:51)
[2019-10-05] MEDS ORDERED: MoRPHine SULFATE 2 MG/ML CARP IV PRN (20:51)
[2019-10-05] MEDS ORDERED: MoRPHine SULFATE 4 MG/ML 1 ML CARP\\VIAL IV PRN (20:51)
[2019-10-05] MEDS ORDERED: PROMETHAZINE HCL 12.5 MG in SODIUM CHLORIDE 0.9% 50 ML IV PRN (20:51)
[2019-10-05] MEDS ORDERED: TAMSULOSIN HCL 0.4 MG CAP PO SCH (21:00)
[2019-10-05] MEDS: SODIUM CHLORIDE 0.9% 1000ML 1,000 ML IV SCH (22:02)
[2019-10-05] MEDS: FAMOTIDINE 20 MG TAB PO SCH (22:04)
[2019-10-05] MEDS: METOPROLOL TARTRATE 25 MG TAB PO SCH (22:04)
[2019-10-05] MEDS: INSULIN ASPART 100 UNITS/ML 3 ML PEN SC SCH (22:07)
[2019-10-06] MEDS: SODIUM CHLORIDE 0.9% 1000ML 1,000 ML IV SCH (04:47)
[2019-10-06 05:41] LABS: BUN Creatinine Ratio 23.1 (10-20); Calcium 7.9 mg/dl (8.5-10.1); Creatinine Clr Calc Pharmacy 70.8 ml/min; Est GFR (African American) 85.1; Est GFR (Non-African American) 73.4; Potassium 3.8 mmol/L (3.5-5.1)
[2019-10-06 07:01] LABS: Estimated Average Glucose 146 mg/dl; Hemoglobin A1C 6.7 % (4.5-5.6)
--- NOTE | 2019-10-06 08:15 | Anesthesiology Progress Note ---
Date of Service October 06, 2019 Anesthesia Post Procedure Vital Signs Vital Signs: Temp Pulse Pulse Pulse Resp BP BP 10/06/19 07:08 36.8 C 79 16 121/73 10/06/19 03:26 36.8 C 86 16 106/64 10/05/19 23:45 36.9 C 83 16 133/79 10/05/19 22:46 36.8 C 84 16 133/79 10/05/19 21:42 36.9 C 89 16 136/77 10/05/19 21:15 36.8 C 83 16 128/75 10/05/19 20:45 36.9 C 93 H 16 143/84 H 10/05/19 20:35 36.5 C 91 H 15 136/82 10/05/19 20:25 87 14 139/79 10/05/19 20:15 87 14 134/74 10/05/19 20:05 94 H 16 139/86 10/05/19 19:59 36.5 C 96 H 14 135/84 10/05/19 17:12 36.9 C 95 H 16 157/84 H 10/05/19 16:28 87 20 140/81 10/05/19 14:57 75 20 175/86 H 10/05/19 14:14 36.9 C 71 18 178/92 H Pulse Ox 10/06/19 07:08 95 10/06/19 03:26 94 10/05/19 23:45 95 10/05/19 22:46 94 10/05/19 21:42 93 10/05/19 21:15 92 10/05/19 20:45 92 10/05/19 20:35 96 10/05/19 20:25 95 10/05/19 20:15 95 10/05/19 20:05 94 10/05/19 19:59 95 10/05/19 17:12 95 10/05/19 16:28 96 10/05/19 14:57 98 10/05/19 14:14 99 Pain Intensity Abdomen: Pain Intensity: 0 Other: Pain Intensity: 0 Notes Mental Status: alert / awake / arousable and participated in evaluation Patient Amnestic to Procedure: Yes Nausea / Vomiting: adequately controlled Pain: adequately controlled Airway Patency, RR, SpO2: stable & adequate BP & HR: stable & adequate Hydration State: stable & adequate Anesthetic Complications: no major complications apparent
--- NOTE | 2019-10-06 08:41 | Urology Progress Note ---
Date of Service October 06, 2019 Assessment & Plan (1) Bilateral ureteral calculi: s/p bl stent placement and removal of right ureteral stone yesterday - recovery appropriate thus far - ok for d/c home from a standpoint - outpt f/u to schedule her next procedure Subjective doing ok after procedure yesterday stent related pain -tolerable tolerating a diet Review of Systems Review of Systems: All systems reviewed & are unremarkable except as noted in HPI & below Physical Exam Constitutional: well developed and well nourished Neck: neck nontender Respiratory: normal respiratory effort; no respiratory distress and does not use accessory muscles Cardiovascular: Rate/Rhythm: regular rate Vessels: radial pulses present Extremities: no edema Gastrointestinal (Abdomen): Inspection/Auscultation: abdomen normal to inspection Percussion/Palpation: abdomen soft; abdomen nontender and no guarding Musculoskeletal: Head/Neck/Chest: normocephalic and head atraumatic Extremities: extremities normal to inspection Skin: no rashes and no lesions Trauma: no evidence of skin trauma Neurologic: awake; not obtunded Speech / Cognition: normal speech Motor/Sensory: no tremor Psychiatric: Orientation: alert and oriented x 3 Lymphatic: no lymphadenopathy Results & Data Vital Signs (Past 12 Hours) Vital Signs Temp Pulse Resp BP Pulse Ox 10/06/19 07:08 36.8 C 79 16 121/73 95 10/06/19 03:26 36.8 C 86 16 106/64 94 10/05/19 23:45 36.9 C 83 16 133/79 95 10/05/19 22:46 36.8 C 84 16 133/79 94 10/05/19 21:42 36.9 C 89 16 136/77 93 10/05/19 21:15 36.8 C 83 16 128/75 92 10/05/19 20:45 36.9 C 93 H 16 143/84 H 92 PG Care Time/CCT Total # of Minutes Spent Total Time Spent with Patient: Total time spent is greater than 50% in coordination of care (as documented) at patient's floor/unit and/or counseling patient: Coding Level of Care Code 91953 Subseq Hosp Care Lvl 2 Diagnoses Bilateral ureteral calculi N20.1
[2019-10-06] MEDS: FAMOTIDINE 20 MG TAB PO SCH (08:55)
[2019-10-06] MEDS: METOPROLOL TARTRATE 25 MG TAB PO SCH (08:55)
[2019-10-06] MEDS: INSULIN ASPART 100 UNITS/ML 3 ML PEN SC SCH ×2 (09:00→12:34)
[2019-10-06] MEDS ORDERED: SERTRALINE HCL 50 MG TABLET PO SCH (09:00)
--- NOTE | 2019-10-06 14:59 | Discharge Summary ---
Date of Service October 06, 2019 Admission HPI Per Admitting Provider Ms. Mortensen is a 54-year-old female with a history of previous kidney stones who presents with bilateral colicky type pain. In the emergency room she failed conservative management. CT of abdomen and pelvis shows bilateral obstructing renal calculi measuring 7 and 8 mm, she has no signs of renal distress on lab findings, she has been taking outpt augmentin for a dental infection and also did take her am metoprolol aspirin and metfromin dosing today. This patient was seen in the preoperative area prior to going for procedure. She denies any recent chest pain pressure shortness of breath, orthopnea, Bruising, bleeding, melena or other changes in her health and vitality. She is able to walk up inclines and steps without getting significantly short of breath. she also does not typically have issues with previous anesthesia. She also does not typically monitor her blood glucose at home, her last hemoglobin A1c was 7.1 in February 2019. Initial laboratories are favorable kidney functions BUN 25 creatinine 1.17 Principal Diagnosis Bilateral nephrolithiasis status post cystoscopy laser lithotripsy and bilateral stent placement on 10/05/2019 Discharge Exam The patient appeared well Vital signs as documented. Lungs are clear to auscultation and appear unlabored Cardiac exam, Rhythm is regular.. No murmurs, rubs or gallops. Abdominal exam reveals normal bowel sounds, soft Patient still has some lower abdominal and back pain especially when she moves about Extremities are nonedematous and both pedal pulses are normal. Neurologic exam is alert and oriented, no focal loss of strength or sensation Skin is without bruises or rashes Psychologically is without concerns for anxiety or depression Discharge Data Allergies Allergy/AdvReac Type Severity Reaction Status Date / Time No Known Allergies Allergy Verified 10/05/19 15:19 Consultations 10/05/19 17:12 Consult Urology Stat ED Decision to Admit Stat Procedures Performed Operation Date: 10/05/19 07:45 Actual Procedures p Laser Lithotripsy, (Bilateral) - Sukumar Abreu MD s Bilateral Stent Placement(Bilateral) - Sukumar Abreu MD s Cystoscopy, Bilateral Ureteroscopy, Retrograde Pyelogram,(Bilateral) - Sukumar Abreu MD Ordered Studies 10/05/19 [place] retrograde includes kub Routine 10/05/19 14:38 CT abd pelvis wo con Stat Hospital Course (1) Nephrolithiasis: Patient has bilateral nephrolithiasis plans for cystoscopy right ureteroscopy laser lithotripsy and possible bilateral stent placement by Dr. Abreu on 10/05/2019. Patient is encouraged to continue significant hydration she was given hydrocodone for pain control continues on Flomax therapy (2) Type 2 diabetes mellitus: Patient resumes her metformin at home (3) Hypertension: Patient resumes her metoprolol, lisinopril and hydrochlorothiazide. (4) Hyperlipidemia: Atorvastatin will be continued at discharge (5) Depression: Patient will be continued on her Zoloft Total Time Total Time Spent Total Time Spent (In Minutes): It required greater than 30 minutes to prepare this patient for discharge Discharge Plan Discharge Items Patient Disposition: Home - Self-Care Reason For Visit: NEPHROLITHIASIS Discharge Diagnosis: bilteral kidney stones with stents Activity: Resume your previous activity Non-emergency contact: Primary Care Provider and Urologist Call non-emergency contact if: you have any medication questions, your symptoms worsen and your pain is not controlled Follow-up/Referrals: Miryam Tapia CRNP [Primary Care Provider] - Sukumar Abreu MD [Physician] - (follow up for stent care) Diet: Regular Addtl Attending Provider Instructions: please drink plenty of water follow up with urology for stent care Pending Studies at Discharge: No Stand-Alone Forms: My [employer], Smoking Cessation Medications and DC Order Prescriptions: New tamsulosin 0.4 mg Capsule 0.4 mg PO HS Qty: 30 RF: 2 hydrocodone-acetaminophen 5-325 mg tablet 1 - 2 tab PO Q6H Qty: 30 RF: 0 Continued metoprolol tartrate 25 mg tablet 25 mg PO BID Qty: 180 RF: 1 hydrochlorothiazide 50 mg tablet 50 mg PO QAM Qty: 90 RF: 1 potassium citrate 10 mEq (1,080 mg) tablet extended release 10 meq PO BID Qty: 180 RF: 3 sertraline 50 mg tablet 50 mg PO QAM Qty: 30 RF: 5 metformin 500 mg tablet 500 mg PO BID Qty: 60 RF: 5 famotidine 20 mg tablet 20 mg PO DAILY PRN (Reason: acid reflux) Qty: 10 RF: 2 acetaminophen [Tylenol Extra Strength] 500 mg Tablet 500 mg PO Q6H PRN (Reason: Pain) RF: 0 amoxicillin-pot clavulanate 875-125 mg tablet 1 tab PO BID RF: 0 aspirin 81 mg Tablet,Delayed Release (Dr/Ec) 81 mg PO QAM RF: 0 Centrum Women 18-400 mg-mcg Tablet 1 tab PO QAM RF: 0 omega 4-ndy-hjl-fish oil [Fish Oil] 1,000 mg (120 mg-180 mg) Capsule 1 cap PO QAM RF: 0 atorvastatin 10 mg tablet 10 mg PO QAM RF: 0 lisinopril 10 mg tablet 10 mg PO QAM RF: 0 cholecalciferol (vitamin D3) [Vitamin D3] 2,000 unit Tablet 2,000 unit PO QAM RF: 0 Discharge Orders: Discharge Order (Routine); Ordered 10/06/19 Ordered By: Gerardo Gaitan Admission Data Admit Date/Time: 10/05/19 19:15 Attending Provider: Gerardo Gaitan Admit Provider: Gerardo Gaitan Primary Care Provider: Miryam Tapia Other Providers: Damien Ramos Charles M. Other Interventions: Discharge Summary Assessment (RN) Last Done: 10/06/19 11:52 DC Date/Time DO NOT enter until pt leaves facility: 10/06/19 13:32 Coding Level of Care Code D/C Day Management >30 mins Diagnoses Nephrolithiasis N20.0 Type 2 diabetes mellitus E11.9 Hypertension I10 Hyperlipidemia E78.5 Depression F32.9
[2019-10-11 10:54] LABS: Component 2 DNR; Source RIGHT URETERAL STONE
== END 2019-10-06 13:32 | disposition home or self-care (01) ==
LOC: ED 14:09 → OR 16:50 → INTOOBSV 19:15 → 3N 19:15

== ENCOUNTER 2020-09-24 20:01 | Inpatient (IN) ==
[2020-09-24] MEDS ORDERED: KETOROLAC TROMETHAMINE 15 MG/ML VIAL IV STA (20:23)
--- NOTE | 2020-09-24 20:25 | Emergency Department Note ---
History of Present Illness General Chief complaint: Abdominal Pain Stated complaint: FEVER,ABDOMEN DISCOMFORT, TRYING TO PASS KIDNEY ST Time Seen by Provider: 09/24/20 20:07 History of Present Illness Maximum Pain Intensity: 2 This is a 54-year-old female that presents to the emergency department via private vehicle accompanied by with complaints of "fever, abdomen discomfort, trying to pass kidney stone". Patient notes that for the past week she has been experiencing lower abdominal discomfort and has a history of kidney stones. The patient notes that although the pain is not like it normally is with kidney stones with her current pain she does note that she feels as though she cannot fully empty her bladder. For her discomfort she did take Advil today around 11 AM. No nausea vomiting or diarrhea. Late last evening and into today she notes that she developed a fever. Discomfort is rated as a 2/10. Home Medications Medication Instructions Recorded Confirmed Type Centrum Women 1 tab PO QAM 09/15/18 09/24/20 History aspirin 81 mg PO QAM 09/15/18 09/24/20 History omega 2-srq-wgl-fish oil [Fish Oil] 1 cap PO QAM 09/15/18 09/24/20 History famotidine 20 mg tablet 20 mg PO DAILY PRN #10 tab 03/12/19 09/24/20 Rx cholecalciferol (vitamin D3) 2,000 unit PO QAM 05/04/19 09/24/20 History [Vitamin D3] hydrocodone-acetaminophen 1 tab PO Q6H PRN #20 tab 10/19/19 09/24/20 Rx lisinopril 10 mg tablet 10 mg PO QAM #90 tab 03/20/20 09/24/20 Rx metformin 500 mg tablet 500 mg PO BID #180 tab 03/20/20 09/24/20 Rx atorvastatin 10 mg tablet 10 mg PO QAM #90 tab 04/13/20 09/24/20 Rx metoprolol tartrate 25 mg tablet 25 mg PO BID #180 tab 05/29/20 09/24/20 Rx hydrochlorothiazide 50 mg tablet 50 mg PO QAM #90 tab 06/16/20 09/24/20 Rx potassium chloride 20 mEq 20 meq PO DAILY #30 tab 06/28/20 09/24/20 Rx tablet,extended release potassium citrate 15 mEq (1,620 15 meq PO DAILY #90 tab 06/28/20 09/24/20 Rx mg) tablet,extended release ibuprofen [Advil] 200 mg PO Q6H PRN 09/24/20 09/24/20 History Allergies Allergy/AdvReac Type Severity Reaction Status Date / Time No Known Allergies Allergy Verified 06/28/20 08:41 Past Med/Surg History Medical History (Updated 09/24/20 @ 23:56 by Bird Monzon PA-C) Anxiety Calcaneal apophysitis Chronic pain of left heel GERD (gastroesophageal reflux disease) History of anesthesia reaction heartburn after anesthesia Kidney stones PVC's (premature ventricular contractions) takes metoprolol Type 2 diabetes mellitus Visual field loss Surgical History History of bilateral tubal ligation History of section History of cystoscopy x3 with stent placement History of dilatation and curettage History of foot surgery left--bone spur removal History of hysterectomy TL in 2016 History of lithotripsy x5 History of tooth extraction History of wisdom tooth extraction S/P cystoscopy with ureteral stent placement 10/05/19 Dr. Sukumar Abreu- Cystoscopy, Bilateral ureteroscopy, Retrograde Pyelogram, Laser lithotripsy, Bilateral stent placement Family History Sister Family history of reaction to anesthesia nausea Family history of diabetes mellitus 2 Brother Family history of diabetes mellitus Father Family history of diabetes mellitus Grandfather (Paternal) Family history of diabetes mellitus Grandmother (Paternal) Family history of diabetes mellitus Grandmother (Maternal) Breast cancer Great Grandmother Denies family history of Ovarian cancer Prostate cancer Myocardial infarction Colorectal cancer Social History Smoking Status: Never smoker Second Hand Exposure: No; Hx Alcohol Use: No Hx Substance Use: No Preferred Language: German Communication Ability: Effective [employer] Supervisor Required: No Beliefs That Will Affect Care: None Current Living Situation: Spouse and Family Current Living Situation Comment: Lives with , son, [id number], 2 grandkids Feels Safe at Home: Yes Dental Care, Regularly: No Seatbelt Use: always Assistive Devices: Glasses Review of Systems A total of 10 systems reviewed and were otherwise negative Physical Exam Vital Signs Vital Signs - 24 hr 09/24/20 20:04 09/24/20 21:00 09/24/20 21:01 Temperature 38.0 C H Temperature Source Temporal Artery Scan Pulse Rate 111 H 96 H 97 H Pulse Rate from SpO2 Sensor 104 H 96 H Respiratory Rate 18 23 27 H Blood Pressure 122/73 141/85 H Blood Pressure Mean 89 103 Pulse Oximetry 94 98 95 Oxygen Delivery Method Room Air Sepsis Recent Fever Within 48 Hours Yes Sepsis New/Unexplained Change in Mental Status N/A Sepsis Action Taken by Nursing No Action Required 09/24/20 21:10 09/24/20 21:20 09/24/20 21:30 Temperature Temperature Source Pulse Rate 91 H 92 H 92 H Pulse Rate from SpO2 Sensor 91 H 92 H 92 H Respiratory Rate 30 H 26 H 27 H Blood Pressure 137/76 Blood Pressure Mean 96 Pulse Oximetry 94 95 95 Oxygen Delivery Method Sepsis Recent Fever Within 48 Hours Sepsis New/Unexplained Change in Mental Status Sepsis Action Taken by Nursing 09/24/20 21:31 09/24/20 21:40 09/24/20 21:50 Temperature Temperature Source Pulse Rate 92 H 91 H 92 H Pulse Rate from SpO2 Sensor 92 H 92 H Respiratory Rate 30 H 23 30 H Blood Pressure Blood Pressure Mean Pulse Oximetry 94 95 Oxygen Delivery Method Sepsis Recent Fever Within 48 Hours Sepsis New/Unexplained Change in Mental Status Sepsis Action Taken by Nursing 09/24/20 22:00 09/24/20 22:01 09/24/20 22:10 Temperature Temperature Source Pulse Rate 92 H 91 H 94 H Pulse Rate from SpO2 Sensor 92 H 92 H 94 H Respiratory Rate 25 H 30 H 30 H Blood Pressure 127/75 Blood Pressure Mean 92 Pulse Oximetry 97 95 95 Oxygen Delivery Method Sepsis Recent Fever Within 48 Hours Sepsis New/Unexplained Change in Mental Status Sepsis Action Taken by Nursing 09/24/20 22:27 09/24/20 22:30 09/24/20 22:31 Temperature Temperature Source Pulse Rate 94 H 91 H 91 H Pulse Rate from SpO2 Sensor 93 H 91 H Respiratory Rate 26 H 25 H Blood Pressure 122/70 Blood Pressure Mean 87 Pulse Oximetry 95 95 Oxygen Delivery Method Sepsis Recent Fever Within 48 Hours Sepsis New/Unexplained Change in Mental Status Sepsis Action Taken by Nursing 09/24/20 22:33 09/24/20 22:40 09/24/20 22:50 Temperature 39.2 C H Temperature Source Oral Pulse Rate 90 90 Pulse Rate from SpO2 Sensor 90 90 Respiratory Rate 27 H 30 H Blood Pressure Blood Pressure Mean Pulse Oximetry 95 96 Oxygen Delivery Method Sepsis Recent Fever Within 48 Hours Sepsis New/Unexplained Change in Mental Status Sepsis Action Taken by Nursing 09/24/20 23:00 09/24/20 23:01 Temperature Temperature Source Pulse Rate 91 H 92 H Pulse Rate from SpO2 Sensor 92 H 93 H Respiratory Rate 29 H 28 H Blood Pressure 122/71 Blood Pressure Mean 88 Pulse Oximetry 95 94 Oxygen Delivery Method Sepsis Recent Fever Within 48 Hours Sepsis New/Unexplained Change in Mental Status Sepsis Action Taken by Nursing VITAL SIGNS - Vital signs and nursing notes were reviewed. Febrile, tachycardic, otherwise stable. GENERAL -54-year-old female appearing her stated age who is in no acute distress but appears tired. Communicates well with provider and answers questions appropriately. SKIN - Without rashes. No meningeal or petechial rash. HEAD - NC/AT. EYES - Sclera anicteric. LUNGS - Chest wall symmetric without accessory muscle use, intercostals retractions, or central cyanosis. Normal vesicular breath sounds CTA B/L. No wheezes, rales, or rhonchi appreciated. CARDIAC - RRR with S1/S2. No murmur, rubs, or gallops appreciated. ABDOMEN - Abdominal contour normal without pulsations or visible masses. BS normoactive all four quadrants. No tenderness, palpable masses, hepatosplenomegaly, or ascites noted. EXTREMITIES - No clubbing or peripheral cyanosis. NEUROLOGIC - Cranial nerves II through XII grossly intact. PSYCH - A&O, and cooperates fully with examiner. Pt is very pleasant and interacts well with examiner. Course Administered Medications Discontinued Medications Sodium Chloride (Nss 1000ml) 1,000 mls @ 999 mls/hr IV .Q1H1M CHERYL Stop: 09/24/20 21:30 Last Infusion: 09/24/20 21:56 Dose: 999 mls/hr Documented by: [id number] Admin: 09/24/20 20:55 Dose: 999 mls/hr Documented by: [id number] Ceftriaxone Sodium (Rocephin) 1,000 mg in 50 mls @ 100 mls/hr IV NOW STA Stop: 09/24/20 23:14 Last Admin: 09/24/20 23:24 Dose: 100 mls/hr Documented by: [id number] Acetaminophen (Ofirmev) 1,000 mg in 100 mls @ 400 mls/hr IV NOW STA Stop: 09/24/20 22:59 Last Infusion: 09/24/20 23:05 Dose: 0 mls/hr Documented by: [id number] Admin: 09/24/20 22:50 Dose: 400 mls/hr Documented by: [id number] Ioversol (Optiray 320 100ml) 94 ml IV ONCE ONE Stop: 09/24/20 22:20 Last Admin: 09/24/20 22:20 Dose: 94 ml Documented by: [id number] Ketorolac Tromethamine (Ketorolac Tromethamine 15 Mg/Ml Vial) 15 mg IV NOW STA Stop: 09/24/20 20:24 Last Admin: 09/24/20 20:55 Dose: 15 mg Documented by: [id number] Medical Decision Making Laboratory Data Result diagrams: 09/24/20 20:48 09/24/20 20:48 Lab Results 09/24/20 09/24/20 09/24/20 Range/Units 20:39 20:39 20:48 WBC (4.8-10.8) K/uL RBC (4.2-5.4) M/uL Hgb (12.0-16.0) g/dL Hct (37-47) % MCV (80-100) fL MCH (25-34) pg MCHC (32-36) g/dL RDW Std Deviation (36.4-46.3) fL RDW Coeff of Nilam (11.5-14.5) % Plt Count (130-400) K/uL MPV (7.4-10.4) fL Immature Gran % (Auto) % Neut % (Auto) % Lymph % (Auto) % [place] % (Auto) % Eos % (Auto) % Baso % (Auto) % Neut # (Auto) (1.4-6.5) K/uL Lymph # (Auto) (1.2-3.4) K/uL [place] # (Auto) (0.11-0.59) K/uL Eos # (Auto) (0-0.5) K/uL Baso # (Auto) (0-0.2) K/uL Immature Gran # (Auto) (0.00-0.02) K/uL Sodium (136-145) mmol/L Potassium (3.5-5.1) mmol/L Chloride (98-107) mmol/L Carbon Dioxide (21-32) mmol/L Anion Gap (3-11) BUN (7-18) mg/dl Creatinine (0.6-1.2) mg/dl Est Cr Clr Drug Dosing ml/min Est GFR ( Amer) ml/min Est GFR (Non-Af Amer) ml/min BUN/Creatinine Ratio (10-20) Glucose (70-99) mg/dl Lactate 0.9 (0.4-2.0) mmol/L Calcium (8.5-10.1) mg/dl Magnesium (1.8-2.4) mg/dl Total Bilirubin (0.2-1) mg/dl AST (15-37) U/L ALT (12-78) U/L Alkaline Phosphatase (45-117) U/L Total Protein (6.4-8.2) gm/dl Albumin (3.4-5.0) gm/dl Globulin (2.5-4.0) gm/dl Albumin/Globulin Ratio (0.9-2) Procalcitonin (0-0.5) ng/ml Urine Color Yellow Urine Appearance Cloudy A (Clear) Urine pH 6.0 (4.5-7.5) Ur Specific [place] 1.017 (1.000-1.030) Urine Protein 2+ H (Negative) Urine Glucose (UA) Negative (Negative) Urine Ketones Negative (Negative) Urine Blood 2+ H (Negative) Urine Nitrite Positive A (Negative) Urine Bilirubin Negative (Negative) Urine Urobilinogen Negative (Negative) Ur Leukocyte Esterase 3+ H (Negative) Urine WBC (Auto) >30 H (0-5) /hpf Urine RBC (Auto) 5-10 H (0-4) /hpf U Hyaline Cast (Auto) 1-5 (0-5) /lpf U Epithel Cells (Auto) 0-5 (0-5) /lpf Urine Bacteria (Auto) 4+ H (Negative) Urine Yeast Present A (None Prsent) POC Ur Test NEG (NEG) COVID-19 Eval Order SARS-CoV-2 (PCR) (Negative) 09/24/20 09/24/20 09/24/20 Range/Units 20:48 20:48 20:48 WBC 10.75 (4.8-10.8) K/uL RBC 4.33 (4.2-5.4) M/uL Hgb 13.7 (12.0-16.0) g/dL Hct 40.0 (37-47) % MCV 92.4 (80-100) fL MCH 31.6 (25-34) pg MCHC 34.3 (32-36) g/dL RDW Std Deviation 43.2 (36.4-46.3) fL RDW Coeff of Nilam 12.9 (11.5-14.5) % Plt Count 303 (130-400) K/uL MPV 10.1 (7.4-10.4) fL Immature Gran % (Auto) 0.3 % Neut % (Auto) 80.3 % Lymph % (Auto) 11.9 % [place] % (Auto) 6.7 % Eos % (Auto) 0.6 % Baso % (Auto) 0.2 % Neut # (Auto) 8.64 H (1.4-6.5) K/uL Lymph # (Auto) 1.28 (1.2-3.4) K/uL [place] # (Auto) 0.72 H (0.11-0.59) K/uL Eos # (Auto) 0.06 (0-0.5) K/uL Baso # (Auto) 0.02 (0-0.2) K/uL Immature Gran # (Auto) 0.03 H (0.00-0.02) K/uL Sodium 136 (136-145) mmol/L Potassium 3.1 L (3.5-5.1) mmol/L Chloride 98 (98-107) mmol/L Carbon Dioxide 30 (21-32) mmol/L Anion Gap 9.0 (3-11) BUN 19 H (7-18) mg/dl Creatinine 1.10 (0.6-1.2) mg/dl Est Cr Clr Drug Dosing 57.5 ml/min Est GFR ( Amer) 65.0 ml/min Est GFR (Non-Af Amer) 56.1 ml/min BUN/Creatinine Ratio 17.1 (10-20) Glucose 175 H (70-99) mg/dl Lactate (0.4-2.0) mmol/L Calcium 9.7 (8.5-10.1) mg/dl Magnesium 1.8 (1.8-2.4) mg/dl Total Bilirubin 0.6 (0.2-1) mg/dl AST 30 (15-37) U/L ALT 38 (12-78) U/L Alkaline Phosphatase 140 H (45-117) U/L Total Protein 8.5 H (6.4-8.2) gm/dl Albumin 3.8 (3.4-5.0) gm/dl Globulin 4.7 H (2.5-4.0) gm/dl Albumin/Globulin Ratio 0.8 L (0.9-2) Procalcitonin 0.23 (0-0.5) ng/ml Urine Color Urine Appearance (Clear) Urine pH (4.5-7.5) Ur Specific [place] (1.000-1.030) Urine Protein (Negative) Urine Glucose (UA) (Negative) Urine Ketones (Negative) Urine Blood (Negative) Urine Nitrite (Negative) Urine Bilirubin (Negative) Urine Urobilinogen (Negative) Ur Leukocyte Esterase (Negative) Urine WBC (Auto) (0-5) /hpf Urine RBC (Auto) (0-4) /hpf U Hyaline Cast (Auto) (0-5) /lpf U Epithel Cells (Auto) (0-5) /lpf Urine Bacteria (Auto) (Negative) Urine Yeast (None Prsent) POC Ur Test (NEG) COVID-19 Eval Order SARS-CoV-2 (PCR) (Negative) 09/24/20 09/24/20 Range/Units 20:54 20:54 WBC (4.8-10.8) K/uL RBC (4.2-5.4) M/uL Hgb (12.0-16.0) g/dL Hct (37-47) % MCV (80-100) fL MCH (25-34) pg MCHC (32-36) g/dL RDW Std Deviation (36.4-46.3) fL RDW Coeff of Nilam (11.5-14.5) % Plt Count (130-400) K/uL MPV (7.4-10.4) fL Immature Gran % (Auto) % Neut % (Auto) % Lymph % (Auto) % [place] % (Auto) % Eos % (Auto) % Baso % (Auto) % Neut # (Auto) (1.4-6.5) K/uL Lymph # (Auto) (1.2-3.4) K/uL [place] # (Auto) (0.11-0.59) K/uL Eos # (Auto) (0-0.5) K/uL Baso # (Auto) (0-0.2) K/uL Immature Gran # (Auto) (0.00-0.02) K/uL Sodium (136-145) mmol/L Potassium (3.5-5.1) mmol/L Chloride (98-107) mmol/L Carbon Dioxide (21-32) mmol/L Anion Gap (3-11) BUN (7-18) mg/dl Creatinine (0.6-1.2) mg/dl Est Cr Clr Drug Dosing ml/min Est GFR ( Amer) ml/min Est GFR (Non-Af Amer) ml/min BUN/Creatinine Ratio (10-20) Glucose (70-99) mg/dl Lactate (0.4-2.0) mmol/L Calcium (8.5-10.1) mg/dl Magnesium (1.8-2.4) mg/dl Total Bilirubin (0.2-1) mg/dl AST (15-37) U/L ALT (12-78) U/L Alkaline Phosphatase (45-117) U/L Total Protein (6.4-8.2) gm/dl Albumin (3.4-5.0) gm/dl Globulin (2.5-4.0) gm/dl Albumin/Globulin Ratio (0.9-2) Procalcitonin (0-0.5) ng/ml Urine Color Urine Appearance (Clear) Urine pH (4.5-7.5) Ur Specific [place] (1.000-1.030) Urine Protein (Negative) Urine Glucose (UA) (Negative) Urine Ketones (Negative) Urine Blood (Negative) Urine Nitrite (Negative) Urine Bilirubin (Negative) Urine Urobilinogen (Negative) Ur Leukocyte Esterase (Negative) Urine WBC (Auto) (0-5) /hpf Urine RBC (Auto) (0-4) /hpf U Hyaline Cast (Auto) (0-5) /lpf U Epithel Cells (Auto) (0-5) /lpf Urine Bacteria (Auto) (Negative) Urine Yeast (None Prsent) POC Ur Test (NEG) COVID-19 Eval Order Covid19 at [facility] SARS-CoV-2 (PCR) NEGATIVE (Negative) Imaging Data Radiologist's Impression: CT ABDOMEN & PELVIS With Contrast: Mild circumferential wall thickening of the urinary bladder with mild bilateral urothelial thickening and right periureteral fat stranding, which could be correlated with urinalysis to evaluate for urinary tract infection. Borderline wall thickening of a few loops of jejunum in the left upper quadrant which raises the possibility of enteritis. Shotty retroperitoneal lymph nodes, not increased in size but increased in number. Unremarkable appendix. Nonobstructing calculi within both kidneys. Hepatomegaly and hepatic steatosis. Small hiatal hernia. Dependent atelectasis within the lower lobes. Radiologist: Ruby Dahl M.D. Study ready at 22:33 and initial results transmitted at 22:44 MDM Narrative Patient was seen and evaluated as above in room C08. Review was performed of nursing notes and vital signs. I did review pertinent previous visits and patient history. After obtaining a thorough history and physical examination the above work up was performed. Patient presents to us today with lower abdominal discomfort x1 week now with fever. On arrival she is febrile and tachycardic. She appears tired. No significant abdominal tenderness palpation. Patient has a significant history of kidney stones. She had an outpatient KUB performed 3 days ago on the third which revealed bilateral nephrolithiasis and a possible left UVJ calculus but unlikely. Options of care were discussed with the patient. IV access was established. Labs were drawn. CT scan was obtained of the abdomen pelvis but with IV contrast given presentation. There is mild circumferential wall thickening of the urinary bladder with mild bilateral urothelial thickening and right periureteral fat stranding, which could be correlated with urinalysis to evaluate for UTI. This does correlate with the UTI and also presentation here today. I suspect an ascending UTI from the bladder now with fever. She was given IV Rocephin, IV fluids, IV Toradol and despite the Toradol the fever increased to over 39 C therefore IV Tylenol was added. Laboratory studies reveal no leukocytosis or concerning anemia. Hypokalemia at 3.1. Mild dehydration with BUN at 19. Glucose 175. Pro-Jules within normal range. Uri nalysis suggest infection. Covid testing negative. Given the patient's febrile state here in the setting of UTI moving proximal to the ureters I do believe that further evaluation and management in the inpatient setting is warranted. Case discussed with the hospitalist. Please refer to further documentation regarding her stay. Case was discussed with the attending physician. GCS: 15 In the evaluation and treatment of this patient, the following differential diagnoses were considered: Kidney Stone, STI, Bladder Cancer, infected stone, pyelonephritis, UTI, amongst Others. Impression & Plan UTI (urinary tract infection), Fever, Bilateral lower abdominal pain, Ureteritis Discharge Plan Visit Data Chief Complaint: Abdominal Pain Stated Complaint: FEVER,ABDOMEN DISCOMFORT, TRYING TO PASS KIDNEY ST ED Provider: Bernabe Rivas ED Midlevel Provider: Bird Monzon Discharge Problem: UTI (urinary tract infection), Fever, Bilateral lower abdominal pain, Ureteritis Patient Disposition: Admitted As Inpatient Condition: Good Forms Stand Alone Forms: [facility] [employer] Prescriptions Prescriptions: No Action lisinopril 10 mg tablet 10 mg PO QAM Qty: 90 RF: 3 metformin 500 mg tablet 500 mg PO BID Qty: 180 RF: 3 atorvastatin 10 mg tablet 10 mg PO QAM Qty: 90 RF: 1 metoprolol tartrate 25 mg tablet 25 mg PO BID Qty: 180 RF: 3 hydrochlorothiazide 50 mg tablet 50 mg PO QAM Qty: 90 RF: 3 potassium citrate 15 mEq tablet extended release 15 meq PO DAILY Qty: 90 RF: 3 potassium chloride 20 mEq tablet extended release 20 meq PO DAILY Qty: 30 RF: 2 famotidine 20 mg tablet 20 mg PO DAILY PRN (Reason: acid reflux) Qty: 10 RF: 2 aspirin 81 mg Tablet,Delayed Release (Dr/Ec) 81 mg PO QAM RF: 0 Centrum Women 18-400 mg-mcg Tablet 1 tab PO QAM RF: 0 omega 4-iwb-qwb-fish oil [Fish Oil] 1,000 mg (120 mg-180 mg) Capsule 1 cap PO QAM RF: 0 cholecalciferol (vitamin D3) [Vitamin D3] 2,000 unit Tablet 2,000 unit PO QAM RF: 0 hydrocodone-acetaminophen 5-325 mg tablet 1 tab PO Q6H PRN (Reason: pain) Qty: 20 RF: 0 ibuprofen [Advil] 200 mg Tablet 200 mg PO Q6H PRN (Reason: Pain) RF: 0 Referrals Referrals: Miryam Tapia CRNP [Primary Care Provider] -
[2020-09-24] MEDS ORDERED: SODIUM CHLORIDE 0.9% 1000ML 1,000 ML IV SCH (20:30)
[2020-09-24 21:01] LABS: Basophils # (auto) 0.02 K/uL (0-0.2); Basophils % (auto) 0.2 %; Eosinophils # (auto) 0.06 K/uL (0-0.5); Eosinophils % (auto) 0.6 %; Hemoglobin 13.7 g/dL (12.0-16.0); Immature Granulocytes # (auto) 0.03 K/uL (0.00-0.02); Immature Granulocytes % (auto) 0.3 %; Lymphocytes # (auto) 1.28 K/uL (1.2-3.4); Lymphocytes % (auto) 11.9 %; Mean Corpuscular Hemoglobin 31.6 pg (25-34); Mean Corpuscular Hgb Conc 34.3 g/dL (32-36); Mean Corpuscular Volume 92.4 fL (80-100); Mean Platelet Volume 10.1 fL (7.4-10.4); Monocytes # (auto) 0.72 K/uL (0.11-0.59); Monocytes % (auto) 6.7 %; Neutrophils # (auto) 8.64 K/uL (1.4-6.5); Neutrophils % (auto) 80.3 %; Platelet Count 303 K/uL (130-400); RDW Coefficient of Variation 12.9 % (11.5-14.5); RDW Standard Deviation 43.2 fL (36.4-46.3); Red Blood Count 4.33 M/uL (4.2-5.4); White Blood Count 10.75 K/uL (4.8-10.8)
[2020-09-24 21:07] LABS: Appearance Urine Cloudy (Clear); Bacteria Urine Automated 4+ (Negative); Bilirubin Urine Negative (Negative); Blood Urine 2+ (Negative); Color Urine Yellow; Epithelial Cell Urine Auto 0-5 /lpf (0-5); Glucose Urine UA Negative (Negative); Ketones Urine Negative (Negative); Leukocyte Esterase Urine 3+ (Negative); Nitrite Urine Positive (Negative); Protein Urine 2+ (Negative); Specific Gravity Urine 1.017 (1.000-1.030); Urobilinogen Urine Negative (Negative); WBC Urine Automated >30 /hpf (0-5)
[2020-09-24 21:16] LABS: Albumin Level 3.8 gm/dl (3.4-5.0); BUN Creatinine Ratio 17.1 (10-20); Calcium 9.7 mg/dl (8.5-10.1); Creatinine Clr Calc Pharmacy 57.5 ml/min; Est GFR (Non-African American) 56.1 ml/min; Magnesium 1.8 mg/dl (1.8-2.4); Potassium 3.1 mmol/L (3.5-5.1)
[2020-09-24 21:19] LABS: Albumin Globulin Ratio 0.8 (0.9-2); Bilirubin,Total 0.6 mg/dl (0.2-1); Globulin 4.7 gm/dl (2.5-4.0); Total Protein 8.5 gm/dl (6.4-8.2)
[2020-09-24] MEDS ORDERED: OPTIRAY 320 100ml IV ONE (22:19)
[2020-09-24] MEDS ORDERED: cefTRIAXone SODIUM 1,000 MG/50 ML BAG IV STA (22:45)
[2020-09-24] MEDS ORDERED: ACETAMINOPHEN 1,000 MG/100 ML VIAL IV STA (22:45)
--- NOTE | 2020-09-24 23:35 | History & Physical Report ---
Date of Service September 24, 2020 Assessment & Plan (1) UTI (urinary tract infection): Patient febrile, HD stable, NAD. Lower abdominal pain. UA suggestive of infection - CT with inflammation of bladder and ureter and perinephric stranding concerning for ascending infection. Nonobstructive stones. -Admit to medical -Follow cultures -Ceftriaxone 1gm IV daily -Urology consultation appreciated -Strain urine -Tyenol PRN pain or fever -Toradol PRN -Zofran PRN Present on Admission?: Yes (2) Type 2 diabetes mellitus: Last [id number] on 05/05/20 -Hold Metformin -Lantus 5u qHS, ISS -Goal blood sugar 100 - 140 Present on Admission?: Yes (3) Hypertension: Blood pressure stable -Continue HCTZ 50mg po qAM -Continue Lisinopril 10mg po daily -Continue Metoprolol 25mg po BID Present on Admission?: Yes (4) Hyperlipidemia: Chronic. -Atorvastatin 10mg po daily Present on Admission?: Yes (5) Nephrolithiasis: Nonobstructing stones. Patient follows with Urology -Urology consultation appreciated Present on Admission?: Yes (6) Hypokalemia: -Continue home KCl 20mEq daily and KCitrate 15mEq daily -Potassium 40mEq now -Repeat chemistry in AM F/E/N - LR at 125mL/hr x 2 liters, K repletion as above, CC diet as tolerated Ppx - SCDs Code - Full Dispo - Admit to medical Present on Admission?: Yes History of Present Illness Chief Complaint: abdominal pain, fever Primary Care Provider: NICK Luke Marylin Mortensen is a pleasant 54yo C female with history of HTN, HLP, DM and GERD presenting with fever and abdominal pain. Patient has history of prior nephrolithiasis. She developed some lower abdominal pain last week and had an x-ray performed on 09/21 which revealed increase in size of bilateral renal calculi. She was instructed to seek medical care should she develop a fever. Patient developed a fever this morning and came to the ER. Febrile on arrival at 38. HD stable. Was administered IV Toradol and Tylenol. Patient reports ongoing lower abdominal pain as well as decreased urination and urge incontinence. She denies dysuria, hematuria, nausea, vomiting, diarrhea or constipation. No additional complaints at this time. ER Course: Ceftriaxone, Toradol, NSS Allergies Allergy/AdvReac Type Severity Reaction Status Date / Time No Known Allergies Allergy Verified 06/28/20 08:41 Home Medications Medication Instructions Recorded Confirmed Type Centrum Women 1 tab PO QAM 09/15/18 09/24/20 History aspirin 81 mg PO QAM 09/15/18 09/24/20 History omega 4-ixb-ees-fish oil [Fish Oil] 1 cap PO QAM 09/15/18 09/24/20 History famotidine 20 mg tablet 20 mg PO DAILY PRN #10 tab 03/12/19 09/24/20 Rx cholecalciferol (vitamin D3) 2,000 unit PO QAM 05/04/19 09/24/20 History [Vitamin D3] hydrocodone-acetaminophen 1 tab PO Q6H PRN #20 tab 10/19/19 09/24/20 Rx lisinopril 10 mg tablet 10 mg PO QAM #90 tab 03/20/20 09/24/20 Rx metformin 500 mg tablet 500 mg PO BID #180 tab 03/20/20 09/24/20 Rx atorvastatin 10 mg tablet 10 mg PO QAM #90 tab 04/13/20 09/24/20 Rx metoprolol tartrate 25 mg tablet 25 mg PO BID #180 tab 05/29/20 09/24/20 Rx hydrochlorothiazide 50 mg tablet 50 mg PO QAM #90 tab 06/16/20 09/24/20 Rx potassium chloride 20 mEq 20 meq PO DAILY #30 tab 06/28/20 09/24/20 Rx tablet,extended release potassium citrate 15 mEq (1,620 15 meq PO DAILY #90 tab 06/28/20 09/24/20 Rx mg) tablet,extended release ibuprofen [Advil] 200 mg PO Q6H PRN 09/24/20 09/24/20 History Past Med/Surg History Medical History (Updated 09/25/20 @ 00:57 by Sonia Keyes DO) Anxiety Calcaneal apophysitis Chronic pain of left heel GERD (gastroesophageal reflux disease) History of anesthesia reaction heartburn after anesthesia Kidney stones PVC's (premature ventricular contractions) takes metoprolol Type 2 diabetes mellitus Visual field loss Surgical History History of bilateral tubal ligation History of section History of cystoscopy x3 with stent placement History of dilatation and curettage History of foot surgery left--bone spur removal History of hysterectomy [facility] in 2016 History of lithotripsy x5 History of tooth extraction History of wisdom tooth extraction S/P cystoscopy with ureteral stent placement 10/05/19 Dr. Sukumar Abreu- Cystoscopy, Bilateral ureteroscopy, Retrograde Pyelogram, Laser lithotripsy, Bilateral stent placement Family History Sister Family history of reaction to anesthesia nausea Family history of diabetes mellitus 2 Brother Family history of diabetes mellitus Father Family history of diabetes mellitus Grandfather (Paternal) Family history of diabetes mellitus Grandmother (Paternal) Family history of diabetes mellitus Grandmother (Maternal) Breast cancer Great Grandmother Denies family history of Ovarian cancer Prostate cancer Myocardial infarction Colorectal cancer Social History Smoking Status: Never smoker Second Hand Exposure: No; Hx Alcohol Use: No Hx Substance Use: No Preferred Language: Monegasque Communication Ability: Effective Alterations Sewer Required: No Beliefs That Will Affect Care: None Current Living Situation: Spouse and Family Current Living Situation Comment: Lives with , son, [id number], 2 grandkids Feels Safe at Home: Yes Dental Care, Regularly: No Seatbelt Use: always Assistive Devices: Glasses Review of Systems Review of Systems: All systems reviewed & are unremarkable except as noted in HPI & below Physical Exam Physical Exam: General: patient resting comfortably, NAD, non-toxic in appearance, AA&O x 4 Skin: warm, dry, intact, no rashes or lesions HEENT: NC/AT, PERRL, EOMI, anicteric sclera, conjunctiva without injection, external ear normal to inspection and nontender, nares patent, moist mucus membranes, dentition intact, no oropharyngeal lesions, neck supple, trachea midline, no LAD, no thyromegaly, no JVD Heart: +S1/S2, regular, no m/r/g Lungs: equal air entry bilaterally, no rales/rhonchi/wheezes Abd: +BS, soft, ND, tender in lower abdomen with no rebound/guarding/peritoneal signs, no masses/organomegaly/ascites Ext: warm, 2+ pulses in UE/LE bilaterally, no clubbing/cyanosis or edema Neuro: nonfocal, patient AA&O x 4, speech intact, no facial droop, moving all extremities on command with equal strength 5/5 Results & Data Results & Data ([facility]) Vital Signs (Past 12 Hours) Vital Signs Temp Pulse Resp BP Pulse Ox 09/24/20 23:01 92 H 28 H 94 09/24/20 23:00 91 H 29 H 122/71 95 09/24/20 22:50 90 30 H 96 09/24/20 22:40 90 27 H 95 09/24/20 22:33 39.2 C H 09/24/20 22:31 91 H 25 H 95 09/24/20 22:30 91 H 26 H 122/70 95 09/24/20 22:27 94 H 09/24/20 22:10 94 H 30 H 95 09/24/20 22:01 91 H 30 H 95 09/24/20 22:00 92 H 25 H 127/75 97 09/24/20 21:50 92 H 30 H 95 09/24/20 21:40 91 H 23 09/24/20 21:31 92 H 30 H 94 09/24/20 21:30 92 H 27 H 137/76 95 09/24/20 21:20 92 H 26 H 95 09/24/20 21:10 91 H 30 H 94 09/24/20 21:01 97 H 27 H 95 09/24/20 21:00 96 H 23 141/85 H 98 09/24/20 20:04 38.0 C H 111 H 18 122/73 94 PG Care Time/CCT Total # of Minutes Spent Total Time Spent with Patient: Total time spent is greater than 50% in coordination of care (as documented) at patient's floor/unit and/or counseling patient: Coding Level of Care Code 61476 OBS Care - Level 3 Diagnoses UTI (urinary tract infection) N39.0 Urinary tract infection type: site unspecified Hematuria presence: without hematuria Type 2 diabetes mellitus E11.9 Diabetes mellitus mcc insulin use: without mcc use Diabetes mellitus complication status: without complication Hypertension I10 Hypertension type: essential hypertension Hyperlipidemia E78.5 Hyperlipidemia type: unspecified Nephrolithiasis N20.0 Hypokalemia E87.6 (1) UTI (urinary tract infection) Urinary tract infection type: site unspecified Hematuria presence: without hematuria Qualified Code(s): N39.0 - Urinary tract infection, site not specified (2) Type 2 diabetes mellitus Diabetes mellitus mcc insulin use: without mcc use Diabetes mellitus complication status: without complication Qualified Code(s): E11.9 - Type 2 diabetes mellitus without complications (3) Hypertension Hypertension type: essential hypertension Qualified Code(s): I10 - Essential (primary) hypertension (4) Hyperlipidemia Hyperlipidemia type: unspecified Qualified Code(s): E78.5 - Hyperlipidemia, unspecified
[2020-09-25] MEDS ORDERED: GLUCOSE 40% GEL 15 GM TUBE PO PRN (01:40)
[2020-09-25] MEDS ORDERED: GLUCOSE 10 TABS/TUBE PO PRN (01:40)
[2020-09-25] MEDS ORDERED: HYDROCODONE/ACETAMOPHEN 5/325MG TAB PO PRN (01:40)
[2020-09-25] MEDS ORDERED: ONDANSETRON INJ 2 MG/ML 2 ML VIAL IV PRN (01:40)
[2020-09-25] MEDS ORDERED: DOCUSATE SODIUM 100 MG CAP PO PRN (01:40)
[2020-09-25] MEDS ORDERED: GLUCAGON FOR INJ 1 MG VIAL SQ PRN (01:40)
[2020-09-25] MEDS ORDERED: DEXTROSE 50% 50 ML SYRINGE IV PRN (01:40)
[2020-09-25] MEDS ORDERED: KETOROLAC TROMETHAMINE 15 MG/ML VIAL IV PRN (01:40)
[2020-09-25] MEDS ORDERED: CARBOHYDRATES FOR HYPOGLYCEMIA PO PRN (01:40)
[2020-09-25] MEDS ORDERED: POTASSIUM CHLORIDE CRTAB 20 MEQ TABCR PO STA (02:09)
[2020-09-25] MEDS: SODIUM CHLORIDE 0.9% 1000ML 1,000 ML IV SCH ×2 (02:24→10:28)
[2020-09-25] MEDS: INSULIN GLARGINE SOLOSTAR 100 UNITS/ML 3 ML PEN SC SCH ×3 (02:36→21:12)
[2020-09-25 07:20] LABS: Basophils # (auto) 0.01 K/uL (0-0.2); Basophils % (auto) 0.1 %; Eosinophils # (auto) 0.08 K/uL (0-0.5); Eosinophils % (auto) 0.8 %; Hemoglobin 11.6 g/dL (12.0-16.0); Immature Granulocytes # (auto) 0.02 K/uL (0.00-0.02); Immature Granulocytes % (auto) 0.2 %; Lymphocytes # (auto) 1.03 K/uL (1.2-3.4); Lymphocytes % (auto) 10.8 %; Mean Corpuscular Hemoglobin 30.4 pg (25-34); Mean Corpuscular Hgb Conc 33.1 g/dL (32-36); Mean Corpuscular Volume 91.6 fL (80-100); Mean Platelet Volume 9.9 fL (7.4-10.4); Monocytes # (auto) 1.02 K/uL (0.11-0.59); Monocytes % (auto) 10.7 %; Neutrophils % (auto) 77.4 %; Platelet Count 211 K/uL (130-400); RDW Coefficient of Variation 13.1 % (11.5-14.5); Red Blood Count 3.82 M/uL (4.2-5.4); White Blood Count 9.56 K/uL (4.8-10.8)
[2020-09-25] MEDS: ACETAMINOPHEN 325 MG TAB PO PRN ×3 (07:35→21:25)
[2020-09-25 07:52] LABS: Albumin Level 2.7 gm/dl (3.4-5.0); BUN Creatinine Ratio 18.1 (10-20); Bilirubin Direct 0.2 mg/dl (0-0.2); Bilirubin,Total 0.8 mg/dl (0.2-1); Creatinine Clr Calc Pharmacy 74.1 ml/min; Est GFR (African American) 88.8 ml/min; Est GFR (Non-African American) 76.6 ml/min; Potassium 3.8 mmol/L (3.5-5.1); Total Protein 6.4 gm/dl (6.4-8.2)
[2020-09-25] MEDS: lisinopril 10 MG TAB PO SCH (08:52)
[2020-09-25] MEDS: METOPROLOL TARTRATE 25 MG TAB PO SCH ×2 (08:52→21:05)
[2020-09-25] MEDS: POTASSIUM CHLORIDE CRTAB 20 MEQ TABCR PO SCH (08:52)
[2020-09-25] MEDS: ASPIRIN 81 MG ECTAB PO SCH (08:52)
[2020-09-25] MEDS: ATORVASTATIN 10 MG TAB PO SCH (08:52)
[2020-09-25] MEDS: INSULIN ASPART 100 UNITS/ML 3 ML PEN SC SCH ×4 (08:53→21:12)
[2020-09-25] MEDS: CIPROFLOXACIN / D5W 400 MG/200 ML BAG IV SCH ×2 (08:57→21:05)
[2020-09-25] MEDS ORDERED: NON-FORMULARY MEDICATION (Potassium Citrate 15 mEq tablet extended release) PO SCH (09:00)
[2020-09-25] MEDS ORDERED: hydroCHLOROthiazide 25 MG TAB PO SCH (09:00)
--- NOTE | 2020-09-25 09:00 | CT Scan Report ---
ABDOMEN AND PELVIS CT WITH IV CONTRAST CT DOSE: 419.11 mGy.cm HISTORY: Mid abdominal pain. lower abd pain, fever TECHNIQUE: Multiaxial CT images of the abdomen and pelvis were performed following the use of intrave nous contrast. A dose lowering technique was utilized adhering to the principles of ALARA. COMPARISON STUDY: Abdomen and pelvis CT 10/05/2019. FINDINGS: Groundglass densities within the lung bases posteriorly favor mild dependent change. No pne umoperitoneum. No pneumatosis. No fractures within the visualized osseous structures. Mild hepatic st eatosis. No hepatic or splenic masses. The adrenal glands, pancreas, and gallbladder are unremarkable . No retroperitoneal lymphadenopathy. Normal caliber abdominal aorta. The uterus is surgically absent . No pelvic free fluid. No bowel wall thickening or obstruction. Normal appendix. No retroperitoneal lymphadenopathy. Normal caliber abdominal aorta. Multiple bilateral renal calculi. Bilateral urotheli al thickening within the renal collecting systems and ureters. There are also mild bladder wall thick ening. No ureteral calculi. No hydronephrosis. There is mild right perinephric fat stranding and subt le heterogeneous enhancement within the right kidney. Therefore, this is consistent with a right-side d pyelonephritis. Colonic diverticulosis. IMPRESSION: 1. Subtle heterogeneous enhancement within the right kidney with right perinephric fat stranding. Thi s is consistent with a pyelonephritis. There is also diffuse mild urothelial thickening within the re nal collecting systems and ureters bilaterally likely representing an associated bilateral pyelitis. 2. Mild bladder wall thickening suggestive of a cystitis. 3. No bowel wall thickening or obstruction. 4. Normal appendix. 5. Colonic diverticulosis. No evidence for acute diverticulitis. ACT 112: Negative or not required by law. Electronically signed by: Efraín Iniguez M.D. 09/25/2020 8:59 AM
--- NOTE | 2020-09-25 10:24 | Urology Consultation ---
Date of Consultation September 25, 2020 Assessment & Plan (1) UTI (urinary tract infection): (2) Pyelonephritis: (3) Fever: 54 year-old female patient admitted with fever and abdominal pain secondary to complicated UTI/pyelonephritis/pyelitis. -Plan of care reviewed with Dr. Smart. -Patient febrile on admission with T-max 39.2, afebrile this morning. -Labs reviewed - white count and creatinine stable. -Preliminary urine culture >100,000 cfu gram negative bacilli. -Preliminary blood cultures positive for gram negative bacilli. -Imaging reviewed - consistent with right-sided pyelonephritis with associated bilateral pyelitis, no evidence of obstruction. -No acute intervention indicated at this time. -Recommend supportive care and continued antibiotic therapy, await final cultures. -Will likely require at least 10-14 days of antibiotic therapy. -Will continue to follow while inpatient. History of Present Illness Reason for Consultation: pyelonephritis, renal stones Attending Physician: Damien Easton MD History of Present Illness 54 year-old female patient, with past medical history significant for hypertension, hyperlipidemia, depression, GERD, diabetes mellitus type II, and other chronic comorbidities listed below, presented to the emergency room last evening with complaints of fever and abdominal pain. Pain started roughly one week ago. She was febrile on admission and imaging concerning for pyelonephritis. She was admitted by medicine service for further inpatient treatment. Urology consulted for pyelonephritis and renal stones. Patient known to [facility] urology service, follows routinely with Dr. Abreu. Has required surgical intervention for stones in the past, most recently underwent ureteroscopy, stone treatment in September 2019. Patient recently called into the office 09/21 with complaints of left flank pain, urgency/frequency and reports of passing 2 stones in the last 2 weeks. She then reported passing several fragments the Friday prior to calling. A KUB was performed at that time which noted increase in size and number of bilateral renal calculi with new punctate calcification within the left deep pelvis which favors a phlebolith and less likely possible left UVJ stone. No urine culture was completed at that that time. She was scheduled for outpatient follow-up with urology service 10/05/20. Chart review: Febrile on admission - Tmax 39.2 Patient afebrile this AM. Wbc 9.56 Hgb 11.6 Creatinine 0.85 Urinalysis +3 leukocytes, >30 wbc, 5-10 rbc, +4 bacteria, positive nitrates. Preliminary urine culture >100,000 cfu gram negative bacilli. Preliminary blood culture x1 with gram negative bacilli, second culture pending. Patient currently on IV Ciprofloxacin. Imaging - CT with IV contrast IMPRESSION: 1. Subtle heterogeneous enhancement within the right kidney with right perinephric fat stranding. This is consistent with a pyelonephritis. There is also diffuse mild urothelial thickening within the renal collecting systems and ureters bilaterally likely representing an associated bilateral pyelitis. 2. Mild bladder wall thickening suggestive of a cystitis. 3. No bowel wall thickening or obstruction. 4. Normal appendix. 5. Colonic diverticulosis. No evidence for acute diverticulitis. Patient examined at bedside. She is sitting in chair, alert and awake, comfortable, and non-toxic on exam. She continues to experience generalized lower abdominal discomfort. Denies flank pain. She states she has not passed any stone fragments since . Denies dysuria or hematuria. Denies significant urinary frequency/urgency. Feels she empties her bladder. Currently denies fevers or chills. States originally her fevers began Friday evening. Denies nausea or vomiting. Has been ambulating without dizziness/lightheadedness. She states she did not tolerate stents well in the past. She is on Potassium Citrate and HCTZ for stone prevention. Overall, she does report she feels better today than yesterday. Denies additional urologic concerns today. Allergies Allergy/AdvReac Type Severity Reaction Status Date / Time No Known Allergies Allergy Verified 06/28/20 08:41 Home Medications Medication Instructions Recorded Confirmed Type Centrum Women 1 tab PO QAM 09/15/18 09/24/20 History aspirin 81 mg PO QAM 09/15/18 09/24/20 History omega 8-oad-flu-fish oil [Fish Oil] 1 cap PO QAM 09/15/18 09/24/20 History famotidine 20 mg tablet 20 mg PO DAILY PRN #10 tab 03/12/19 09/24/20 Rx cholecalciferol (vitamin D3) 2,000 unit PO QAM 05/04/19 09/24/20 History [Vitamin D3] hydrocodone-acetaminophen 1 tab PO Q6H PRN #20 tab 10/19/19 09/24/20 Rx lisinopril 10 mg tablet 10 mg PO QAM #90 tab 03/20/20 09/24/20 Rx metformin 500 mg tablet 500 mg PO BID #180 tab 03/20/20 09/24/20 Rx atorvastatin 10 mg tablet 10 mg PO QAM #90 tab 04/13/20 09/24/20 Rx metoprolol tartrate 25 mg tablet 25 mg PO BID #180 tab 05/29/20 09/24/20 Rx hydrochlorothiazide 50 mg tablet 50 mg PO QAM #90 tab 06/16/20 09/24/20 Rx potassium chloride 20 mEq 20 meq PO DAILY #30 tab 06/28/20 09/24/20 Rx tablet,extended release potassium citrate 15 mEq (1,620 15 meq PO DAILY #90 tab 06/28/20 09/24/20 Rx mg) tablet,extended release ibuprofen [Advil] 200 mg PO Q6H PRN 09/24/20 09/24/20 History Patient History Medical History (Updated 09/25/20 @ 12:21 by Damien Easton MD) Anxiety Calcaneal apophysitis Chronic pain of left heel GERD (gastroesophageal reflux disease) History of anesthesia reaction heartburn after anesthesia Kidney stones PVC's (premature ventricular contractions) takes metoprolol Type 2 diabetes mellitus Visual field loss Surgical History History of bilateral tubal ligation History of section History of cystoscopy x3 with stent placement History of dilatation and curettage History of foot surgery left--bone spur removal History of hysterectomy [facility] in 2016 History of lithotripsy x5 History of tooth extraction History of wisdom tooth extraction S/P cystoscopy with ureteral stent placement 10/05/19 Dr. Sukumar Abreu- Cystoscopy, Bilateral ureteroscopy, Retrograde Pyelogram, Laser lithotripsy, Bilateral stent placement Family History Sister Family history of reaction to anesthesia nausea Family history of diabetes mellitus 2 Brother Family history of diabetes mellitus Father Family history of diabetes mellitus Grandfather (Paternal) Family history of diabetes mellitus Grandmother (Paternal) Family history of diabetes mellitus Grandmother (Maternal) Breast cancer Great Grandmother Denies family history of Ovarian cancer Prostate cancer Myocardial infarction Colorectal cancer Social History Smoking Status: Never smoker Second Hand Exposure: No; Hx Alcohol Use: No Hx Substance Use: No Preferred Language: Maltese Communication Ability: Effective Data Integrity Specialist Required: No Beliefs That Will Affect Care: None Current Living Situation: Family Current Living Situation Comment: Spouse, son, [id number], grandchildren Feels Safe at Home: Yes Dental Care, Regularly: No Seatbelt Use: always Assistive Devices: Crutches Review of Systems Constitutional: as per Subjective / HPI and + fever; no chills Eyes: no problem reported Ear, Nose, Mouth, Throat: no dizziness Respiratory: no cough and no dyspnea Cardiovascular: no chest pain and no edema Gastrointestinal: as per Subjective / HPI Genitourinary: as per Subjective / HPI Musculoskeletal: as per Subjective / HPI Neurologic: no dizziness Endocrine: no fatigue Hematologic / Lymphatic: no easy bleeding and no easy bruising Physical Exam Constitutional: well developed and well nourished; no acute distress and not ill appearing ENMT: Ears: no external ear abnormality Nose: no external nose abnormality Neck: normal visual inspection and trachea midline Respiratory: normal respiratory effort and able to speak in complete sentences; no respiratory distress and no audible wheezes Cardiovascular: Extremities: no calf tenderness and no edema Gastrointestinal (Abdomen): Inspection/Auscultation: abdomen normal to inspection; abdomen not distended Percussion/Palpation: + abdomen tender (Diffuse lower abdomen) and abdomen soft; no guarding Musculoskeletal: Moves all extremities without difficulty. Skin: No visible rashes, lesions, or wounds noted. Neurologic: moves all extremities and awake Psychiatric: Orientation: alert, oriented x 3 and cooperative Affect: euthymic affect Genitourinary: no CVA tenderness Results & Data ([facility]) Vital Signs (Past 12 Hours) Vital Signs Temp Pulse Pulse Resp BP BP Pulse Ox 09/25/20 07:13 36.8 C 80 16 117/73 94 09/25/20 01:30 36.8 C 83 16 102/63 94 09/25/20 01:19 20 105/64 94 09/25/20 01:03 37.6 C H 09/25/20 00:30 92 09/25/20 00:01 92 H 20 94 09/25/20 00:00 92 H 22 122/65 93 06/06/21 23:31 96 H 20 93 09/24/20 23:30 97 H 21 99/65 L 93 09/24/20 23:01 92 H 28 H 94 09/24/20 23:00 91 H 29 H 122/71 95 09/24/20 22:50 90 30 H 96 09/24/20 22:40 90 27 H 95 09/24/20 22:33 39.2 C H 09/24/20 22:31 91 H 25 H 95 09/24/20 22:30 91 H 26 H 122/70 95 09/24/20 22:27 94 H 09/24/20 22:10 94 H 30 H 95 PG Care Time/CCT Total # of Minutes Spent Total Time Spent with Patient: Total time spent is greater than 50% in coordination of care (as documented) at patient's floor/unit and/or counseling patient: Coding Level of Care Code 39601 Inpt Consult Level 4 Diagnoses UTI (urinary tract infection) N39.0 Hematuria presence: without hematuria Urinary tract infection type: site unspecified Pyelonephritis N12 Fever R50.9 (1) UTI (urinary tract infection) Hematuria presence: without hematuria Urinary tract infection type: site unspecified Qualified Code(s): N39.0 - Urinary tract infection, site not specified
--- NOTE | 2020-09-25 12:22 | Hospitalist Progress Note ---
Date of Service September 25, 2020 Assessment & Plan (1) Pyelonephritis: Prior cultures resistant to ceftriaxone therefore switched to ciprofloxacin this morning 09/25. Follow up urine/blood cultures (2) Gram-negative bacteremia: Suggest at least 14 days antibiotic treatment. Will consult urology regarding recommendation for longer course if needed based on possible seeding from nephrolithiasis. (3) UTI (urinary tract infection): as above for pyelonephritis (4) Type 2 diabetes mellitus: Last [id number]=2.9 on 05/05/20 -Hold Metformin -Lantus 5u qHS, ISS -Goal blood sugar 100 - 140 (5) Hypertension: Blood pressure stable -Continue HCTZ 50mg po qAM -Continue Lisinopril 10mg po daily -Continue Metoprolol 25mg po BID (6) Hyperlipidemia: Chronic. -Atorvastatin 10mg po daily (7) Nephrolithiasis: Nonobstructing stones. Patient follows with Urology -Urology consultation appreciated (8) Hypokalemia: -Continue home KCl 20mEq daily and KCitrate 15mEq daily -Repeat chemistry in AM F/E/N - LR at 125mL/hr x 2 liters, K repletion as above, CC diet as tolerated Ppx - SCDs Code - Full Dispo - Continue observation on medical floor Admission and Anticipated Discharge Date Admission Date: September 24, 2020 Subjective Feeling improved since coming in. Fever and chills have since resolved. No change in color, smell or frequency of urine. No CVA tenderness. No recent urological procedures. Review of Systems Review of Systems: All systems reviewed & are unremarkable except as noted in HPI & below Physical Exam Constitutional: WD/WN, vitals as above Eyes: + anicteric sclerae; normal pupil size Neck: trachea midline, no thyromegaly Respiratory: normal respiratory effort, lungs clear to auscultation Cardiovascular: RRR, no murmur, no edema Musculoskeletal: no cyanosis or clubbing, extremities motor strength 5/5 Neurologic: moves all extremities and awake; not confused Psychiatric: A+Ox3, euthymic affect Genitourinary: no CVA tenderness Results & Data Results & Data ([facility]) Vital Signs (Past 12 Hours) Vital Signs Temp Pulse Resp BP BP Pulse Ox 09/25/20 07:13 36.8 C 80 16 117/73 94 09/25/20 01:30 36.8 C 83 16 102/63 94 09/25/20 01:19 20 105/64 94 09/25/20 01:03 37.6 C H 09/25/20 00:30 92 PG Care Time/CCT Total # of Minutes Spent Total Time Spent with Patient: Total time spent is greater than 50% in coordination of care (as documented) at patient's floor/unit and/or counseling patient: Coding Level of Care Code 44396 Subseq Obs Care Lvl 2 Diagnoses Pyelonephritis N12 Gram-negative bacteremia R78.81 UTI (urinary tract infection) N39.0 Hematuria presence: without hematuria Urinary tract infection type: site unspecified Type 2 diabetes mellitus E11.9 Diabetes mellitus complication status: without complication Diabetes mellitus prison insulin use: without ocean transportation intermediary use Hypertension I10 Hypertension type: essential hypertension Hyperlipidemia E78.5 Hyperlipidemia type: unspecified Nephrolithiasis N20.0 Hypokalemia E87.6 (1) UTI (urinary tract infection) Hematuria presence: without hematuria Urinary tract infection type: site unspecified Qualified Code(s): N39.0 - Urinary tract infection, site not specified (2) Type 2 diabetes mellitus Diabetes mellitus complication status: without complication Diabetes mellitus ocean transportation intermediary insulin use: without ocean transportation intermediary use Qualified Code(s): E11.9 - Type 2 diabetes mellitus without complications (3) Hyperlipidemia Hyperlipidemia type: unspecified Qualified Code(s): E78.5 - Hyperlipidemia, unspecified (4) Hypertension Hypertension type: essential hypertension Qualified Code(s): I10 - Essential (primary) hypertension
[2020-09-25] MEDS ORDERED: cefTRIAXone SODIUM 2,000 MG in DEXTROSE 5% 50 ML IV SCH (22:00)
--- NOTE | 2020-09-26 08:11 | Urology Progress Note ---
Date of Service September 26, 2020 Assessment & Plan (1) UTI (urinary tract infection): (2) Pyelonephritis: 54 year-old female patient admitted with fever and abdominal pain secondary to complicated UTI/pyelonephritis/pyelitis. -Patient subjectively feeling better today. -She is afebrile, VSS, non-toxic appearing. -No new labs at time of exam this morning. -Urine culture final with E.coli, stewart sensitive. -Preliminary blood cultures positive for gram negative bacilli, repeat blood cultures pending. -No acute intervention indicated at this time. -Recommend continue supportive care and antibiotic therapy, follow cultures. -Will likely require at least 10-14 days of antibiotic therapy. -Outpatient follow-up with urology service scheduled on 10/05/20, recommend keeping this appointment. Thank you for allowing us to participate in the acute care of Ms. Mortensen. Please reconsult us with additional questions, concerns or changes in patient status. Admission and Anticipated Discharge Date Admission Date: September 24, 2020 Subjective Patient examined at bedside this AM. Awake, resting in bed on arrival. Patient reports feeling better since admission. She does c/o a headache this morning and generalized lower abdominal discomfort. She denies flank and back pain. Denies hematuria and dysuria. Some urinary urge/freq. Feels she empties her bladder well. Denies fevers or chills. Tolerating diet, no nausea or vomiting. Chart review: Afebrile, VSS. On IV Ceftriaxone. No additional complaints today Review of Systems Constitutional: as per Subjective / HPI Gastrointestinal: as per Subjective / HPI Genitourinary: as per Subjective / HPI Physical Exam Constitutional: well developed and well nourished; no acute distress and not ill appearing Respiratory: normal respiratory effort and able to speak in complete sentences; no labored breathing Gastrointestinal (Abdomen): Inspection/Auscultation: abdomen normal to inspection; abdomen not distended Percussion/Palpation: + abdomen tender (Diffuse lower abdomen) and abdomen soft; no guarding and abdomen not rigid Skin: No visible rashes or lesions to exposed skin areas. Neurologic: awake Psychiatric: A+Ox3, euthymic affect Genitourinary: no CVA tenderness Results & Data ([facility]) Vital Signs (Past 12 Hours) Vital Signs Temp Pulse Resp BP Pulse Ox 09/26/20 07:20 36.9 C 82 16 116/71 92 09/25/20 22:53 36.7 C 68 18 109/68 94 PG Care Time/CCT Total # of Minutes Spent Total Time Spent with Patient: Total time spent is greater than 50% in coordination of care (as documented) at patient's floor/unit and/or counseling patient: Coding Level of Care Code 08814 Subseq Hosp Care Lvl 2 Diagnoses UTI (urinary tract infection) N39.0 Hematuria presence: without hematuria Urinary tract infection type: site unspecified Pyelonephritis N12 (1) UTI (urinary tract infection) Hematuria presence: without hematuria Urinary tract infection type: site unspecified Qualified Code(s): N39.0 - Urinary tract infection, site not specified
[2020-09-26] MEDS: INSULIN ASPART 100 UNITS/ML 3 ML PEN SC SCH ×2 (09:06→12:55)
[2020-09-26] MEDS: ATORVASTATIN 10 MG TAB PO SCH (09:07)
[2020-09-26] MEDS: INSULIN GLARGINE SOLOSTAR 100 UNITS/ML 3 ML PEN SC SCH (09:07)
[2020-09-26] MEDS: ASPIRIN 81 MG ECTAB PO SCH (09:07)
[2020-09-26] MEDS: POTASSIUM CHLORIDE CRTAB 20 MEQ TABCR PO SCH (09:08)
[2020-09-26] MEDS: lisinopril 10 MG TAB PO SCH (09:08)
[2020-09-26] MEDS ORDERED: cefTRIAXone SODIUM 2,000 MG in DEXTROSE 5% 50 ML IV SCH (09:45)
[2020-09-26] MEDS: METOPROLOL TARTRATE 25 MG TAB PO SCH (09:51)
[2020-09-26 10:48] LABS: Estimated Average Glucose 163 mg/dl; Hemoglobin A1C 7.3 % (4.5-5.6)
[2020-09-26] MEDS: ACETAMINOPHEN 325 MG TAB PO PRN (10:48)
--- NOTE | 2020-09-26 14:26 | Discharge Summary ---
Date of Service September 26, 2020 Admission HPI Per Admitting Provider Marylin Mortensen is a pleasant 54yo C female with history of HTN, HLP, DM and GERD presenting with fever and abdominal pain. Patient has history of prior nephrolithiasis. She developed some lower abdominal pain last week and had an x-ray performed on 09/21 which revealed increase in size of bilateral renal calculi. She was instructed to seek medical care should she develop a fever. Patient developed a fever this morning and came to the ER. Febrile on arrival at 38. HD stable. Was administered IV Toradol and Tylenol. Patient reports ongoing lower abdominal pain as well as decreased urination and urge incontinence. She denies dysuria, hematuria, nausea, vomiting, diarrhea or constipation. No additional complaints at this time. ER Course: Ceftriaxone, Toradol, NSS Admission Exam Per Admitting Provider General: patient resting comfortably, NAD, non-toxic in appearance, AA&O x 4 Skin: warm, dry, intact, no rashes or lesions HEENT: NC/AT, PERRL, EOMI, anicteric sclera, conjunctiva without injection, external ear normal to inspection and nontender, nares patent, moist mucus membranes, dentition intact, no oropharyngeal lesions, neck supple, trachea midline, no LAD, no thyromegaly, no JVD Heart: +S1/S2, regular, no m/r/g Lungs: equal air entry bilaterally, no rales/rhonchi/wheezes Abd: +BS, soft, ND, tender in lower abdomen with no rebound/guarding/peritoneal signs, no masses/organomegaly/ascites Ext: warm, 2+ pulses in UE/LE bilaterally, no clubbing/cyanosis or edema Neuro: nonfocal, patient AA&O x 4, speech intact, no facial droop, moving all extremities on command with equal strength 5/5 Principal Diagnosis E. coli pyelonephritis Gram negative bacteremia Discharge Exam Constitutional WD/WN, vitals as above Eyes + anicteric sclerae; normal pupil size Neck trachea midline, no thyromegaly Respiratory normal respiratory effort, lungs clear to auscultation Cardiovascular RRR, no murmur, no edema Gastrointestinal (Abdomen) normal bowel sounds, soft, nontender, no hepatosplenomegaly Musculoskeletal no cyanosis or clubbing, extremities motor strength 5/5 Neurologic moves all extremities and awake; not confused Psychiatric A+Ox3, euthymic affect Genitourinary no CVA tenderness Discharge Data Allergies Allergy/AdvReac Type Severity Reaction Status Date / Time No Known Allergies Allergy Verified 06/28/20 08:41 Consultations 09/24/20 23:04 ED Decision to Admit Stat 09/25/20 10:01 Consult Urology Routine Ordered Studies 09/24/20 20:23 CT abd pelvis IV con only Urgent Hospital Course (1) Pyelonephritis: Marylin Pino is a 55 year old female admitted to [facility] from September 24-2020 due to fever and abdominal pain. She was diagnosed with pyelonephritis and E. coli bacteremia treated with IV ceftriaxone switched to Bactrim on discharge for total 14 day course of antibiotics. Please follow up with urology as previously arranged on 10/05/20. HTN - low normal during her inpatient stay while off HCTZ. Recommended reducing this from 50 -> 25mg PO daily on discharge. T2DM - HbA1C 7.3. Recommend increasing metformin to 1000mg PO BID. (2) Gram-negative bacteremia: (3) UTI (urinary tract infection): (4) Type 2 diabetes mellitus: (5) Hypertension: (6) Hyperlipidemia: (7) Nephrolithiasis: (8) Hypokalemia: Total Time Total Time Spent Total Time Spent (In Minutes): 35 Discharge Plan Discharge Items Patient Disposition: Home - Self-Care Reason For Visit: UTI, LOWER ABD PAIN, STONES Discharge Diagnosis: E. coli pyelonephritis Gram negative bacteremia Condition on Discharge: Good Activity: Resume your previous activity Non-emergency contact: Primary Care Provider Call non-emergency contact if: you have any medication questions and your symptoms worsen Follow-up/Referrals: Miryam Tapia CRNP [Primary Care Provider] - 10/10/20 9:30 am (2 weeks for blood pressure check) Diet: Carb Consistent or DM2 Addtl Attending Provider Instructions: You were admitted to [facility] from September 24-2020 due to fever and abdominal pain. You were diagnosed with pyelonephritis (kidney infection) and treated with intravenous ceftriaxone during your inpatient stay. Subsequent blood culture also positive (suspect this is also E. coli but is outstanding on discharge). Recommend switching to oral Bactrim for remainder of antibiotic course for a total of 2 weeks. Please follow up with urology as previously arranged on 10/05/20. Due to low normal blood pressure off your usual hydrochlorothiazide recommend reducing this in half and following up with your primary care physician in approximately 2 weeks to see if you need to increase this in favor of your lisinopril to help with kidney stones. Regarding your diabetes HbA1C 7.3. Recommend increasing metformin to 1000mg PO BID. Pending Studies at Discharge: Yes Stand-Alone Forms: My [facility], Smoking Cessation Medications and DC Order Prescriptions: New sulfamethoxazole-trimethoprim [Bactrim DS] 800-160 mg tablet 1 tab PO BID 12 Days Qty: 24 RF: 0 hydrochlorothiazide 25 mg tablet 25 mg PO DAILY Qty: 30 RF: 0 Continued lisinopril 10 mg tablet 10 mg PO QAM Qty: 90 RF: 3 atorvastatin 10 mg tablet 10 mg PO QAM Qty: 90 RF: 1 metoprolol tartrate 25 mg tablet 25 mg PO BID Qty: 180 RF: 3 potassium citrate 15 mEq tablet extended release 15 meq PO DAILY Qty: 90 RF: 3 famotidine 20 mg tablet 20 mg PO DAILY PRN (Reason: acid reflux) Qty: 10 RF: 2 aspirin 81 mg Tablet,Delayed Release (Dr/Ec) 81 mg PO QAM RF: 0 Centrum Women 18-400 mg-mcg Tablet 1 tab PO QAM RF: 0 omega [id number] oil [Fish Oil] 1,000 mg (120 mg-180 mg) Capsule 1 cap PO QAM RF: 0 cholecalciferol (vitamin D3) [Vitamin D3] 2,000 unit Tablet 2,000 unit PO QAM RF: 0 hydrocodone-acetaminophen 5-325 mg tablet 1 tab PO Q6H PRN (Reason: pain) Qty: 20 RF: 0 ibuprofen [Advil] 200 mg Tablet 200 mg PO Q6H PRN (Reason: Pain) RF: 0 Changed metformin 500 mg tablet 1,000 mg PO BID Qty: 180 RF: 3 Discontinued hydrochlorothiazide 50 mg tablet 50 mg PO QAM Qty: 90 RF: 3 Discharge Orders: Discharge Order (Routine); Ordered 09/26/20 Ordered By: Damien Allen/Other Patient Handouts: Managing Type 2 Diabetes, A1C Admission Data Admit Date/Time: 09/24/20 23:35 Attending Provider: Damien Easton Admit Provider: Sonia Keyes Primary Care Provider: Miryam Tapia Other Providers: Nayan Smart Other Interventions: Discharge Summary Assessment (RN) Last Done: 09/26/20 14:45 Coding Level of Care Code D/C Day Management >30 mins Diagnoses Pyelonephritis N12 Gram-negative bacteremia R78.81 UTI (urinary tract infection) N39.0 Hematuria presence: without hematuria Urinary tract infection type: site unspecified Type 2 diabetes mellitus E11.9 Diabetes mellitus complication status: without complication Diabetes mellitus senior living insulin use: without senior living use Hypertension I10 Hypertension type: essential hypertension Hyperlipidemia E78.5 Hyperlipidemia type: unspecified Nephrolithiasis N20.0 Hypokalemia E87.6
== END 2020-09-26 16:20 | disposition home or self-care (01) | DRG 690 ==
LOC: 3N 20:01 → ED 20:01 → SUATTDRO 23:35 → 3N 09-25 01:14
DX: E11.9 Type 2 diabetes mellitus without complications; Z79.899 Other long term (current) drug therapy; R78.81 Bacteremia; E87.6 Hypokalemia; Z79.84 Long term (current) use of oral hypoglycemic drugs; Z87.442 Personal history of urinary calculi; E78.5 Hyperlipidemia, unspecified; I10 Essential (primary) hypertension; B96.20 Unspecified Escherichia coli [E. coli] as the cause of diseases classified elsewhere; Z79.82 Long term (current) use of aspirin; N20.0 Calculus of kidney; N12 Tubulo-interstitial nephritis, not specified as acute or chronic